=== PATIENT | female | born 1960 | race Caucasian/White ===

== ENCOUNTER 2019-11-13 09:48 | Inpatient (IN) | payer OTHER ==
[~2019-11-13] VITALS: Ht 167.6 cm; Wt 67.0 kg
[2019-11-13 10:25] LABS: BASO % 1 % (0-3); EOS % 1 % (0-3); HEMATOCRIT 42.8 % (36.0-47.0); LYMPH # 1.7 x10^3/uL (1.0-4.8); LYMPH % 28 % (24-48); MEAN CORPUSCULAR HEMOGLOBIN 29 pg (25-35); MEAN CORPUSCULAR HGB CONC 35 g/dL (31-37); MEAN CORPUSCULAR VOLUME 83 fL (79-100); MONO # 0.4 x10^3/uL (0.0-1.1); MONO % 6 % (0-9); NEUT # 4.1 x10^3/uL (1.8-7.7); NEUT % 65 % (31-73); PLATELET COUNT 247 x10^3/uL (140-400); RED BLOOD COUNT 5.14 x10^6/uL (3.50-5.40); RED CELL DISTRIBUTION WIDTH 15.9 % (11.5-14.5); WHITE BLOOD COUNT 6.3 x10^3/uL (4.0-11.0)
[2019-11-13 10:29] LABS: ANION GAP 21 (6-14); BLOOD UREA NITROGEN 20 mg/dL (7-20); BUN/CREATININE RATIO 29 (6-20); CALCIUM 8.3 mg/dL (8.5-10.1); CARBON DIOXIDE 14 mmol/L (21-32); CHLORIDE 94 mmol/L (98-107); CREATININE 0.7 mg/dL (0.6-1.0); GFR 85.9; GLUCOSE 477 mg/dL (70-99); POTASSIUM 3.7 mmol/L (3.5-5.1); SODIUM 129 mmol/L (136-145)
[2019-11-13 10:36] LABS: ALBUMIN 3.6 g/dL (3.4-5.0); ALK PHOS 99 U/L (46-116); TOTAL BILIRUBIN 1.1 mg/dL (0.2-1.0)
[2019-11-13 10:55] LABS: ALBUMIN/GLOBULIN RATIO 1.1 (1.0-1.7)
[2019-11-13 11:27] LABS: BILIRUBIN,URINE NEGATIVE (NEG); CLARITY,URINE CLEAR; COLOR,URINE YELLOW; NITRITE,URINE NEGATIVE (NEG); PROTEIN,URINE NEGATIVE (NEG-TRACE); UROBILINOGEN,URINE 0.2 mg/dL (0.2 mg/dL)
[2019-11-13 11:30] LABS: SQUAMOUS EPITHELIAL CELL,UR OCC /LPF
[2019-11-13] MEDS ORDERED: IOHEXOL 240 MG/ML 50ML VIAL. PO ONE (11:30)
[2019-11-13] MEDS ORDERED: CONTRAST GIVEN. MC PRN (11:30)
[2019-11-13] MEDS ORDERED: IOHEXOL 300 MG/ML 100ML VIAL. IV ONE (11:30)
[2019-11-13 11:31] LABS: BACTERIA,URINE 0 /HPF (0-FEW); RBC,URINE OCC /HPF (0-2); WBC,URINE 0 /HPF (0-4)
[2019-11-13 11:33] LABS: LIPASE 14591 U/L (73-393)
[2019-11-13] MEDS ORDERED: IV NORMAL SALINE 1000ML BAG 1,000 ML IV ONE (12:15)
[2019-11-13] MEDS ORDERED: MORPHINE SULFATE 10 MG/ML VIAL. IV ONE ×2 (12:30→13:45)
--- NOTE | 2019-11-13 12:50 | RAD ---
Examination: CT ABD PELV W/ORAL IV CONTRAST History: Mid abdominal pain Comparison/Correlation: 01/08/2009 CT abdomen and pelvis without contrast Findings: Axial images of the abdomen and pelvis were obtained following IV and oral contrast. Sagittal and coronal reformatted images were provided. Mild bibasilar costophrenic sulcus atelectasis is present. Bilateral carotid cholecystectomy noted. Liver and spleen are unremarkable. At the inferior tip of the right hepatic lobe, there is a very small to characterize low-attenuation lesion which is present on axial image 49. This may represent a cyst or other benign process. Stranding about the pancreas with surrounding edema is noted. Edema extends along the left lateral conal fascia. Low-attenuation involving the distal duodenum on axial image 49 is present measuring 0.6 cm diameter. Within the right proximal jejunum on coronal image 23, there is a linear fat attenuation structure measuring 2.1 cm x 0.4 cm. These have the appearance of benign lipomas. There is no bowel obstruction. No extraluminal gas. Moderate quantity of stool in the colon is present. Appendix is normal. No inflammatory change about the cecum. Urinary bladder is unremarkable. Lower lumbar spine facet joint degenerative remodeling is present. Transitional L5 vertebra is present. Hysterectomy noted. Impression: Findings of acute pancreatitis. No loculated collections. No biliary dilatation. 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 PQRS Compliance Statement: One or more of the following individualized dose reduction techniques were utilized for this examination: 1. Automated exposure control 2. Adjustment of the mA and/or kV according to patient size 3. Use of iterative reconstruction technique Electronically signed by: Mauro Barfield MD (11/13/2019 12:47 PM) [id number]
--- NOTE | 2019-11-13 13:37 | PDOC1 ---
History and Physical Date of Admission Date of Admission DATE: 11/13/19 TIME: 13:30 Identification/Chief Complaint Chief Complaint Nausea, vomiting, abdominal pain Source Source: Patient History of Present Illness History of Present Illness Ms Fernandez is a 59yo F [employer] w/ PMHx celiac disease, adult onset stills disease, Anemia, Asthma, CHERIE on CPAP, GERD who presents with severe upper abdominal pain, nausea, vomiting, fatigue. 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 She only had oatmeal for breakfast. She has never had anything similar to this in the past. She generally feels unwell. She is not had any fever, diarrhea, chest pain, shortness of breath, dysuria, hematuria, blood in her stools. She denies alcohol abuse. Pain does not move anywhere. Nothing seems to make it better or worse. She has not tried anything at home. He does not drink alcohol, and is status post cholecystect amena. No calcium disorders. She takes 20mg methotrexate weekly on Fridays and is on 3 mg of chronic prednisone for her stills disease. She was diagnosed with celiac disease June 2019 and has just recently started on a gluten-free diet. No recent sick contacts that she can recall. Labs significant for lipase 73413, glucose 477, NA 129, bilirubin 1.1, Calcium 8.3, K 3.7, WBC 6.3, Hb 15, Platelets 247 CT abdomen pelvis shows surgically absent gallbladder and surgically absent uterus and describes duodenal and jejunal intraluminal lipomas. Findings of acute pancreatitis. No loculated collections. No biliary dilatation. Admitted for further treatment. Past Medical History Pulmonary: Asthma, Other (CHERIE on CPAP) GI: GERD, Other (Celiac disease) Heme/Onc: Anemia NOS Rheumatologic: Other (Stills disease) Dermatology: No pertinent hx Past Surgical History Past Surgical History: Cholecystectomy, Hysterectomy, Other (Bilateral bunionectomy, right shoulder arthroscopy) Family History Family History: Diabetes Social History Smoke: Quit ALCOHOL: none Drugs: None Current Medications Current Medications Current Medications Iohexol (Omnipaque 300 Mg/ml) 75 ml 1X ONCE IV Last administered on 11/13/19at 11:30; Start 11/13/19 at 11:30; Stop 11/13/19 at 11:31; Status DC Iohexol (Omnipaque 240 Mg/ml) 50 ml 1X ONCE PO Last administered on 11/13/19at 11:30; Start 11/13/19 at 11:30; Stop 11/13/19 at 11:31; Status DC Info (CONTRAST GIVEN -- Rx MONITORING) 1 each PRN DAILY PRN MC SEE COMMENTS; Start 11/13/19 at 11:30; Stop 11/15/19 at 11:29 Sodium Chloride 1,000 ml @ 0 mls/hr 1X ONCE IV Last administered on 11/13/19at 12:27; Start 11/13/19 at 12:15; Stop 11/13/19 at 12:16; Status DC Morphine Sulfate (Morphine Sulfate) 5 mg 1X ONCE IV Last administered on 11/13/19at 12:45; Start 11/13/19 at 12:30; Stop 11/13/19 at 12:33; Status DC Allergies Allergies: Coded Allergies: coconut (Verified Allergy, Intermediate, HIVES, 11/13/19) ROS General: YES: Fatigue, Malaise; No: Chills, Night Sweats, Appetite, Other PSYCHOLOGICAL ROS: No: Anxiety, Behavioral Disorder, Concentration difficultie, Decreased libido, Depression, Disorientation, Hallucinations, Hostility, Irritablity, Memory difficulties, Mood Swings, Obsessive thoughts, Physical abuse, Sexual abuse, Sleep disturbances, Suicidal ideation, Other Eyes: No Blurry vision, No Decreased vision, No Double vision, No Dry eyes, No Excessive tearing, No Eye Pain, No Itchy Eyes, No Loss of vision, No Photophobia, No Scotomata, No Uses contacts, No Uses glasses, No Other HEENT: No: Heacaches, Visual Changes, Hearing change, Nasal congestion, Nasal discharge, Oral lesions, Sinus pain, Sore Throat, Epistaxis, Sneezing, Snoring, Tinnitus, Vertigo, Vocal changes, Other ALLERGY AND IMMUNOLOGY: No: Hives, Insect Bite Sensitivity, Itchy/Watery Eyes, Nasal Congestion, Post Nasal Drip, Seasonal Allergies, Other Hematological and Lymphatic: No: Bleeding Problems, Blood Clots, Blood Transfusions, Brusing, Night Sweats, Pallor, Swollen Lymph Nodes, Other ENDOCRINE: No: Breast Changes, Galactorrhea, Hair Pattern Changes, Hot Flashes, Malaise/lethargy, Mood Swings, Palpitations, Polydipsia/polyuria, Skin Changes, Temperature Intolerance, Unexpected Weight Changes, Other Breast: No New/Changing Breast Lumps, No Nipple changes, No Nipple discharge, No Other Respiratory: No: Cough, Hemoptysis, Orthopnea, Pleuritic Pain, Shortness of breath, SOB with excertion, Sputum Changes, Stridor, Tachypnea, Wheezing, Other Cardiovascular: No Chest Pain, No Palpitations, No Orthopnea, No Paroxysmal Noc. Dyspnea, No Edema, No Lt Headedness, No Other Gastrointestinal: Yes Nausea, Yes Vomiting, Yes Abdominal Pain; No Diarrhea, No Constipation, No Melena, No Hematochezia, No Other Genitourinary: No Dysuria, No Frequency, No Incontinence, No Hematuria, No Retention, No Discharge, No Urgency, No Pain, No Flank Pain, No Other, No , No , No , No , No , No , No Musculoskeletal: No Gait Disturbance, No Joint Pain, No Joint Stiffness, No Joint Swelling, No Muscle Pain, No Muscular Weakness, No Pain In:, No Swelling In:, No Other Neurological: No Behavorial Changes, No Bowel/Bladder ControlChng, No Confusion, No Dizziness, No Gait Disturbance, No Headaches, No Impaired Coord/balance, No Memory Loss, No Numbness/Tingling, No Seizures, No Speech Problems, No Tremors, No Visual Changes, No Weakness, No Other Skin: No Dry Skin, No Eczema, No Hair Changes, No Lumps, No Mole Changes, No Mottling, No Nail Changes, No Pruritus, No Rash, No Skin Lesion Changes, No Other, No Acne Physical Exam General: Alert, Oriented X3, Cooperative, moderate distress HEENT: Atraumatic, PERRLA, EOMI, Mucous membr. moist/pink Lungs: Clear to auscultation, Normal air movement Heart: S1S2, RRR, no thrills, no rubs, no gallops, no murmurs Abdomen: Normal bowel sounds, Soft, No hepatosplenomegaly, No masses, Other (Diffuse tenderness) Rectal Exam: not examined Extremities: No clubbing, No cyanosis, No edema, Normal pulses, No tenderness/swelling Skin: No rashes, No breakdown, No significant lesion Neuro: Normal gait, Normal speech, Strength at 5/5 X4 ext, Normal tone, Sens ation intact, Cranial nerves 3-12 NL, Reflexes 2+ Psych/Mental Status: Mental status NL, Mood NL Vitals Vitals Vital Signs Date Time Temp Pulse Resp B/P (MAP) Pulse Ox O2 Delivery O2 Flow Rate FiO2 11/13/19 12:45 19 94 Room Air 11/13/19 11:52 78 138/79 (98) 11/13/19 09:48 97.4 97.4 Labs Labs Laboratory Tests Test 11/13/19 10:00 11/13/19 11:17 White Blood Count 6.3 x10^3/uL (4.0-11.0) Red Blood Count 5.14 x10^6/uL (3.50-5.40) Hemoglobin 15.0 g/dL (12.0-15.5) Hematocrit 42.8 % (36.0-47.0) Mean Corpuscular Volume 83 fL (79-100) Mean Corpuscular Hemoglobin 29 pg (25-35) Mean Corpuscular Hemoglobin Concent 35 g/dL (31-37) Red Cell Distribution Width 15.9 % (11.5-14.5) Platelet Count 247 x10^3/uL (140-400) Neutrophils (%) (Auto) 65 % (31-73) Lymphocytes (%) (Auto) 28 % (24-48) Monocytes (%) (Auto) 6 % (0-9) Eosinophils (%) (Auto) 1 % (0-3) Basophils (%) (Auto) 1 % (0-3) Neutrophils # (Auto) 4.1 x10^3/uL (1.8-7.7) Lymphocytes # (Auto) 1.7 x10^3/uL (1.0-4.8) Monocytes # (Auto) 0.4 x10^3/uL (0.0-1.1) Eosinophils # (Auto) 0.0 x10^3/uL (0.0-0.7) Basophils # (Auto) 0.0 x10^3/uL (0.0-0.2) Sodium Level 129 mmol/L (136-145) Potassium Level 3.7 mmol/L (3.5-5.1) Chloride Level 94 mmol/L (98-107) Carbon Dioxide Level 14 mmol/L (21-32) Anion Gap 21 (6-14) Blood Urea Nitrogen 20 mg/dL (7-20) Creatinine 0.7 mg/dL (0.6-1.0) Estimated GFR (Cockcroft-Gault) 85.9 BUN/Creatinine Ratio 29 (6-20) Glucose Level 477 mg/dL (70-99) Calcium Level 8.3 mg/dL (8.5-10.1) Total Bilirubin 1.1 mg/dL (0.2-1.0) Aspartate Amino Transf (AST/SGOT) U/L (15-37) Alanine Aminotransferase (ALT/SGPT) U/L (14-59) Alkaline Phosphatase 99 U/L (46-116) Total Protein 7.0 g/dL (6.4-8.2) Albumin 3.6 g/dL (3.4-5.0) Albumin/Globulin Ratio 1.1 (1.0-1.7) Lipase 50700 U/L (73-393) Urine Collection Type Unknown Urine Color Yellow Urine Clarity Clear Urine pH 6.0 (<5.0-8.0) Urine Specific Ripton >=1.030 (1.000-1.030) Urine Protein Negative mg/dL (NEG-TRACE) Urine Glucose (UA) >=1000 mg/dL (NEG) Urine Ketones (Stick) 40 mg/dL (NEG) Urine Blood Negative (NEG) Urine Nitrite Negative (NEG) Urine Bilirubin Negative (NEG) Urine Urobilinogen Dipstick 0.2 mg/dL (0.2 mg/dL) Urine Leukocyte Esterase Negative (NEG) Urine RBC Occ /HPF (0-2) Urine WBC 0 /HPF (0-4) Urine Squamous Epithelial Cells Occ /LPF Urine Bacteria 0 /HPF (0-FEW) Laboratory Tests Test 11/13/19 10:00 11/13/19 11:17 White Blood Count 6.3 x10^3/uL (4.0-11.0) Red Blood Count 5.14 x10^6/uL (3.50-5.40) Hemoglobin 15.0 g/dL (12.0-15.5) Hematocrit 42.8 % (36.0-47.0) Mean Corpuscular Volume 83 fL (79-100) Mean Corpuscular Hemoglobin 29 pg (25-35) Mean Corpuscular Hemoglobin Concent 35 g/dL (31-37) Red Cell Distribution Width 15.9 % (11.5-14.5) Platelet Count 247 x10^3/uL (140-400) Neutrophils (%) (Auto) 65 % (31-73) Lymphocytes (%) (Auto) 28 % (24-48) Monocytes (%) (Auto) 6 % (0-9) Eosinophils (%) (Auto) 1 % (0-3) Basophils (%) (Auto) 1 % (0-3) Neutrophils # (Auto) 4.1 x10^3/uL (1.8-7.7) Lymphocytes # (Auto) 1.7 x10^3/uL (1.0-4.8) Monocytes # (Auto) 0.4 x10^3/uL (0.0-1.1) Eosinophils # (Auto) 0.0 x10^3/uL (0.0-0.7) Basophils # (Auto) 0.0 x10^3/uL (0.0-0.2) Sodium Level 129 mmol/L (136-145) Potassium Level 3.7 mmol/L (3.5-5.1) Chloride Level 94 mmol/L (98-107) Carbon Dioxide Level 14 mmol/L (21-32) Anion Gap 21 (6-14) Blood Urea Nitrogen 20 mg/dL (7-20) Creatinine 0.7 mg/dL (0.6-1.0) Estimated GFR (Cockcroft-Gault) 85.9 BUN/Creatinine Ratio 29 (6-20) Glucose Level 477 mg/dL (70-99) Calcium Level 8.3 mg/dL (8.5-10.1) Total Bilirubin 1.1 mg/dL (0.2-1.0) Aspartate Amino Transf (AST/SGOT) U/L (15-37) Alanine Aminotransferase (ALT/SGPT) U/L (14-59) Alkaline Phosphatase 99 U/L (46-116) Total Protein 7.0 g/dL (6.4-8.2) Albumin 3.6 g/dL (3.4-5.0) Albumin/Globulin Ratio 1.1 (1.0-1.7) Lipase 08488 U/L (73-393) Urine Collection Type Unknown Urine Color Yellow Urine Clarity Clear Urine pH 6.0 (<5.0-8.0) Urine Specific Ripton >=1.030 (1.000-1.030) Urine Protein Negative mg/dL (NEG-TRACE) Urine Glucose (UA) >=1000 mg/dL (NEG) Urine Ketones (Stick) 40 mg/dL (NEG) Urine Blood Negative (NEG) Urine Nitrite Negative (NEG) Urine Bilirubin Negative (NEG) Urine Urobilinogen Dipstick 0.2 mg/dL (0.2 mg/dL) Urine Leukocyte Esterase Negative (NEG) Urine RBC Occ /HPF (0-2) Urine WBC 0 /HPF (0-4) Urine Squamous Epithelial Cells Occ /LPF Urine Bacteria 0 /HPF (0-FEW) Images Images CT abdomen - Mild bibasilar costophrenic sulcus atelectasis is present. Bilateral carotid cholecystectomy noted. Liver and spleen are unremarkable. At the inferior tip of the right hepatic lobe, there is a very small to characterize low-attenuation lesion which is present on axial image 49. This may represent a cyst or other benign process. Stranding about the pancreas with surrounding edema is noted. Edema extends along the left lateral conal fascia. Low-attenuation involving the distal duodenum on axial image 49 is present measuring 0.6 cm diameter. Within the right proximal jejunum on coronal image 23, there is a linear fat attenuation structure measuring 2.1 cm x 0.4 cm. These have the appearance of benign lipomas. There is no bowel obstruction. No extraluminal gas. Moderate quantity of stool in the colon is present. Appendix is normal. No inflammatory change about the cecum. Urinary bladder is unremarkable. Lower lumbar spine facet joint degenerative remodeling is present. Transitional L5 vertebra is present. Hysterectomy noted. Impression: Findings of acute pancreatitis. No loculated collections. No biliary dilatation. 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 VTE Prophylaxis Ordered VTE Prophylaxis Devices: No VTE Pharmacological Prophylaxi: Yes Assessment/Plan Assessment/Plan A/P: Acute pancreatitis - with N/V, abdominal pain and elevated lipase, CT confirmed. Will keep NPO, pain control. IV fluids. Consult GI. Hold methotrexate. 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 Anemia - likely related to chronic disease. Asthma - prn nebs CHERIE on CPAP - can bring her home CPAP vs O2 nocturnal GERD - PPI IV FEN - NPO PPX - lovenox FULL CODE Dispo - inpatient for above GERMÁN BEGUM MD November 13, 2019 13:37
[2019-11-13 14:16] VITALS: BP 126/78
[2019-11-13] MEDS ORDERED: METH2.5T PO (14:27)
[2019-11-13] MEDS ORDERED: FERR325T14 PO (14:27)
[2019-11-13] MEDS ORDERED: PANT40TA77 PO (14:27)
[2019-11-13] MEDS ORDERED: CETI10CA PO (14:27)
[2019-11-13] MEDS ORDERED: FOLI0.8C PO (14:27)
--- NOTE | 2019-11-13 14:41 | PHYS DOC ---
Past Medical History Past Medical History: Anemia, Asthma, GERD, Other Additional Past Medical Histor: CELIAC,ADULT ONSET STILL'S DISEASE Past Surgical History: Cholecystectomy, Hysterectomy, Other Additional Past Surgical Histo: R SHOULDER,BILAT BUNIONECTOMY Smoking Status: Former Smoker Alcohol Use: None General Adult EDM: Chief Complaint: ABDOMINAL PAIN HPI: HPI: Patient is a 59 year old female who presents with severe upper abdominal pain, nausea, vomiting, fatigue. She states this started suddenly this morning while she was working from home on [employer]. She has never had anything similar to this in the past. She generally feels unwell. She is not had any fever, diarrhea, chest pain, shortness of breath, dysuria, hematuria, blood in her stools. She denies alcohol abuse. Pain does not move anywhere. Nothing seems to make it better or worse. She has not tried anything at home. Review of Systems: Review of Systems: General: Denies fever, chills, sweats, fatigue Eyes: Denies drainage, blurred vision HENT: Denies rhinorrhea, sore throat Respiratory: Denies cough, shortness of breath, wheezing Cardiac: Denies edema, palpitations, chest pain GI: Reports abdominal pain, N/V MSK: Denies back pain, neck pain Skin: Denies rash, jaundice Neuro: Denies headache, dizziness Psychiatric: Denies SI/HI Heart Score: Risk Factors: Risk Factors: DM, Current or recent (<one month) smoker, HTN, HLP, family history of CAD, obesity. Risk Scores: Score 0 - 3: 2.5% MACE over next 6 weeks - Discharge Home Score 4 - 6: 20.3% MACE over next 6 weeks - Admit for Clinical Observation Score 7 - 10: 72.7% MACE over next 6 weeks - Early Invasive Strategies Current Medications: Current Medications Medications (Trade) Dose Ordered Sig/Devin Start Time Stop Time Status Last Admin Dose Admin Info (CONTRAST GIVEN -- Rx MONITORING) 1 each PRN DAILY PRN 11/13/19 11:30 11/15/19 11:29 Iohexol (Omnipaque 240 Mg/ml) 50 ml 1X ONCE 11/13/19 11:30 11/13/19 11:31 DC 11/13/19 11:30 50 ML Iohexol (Omnipaque 300 Mg/ml) 75 ml 1X ONCE 11/13/19 11:30 11/13/19 11:31 DC 11/13/19 11:30 75 ML Morphine Sulfate (Morphine Sulfate) 5 mg 1X ONCE 11/13/19 12:30 11/13/19 12:33 DC 11/13/19 12:45 5 MG Sodium Chloride 1,000 ml @ 0 mls/hr 1X ONCE 11/13/19 12:15 11/13/19 12:16 DC 11/13/19 12:27 1,000 MLS/HR Allergies: Allergies: Allergies Coded Allergies Type Severity Reaction Last Updated Verified coconut Allergy Intermediate HIVES 11/13/19 Yes Physical Exam: PE: Constitutional: Well developed, well nourished, Cooperative, NAD, ill appearing HEENT: Normocephalic, atraumatic, oropharynx dry, EOMI, PERRL, no drainage from eyes, normal conjunctiva Neck: Supple, normal range of motion, no stridor Cardiovascular: Tachycardic, 2+ radial pulses bilaterally, no edema Respiratory: CTA bilaterally, no respiratory distress, no wheezing/crackles Abdomen: Soft, epigastric and periumbilical tenderness, nondistended, no masses Skin: Warm, dry, intact Extremities: No obvious deformities Neurologic: Alert and Oriented x3, motor and sensory function grossly normal, no focal deficits Psychologic: Normal affect, normal judgment, normal mood. No SI/HI Current Patient Data: Labs: Laboratory Tests Test 11/13/19 10:00 11/13/19 11:17 White Blood Count 6.3 x10^3/uL (4.0-11.0) Red Blood Count 5.14 x10^6/uL (3.50-5.40) Hemoglobin 15.0 g/dL (12.0-15.5) Hematocrit 42.8 % (36.0-47.0) Mean Corpuscular Volume 83 fL (79-100) Mean Corpuscular Hemoglobin 29 pg (25-35) Mean Corpuscular Hemoglobin Concent 35 g/dL (31-37) Red Cell Distribution Width 15.9 % (11.5-14.5) H Platelet Count 247 x10^3/uL (140-400) Neutrophils (%) (Auto) 65 % (31-73) Lymphocytes (%) (Auto) 28 % (24-48) Monocytes (%) (Auto) 6 % (0-9) Eosinophils (%) (Auto) 1 % (0-3) Basophils (%) (Auto) 1 % (0-3) Neutrophils # (Auto) 4.1 x10^3/uL (1.8-7.7) Lymphocytes # (Auto) 1.7 x10^3/uL (1.0-4.8) Monocytes # (Auto) 0.4 x10^3/uL (0.0-1.1) Eosinophils # (Auto) 0.0 x10^3/uL (0.0-0.7) Basophils # (Auto) 0.0 x10^3/uL (0.0-0.2) Sodium Level 129 mmol/L (136-145) L Potassium Level 3.7 mmol/L (3.5-5.1) Chloride Level 94 mmol/L (98-107) L Carbon Dioxide Level 14 mmol/L (21-32) L Anion Gap 21 (6-14) H Blood Urea Nitrogen 20 mg/dL (7-20) Creatinine 0.7 mg/dL (0.6-1.0) Estimated GFR (Cockcroft-Gault) 85.9 BUN/Creatinine Ratio 29 (6-20) H Glucose Level 477 mg/dL (70-99) H Calcium Level 8.3 mg/dL (8.5-10.1) L Total Bilirubin 1.1 mg/dL (0.2-1.0) H Aspartate Amino Transferase (AST) U/L (15-37) Alanine Aminotransferase (ALT) U/L (14-59) Alkaline Phosphatase 99 U/L (46-116) Total Protein 7.0 g/dL (6.4-8.2) Albumin 3.6 g/dL (3.4-5.0) Albumin/Globulin Ratio 1.1 (1.0-1.7) Lipase 55722 U/L (73-393) H Urine Collection Type Unknown Urine Color Yellow Urine Clarity Clear Urine pH 6.0 (<5.0-8.0) Urine Specific Premier >=1.030 (1.000-1.030) Urine Protein Negative mg/dL (NEG-TRACE) Urine Glucose (UA) >=1000 mg/dL (NEG) Urine Ketones (Stick) 40 mg/dL (NEG) Urine Blood Negative (NEG) Urine Nitrite Negative (NEG) Urine Bilirubin Negative (NEG) Urine Urobilinogen Dipstick 0.2 mg/dL (0.2 mg/dL) Urine Leukocyte Esterase Negative (NEG) Urine RBC Occ /HPF (0-2) Urine WBC 0 /HPF (0-4) Urine Squamous Epithelial Cells Occ /LPF Urine Bacteria 0 /HPF (0-FEW) Laboratory Tests 11/13/19 10:00 Laboratory Tests 11/13/19 10:00 Vital Signs: Vital Signs Date Time Temp Pulse Resp B/P (MAP) Pulse Ox O2 Delivery O2 Flow Rate FiO2 11/13/19 14:16 97.9 92 20 126/78 (94) 95 Room Air 97.9 EKG: EKG: [] Radiology/Procedures: Radiology/Procedures: [] Course & Med Decision Making: Course & Med Decision Making Pertinent Labs and Imaging studies reviewed. (See chart for details) Patient is a 59-year-old female presents to the emergency room complaining of severe abdominal pain, nausea, vomiting. Patient has significant tenderness. She is ill-appearing on exam. Vitals are otherwise stable. Abdominal labs including CBC, LFTs, BMP, lipase, UA were ordered. CT abdomen pelvis was also ordered due to significant tenderness and patient's age. Labs are suggestive of pancreatitis. Patient does have some electrolyte abnormalities and will be given fluids and pain medicine down here in the emergency room. I have discussed the results with her and have recommended admission. Patient is in agreement with plan. She will be admitted for further care. Dragon Disclaimer: Dragon Disclaimer: This electronic medical record was generated, in whole or in part, using a voice recognition dictation system. Departure Departure Impression: Primary Impression: Pancreatitis, acute Additional Impressions: Dehydration Hyperglycemia Disposition: ADMITTED INPATIENT Condition: STABLE Referrals: SIMEON MOORE MD (PCP) RENITA CALI MD November 13, 2019 14:40
[2019-11-13] MEDS ORDERED: ACETAMINOPHEN 650 MG SUPP.RECT. PR PRN (14:45)
[2019-11-13] MEDS ORDERED: DEXTROSE 50% 25 GM / 50ML DISP.SYRIN. IV PRN (14:45)
[2019-11-13] MEDS ORDERED: ALBUTEROL SULFATE 2.5 MG/3 ML NEBU. NEB PRN (15:15)
[2019-11-13] MEDS ORDERED: SODIUM CHLORIDE 0.65% NASAL SPRAY 45ML BOTTLE. NS PRN (15:15)
[2019-11-13] MEDS: methylPREDNISolone SOD SUCC PF 40 MG/ML VIAL. IV SCH (15:49)
[2019-11-13] MEDS: IV NORMAL SALINE 1000ML BAG 1,000 ML IV SCH (15:49)
[2019-11-13] MEDS: ENOXAPARIN 40 MG/0.4 ML SYRINGE. SQ SCH (15:50)
[2019-11-13 15:51] LABS: CHOLESTEROL 418 mg/dL (0-200)
[2019-11-13] MEDS: MORPHINE SULFATE 4 MG/ML VIAL. IV PRN ×3 (15:56→23:10)
[2019-11-13 16:30] LABS: TRIGLYCERIDES 3252 mg/dL (0-150); VLDLC 650 mg/dL (0-40)
[2019-11-13] MEDS: INSULIN LISPRO 300 UNITS/3 ML VIAL. SQ SCH ×2 (16:52→20:00)
[2019-11-13] MEDS: INSULIN REGULAR VIAL 100 UNIT in IV NORMAL SALINE 100ML 100 ML IV PRN (18:13)
[2019-11-13 19:31] VITALS: BP 117/64
[2019-11-13 22:40] VITALS: BP 111/56
[2019-11-14] VITALS (7 sets, daily range): BP systolic 106–135; BP diastolic 58–77
[2019-11-14] MEDS: IV NORMAL SALINE 1000ML BAG 1,000 ML IV SCH ×2 (02:02→12:17)
[2019-11-14] MEDS: MORPHINE SULFATE 4 MG/ML VIAL. IV PRN ×3 (02:10→09:09)
[2019-11-14] MEDS: INSULIN REGULAR VIAL 100 UNIT in IV NORMAL SALINE 100ML 100 ML IV PRN (02:12)
[2019-11-14] MEDS: INSULIN LISPRO 300 UNITS/3 ML VIAL. SQ SCH ×6 (03:30→20:28)
[2019-11-14 04:10] LABS: BASO % 1 % (0-3); EOS % 0 % (0-3); HEMATOCRIT 40.4 % (36.0-47.0); HEMOGLOBIN 13.8 g/dL (12.0-15.5); LYMPH # 0.8 x10^3/uL (1.0-4.8); LYMPH % 17 % (24-48); MEAN CORPUSCULAR HEMOGLOBIN 28 pg (25-35); MEAN CORPUSCULAR HGB CONC 34 g/dL (31-37); MEAN CORPUSCULAR VOLUME 83 fL (79-100); MONO # 0.7 x10^3/uL (0.0-1.1); MONO % 16 % (0-9); NEUT # 2.9 x10^3/uL (1.8-7.7); NEUT % 66 % (31-73); PLATELET COUNT 217 x10^3/uL (140-400); RED BLOOD COUNT 4.87 x10^6/uL (3.50-5.40); RED CELL DISTRIBUTION WIDTH 16.2 % (11.5-14.5); WHITE BLOOD COUNT 4.5 x10^3/uL (4.0-11.0)
[2019-11-14 04:52] LABS: ALBUMIN 2.9 g/dL (3.4-5.0); ALBUMIN/GLOBULIN RATIO 0.8 (1.0-1.7); CALCIUM 7.8 mg/dL (8.5-10.1); CREATININE 0.8 mg/dL (0.6-1.0); GFR 73.7; POTASSIUM 4.2 mmol/L (3.5-5.1); TOTAL BILIRUBIN 0.8 mg/dL (0.2-1.0); TOTAL PROTEIN 6.4 g/dL (6.4-8.2)
[2019-11-14 07:14] LABS: HEMOGLOBIN A1C 13.6 % (4.8-5.6)
[2019-11-14] MEDS: methylPREDNISolone SOD SUCC PF 40 MG/ML VIAL. IV SCH (09:10)
--- NOTE | 2019-11-14 09:39 | PDOC2 ---
CONSULT Date of Consult Date of Consult DATE: 11/14/19 TIME: 09:38 Reason for Consult Reason for Consult: Acute pancreatitis s/p rosalina Past Medical History Pulmonary: Asthma, Other (CHERIE on CPAP) GI: GERD, Other (Celiac disease) Heme/Onc: Anemia NOS Rheumatologic: Other (Stills disease) Dermatology: No pertinent hx Past Surgical History Past Surgical History: Cholecystectomy, Hysterectomy, Other (Bilateral bunionectomy, right shoulder arthroscopy) Family History Family History: Diabetes Social History Quit ALCOHOL: none Drugs: None Current Problem List Problem List Problems Medical Problems: (1) Dehydration Status: Acute (2) Hyperglycemia Status: Acute (3) Pancreatitis, acute Status: Acute Current Medications Current Medications Current Medications Iohexol (Omnipaque 300 Mg/ml) 75 ml 1X ONCE IV Last administered on 11/13/19at 11:30; Start 11/13/19 at 11:30; Stop 11/13/19 at 11:31; Status DC Iohexol (Omnipaque 240 Mg/ml) 50 ml 1X ONCE PO Last administered on 11/13/19at 11:30; Start 11/13/19 at 11:30; Stop 11/13/19 at 11:31; Status DC Info (CONTRAST GIVEN -- Rx MONITORING) 1 each PRN DAILY PRN MC SEE COMMENTS; Start 11/13/19 at 11:30; Stop 11/15/19 at 11:29 Sodium Chloride 1,000 ml @ 0 mls/hr 1X ONCE IV Last administered on 11/13/19at 12:27; Start 11/13/19 at 12:15; Stop 11/13/19 at 12:16; Status DC Morphine Sulfate (Morphine Sulfate) 5 mg 1X ONCE IV Last administered on 11/13/19at 12:45; Start 11/13/19 at 12:30; Stop 11/13/19 at 12:33; Status DC Morphine Sulfate (Morphine Sulfate) 5 mg 1X ONCE IV ; Start 11/13/19 at 13:45; Stop 11/13/19 at 13:46; Status DC Morphine Sulfate (Morphine Sulfate) 4 mg PRN Q2HR PRN IV MODERATE TO SEVERE PAIN Last administered on 11/14/19at 09:09; Start 11/13/19 at 14:45 Sodium Chloride 1,000 ml @ 100 mls/hr Q10H IV Last administered on 11/14/19at 02:02; Start 11/13/19 at 14:44 Ondansetron HCl (Zofran) 4 mg PRN Q4HRS PRN IV NAUSEA/VOMITING; Start 11/13/19 at 14:45 Acetaminophen (Tylenol Supp) 650 mg PRN Q4HRS PRN CO TEMP OVER 100.4F OR MILD PAIN; Start 11/13/19 at 14:45 Enoxaparin Sodium (Lovenox 40mg Syringe) 40 mg Q24H SQ Last administered on 11/13/19at 15:50; Start 11/13/19 at 15:00 Insulin Human Lispro (HumaLOG) 0-9 UNITS Q4HRS SQ Last administered on 11/14/19at 09:16; Start 11/13/19 at 16:00 Dextrose (Dextrose 50%-Water Syringe) 12.5 gm PRN Q15MIN PRN IV SEE COMMENTS; Start 11/13/19 at 14:45 Albuterol Sulfate (Ventolin Neb Soln) 3 mg PRN QID PRN NEB SHORTNESS OF BREATH; Start 11/13/19 at 15:15 Sodium Chloride (Saline Mist Nasal) 1 mago PRN Q1HR PRN NS NASAL CONGESTION; Start 11/13/19 at 15:15 Methylprednisolone Sodium Succinate (SOLU-Medrol 40MG VIAL) 40 mg DAILY IV Last administered on 11/14/19at 09:10; Start 11/13/19 at 15:15 Insulin Human Regular 100 unit/ Sodium Chloride 101 ml @ 0 mls/hr CONT PRN IV SEE I/O RECORD Last administered on 11/14/19at 02:12; Start 11/13/19 at 18:00 Active Scripts Active Reported Zyrtec (Cetirizine Hcl) 10 Mg Capsule 10 Mg PO DAILY Methotrexate (Methotrexate Sodium) 2.5 Mg Tablet 8 Tab PO WEEKLY Protonix (Pantoprazole Sodium) 40 Mg Tablet.dr 40 Mg PO DAILYAC Folic Acid 0.8 Mg Capsule 1 Cap PO DAILY 30 Days Ferrous Sulfate 325 Mg Tablet 1 Tab PO DAILY Allergies Allergies: Coded Allergies: coconut (Verified Allergy, Intermediate, HIVES, 11/13/19) Vitals VITALS Vital Signs Date Time Temp Pulse Resp B/P (MAP) Pulse Ox O2 Delivery O2 Flow Rate FiO2 11/14/19 09:09 Room Air 5/27/20 06:32 98.4 98 20 115/58 (77) 99 98.4 Labs Labs Laboratory Tests Test 11/13/19 10:00 11/13/19 11:17 11/13/19 16:28 11/13/19 18:04 White Blood Count 6.3 x10^3/uL (4.0-11.0) Red Blood Count 5.14 x10^6/uL (3.50-5.40) Hemoglobin 15.0 g/dL (12.0-15.5) Hematocrit 42.8 % (36.0-47.0) Mean Corpuscular Volume 83 fL (79-100) Mean Corpuscular Hemoglobin 29 pg (25-35) Mean Corpuscular Hemoglobin Concent 35 g/dL (31-37) Red Cell Distribution Width 15.9 % (11.5-14.5) Platelet Count 247 x10^3/uL (140-400) Neutrophils (%) (Auto) 65 % (31-73) Lymphocytes (%) (Auto) 28 % (24-48) Monocytes (%) (Auto) 6 % (0-9) Eosinophils (%) (Auto) 1 % (0-3) Basophils (%) (Auto) 1 % (0-3) Neutrophils # (Auto) 4.1 x10^3/uL (1.8-7.7) Lymphocytes # (Auto) 1.7 x10^3/uL (1.0-4.8) Monocytes # (Auto) 0.4 x10^3/uL (0.0-1.1) Eosinophils # (Auto) 0.0 x10^3/uL (0.0-0.7) Basophils # (Auto) 0.0 x10^3/uL (0.0-0.2) Sodium Level 129 mmol/L (136-145) Potassium Level 3.7 mmol/L (3.5-5.1) Chloride Level 94 mmol/L (98-107) Carbon Dioxide Level 14 mmol/L (21-32) Anion Gap 21 (6-14) Blood Urea Nitrogen 20 mg/dL (7-20) Creatinine 0.7 mg/dL (0.6-1.0) Estimated GFR (Cockcroft-Gault) 85.9 BUN/Creatinine Ratio 29 (6-20) Glucose Level 477 mg/dL (70-99) Hemoglobin A1c 13.6 % (4.8-5.6) Calcium Level 8.3 mg/dL (8.5-10.1) Total Bilirubin 1.1 mg/dL (0.2-1.0) Aspartate Amino Transf (AST/SGOT) U/L (15-37) Alanine Aminotransferase (ALT/SGPT) U/L (14-59) Alkaline Phosphatase 99 U/L (46-116) Total Protein 7.0 g/dL (6.4-8.2) Albumin 3.6 g/dL (3.4-5.0) Albumin/Globulin Ratio 1.1 (1.0-1.7) Triglycerides Level 3252 mg/dL (0-150) Cholesterol Level 418 mg/dL (0-200) LDL Cholesterol, Calculated mg/dL (0-100) VLDL Cholesterol, Calculated 650 mg/dL (0-40) Non-HDL Cholesterol Calculated mg/dL (0-129) HDL Cholesterol mg/dL (40-60) Cholesterol/HDL Ratio Lipase 21412 U/L (73-393) Thyroid Stimulating Hormone (TSH) 1.635 uIU/mL (0.358-3.74) Urine Collection Type Unknown Urine Color Yellow Urine Clarity Clear Urine pH 6.0 (<5.0-8.0) Urine Specific [place] >=1.030 (1.000-1.030) Urine Protein Negative mg/dL (NEG-TRACE) Urine Glucose (UA) >=1000 mg/dL (NEG) Urine Ketones (Stick) 40 mg/dL (NEG) Urine Blood Negative (NEG) Urine Nitrite Negative (NEG) Urine Bilirubin Negative (NEG) Urine Urobilinogen Dipstick 0.2 mg/dL (0.2 mg/dL) Urine Leukocyte Esterase Negative (NEG) Urine RBC Occ /HPF (0-2) Urine WBC 0 /HPF (0-4) Urine Squamous Epithelial Cells Occ /LPF Urine Bacteria 0 /HPF (0-FEW) Glucose (Fingerstick) 391 mg/dL (70-99) 339 mg/dL (70-99) Test 11/13/19 19:04 11/13/19 20:03 11/13/19 21:06 11/13/19 22:00 Glucose (Fingerstick) 338 mg/dL (70-99) 315 mg/dL (70-99) 278 mg/dL (70-99) 229 mg/dL (70-99) Test 11/13/19 23:00 11/14/19 00:00 11/14/19 00:50 11/14/19 02:03 Glucose (Fingerstick) 190 mg/dL (70-99) 182 mg/dL (70-99) 174 mg/dL (70-99) 142 mg/dL (70-99) Test 11/14/19 03:05 11/14/19 04:00 11/14/19 06:52 Glucose (Fingerstick) 137 mg/dL (70-99) 273 mg/dL (70-99) White Blood Count 4.5 x10^3/uL (4.0-11.0) Red Blood Count 4.87 x10^6/uL (3.50-5.40) Hemoglobin 13.8 g/dL (12.0-15.5) Hematocrit 40.4 % (36.0-47.0) Mean Corpuscular Volume 83 fL (79-100) Mean Corpuscular Hemoglobin 28 pg (25-35) Mean Corpuscular Hemoglobin Concent 34 g/dL (31-37) Red Cell Distribution Width 16.2 % (11.5-14.5) Platelet Count 217 x10^3/uL (140-400) Neutrophils (%) (Auto) 66 % (31-73) Lymphocytes (%) (Auto) 17 % (24-48) Monocytes (%) (Auto) 16 % (0-9) Eosinophils (%) (Auto) 0 % (0-3) Basophils (%) (Auto) 1 % (0-3) Neutrophils # (Auto) 2.9 x10^3/uL (1.8-7.7) Lymphocytes # (Auto) 0.8 x10^3/uL (1.0-4.8) Monocytes # (Auto) 0.7 x10^3/uL (0.0-1.1) Eosinophils # (Auto) 0.0 x10^3/uL (0.0-0.7) Basophils # (Auto) 0.0 x10^3/uL (0.0-0.2) Sodium Level 139 mmol/L (136-145) Potassium Level 4.2 mmol/L (3.5-5.1) Chloride Level 106 mmol/L (98-107) Carbon Dioxide Level 25 mmol/L (21-32) Anion Gap 8 (6-14) Blood Urea Nitrogen 16 mg/dL (7-20) Creatinine 0.8 mg/dL (0.6-1.0) Estimated GFR (Cockcroft-Gault) 73.7 BUN/Creatinine Ratio 20 (6-20) Glucose Level 215 mg/dL (70-99) Calcium Level 7.8 mg/dL (8.5-10.1) Total Bilirubin 0.8 mg/dL (0.2-1.0) Aspartate Amino Transf (AST/SGOT) 22 U/L (15-37) Alanine Aminotransferase (ALT/SGPT) 30 U/L (14-59) Alkaline Phosphatase 78 U/L (46-116) Total Protein 6.4 g/dL (6.4-8.2) Albumin 2.9 g/dL (3.4-5.0) Albumin/Globulin Ratio 0.8 (1.0-1.7) Lipase 2384 U/L (73-393) Laboratory Tests Test 11/13/19 10:00 11/13/19 11:17 11/13/19 16:28 11/13/19 18:04 White Blood Count 6.3 x10^3/uL (4.0-11.0) Red Blood Count 5.14 x10^6/uL (3.50-5.40) Hemoglobin 15.0 g/dL (12.0-15.5) Hematocrit 42.8 % (36.0-47.0) Mean Corpuscular Volume 83 fL (79-100) Mean Corpuscular Hemoglobin 29 pg (25-35) Mean Corpuscular Hemoglobin Concent 35 g/dL (31-37) Red Cell Distribution Width 15.9 % (11.5-14.5) Platelet Count 247 x10^3/uL (140-400) Neutrophils (%) (Auto) 65 % (31-73) Lymphocytes (%) (Auto) 28 % (24-48) Monocytes (%) (Auto) 6 % (0-9) Eosinophils (%) (Auto) 1 % (0-3) Basophils (%) (Auto) 1 % (0-3) Neutrophils # (Auto) 4.1 x10^3/uL (1.8-7.7) Lymphocytes # (Auto) 1.7 x10^3/uL (1.0-4.8) Monocytes # (Auto) 0.4 x10^3/uL (0.0-1.1) Eosinophils # (Auto) 0.0 x10^3/uL (0.0-0.7) Basophils # (Auto) 0.0 x10^3/uL (0.0-0.2) Sodium Level 129 mmol/L (136-145) Potassium Level 3.7 mmol/L (3.5-5.1) Chloride Level 94 mmol/L (98-107) Carbon Dioxide Level 14 mmol/L (21-32) Anion Gap 21 (6-14) Blood Urea Nitrogen 20 mg/dL (7-20) Creatinine 0.7 mg/dL (0.6-1.0) Estimated GFR (Cockcroft-Gault) 85.9 BUN/Creatinine Ratio 29 (6-20) Glucose Level 477 mg/dL (70-99) Hemoglobin A1c 13.6 % (4.8-5.6) Calcium Level 8.3 mg/dL (8.5-10.1) Total Bilirubin 1.1 mg/dL (0.2-1.0) Aspartate Amino Transf (AST/SGOT) U/L (15-37) Alanine Aminotransferase (ALT/SGPT) U/L (14-59) Alkaline Phosphatase 99 U/L (46-116) Total Protein 7.0 g/dL (6.4-8.2) Albumin 3.6 g/dL (3.4-5.0) Albumin/Globulin Ratio 1.1 (1.0-1.7) Triglycerides Level 3252 mg/dL (0-150) Cholesterol Level 418 mg/dL (0-200) LDL Cholesterol, Calculated mg/dL (0-100) VLDL Cholesterol, Calculated 650 mg/dL (0-40) Non-HDL Cholesterol Calculated mg/dL (0-129) HDL Cholesterol mg/dL (40-60) Cholesterol/HDL Ratio Lipase 35494 U/L (73-393) Thyroid Stimulating Hormone (TSH) 1.635 uIU/mL (0.358-3.74) Urine Collection Type Unknown Urine Color Yellow Urine Clarity Clear Urine pH 6.0 (<5.0-8.0) Urine Specific [place] >=1.030 (1.000-1.030) Urine Protein Negative mg/dL (NEG-TRACE) Urine Glucose (UA) >=1000 mg/dL (NEG) Urine Ketones (Stick) 40 mg/dL (NEG) Urine Blood Negative (NEG) Urine Nitrite Negative (NEG) Urine Bilirubin Negative (NEG) Urine Urobilinogen Dipstick 0.2 mg/dL (0.2 mg/dL) Urine Leukocyte Esterase Negative (NEG) Urine RBC Occ /HPF (0-2) Urine WBC 0 /HPF (0-4) Urine Squamous Epithelial Cells Occ /LPF Urine Bacteria 0 /HPF (0-FEW) Glucose (Fingerstick) 391 mg/dL (70-99) 339 mg/dL (70-99) Test 11/13/19 19:04 11/13/19 20:03 11/13/19 21:06 11/13/19 22:00 Glucose (Fingerstick) 338 mg/dL (70-99) 315 mg/dL (70-99) 278 mg/dL (70-99) 229 mg/dL (70-99) Test 11/13/19 23:00 11/14/19 00:00 11/14/19 00:50 11/14/19 02:03 Glucose (Fingerstick) 190 mg/dL (70-99) 182 mg/dL (70-99) 174 mg/dL (70-99) 142 mg/dL (70-99) Test 11/14/19 03:05 11/14/19 04:00 11/14/19 06:52 Glucose (Fingerstick) 137 mg/dL (70-99) 273 mg/dL (70-99) White Blood Count 4.5 x10^3/uL (4.0-11.0) Red Blood Count 4.87 x10^6/uL (3.50-5.40) Hemoglobin 13.8 g/dL (12.0-15.5) Hematocrit 40.4 % (36.0-47.0) Mean Corpuscular Volume 83 fL (79-100) Mean Corpuscular Hemoglobin 28 pg (25-35) Mean Corpuscular Hemoglobin Concent 34 g/dL (31-37) Red Cell Distribution Width 16.2 % (11.5-14.5) Platelet Count 217 x10^3/uL (140-400) Neutrophils (%) (Auto) 66 % (31-73) Lymphocytes (%) (Auto) 17 % (24-48) Monocytes (%) (Auto) 16 % (0-9) Eosinophils (%) (Auto) 0 % (0-3) Basophils (%) (Auto) 1 % (0-3) Neutrophils # (Auto) 2.9 x10^3/uL (1.8-7.7) Lymphocytes # (Auto) 0.8 x10^3/uL (1.0-4.8) Monocytes # (Auto) 0.7 x10^3/uL (0.0-1.1) Eosinophils # (Auto) 0.0 x10^3/uL (0.0-0.7) Basophils # (Auto) 0.0 x10^3/uL (0.0-0.2) Sodium Level 139 mmol/L (136-145) Potassium Level 4.2 mmol/L (3.5-5.1) Chloride Level 106 mmol/L (98-107) Carbon Dioxide Level 25 mmol/L (21-32) Anion Gap 8 (6-14) Blood Urea Nitrogen 16 mg/dL (7-20) Creatinine 0.8 mg/dL (0.6-1.0) Estimated GFR (Cockcroft-Gault) 73.7 BUN/Creatinine Ratio 20 (6-20) Glucose Level 215 mg/dL (70-99) Calcium Level 7.8 mg/dL (8.5-10.1) Total Bilirubin 0.8 mg/dL (0.2-1.0) Aspartate Amino Transf (AST/SGOT) 22 U/L (15-37) Alanine Aminotransferase (ALT/SGPT) 30 U/L (14-59) Alkaline Phosphatase 78 U/L (46-116) Total Protein 6.4 g/dL (6.4-8.2) Albumin 2.9 g/dL (3.4-5.0) Albumin/Globulin Ratio 0.8 (1.0-1.7) Lipase 2384 U/L (73-393) Assessment/Plan Assessment/Plan Acute pancreatitis- autoimmune and/or hyperlipdiemia lead differential. Malignancy possible as well. Await Igg markers, fasting lipid paenl and Ca 19-9 level. Medical therapy in interim Full note dictated NICKY WHEAT MD November 14, 2019 09:39
--- NOTE | 2019-11-14 10:09 | CONS ---
DATE OF CONSULTATION: 11/14/2019 GASTROENTEROLOGY CONSULTATION REASON FOR CONSULTATION: Acute pancreatitis. HISTORY OF PRESENT ILLNESS: This is a 59-year-old female with past medical history significant for celiac disease, Still disease, asthma, reflux, is admitted with acute pancreatitis: She is a nondrinker, status post cholecystectomy with normal labs, but does have hyperglycemia. She denies any history of alcohol use. Denies a family history of pancreatitis. Weight and appetite otherwise have been stable. She is without additional complaints. PAST MEDICAL HISTORY: Asthma, GERD, celiac disease, anemia, and Still disease. PAST SURGICAL HISTORY: Status post cholecystectomy, hysterectomy, and right shoulder arthroscopy. FAMILY HISTORY: Significant for diabetes. SOCIAL HISTORY: She is an ex-smoker, nondrinker. CURRENT MEDICATIONS: Include prednisone, methotrexate for her Still disease. ALLERGIES: None. REVIEW OF SYSTEMS: Per records. PHYSICAL EXAMINATION: GENERAL: Reveals a well-nourished, well-developed female who is in no acute distress. VITAL SIGNS: Temperature 98.4, pulse 98, respiratory rate 20, blood pressure is 115/58. LUNGS: Clear. CARDIOVASCULAR: Reveals an S1, S2 without S3, S4 or appreciable murmur. ABDOMEN: Soft abdomen, normal bowel sounds, with epigastric tenderness to deep palpation without appreciable hepatosplenomegaly. EXTREMITIES: Reveal no cyanosis, clubbing or edema. LABORATORY STUDIES: Sodium 139, potassium 4.2, chloride 106, BUN is 16, creatinine 0.8, glucose 215, calcium is 7.8, and total bilirubin 0.8. AST of 22, ALT of 30, alkaline phosphatase 78, total protein 6.4, albumin 2.9, lipase this morning 2384. Fasting lipid panel is pending as well as an IgG4 level. IMPRESSION AND PLAN: Acute pancreatitis, status post cholecystectomy, autoimmune disease, and hypertriglyceridemia lead the differential. Recommend medical therapy, fluids, analgesics, antiemetics, pending additional studies. I would like to thank Dr. Ward for allowing us to consult and participate in the patient's care. NICKY WHEAT MD DR: ANNA/anali JOB#: [id number] / [id number]
[2019-11-14] MEDS: fentaNYL PF VIAL 100 MCG/2 ML VIAL IVP PRN ×5 (12:17→23:14)
--- NOTE | 2019-11-14 12:40 | PDOC ---
[employer] PROGRESS NOTE Chief Complaint Chief Complaint Acute pancreatiti Duodenal and jejunal intraluminal lipomas Hyponatremia Hyperglycemia Celiac disease Adult onset stills disease Anemi Asthma CHERIE on CPAP GERD History of Present Illness History of Present Illness 11/14/2019 Patient seen and examined Discussed with RN Chart reviewed Vitals/I&O Vitals/I&O: Vital Signs Date Time Temp Pulse Resp B/P (MAP) Pulse Ox O2 Delivery O2 Flow Rate FiO2 11/14/19 12:17 Room Air 11/14/19 11:24 98.0 96 16 116/66 (83) 91 98.0 I & O 11/13/19 11/13/19 11/14/19 15:00 23:00 07:00 Intake Total 1000 ml 50 ml 1000 ml Balance 1000 ml 50 ml 1000 ml Physical Exam General: Alert, Oriented X3, Cooperative, moderate distress Abdomen: Normal bowel sounds, Soft, No hepatosplenomegaly, No masses, Other (Diffuse tenderness) Extremities: No clubbing, No cyanosis, No edema, Normal pulses, No tenderness/swelling Skin: No rashes, No breakdown, No significant lesion Labs Labs: Laboratory Tests Test 11/13/19 16:28 11/13/19 18:04 11/13/19 19:04 11/13/19 20:03 Glucose (Fingerstick) 391 mg/dL (70-99) 339 mg/dL (70-99) 338 mg/dL (70-99) 315 mg/dL (70-99) Test 11/13/19 21:06 11/13/19 22:00 11/13/19 23:00 11/14/19 00:00 Glucose (Fingerstick) 278 mg/dL (70-99) 229 mg/dL (70-99) 190 mg/dL (70-99) 182 mg/dL (70-99) Test 11/14/19 00:50 11/14/19 02:03 11/14/19 03:05 11/14/19 04:00 Glucose (Fingerstick) 174 mg/dL (70-99) 142 mg/dL (70-99) 137 mg/dL (70-99) White Blood Count 4.5 x10^3/uL (4.0-11.0) Red Blood Count 4.87 x10^6/uL (3.50-5.40) Hemoglobin 13.8 g/dL (12.0-15.5) Hematocrit 40.4 % (36.0-47.0) Mean Corpuscular Volume 83 fL (79-100) Mean Corpuscular Hemoglobin 28 pg (25-35) Mean Corpuscular Hemoglobin Concent 34 g/dL (31-37) Red Cell Distribution Width 16.2 % (11.5-14.5) Platelet Count 217 x10^3/uL (140-400) Neutrophils (%) (Auto) 66 % (31-73) Lymphocytes (%) (Auto) 17 % (24-48) Monocytes (%) (Auto) 16 % (0-9) Eosinophils (%) (Auto) 0 % (0-3) Basophils (%) (Auto) 1 % (0-3) Neutrophils # (Auto) 2.9 x10^3/uL (1.8-7.7) Lymphocytes # (Auto) 0.8 x10^3/uL (1.0-4.8) Monocytes # (Auto) 0.7 x10^3/uL (0.0-1.1) Eosinophils # (Auto) 0.0 x10^3/uL (0.0-0.7) Basophils # (Auto) 0.0 x10^3/uL (0.0-0.2) Sodium Level 139 mmol/L (136-145) Potassium Level 4.2 mmol/L (3.5-5.1) Chloride Level 106 mmol/L (98-107) Carbon Dioxide Level 25 mmol/L (21-32) Anion Gap 8 (6-14) Blood Urea Nitrogen 16 mg/dL (7-20) Creatinine 0.8 mg/dL (0.6-1.0) Estimated GFR (Cockcroft-Gault) 73.7 BUN/Creatinine Ratio 20 (6-20) Glucose Level 215 mg/dL (70-99) Calcium Level 7.8 mg/dL (8.5-10.1) Total Bilirubin 0.8 mg/dL (0.2-1.0) Aspartate Amino Transf (AST/SGOT) 22 U/L (15-37) Alanine Aminotransferase (ALT/SGPT) 30 U/L (14-59) Alkaline Phosphatase 78 U/L (46-116) Total Protein 6.4 g/dL (6.4-8.2) Albumin 2.9 g/dL (3.4-5.0) Albumin/Globulin Ratio 0.8 (1.0-1.7) Lipase 2384 U/L (73-393) Test 11/14/19 06:52 11/14/19 11:12 Glucose (Fingerstick) 273 mg/dL (70-99) 257 mg/dL (70-99) Assessment and Plan Assessmemt and Plan Problems Medical Problems: (1) Dehydration Status: Acute (2) Hyperglycemia Status: Acute (3) Pancreatitis, acute Status: Acute Acute pancreatitis - with N/V, abdominal pain and elevated lipase, CT confirmed. Will keep NPO, pain control. IV fluids. Consult GI. Hold methotrexate. 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 Anemia - likely related to chronic disease. Asthma - prn nebs CHERIE on CPAP - can bring her home CPAP vs O2 nocturnal GERD - PPI IV Comment Review of Relevant I have reviewed the following items diann (where applicable) has been applied. Medications: Current Medications Medications (Trade) Dose Ordered Sig/Devin Route PRN Reason Start Time Stop Time Status Last Admin Dose Admin Morphine Sulfate (Morphine Sulfate) 4 mg PRN Q2HR PRN IV MODERATE TO SEVERE PAIN 11/13/19 14:45 11/14/19 09:09 Sodium Chloride 1,000 ml @ 100 mls/hr Q10H IV 11/13/19 14:44 11/14/19 12:17 Enoxaparin Sodium (Lovenox 40mg Syringe) 40 mg Q24H SQ 11/13/19 15:00 11/13/19 15:50 Insulin Human Lispro (HumaLOG) 0-9 UNITS Q4HRS SQ 11/13/19 16:00 11/14/19 12:21 Methylprednisolone Sodium Succinate (SOLU-Medrol 40MG VIAL) 40 mg DAILY IV 11/13/19 15:15 11/14/19 09:10 Insulin Human Regular 100 unit/ Sodium Chloride 101 ml @ 0 mls/hr CONT PRN IV SEE I/O RECORD 11/13/19 18:00 11/14/19 02:12 Fentanyl Citrate (Fentanyl 2ml Vial) 50 mcg PRN Q2HR PRN IVP PAIN 11/14/19 11:45 11/14/19 12:17 ROSANGELA ERICKSON III DO November 14, 2019 12:40
--- NOTE | 2019-11-14 14:59 | NUR ---
SS following for discharge planning. SS reviewed pt chart and discussed with pt RN. Pt is from home with spouse and is currently on room air. SS will continue to follow for discharge planning.
[2019-11-14] MEDS: ENOXAPARIN 40 MG/0.4 ML SYRINGE. SQ SCH (17:11)
[2019-11-15] MEDS: fentaNYL PF VIAL 100 MCG/2 ML VIAL IVP PRN ×5 (02:41→19:56)
[2019-11-15 02:53] VITALS: BP 128/65
[2019-11-15] MEDS: INSULIN LISPRO 300 UNITS/3 ML VIAL. SQ SCH ×6 (04:09→20:00)
[2019-11-15 05:41] LABS: BASO % 0 % (0-3); EOS % 2 % (0-3); HEMATOCRIT 38.1 % (36.0-47.0); HEMOGLOBIN 12.6 g/dL (12.0-15.5); LYMPH % 53 % (24-48); MEAN CORPUSCULAR HEMOGLOBIN 28 pg (25-35); MEAN CORPUSCULAR HGB CONC 33 g/dL (31-37); MEAN CORPUSCULAR VOLUME 85 fL (79-100); MONO # 0.5 x10^3/uL (0.0-1.1); MONO % 26 % (0-9); NEUT # 0.4 x10^3/uL (1.8-7.7); NEUT % 19 % (31-73); PLATELET COUNT 178 x10^3/uL (140-400); RED BLOOD COUNT 4.49 x10^6/uL (3.50-5.40); RED CELL DISTRIBUTION WIDTH 16.7 % (11.5-14.5)
[2019-11-15 06:01] LABS: WHITE BLOOD COUNT 1.8 x10^3/uL (4.0-11.0)
[2019-11-15 06:05] LABS: ALBUMIN 2.8 g/dL (3.4-5.0); ALBUMIN/GLOBULIN RATIO 0.9 (1.0-1.7); CALCIUM 8.1 mg/dL (8.5-10.1); CREATININE 0.5 mg/dL (0.6-1.0); GFR 126.7; POTASSIUM 3.9 mmol/L (3.5-5.1); TOTAL BILIRUBIN 1.1 mg/dL (0.2-1.0); TOTAL PROTEIN 5.8 g/dL (6.4-8.2)
[2019-11-15] MEDS: IV NORMAL SALINE 1000ML BAG 1,000 ML IV SCH ×3 (06:44→19:44)
[2019-11-15 07:00] VITALS: BP 132/57
[2019-11-15 07:06] LABS: % BANDS 7 % (0-9); % EOS 1 % (0-5); % LYMPHS 54 % (24-48); % MONOS 13 % (0-10); % SEGS 25 % (35-66)
[2019-11-15 07:08] LABS: PLT ESTIMATE ADEQUATE (ADEQUATE)
[2019-11-15] MEDS: methylPREDNISolone SOD SUCC PF 40 MG/ML VIAL. IV SCH (08:21)
--- NOTE | 2019-11-15 08:24 | PDOC ---
PROGRESS NOTES Chief Complaint Chief Complaint Acute pancreatiti Duodenal and jejunal intraluminal lipomas Hyponatremia Hyperglycemia Celiac disease Adult onset stills disease Anemi Asthma CHERIE on CPAP GERD Leukopenia History of Present Illness History of Present Illness Ms Fernandez is a 59yo F [employer] w/ PMHx celiac disease, adult onset stills disease, Anemia, Asthma, CHERIE on CPAP, GERD who presents with severe upper abdominal pain, nausea, vomiting, fatigue. 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 She only had oatmeal for breakfast. She has never had anything similar to this in the past. She generally feels unwell. She is not had any fever, diarrhea, chest pain, shortness of breath, dysuria, hematuria, blood in her stools. She denies alcohol abuse. Pain does not move anywhere. Nothing seems to make it better or worse. She has not tried anything at home. He does not drink alcohol, and is status post cholecystectomy. No calcium disorders. She takes 20mg methotrexate weekly on Fridays and is on 3 mg of chronic prednisone for her stills disease. She was diagnosed with celiac disease June 2019 and has just recently started on a gluten-free diet. No recent sick contacts that she can recall. Labs significant for lipase 78975, glucose 477, NA 129, bilirubin 1.1, Calcium 8.3, K 3.7, WBC 6.3, Hb 15, Platelets 247 CT abdomen pelvis shows surgically absent gallbladder and surgically absent uterus and describes duodenal and jejunal intraluminal lipomas. Findings of acute pancreatitis. No loculated collections. No biliary dilatation. Admitted for further treatment. 11/13: Lipase down. A1c 13.6, Triglycerides 3252. Started on insulin gtt. Abdominal pain and glucose improved. Having ice chips per GI. Afebrile. No CP or SOB. Vitals Vitals Vital Signs Date Time Temp Pulse Resp B/P (MAP) Pulse Ox O2 Delivery O2 Flow Rate FiO2 11/15/19 07:02 20 Room Air 11/15/19 03:11 2.0 11/15/19 02:53 98.6 95 128/65 (86) 92 98.6 Physical Exam General: Alert, Oriented X3, Cooperative, moderate distress Abdomen: Normal bowel sounds, Soft, No hepatosplenomegaly, No masses, Other (Diffuse tenderness) Extremities: No clubbing, No cyanosis, No edema, Normal pulses, No tenderness/s welling Skin: No rashes, No breakdown, No significant lesion Labs LABS Laboratory Tests Test 11/14/19 11:12 11/14/19 15:45 11/14/19 20:06 11/14/19 23:54 Glucose (Fingerstick) 257 mg/dL (70-99) 243 mg/dL (70-99) 256 mg/dL (70-99) 193 mg/dL (70-99) Test 11/15/19 03:52 11/15/19 04:55 11/15/19 07:43 Glucose (Fingerstick) 216 mg/dL (70-99) 176 mg/dL (70-99) White Blood Count 1.8 x10^3/uL (4.0-11.0) Red Blood Count 4.49 x10^6/uL (3.50-5.40) Hemoglobin 12.6 g/dL (12.0-15.5) Hematocrit 38.1 % (36.0-47.0) Mean Corpuscular Volume 85 fL (79-100) Mean Corpuscular Hemoglobin 28 pg (25-35) Mean Corpuscular Hemoglobin Concent 33 g/dL (31-37) Red Cell Distribution Width 16.7 % (11.5-14.5) Platelet Count 178 x10^3/uL (140-400) Neutrophils (%) (Auto) 19 % (31-73) Lymphocytes (%) (Auto) 53 % (24-48) Monocytes (%) (Auto) 26 % (0-9) Eosinophils (%) (Auto) 2 % (0-3) Basophils (%) (Auto) 0 % (0-3) Neutrophils # (Auto) 0.4 x10^3/uL (1.8-7.7) Lymphocytes # (Auto) 1.0 x10^3/uL (1.0-4.8) Monocytes # (Auto) 0.5 x10^3/uL (0.0-1.1) Eosinophils # (Auto) 0.0 x10^3/uL (0.0-0.7) Basophils # (Auto) 0.0 x10^3/uL (0.0-0.2) Segmented Neutrophils % 25 % (35-66) Band Neutrophils % 7 % (0-9) Lymphocytes % 54 % (24-48) Monocytes % 13 % (0-10) Eosinophils % 1 % (0-5) Platelet Estimate Adequate (ADEQUATE) Sodium Level 146 mmol/L (136-145) Potassium Level 3.9 mmol/L (3.5-5.1) Chloride Level 110 mmol/L (98-107) Carbon Dioxide Level 24 mmol/L (21-32) Anion Gap 12 (6-14) Blood Urea Nitrogen 18 mg/dL (7-20) Creatinine 0.5 mg/dL (0.6-1.0) Estimated GFR (Cockcroft-Gault) 126.7 BUN/Creatinine Ratio 36 (6-20) Glucose Level 218 mg/dL (70-99) Calcium Level 8.1 mg/dL (8.5-10.1) Total Bilirubin 1.1 mg/dL (0.2-1.0) Aspartate Amino Transf (AST/SGOT) 19 U/L (15-37) Alanine Aminotransferase (ALT/SGPT) 27 U/L (14-59) Alkaline Phosphatase 70 U/L (46-116) Total Protein 5.8 g/dL (6.4-8.2) Albumin 2.8 g/dL (3.4-5.0) Albumin/Globulin Ratio 0.9 (1.0-1.7) Amylase Level 96 U/L (25-115) Lipase 1035 U/L (73-393) Assessment and Plan Assessmemt and Plan Problems Medical Problems: (1) Dehydration Status: Acute (2) Hyperglycemia Status: Acute (3) Pancreatitis, acute Status: Acute Comment Review of Relevant I have reviewed the following items diann (where applicable) has been applied. Labs Laboratory Tests Test 11/13/19 10:00 11/13/19 11:17 11/13/19 16:28 11/13/19 18:04 White Blood Count 6.3 x10^3/uL (4.0-11.0) Red Blood Count 5.14 x10^6/uL (3.50-5.40) Hemoglobin 15.0 g/dL (12.0-15.5) Hematocrit 42.8 % (36.0-47.0) Mean Corpuscular Volume 83 fL (79-100) Mean Corpuscular Hemoglobin 29 pg (25-35) Mean Corpuscular Hemoglobin Concent 35 g/dL (31-37) Red Cell Distribution Width 15.9 % (11.5-14.5) Platelet Count 247 x10^3/uL (140-400) Neutrophils (%) (Auto) 65 % (31-73) Lymphocytes (%) (Auto) 28 % (24-48) Monocytes (%) (Auto) 6 % (0-9) Eosinophils (%) (Auto) 1 % (0-3) Basophils (%) (Auto) 1 % (0-3) Neutrophils # (Auto) 4.1 x10^3/uL (1.8-7.7) Lymphocytes # (Auto) 1.7 x10^3/uL (1.0-4.8) Monocytes # (Auto) 0.4 x10^3/uL (0.0-1.1) Eosinophils # (Auto) 0.0 x10^3/uL (0.0-0.7) Basophils # (Auto) 0.0 x10^3/uL (0.0-0.2) Sodium Level 129 mmol/L (136-145) Potassium Level 3.7 mmol/L (3.5-5.1) Chloride Level 94 mmol/L (98-107) Carbon Dioxide Level 14 mmol/L (21-32) Anion Gap 21 (6-14) Blood Urea Nitrogen 20 mg/dL (7-20) Creatinine 0.7 mg/dL (0.6-1.0) Estimated GFR (Cockcroft-Gault) 85.9 BUN/Creatinine Ratio 29 (6-20) Glucose Level 477 mg/dL (70-99) Hemoglobin A1c 13.6 % (4.8-5.6) Calcium Level 8.3 mg/dL (8.5-10.1) Total Bilirubin 1.1 mg/dL (0.2-1.0) Aspartate Amino Transf (AST/SGOT) U/L (15-37) Alanine Aminotransferase (ALT/SGPT) U/L (14-59) Alkaline Phosphatase 99 U/L (46-116) Total Protein 7.0 g/dL (6.4-8.2) Albumin 3.6 g/dL (3.4-5.0) Albumin/Globulin Ratio 1.1 (1.0-1.7) Triglycerides Level 3252 mg/dL (0-150) Cholesterol Level 418 mg/dL (0-200) LDL Cholesterol, Calculated mg/dL (0-100) VLDL Cholesterol, Calculated 650 mg/dL (0-40) Non-HDL Cholesterol Calculated mg/dL (0-129) HDL Cholesterol mg/dL (40-60) Cholesterol/HDL Ratio Lipase 57647 U/L (73-393) Thyroid Stimulating Hormone (TSH) 1.635 uIU/mL (0.358-3.74) Urine Collection Type Unknown Urine Color Yellow Urine Clarity Clear Urine pH 6.0 (<5.0-8.0) Urine Specific [place] >=1.030 (1.000-1.030) Urine Protein Negative mg/dL (NEG-TRACE) Urine Glucose (UA) >=1000 mg/dL (NEG) Urine Ketones (Stick) 40 mg/dL (NEG) Urine Blood Negative (NEG) Urine Nitrite Negative (NEG) Urine Bilirubin Negative (NEG) Urine Urobilinogen Dipstick 0.2 mg/dL (0.2 mg/dL) Urine Leukocyte Esterase Negative (NEG) Urine RBC Occ /HPF (0-2) Urine WBC 0 /HPF (0-4) Urine Squamous Epithelial Cells Occ /LPF Urine Bacteria 0 /HPF (0-FEW) Glucose (Fingerstick) 391 mg/dL (70-99) 339 mg/dL (70-99) Test 11/13/19 19:04 11/13/19 20:03 11/13/19 21:06 11/13/19 22:00 Glucose (Fingerstick) 338 mg/dL (70-99) 315 mg/dL (70-99) 278 mg/dL (70-99) 229 mg/dL (70-99) Test 11/13/19 23:00 11/14/19 00:00 11/14/19 00:50 11/14/19 02:03 Glucose (Fingerstick) 190 mg/dL (70-99) 182 mg/dL (70-99) 174 mg/dL (70-99) 142 mg/dL (70-99) Test 11/14/19 03:05 11/14/19 04:00 11/14/19 06:52 11/14/19 11:12 Glucose (Fingerstick) 137 mg/dL (70-99) 273 mg/dL (70-99) 257 mg/dL (70-99) White Blood Count 4.5 x10^3/uL (4.0-11.0) Red Blood Count 4.87 x10^6/uL (3.50-5.40) Hemoglobin 13.8 g/dL (12.0-15.5) Hematocrit 40.4 % (36.0-47.0) Mean Corpuscular Volume 83 fL (79-100) Mean Corpuscular Hemoglobin 28 pg (25-35) Mean Corpuscular Hemoglobin Concent 34 g/dL (31-37) Red Cell Distribution Width 16.2 % (11.5-14.5) Platelet Count 217 x10^3/uL (140-400) Neutrophils (%) (Auto) 66 % (31-73) Lymphocytes (%) (Auto) 17 % (24-48) Monocytes (%) (Auto) 16 % (0-9) Eosinophils (%) (Auto) 0 % (0-3) Basophils (%) (Auto) 1 % (0-3) Neutrophils # (Auto) 2.9 x10^3/uL (1.8-7.7) Lymphocytes # (Auto) 0.8 x10^3/uL (1.0-4.8) Monocytes # (Auto) 0.7 x10^3/uL (0.0-1.1) Eosinophils # (Auto) 0.0 x10^3/uL (0.0-0.7) Basophils # (Auto) 0.0 x10^3/uL (0.0-0.2) Sodium Level 139 mmol/L (136-145) Potassium Level 4.2 mmol/L (3.5-5.1) Chloride Level 106 mmol/L (98-107) Carbon Dioxide Level 25 mmol/L (21-32) Anion Gap 8 (6-14) Blood Urea Nitrogen 16 mg/dL (7-20) Creatinine 0.8 mg/dL (0.6-1.0) Estimated GFR (Cockcroft-Gault) 73.7 BUN/Creatinine Ratio 20 (6-20) Glucose Level 215 mg/dL (70-99) Calcium Level 7.8 mg/dL (8.5-10.1) Total Bilirubin 0.8 mg/dL (0.2-1.0) Aspartate Amino Transf (AST/SGOT) 22 U/L (15-37) Alanine Aminotransferase (ALT/SGPT) 30 U/L (14-59) Alkaline Phosphatase 78 U/L (46-116) Total Protein 6.4 g/dL (6.4-8.2) Albumin 2.9 g/dL (3.4-5.0) Albumin/Globulin Ratio 0.8 (1.0-1.7) Lipase 2384 U/L (73-393) Test 11/14/19 15:45 11/14/19 20:06 11/14/19 23:54 11/15/19 03:52 Glucose (Fingerstick) 243 mg/dL (70-99) 256 mg/dL (70-99) 193 mg/dL (70-99) 216 mg/dL (70-99) Test 11/15/19 04:55 11/15/19 07:43 White Blood Count 1.8 x10^3/uL (4.0-11.0) Red Blood Count 4.49 x10^6/uL (3.50-5.40) Hemoglobin 12.6 g/dL (12.0-15.5) Hematocrit 38.1 % (36.0-47.0) Mean Corpuscular Volume 85 fL (79-100) Mean Corpuscular Hemoglobin 28 pg (25-35) Mean Corpuscular Hemoglobin Concent 33 g/dL (31-37) Red Cell Distribution Width 16.7 % (11.5-14.5) Platelet Count 178 x10^3/uL (140-400) Neutrophils (%) (Auto) 19 % (31-73) Lymphocytes (%) (Auto) 53 % (24-48) Monocytes (%) (Auto) 26 % (0-9) Eosinophils (%) (Auto) 2 % (0-3) Basophils (%) (Auto) 0 % (0-3) Neutrophils # (Auto) 0.4 x10^3/uL (1.8-7.7) Lymphocytes # (Auto) 1.0 x10^3/uL (1.0-4.8) Monocytes # (Auto) 0.5 x10^3/uL (0.0-1.1) Eosinophils # (Auto) 0.0 x10^3/uL (0.0-0.7) Basophils # (Auto) 0.0 x10^3/uL (0.0-0.2) Segmented Neutrophils % 25 % (35-66) Band Neutrophils % 7 % (0-9) Lymphocytes % 54 % (24-48) Monocytes % 13 % (0-10) Eosinophils % 1 % (0-5) Platelet Estimate Adequate (ADEQUATE) Sodium Level 146 mmol/L (136-145) Potassium Level 3.9 mmol/L (3.5-5.1) Chloride Level 110 mmol/L (98-107) Carbon Dioxide Level 24 mmol/L (21-32) Anion Gap 12 (6-14) Blood Urea Nitrogen 18 mg/dL (7-20) Creatinine 0.5 mg/dL (0.6-1.0) Estimated GFR (Cockcroft-Gault) 126.7 BUN/Creatinine Ratio 36 (6-20) Glucose Level 218 mg/dL (70-99) Calcium Level 8.1 mg/dL (8.5-10.1) Total Bilirubin 1.1 mg/dL (0.2-1.0) Aspartate Amino Transf (AST/SGOT) 19 U/L (15-37) Alanine Aminotransferase (ALT/SGPT) 27 U/L (14-59) Alkaline Phosphatase 70 U/L (46-116) Total Protein 5.8 g/dL (6.4-8.2) Albumin 2.8 g/dL (3.4-5.0) Albumin/Globulin Ratio 0.9 (1.0-1.7) Amylase Level 96 U/L (25-115) Lipase 1035 U/L (73-393) Glucose (Fingerstick) 176 mg/dL (70-99) Laboratory Tests Test 11/14/19 11:12 11/14/19 15:45 11/14/19 20:06 11/14/19 23:54 Glucose (Fingerstick) 257 mg/dL (70-99) 243 mg/dL (70-99) 256 mg/dL (70-99) 193 mg/dL (70-99) Test 11/15/19 03:52 11/15/19 04:55 11/15/19 07:43 Glucose (Fingerstick) 216 mg/dL (70-99) 176 mg/dL (70-99) White Blood Count 1.8 x10^3/uL (4.0-11.0) Red Blood Count 4.49 x10^6/uL (3.50-5.40) Hemoglobin 12.6 g/dL (12.0-15.5) Hematocrit 38.1 % (36.0-47.0) Mean Corpuscular Volume 85 fL (79-100) Mean Corpuscular Hemoglobin 28 pg (25-35) Mean Corpuscular Hemoglobin Concent 33 g/dL (31-37) Red Cell Distribution Width 16.7 % (11.5-14.5) Platelet Count 178 x10^3/uL (140-400) Neutrophils (%) (Auto) 19 % (31-73) Lymphocytes (%) (Auto) 53 % (24-48) Monocytes (%) (Auto) 26 % (0-9) Eosinophils (%) (Auto) 2 % (0-3) Basophils (%) (Auto) 0 % (0-3) Neutrophils # (Auto) 0.4 x10^3/uL (1.8-7.7) Lymphocytes # (Auto) 1.0 x10^3/uL (1.0-4.8) Monocytes # (Auto) 0.5 x10^3/uL (0.0-1.1) Eosinophils # (Auto) 0.0 x10^3/uL (0.0-0.7) Basophils # (Auto) 0.0 x10^3/uL (0.0-0.2) Segmented Neutrophils % 25 % (35-66) Band Neutrophils % 7 % (0-9) Lymphocytes % 54 % (24-48) Monocytes % 13 % (0-10) Eosinophils % 1 % (0-5) Platelet Estimate Adequate (ADEQUATE) Sodium Level 146 mmol/L (136-145) Potassium Level 3.9 mmol/L (3.5-5.1) Chloride Level 110 mmol/L (98-107) Carbon Dioxide Level 24 mmol/L (21-32) Anion Gap 12 (6-14) Blood Urea Nitrogen 18 mg/dL (7-20) Creatinine 0.5 mg/dL (0.6-1.0) Estimated GFR (Cockcroft-Gault) 126.7 BUN/Creatinine Ratio 36 (6-20) Glucose Level 218 mg/dL (70-99) Calcium Level 8.1 mg/dL (8.5-10.1) Total Bilirubin 1.1 mg/dL (0.2-1.0) Aspartate Amino Transf (AST/SGOT) 19 U/L (15-37) Alanine Aminotransferase (ALT/SGPT) 27 U/L (14-59) Alkaline Phosphatase 70 U/L (46-116) Total Protein 5.8 g/dL (6.4-8.2) Albumin 2.8 g/dL (3.4-5.0) Albumin/Globulin Ratio 0.9 (1.0-1.7) Amylase Level 96 U/L (25-115) Lipase 1035 U/L (73-393) Medications Current Medications Iohexol (Omnipaque 300 Mg/ml) 75 ml 1X ONCE IV Last administered on 11/13/19at 11:30; Start 11/13/19 at 11:30; Stop 11/13/19 at 11:31; Status DC Iohexol (Omnipaque 240 Mg/ml) 50 ml 1X ONCE PO Last administered on 11/13/19at 11:30; Start 11/13/19 at 11:30; Stop 11/13/19 at 11:31; Status DC Info (CONTRAST GIVEN -- Rx MONITORING) 1 each PRN DAILY PRN MC SEE COMMENTS; Start 11/13/19 at 11:30; Stop 11/15/19 at 11:29 Sodium Chloride 1,000 ml @ 0 mls/hr 1X ONCE IV Last administered on 11/13/19at 12:27; Start 11/13/19 at 12:15; Stop 11/13/19 at 12:16; Status DC Morphine Sulfate (Morphine Sulfate) 5 mg 1X ONCE IV Last administered on 11/13/19at 12:45; Start 11/13/19 at 12:30; Stop 11/13/19 at 12:33; Status DC Morphine Sulfate (Morphine Sulfate) 5 mg 1X ONCE IV ; Start 11/13/19 at 13:45; Stop 11/13/19 at 13:46; Status DC Morphine Sulfate (Morphine Sulfate) 4 mg PRN Q2HR PRN IV MODERATE TO SEVERE PAIN Last administered on 11/14/19at 09:09; Start 11/13/19 at 14:45 Sodium Chloride 1,000 ml @ 100 mls/hr Q10H IV Last administered on 11/14/19at 12:17; Start 11/13/19 at 14:44 Ondansetron HCl (Zofran) 4 mg PRN Q4HRS PRN IV NAUSEA/VOMITING; Start 11/13/19 at 14:45 Acetaminophen (Tylenol Supp) 650 mg PRN Q4HRS PRN MA TEMP OVER 100.4F OR MILD PAIN; Start 11/13/19 at 14:45 Enoxaparin Sodium (Lovenox 40mg Syringe) 40 mg Q24H SQ Last administered on 11/14/19at 17:11; Start 11/13/19 at 15:00 Insulin Human Lispro (HumaLOG) 0-9 UNITS Q4HRS SQ Last administered on 11/15/19at 04:09; Start 11/13/19 at 16:00 Dextrose (Dextrose 50%-Water Syringe) 12.5 gm PRN Q15MIN PRN IV SEE COMMENTS; Start 11/13/19 at 14:45 Albuterol Sulfate (Ventolin Neb Soln) 3 mg PRN QID PRN NEB SHORTNESS OF BREATH; Start 11/13/19 at 15:15 Sodium Chloride (Saline Mist Nasal) 1 mago PRN Q1HR PRN NS NASAL CONGESTION; Start 11/13/19 at 15:15 Methylprednisolone Sodium Succinate (SOLU-Medrol 40MG VIAL) 40 mg DAILY IV Last administered on 11/14/19at 09:10; Start 11/13/19 at 15:15 Insulin Human Regular 100 unit/ Sodium Chloride 101 ml @ 0 mls/hr CONT PRN IV SEE I/O RECORD Last administered on 11/14/19at 02:12; Start 11/13/19 at 18:00 Fentanyl Citrate (Fentanyl 2ml Vial) 50 mcg PRN Q2HR PRN IVP PAIN Last administered on 11/15/19at 06:32; Start 11/14/19 at 11:45 Active Scripts Active Reported Zyrtec (Cetirizine Hcl) 10 Mg Capsule 10 Mg PO DAILY Methotrexate (Methotrexate Sodium) 2.5 Mg Tablet 8 Tab PO WEEKLY Protonix (Pantoprazole Sodium) 40 Mg Tablet.dr 40 Mg PO DAILYAC Folic Acid 0.8 Mg Capsule 1 Cap PO DAILY 30 Days Ferrous Sulfate 325 Mg Tablet 1 Tab PO DAILY Vitals/I & O Vital Sign - Last 24 Hours 11/14/19 11/14/19 11/14/19 11/14/19 09:09 09:39 11:24 12:17 Temp 98.0 98.0 Pulse 96 Resp 16 B/P (MAP) 116/66 (83) Pulse Ox 91 O2 Delivery Room Air Room Air Room Air Room Air 11/14/19 11/14/19 11/14/19 11/14/19 12:47 14:29 14:50 14:59 Temp 98.3 98.3 Pulse 97 Resp 18 B/P (MAP) 135/72 (93) Pulse Ox 95 92 94 O2 Delivery Nasal Cannula Nasal Cannula Nasal Cannula Nasal Cannula O2 Flow Rate 2.0 2.0 2.0 2.0 11/14/19 11/14/19 11/14/19 11/14/19 18:12 18:53 19:44 20:00 Temp 98.3 98.3 98.3 98.3 Pulse 94 85 Resp 16 18 B/P (MAP) 130/77 (94) 124/74 (91) Pulse Ox 94 96 O2 Delivery Room Air Nasal Cannula Nasal Cannula Nasal Cannula O2 Flow Rate 2.0 2.0 2.0 11/14/19 11/14/19 11/14/19 11/14/19 20:22 20:52 22:41 23:14 Temp 98.2 98.2 Pulse 96 Resp 20 20 18 20 B/P (MAP) 131/72 (91) Pulse Ox 95 95 O2 Delivery Room Air Room Air Nasal Cannula Nasal Cannula O2 Flow Rate 2.0 2.0 11/14/19 11/15/19 11/15/19 11/15/19 23:44 02:41 02:53 03:11 Temp 98.6 98.6 Pulse 95 Resp 20 20 18 20 B/P (MAP) 128/65 (86) Pulse Ox 92 O2 Delivery Nasal Cannula Nasal Cannula Nasal Cannula Nasal Cannula O2 Flow Rate 2.0 2.0 2.0 2.0 11/15/19 11/15/19 06:32 07:02 Resp 20 20 O2 Delivery Room Air Room Air Intake and Output 11/14/19 11/14/19 11/15/19 15:00 23:00 07:00 Intake Total 0 ml 2400 ml Balance 0 ml 2400 ml GERMÁN BEGUM MD November 15, 2019 08:24
--- NOTE | 2019-11-15 10:06 | PDOC ---
Subjective: Subjective: Abdomen still sore - pain meds help. Not hungry. Objective: Vital Signs: Vital Signs Date Time Temp Pulse Resp B/P (MAP) Pulse Ox O2 Delivery O2 Flow Rate FiO2 11/15/19 09:38 Room Air 11/15/19 07:02 20 11/15/19 07:00 97.7 95 132/57 (82) 100 97.7 11/15/19 03:11 2.0 Labs: Laboratory Tests Test 11/14/19 11:12 11/14/19 15:45 11/14/19 20:06 11/14/19 23:54 Glucose (Fingerstick) 257 mg/dL (70-99) 243 mg/dL (70-99) 256 mg/dL (70-99) 193 mg/dL (70-99) Test 11/15/19 03:52 11/15/19 07:43 Glucose (Fingerstick) 216 mg/dL (70-99) 176 mg/dL (70-99) Imaging: CT A/P Mild bibasilar costophrenic sulcus atelectasis is present. Bilateral carotid cholecystectomy noted. Liver and spleen are unremarkable. At the inferior tip of the right hepatic lobe, there is a very small to characterize low-attenuation lesion which is present on axial image 49. This may represent a cyst or other benign process. Stranding about the pancreas with surrounding edema is noted. Edema extends along the left lateral conal fascia.Low-attenuation involving the distal duodenum on axial image 49 is present measuring 0.6 cm diameter. Within the right proximal jejunum on coronal image 23, there is a linear fat attenuation structure measuring 2.1 cm x 0.4 cm. These have the appearance of benign lipomas. There is no bowel obstruction. No extraluminal gas. Moderate quantity of stool in the colon is present. Appendix is normal. No inflammatory change about the cecum. Urinary bladder is unremarkable. Lower lumbar spine facet joint degenerative remodeling is present. Transitional L5 vertebra is present.Hysterectomy noted. Impression: Findings of acute pancreatitis. No loculated collections. No biliary dilatation. 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 Reviewed H&P and will review lipoma findings on CT w/ Dr. Hsieh. Hemodynamically unstable?: No Is patient in severe pain?: No Is NPO status required?: Yes SHIRAZ CABRAL November 15, 2019 10:06
[2019-11-15 11:00] VITALS: BP 135/60
[2019-11-15 15:00] VITALS: BP 131/75
[2019-11-15] MEDS: ENOXAPARIN 40 MG/0.4 ML SYRINGE. SQ SCH (15:27)
--- NOTE | 2019-11-15 16:09 | NUR ---
SS following up with discharge planning. SS reviewed pt chart and discussed with pt RN. Pt is currently on room air. Pt will discharge to home when ready. SS will continue to follow for discharge planning.
[2019-11-15] MEDS: MORPHINE SULFATE 4 MG/ML VIAL. IV PRN (16:18)
[2019-11-15 19:40] VITALS: BP 115/62
[2019-11-15] MEDS: FAMOTIDINE 20 MG/2 ML VIAL IVP SCH (19:45)
[2019-11-15 23:00] VITALS: BP 120/60
[2019-11-16] MEDS: fentaNYL PF VIAL 100 MCG/2 ML VIAL IVP PRN ×10 (00:45→23:56)
[2019-11-16 03:47] VITALS: BP 131/81
[2019-11-16] MEDS: INSULIN LISPRO 300 UNITS/3 ML VIAL. SQ SCH ×6 (04:00→20:00)
[2019-11-16 04:28] LABS: BASO % 0 % (0-3); EOS % 1 % (0-3); HEMATOCRIT 35.5 % (36.0-47.0); HEMOGLOBIN 11.8 g/dL (12.0-15.5); LYMPH % 55 % (24-48); MEAN CORPUSCULAR HEMOGLOBIN 28 pg (25-35); MEAN CORPUSCULAR HGB CONC 33 g/dL (31-37); MEAN CORPUSCULAR VOLUME 85 fL (79-100); MONO # 0.5 x10^3/uL (0.0-1.1); MONO % 28 % (0-9); NEUT # 0.3 x10^3/uL (1.8-7.7); NEUT % 16 % (31-73); PLATELET COUNT 171 x10^3/uL (140-400); RED BLOOD COUNT 4.19 x10^6/uL (3.50-5.40); RED CELL DISTRIBUTION WIDTH 16.6 % (11.5-14.5)
[2019-11-16 04:46] LABS: WHITE BLOOD COUNT 1.8 x10^3/uL (4.0-11.0)
[2019-11-16 06:08] LABS: ALBUMIN 2.4 g/dL (3.4-5.0); ALBUMIN/GLOBULIN RATIO 0.7 (1.0-1.7); CALCIUM 8.4 mg/dL (8.5-10.1); CREATININE 0.6 mg/dL (0.6-1.0); GFR 102.7; POTASSIUM 3.5 mmol/L (3.5-5.1); TOTAL PROTEIN 5.9 g/dL (6.4-8.2)
[2019-11-16 06:11] LABS: IGG1 353 mg/dL (248-810); IGG2 290 mg/dL (130-555); IGG3 90 mg/dL (15-102); IGG4 71 mg/dL (2-96); TOTAL IGG 850 mg/dL (586-1602)
[2019-11-16 07:00] VITALS: BP 137/77
--- NOTE | 2019-11-16 08:55 | PDOC ---
PROGRESS NOTES Chief Complaint Chief Complaint Acute pancreatitis - likely 2/2 hyper-triglyceridemia. 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 I discussed with [facility] rheumatology concern that MTX could play a role as well. Hold dosing for leukopenia Duodenal and jejunal intraluminal lipomas Hypertriglyceridemia - will need outpatient Endocrinology referral for cholesterol metabolism treatment, I have suggested prescription 2g TID fish oil (Vascepa or Lovaza) in the meantime once pancreatitis resolves Hyponatremia DM2 with Hyperglycemia - A1c 13.6. Should continue on insulin therapy until A1c < 8, then consider PO options. Would probably have to avoid GLP1 therapy given her pancreatitis. Would defer to an storekeeper helper for this. Celiac disease Adult onset stills disease Anemia Asthma CHERIE on CPAP GERD Leukopenia -likely related to chronic immunosuppression will hold MTX therapy for now and change to a prednisone taper on discharge. History of Present Illness History of Present Illness Ms Fernandez is a 59yo F [employer] w/ PMHx celiac disease, adult onset stills disease, Anemia, Asthma, CHERIE on CPAP, GERD who presents with severe upper abdominal pain, nausea, vomiting, fatigue. 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 She only had oatmeal for breakfast. She has never had anything similar to this in the past. She generally feels unwell. She is not had any fever, diarrhea, chest pain, shortness of breath, dysuria, hematuria, blood in her stools. She denies alcohol abuse. Pain does not move anywhere. Nothing seems to make it better or worse. She has not tried anything at home. He does not drink alcohol, and is status post cholecystectomy. No calcium disorders. She takes 20mg methotrexate weekly on Fridays and is on 3 mg of chronic prednisone for her stills disease. She was diagnosed with celiac disease June 2019 and has just recently started on a gluten-free diet. No recent sick contacts that she can recall. Labs significant for lipase 30485, glucose 477, NA 129, bilirubin 1.1, Calcium 8.3, K 3.7, WBC 6.3, Hb 15, Platelets 247 CT abdomen pelvis shows surgically absent gallbladder and surgically absent uterus and describes duodenal and jejunal intraluminal lipomas. Findings of acute pancreatitis. No loculated collections. No biliary dilatation. Admitted for further treatment. 5/27: Lipase down. A1c 13.6, Triglycerides 3252. Started on insulin gtt. 11/14: Abdominal pain and glucose improved. Having ice chips per GI. Afebrile. No CP or SOB. D/w [facility] rheumatology, to hold MTX therapy on 11/15 given her leukopenia and pancreatitis. Overnight afebrile. Labs improved. Still with left-sided abdominal pain. WBC 1.8. She notes she had not previously had a formal diagnosis of diabetes. No CP or S OB Vitals Vitals Vital Signs Date Time Temp Pulse Resp B/P (MAP) Pulse Ox O2 Delivery O2 Flow Rate FiO2 11/16/19 07:00 98.0 88 18 137/77 (97) 100 Room Air 98.0 11/16/19 06:45 2.0 Physical Exam General: Alert, Oriented X3, Cooperative, moderate distress Abdomen: Normal bowel sounds, Soft, No hepatosplenomegaly, No masses, Other (Diffuse tenderness) Extremities: No clubbing, No cyanosis, No edema, Normal pulses, No tenderness/swelling Skin: No rashes, No breakdown, No significant lesion Labs LABS Laboratory Tests Test 11/15/19 11:59 11/15/19 16:53 11/15/19 21:35 11/16/19 00:48 Glucose (Fingerstick) 217 mg/dL (70-99) 207 mg/dL (70-99) 209 mg/dL (70-99) 169 mg/dL (70-99) Test 11/16/19 03:30 11/16/19 03:45 11/16/19 04:46 11/16/19 08:02 Sodium Level 141 mmol/L (136-145) Potassium Level 3.5 mmol/L (3.5-5.1) Chloride Level 107 mmol/L (98-107) Carbon Dioxide Level 22 mmol/L (21-32) Anion Gap 12 (6-14) Blood Urea Nitrogen 14 mg/dL (7-20) Creatinine 0.6 mg/dL (0.6-1.0) Estimated GFR (Cockcroft-Gault) 102.7 BUN/Creatinine Ratio 23 (6-20) Glucose Level 192 mg/dL (70-99) Calcium Level 8.4 mg/dL (8.5-10.1) Total Bilirubin 1.0 mg/dL (0.2-1.0) Aspartate Amino Transf (AST/SGOT) 15 U/L (15-37) Alanine Aminotransferase (ALT/SGPT) 18 U/L (14-59) Alkaline Phosphatase 64 U/L (46-116) Total Protein 5.9 g/dL (6.4-8.2) Albumin 2.4 g/dL (3.4-5.0) Albumin/Globulin Ratio 0.7 (1.0-1.7) Lipase 521 U/L (73-393) White Blood Count 1.8 x10^3/uL (4.0-11.0) Red Blood Count 4.19 x10^6/uL (3.50-5.40) Hemoglobin 11.8 g/dL (12.0-15.5) Hematocrit 35.5 % (36.0-47.0) Mean Corpuscular Volume 85 fL (79-100) Mean Corpuscular Hemoglobin 28 pg (25-35) Mean Corpuscular Hemoglobin Concent 33 g/dL (31-37) Red Cell Distribution Width 16.6 % (11.5-14.5) Platelet Count 171 x10^3/uL (140-400) Neutrophils (%) (Auto) 16 % (31-73) Lymphocytes (%) (Auto) 55 % (24-48) Monocytes (%) (Auto) 28 % (0-9) Eosinophils (%) (Auto) 1 % (0-3) Basophils (%) (Auto) 0 % (0-3) Neutrophils # (Auto) 0.3 x10^3/uL (1.8-7.7) Lymphocytes # (Auto) 1.0 x10^3/uL (1.0-4.8) Monocytes # (Auto) 0.5 x10^3/uL (0.0-1.1) Eosinophils # (Auto) 0.0 x10^3/uL (0.0-0.7) Basophils # (Auto) 0.0 x10^3/uL (0.0-0.2) Glucose (Fingerstick) 163 mg/dL (70-99) 163 mg/dL (70-99) Assessment and Plan Assessmemt and Plan Problems Medical Problems: (1) Dehydration Status: Acute (2) Hyperglycemia Status: Acute (3) Pancreatitis, acute Status: Acute Comment Review of Relevant I have reviewed the following items diann (where applicable) has been applied. Labs Laboratory Tests Test 11/14/19 10:00 11/14/19 11:12 11/14/19 15:45 11/14/19 20:06 Immunoglobulin G Total 850 mg/dL (586-1602) Immunoglobulin G1 353 mg/dL (248-810) Immunoglobulin G2 290 mg/dL (130-555) Immunoglobulin G3 90 mg/dL (15-102) Immunoglobulin G4 71 mg/dL (2-96) Glucose (Fingerstick) 257 mg/dL (70-99) 243 mg/dL (70-99) 256 mg/dL (70-99) Test 11/14/19 23:54 11/15/19 03:52 11/15/19 04:55 11/15/19 07:43 Glucose (Fingerstick) 193 mg/dL (70-99) 216 mg/dL (70-99) 176 mg/dL (70-99) White Blood Count 1.8 x10^3/uL (4.0-11.0) Red Blood Count 4.49 x10^6/uL (3.50-5.40) Hemoglobin 12.6 g/dL (12.0-15.5) Hematocrit 38.1 % (36.0-47.0) Mean Corpuscular Volume 85 fL (79-100) Mean Corpuscular Hemoglobin 28 pg (25-35) Mean Corpuscular Hemoglobin Concent 33 g/dL (31-37) Red Cell Distribution Width 16.7 % (11.5-14.5) Platelet Count 178 x10^3/uL (140-400) Neutrophils (%) (Auto) 19 % (31-73) Lymphocytes (%) (Auto) 53 % (24-48) Monocytes (%) (Auto) 26 % (0-9) Eosinophils (%) (Auto) 2 % (0-3) Basophils (%) (Auto) 0 % (0-3) Neutrophils # (Auto) 0.4 x10^3/uL (1.8-7.7) Lymphocytes # (Auto) 1.0 x10^3/uL (1.0-4.8) Monocytes # (Auto) 0.5 x10^3/uL (0.0-1.1) Eosinophils # (Auto) 0.0 x10^3/uL (0.0-0.7) Basophils # (Auto) 0.0 x10^3/uL (0.0-0.2) Segmented Neutrophils % 25 % (35-66) Band Neutrophils % 7 % (0-9) Lymphocytes % 54 % (24-48) Monocytes % 13 % (0-10) Eosinophils % 1 % (0-5) Platelet Estimate Adequate (ADEQUATE) Sodium Level 146 mmol/L (136-145) Potassium Level 3.9 mmol/L (3.5-5.1) Chloride Level 110 mmol/L (98-107) Carbon Dioxide Level 24 mmol/L (21-32) Anion Gap 12 (6-14) Blood Urea Nitrogen 18 mg/dL (7-20) Creatinine 0.5 mg/dL (0.6-1.0) Estimated GFR (Cockcroft-Gault) 126.7 BUN/Creatinine Ratio 36 (6-20) Glucose Level 218 mg/dL (70-99) Calcium Level 8.1 mg/dL (8.5-10.1) Total Bilirubin 1.1 mg/dL (0.2-1.0) Aspartate Amino Transf (AST/SGOT) 19 U/L (15-37) Alanine Aminotransferase (ALT/SGPT) 27 U/L (14-59) Alkaline Phosphatase 70 U/L (46-116) Total Protein 5.8 g/dL (6.4-8.2) Albumin 2.8 g/dL (3.4-5.0) Albumin/Globulin Ratio 0.9 (1.0-1.7) Amylase Level 96 U/L (25-115) Lipase 1035 U/L (73-393) Test 11/15/19 11:59 11/15/19 16:53 11/15/19 21:35 11/16/19 00:48 Glucose (Fingerstick) 217 mg/dL (70-99) 207 mg/dL (70-99) 209 mg/dL (70-99) 169 mg/dL (70-99) Test 11/16/19 03:30 11/16/19 03:45 11/16/19 04:46 11/16/19 08:02 Sodium Level 141 mmol/L (136-145) Potassium Level 3.5 mmol/L (3.5-5.1) Chloride Level 107 mmol/L (98-107) Carbon Dioxide Level 22 mmol/L (21-32) Anion Gap 12 (6-14) Blood Urea Nitrogen 14 mg/dL (7-20) Creatinine 0.6 mg/dL (0.6-1.0) Estimated GFR (Cockcroft-Gault) 102.7 BUN/Creatinine Ratio 23 (6-20) Glucose Level 192 mg/dL (70-99) Calcium Level 8.4 mg/dL (8.5-10.1) Total Bilirubin 1.0 mg/dL (0.2-1.0) Aspartate Amino Transf (AST/SGOT) 15 U/L (15-37) Alanine Aminotransferase (ALT/SGPT) 18 U/L (14-59) Alkaline Phosphatase 64 U/L (46-116) Total Protein 5.9 g/dL (6.4-8.2) Albumin 2.4 g/dL (3.4-5.0) Albumin/Globulin Ratio 0.7 (1.0-1.7) Lipase 521 U/L (73-393) White Blood Count 1.8 x10^3/uL (4.0-11.0) Red Blood Count 4.19 x10^6/uL (3.50-5.40) Hemoglobin 11.8 g/dL (12.0-15.5) Hematocrit 35.5 % (36.0-47.0) Mean Corpuscular Volume 85 fL (79-100) Mean Corpuscular Hemoglobin 28 pg (25-35) Mean Corpuscular Hemoglobin Concent 33 g/dL (31-37) Red Cell Distribution Width 16.6 % (11.5-14.5) Platelet Count 171 x10^3/uL (140-400) Neutrophils (%) (Auto) 16 % (31-73) Lymphocytes (%) (Auto) 55 % (24-48) Monocytes (%) (Auto) 28 % (0-9) Eosinophils (%) (Auto) 1 % (0-3) Basophils (%) (Auto) 0 % (0-3) Neutrophils # (Auto) 0.3 x10^3/uL (1.8-7.7) Lymphocytes # (Auto) 1.0 x10^3/uL (1.0-4.8) Monocytes # (Auto) 0.5 x10^3/uL (0.0-1.1) Eosinophils # (Auto) 0.0 x10^3/uL (0.0-0.7) Basophils # (Auto) 0.0 x10^3/uL (0.0-0.2) Glucose (Fingerstick) 163 mg/dL (70-99) 163 mg/dL (70-99) Laboratory Tests Test 11/15/19 11:59 11/15/19 16:53 11/15/19 21:35 11/16/19 00:48 Glucose (Fingerstick) 217 mg/dL (70-99) 207 mg/dL (70-99) 209 mg/dL (70-99) 169 mg/dL (70-99) Test 11/16/19 03:30 11/16/19 03:45 11/16/19 04:46 11/16/19 08:02 Sodium Level 141 mmol/L (136-145) Potassium Level 3.5 mmol/L (3.5-5.1) Chloride Level 107 mmol/L (98-107) Carbon Dioxide Level 22 mmol/L (21-32) Anion Gap 12 (6-14) Blood Urea Nitrogen 14 mg/dL (7-20) Creatinine 0.6 mg/dL (0.6-1.0) Estimated GFR (Cockcroft-Gault) 102.7 BUN/Creatinine Ratio 23 (6-20) Glucose Level 192 mg/dL (70-99) Calcium Level 8.4 mg/dL (8.5-10.1) Total Bilirubin 1.0 mg/dL (0.2-1.0) Aspartate Amino Transf (AST/SGOT) 15 U/L (15-37) Alanine Aminotransferase (ALT/SGPT) 18 U/L (14-59) Alkaline Phosphatase 64 U/L (46-116) Total Protein 5.9 g/dL (6.4-8.2) Albumin 2.4 g/dL (3.4-5.0) Albumin/Globulin Ratio 0.7 (1.0-1.7) Lipase 521 U/L (73-393) White Blood Count 1.8 x10^3/uL (4.0-11.0) Red Blood Count 4.19 x10^6/uL (3.50-5.40) Hemoglobin 11.8 g/dL (12.0-15.5) Hematocrit 35.5 % (36.0-47.0) Mean Corpuscular Volume 85 fL (79-100) Mean Corpuscular Hemoglobin 28 pg (25-35) Mean Corpuscular Hemoglobin Concent 33 g/dL (31-37) Red Cell Distribution Width 16.6 % (11.5-14.5) Platelet Count 171 x10^3/uL (140-400) Neutrophils (%) (Auto) 16 % (31-73) Lymphocytes (%) (Auto) 55 % (24-48) Monocytes (%) (Auto) 28 % (0-9) Eosinophils (%) (Auto) 1 % (0-3) Basophils (%) (Auto) 0 % (0-3) Neutrophils # (Auto) 0.3 x10^3/uL (1.8-7.7) Lymphocytes # (Auto) 1.0 x10^3/uL (1.0-4.8) Monocytes # (Auto) 0.5 x10^3/uL (0.0-1.1) Eosinophils # (Auto) 0.0 x10^3/uL (0.0-0.7) Basophils # (Auto) 0.0 x10^3/uL (0.0-0.2) Glucose (Fingerstick) 163 mg/dL (70-99) 163 mg/dL (70-99) Medications Current Medications Iohexol (Omnipaque 300 Mg/ml) 75 ml 1X ONCE IV Last administered on 11/13/19at 11:30; Start 11/13/19 at 11:30; Stop 11/13/19 at 11:31; Status DC Iohexol (Omnipaque 240 Mg/ml) 50 ml 1X ONCE PO Last administered on 11/13/19at 11:30; Start 11/13/19 at 11:30; Stop 11/13/19 at 11:31; Status DC Info (CONTRAST GIVEN -- Rx MONITORING) 1 each PRN DAILY PRN MC SEE COMMENTS; Start 11/13/19 at 11:30; Stop 11/15/19 at 11:29; Status DC Sodium Chloride 1,000 ml @ 0 mls/hr 1X ONCE IV Last administered on 11/13/19at 12:27; Start 11/13/19 at 12:15; Stop 11/13/19 at 12:16; Status DC Morphine Sulfate (Morphine Sulfate) 5 mg 1X ONCE IV Last administered on 11/13/19at 12:45; Start 11/13/19 at 12:30; Stop 11/13/19 at 12:33; Status DC Morphine Sulfate (Morphine Sulfate) 5 mg 1X ONCE IV ; Start 11/13/19 at 13:45; Stop 11/13/19 at 13:46; Status DC Morphine Sulfate (Morphine Sulfate) 4 mg PRN Q2HR PRN IV MODERATE TO SEVERE PAIN Last administered on 11/15/19at 16:18; Start 11/13/19 at 14:45 Sodium Chloride 1,000 ml @ 100 mls/hr Q10H IV Last administered on 11/15/19at 19:44; Start 11/13/19 at 14:44 Ondansetron HCl (Zofran) 4 mg PRN Q4HRS PRN IV NAUSEA/VOMITING; Start 11/13/19 at 14:45 Acetaminophen (Tylenol Supp) 650 mg PRN Q4HRS PRN WA TEMP OVER 100.4F OR MILD PAIN; Start 11/13/19 at 14:45 Enoxaparin Sodium (Lovenox 40mg Syringe) 40 mg Q24H SQ Last administered on 11/15/19at 15:27; Start 11/13/19 at 15:00 Insulin Human Lispro (HumaLOG) 0-9 UNITS Q4HRS SQ Last administered on 11/15/19at 17:00; Start 11/13/19 at 16:00 Dextrose (Dextrose 50%-Water Syringe) 12.5 gm PRN Q15MIN PRN IV SEE COMMENTS; Start 11/13/19 at 14:45 Albuterol Sulfate (Ventolin Neb Soln) 3 mg PRN QID PRN NEB SHORTNESS OF BREATH; Start 11/13/19 at 15:15 Sodium Chloride (Saline Mist Nasal) 1 mago PRN Q1HR PRN NS NASAL CONGESTION; Start 11/13/19 at 15:15 Methylprednisolone Sodium Succinate (SOLU-Medrol 40MG VIAL) 40 mg DAILY IV Last administered on 11/15/19at 08:21; Start 11/13/19 at 15:15; Stop 11/15/19 at 13:44; Status DC Insulin Human Regular 100 unit/ Sodium Chloride 101 ml @ 0 mls/hr CONT PRN IV SEE I/O RECORD Last administered on 11/14/19at 02:12; Start 11/13/19 at 18:00 Fentanyl Citrate (Fentanyl 2ml Vial) 50 mcg PRN Q2HR PRN IVP PAIN Last administered on 11/16/19at 06:15; Start 11/14/19 at 11:45 Famotidine (Pepcid Vial) 20 mg QHS IVP Last administered on 11/15/19at 19:45; Start 11/15/19 at 21:00 Prednisone (Prednisone) 3 mg DAILY PO ; Start 11/16/19 at 09:00 Active Scripts Active Reported Zyrtec (Cetirizine Hcl) 10 Mg Capsule 10 Mg PO DAILY Methotrexate (Methotrexate Sodium) 2.5 Mg Tablet 8 Tab PO WEEKLY Protonix (Pantoprazole Sodium) 40 Mg Tablet.dr 40 Mg PO DAILYAC Folic Acid 0.8 Mg Capsule 1 Cap PO DAILY 30 Days Ferrous Sulfate 325 Mg Tablet 1 Tab PO DAILY Vitals/I & O Vital Sign - Last 24 Hours 11/15/19 11/15/19 11/15/19 11/15/19 09:38 11:00 15:00 17:02 Temp 98.0 97.6 98.0 97.6 Pulse 96 97 Resp 18 20 B/P (MAP) 135/60 (85) 131/75 (93) Pulse Ox 100 93 O2 Delivery Room Air Room Air Room Air Room Air 11/15/19 11/15/19 11/15/19 11/15/19 19:40 19:56 20:00 20:26 Temp 98.8 98.8 Pulse 95 Resp 18 20 20 B/P (MAP) 115/62 (79) Pulse Ox 92 93 94 O2 Delivery Room Air Nasal Cannula Nasal Cannula Nasal Cannula O2 Flow Rate 2.0 2.0 2.0 11/15/19 11/16/19 11/16/19 11/16/19 23:00 00:45 03:47 04:41 Temp 98.7 98.6 98.7 98.6 Pulse 95 65 Resp 18 20 18 B/P (MAP) 120/60 (80) 131/81 (98) Pulse Ox 93 93 94 94 O2 Delivery Nasal Cannula Nasal Cannula Nasal Cannula Nasal Cannula O2 Flow Rate 2.0 2.0 2.0 2.0 11/16/19 11/16/19 11/16/19 06:15 06:45 07:00 Temp 98.0 98.0 Pulse 88 Resp 20 18 18 B/P (MAP) 137/77 (97) Pulse Ox 94 94 100 O2 Delivery Nasal Cannula Nasal Cannula Room Air O2 Flow Rate 2.0 2.0 Intake and Output 11/15/19 11/15/19 11/16/19 15:00 23:00 07:00 Intake Total 240 ml 200 ml Balance 240 ml 200 ml Hemodynamically unstable?: No Is patient in severe pain?: No Is NPO status required?: Yes GERMÁN BEGUM MD November 16, 2019 08:55
--- NOTE | 2019-11-16 09:45 | PDOC ---
Subjective: Subjective: Still sore - epigastric/LUQ pain after ice chips. Objective: Objective: D/w nurse - requests pain meds 'round the clock. Vital Signs: Vital Signs Date Time Temp Pulse Resp B/P (MAP) Pulse Ox O2 Delivery O2 Flow Rate FiO2 11/16/19 09:20 Nasal Cannula 2.0 11/16/19 07:00 98.0 88 18 137/77 (97) 100 98.0 Labs: Laboratory Tests Test 11/15/19 11:59 11/15/19 16:53 11/15/19 21:35 11/16/19 00:48 Glucose (Fingerstick) 217 mg/dL (70-99) 207 mg/dL (70-99) 209 mg/dL (70-99) 169 mg/dL (70-99) Test 11/16/19 04:46 11/16/19 08:02 Glucose (Fingerstick) 163 mg/dL (70-99) 163 mg/dL (70-99) PE: GEN: NAD - does not appear uncomfortable LUNGS: CTAB anteriorly HEART: RRR ABD: NABS, S/ND, epigastric/LUQ discomfort NEURO/PSYCH: A & O 3 A/P: Pancreatitis, hypertriglyceridemia - IgG4 WNL, s/p cholecystectomy, no alcohol history Still's disease - on prednisone, methotrexate held Leukopenia, DM, h/o celiac -- We talked about continuing NPO w/ ongoing abd pain - she says she might like to try some warm broth later, so will cautiously try clear liquids - d/w nurse. Hemodynamically unstable?: No Is patient in severe pain?: No Is NPO status required?: No SHIRAZ CABRAL November 16, 2019 09:45
[2019-11-16 11:00] VITALS: BP 130/60
--- NOTE | 2019-11-16 12:10 | NUR ---
SS following up with discharge planning. SS reviewed pt chart and discussed with pt RN. Per RN, pt is working to advance diet. Pt will discharge to home when ready. SS will continue to follow for discharge planning.
[2019-11-16] MEDS: predniSONE 1 MG TABLET PO SCH (12:14)
[2019-11-16] MEDS: ENOXAPARIN 40 MG/0.4 ML SYRINGE. SQ SCH (14:57)
[2019-11-16] MEDS: IV NORMAL SALINE 1000ML BAG 1,000 ML IV SCH (14:58)
[2019-11-16 15:00] VITALS: BP 140/72
[2019-11-16 19:35] VITALS: BP 140/67
[2019-11-16] MEDS: FAMOTIDINE 20 MG/2 ML VIAL IVP SCH (22:00)
[2019-11-16 23:36] VITALS: BP 135/67
[2019-11-17] MEDS: fentaNYL PF VIAL 100 MCG/2 ML VIAL IVP PRN ×3 (02:32→09:00)
[2019-11-17 03:48] VITALS: BP 125/68
[2019-11-17] MEDS: INSULIN LISPRO 300 UNITS/3 ML VIAL. SQ SCH ×7 (04:00→21:00)
--- NOTE | 2019-11-17 07:42 | PDOC ---
PROGRESS NOTES Chief Complaint Chief Complaint Acute pancreatitis - likely 2/2 hyper-triglyceridemia. 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 I discussed with [facility]ology concern that MTX could play a role as well. Hold dosing for leukopenia Duodenal and jejunal intraluminal lipomas Hypertriglyceridemia - will need outpatient Endocrinology referral for cholesterol metabolism treatment, I have suggested prescription 2g TID fish oil (Vascepa or Lovaza) in the meantime once pancreatitis resolves Hyponatremia DM2 with Hyperglycemia - A1c 13.6. Should continue on insulin therapy until A1c < 8, then consider PO options. Would probably have to avoid GLP1 therapy given her pancreatitis. Would defer to an table runner for this. Celiac disease Adult onset stills disease Anemia Asthma CHERIE on CPAP GERD Leukopenia -likely related to chronic immunosuppression will hold MTX therapy for now and change to a prednisone taper on discharge. FEN - Clear liquid diet PPX - lovenox FULL CODE DIspo - inpatient for pancreatitis recovery History of Present Illness History of Present Illness Ms Fernandez is a 59yo F [employer] w/ PMHx celiac disease, adult onset stills disease, Anemia, Asthma, CHERIE on CPAP, GERD who presents with severe upper abdominal pain, nausea, vomiting, fatigue. 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 She only had oatmeal for breakfast. She has never had anything similar to this in the past. She generally feels unwell. She is not had any fever, diarrhea, chest pain, shortness of breath, dysuria, hematuria, blood in her stools. She denies alcohol abuse. Pain does not move anywhere. Nothing seems to make it better or worse. She has not tried anything at home. He does not drink alcohol, and is status post cholecystectomy. No calcium disorders. She takes 20mg methotrexate weekly on Fridays and is on 3 mg of chronic prednisone for her stills disease. She was diagnosed with celiac disease June 2019 and has just recently started on a gluten-free diet. No recent sick contacts that she can recall. Labs significant for lipase 93921, glucose 477, NA 129, bilirubin 1.1, Calcium 8.3, K 3.7, WBC 6.3, Hb 15, Platelets 247 CT abdomen pelvis shows surgically absent gallbladder and surgically absent uterus and describes duodenal and jejunal intraluminal lipomas. Findings of acute pancreatitis. No loculated collections. No biliary dilatation. Admitted for further treatment. 11/13: Lipase down. A1c 13.6, Triglycerides 3252. Started on insulin gtt. 11/14: Abdominal pain and glucose improved. Having ice chips per GI. Afebrile. No CP or SOB. D/w [facility] rheumatology, to hold MTX therapy on 11/15 given her leukopenia and pancreatitis. 11/15: Overnight afebrile. Labs improved. Still with left-sided abdominal pain. WBC 1.8. She notes she had not previously had a formal diagnosis of diabetes. No CP or SOB Afebrile overnight. Still with abdominal pain, no CP or SOB Vitals Vitals Vital Signs Date Time Temp Pulse Resp B/P (MAP) Pulse Ox O2 Delivery O2 Flow Rate FiO2 11/17/19 06:11 20 Room Air 11/17/19 03:48 97.6 109 125/68 (87) 93 97.6 11/16/19 17:08 2.0 Physical Exam General: Alert, Oriented X3, Cooperative, moderate distress Abdomen: Normal bowel sounds, Soft, No hepatosplenomegaly, No masses, Other (Diffuse tenderness) Extremities: No clubbing, No cyanosis, No edema, Normal pulses, No tenderness/swelling Skin: No rashes, No breakdown, No significant lesion Labs LABS Laboratory Tests Test 11/16/19 08:02 11/16/19 11:35 11/16/19 16:58 11/16/19 21:11 Glucose (Fingerstick) 163 mg/dL (70-99) 172 mg/dL (70-99) 198 mg/dL (70-99) 146 mg/dL (70-99) Test 11/17/19 07:26 Glucose (Fingerstick) 144 mg/dL (70-99) Assessment and Plan Assessmemt and Plan Problems Medical Problems: (1) Dehydration Status: Acute (2) Hyperglycemia Status: Acute (3) Pancreatitis, acute Status: Acute Comment Review of Relevant I have reviewed the following items diann (where applicable) has been applied. Labs Laboratory Tests Test 11/15/19 07:43 11/15/19 11:59 11/15/19 16:53 11/15/19 21:35 Glucose (Fingerstick) 176 mg/dL (70-99) 217 mg/dL (70-99) 207 mg/dL (70-99) 209 mg/dL (70-99) Test 11/16/19 00:48 11/16/19 03:30 11/16/19 03:45 11/16/19 04:46 Glucose (Fingerstick) 169 mg/dL (70-99) 163 mg/dL (70-99) Sodium Level 141 mmol/L (136-145) Potassium Level 3.5 mmol/L (3.5-5.1) Chloride Level 107 mmol/L (98-107) Carbon Dioxide Level 22 mmol/L (21-32) Anion Gap 12 (6-14) Blood Urea Nitrogen 14 mg/dL (7-20) Creatinine 0.6 mg/dL (0.6-1.0) Estimated GFR (Cockcroft-Gault) 102.7 BUN/Creatinine Ratio 23 (6-20) Glucose Level 192 mg/dL (70-99) Calcium Level 8.4 mg/dL (8.5-10.1) Total Bilirubin 1.0 mg/dL (0.2-1.0) Aspartate Amino Transf (AST/SGOT) 15 U/L (15-37) Alanine Aminotransferase (ALT/SGPT) 18 U/L (14-59) Alkaline Phosphatase 64 U/L (46-116) Total Protein 5.9 g/dL (6.4-8.2) Albumin 2.4 g/dL (3.4-5.0) Albumin/Globulin Ratio 0.7 (1.0-1.7) Lipase 521 U/L (73-393) White Blood Count 1.8 x10^3/uL (4.0-11.0) Red Blood Count 4.19 x10^6/uL (3.50-5.40) Hemoglobin 11.8 g/dL (12.0-15.5) Hematocrit 35.5 % (36.0-47.0) Mean Corpuscular Volume 85 fL (79-100) Mean Corpuscular Hemoglobin 28 pg (25-35) Mean Corpuscular Hemoglobin Concent 33 g/dL (31-37) Red Cell Distribution Width 16.6 % (11.5-14.5) Platelet Count 171 x10^3/uL (140-400) Neutrophils (%) (Auto) 16 % (31-73) Lymphocytes (%) (Auto) 55 % (24-48) Monocytes (%) (Auto) 28 % (0-9) Eosinophils (%) (Auto) 1 % (0-3) Basophils (%) (Auto) 0 % (0-3) Neutrophils # (Auto) 0.3 x10^3/uL (1.8-7.7) Lymphocytes # (Auto) 1.0 x10^3/uL (1.0-4.8) Monocytes # (Auto) 0.5 x10^3/uL (0.0-1.1) Eosinophils # (Auto) 0.0 x10^3/uL (0.0-0.7) Basophils # (Auto) 0.0 x10^3/uL (0.0-0.2) Test 11/16/19 08:02 11/16/19 11:35 11/16/19 16:58 11/16/19 21:11 Glucose (Fingerstick) 163 mg/dL (70-99) 172 mg/dL (70-99) 198 mg/dL (70-99) 146 mg/dL (70-99) Test 11/17/19 07:26 Glucose (Fingerstick) 144 mg/dL (70-99) Laboratory Tests Test 11/16/19 08:02 11/16/19 11:35 11/16/19 16:58 11/16/19 21:11 Glucose (Fingerstick) 163 mg/dL (70-99) 172 mg/dL (70-99) 198 mg/dL (70-99) 146 mg/dL (70-99) Test 11/17/19 07:26 Glucose (Fingerstick) 144 mg/dL (70-99) Medications Current Medications Iohexol (Omnipaque 300 Mg/ml) 75 ml 1X ONCE IV Last administered on 11/13/19at 11:30; Start 11/13/19 at 11:30; Stop 11/13/19 at 11:31; Status DC Iohexol (Omnipaque 240 Mg/ml) 50 ml 1X ONCE PO Last administered on 11/13/19at 11:30; Start 11/13/19 at 11:30; Stop 11/13/19 at 11:31; Status DC Info (CONTRAST GIVEN -- Rx MONITORING) 1 each PRN DAILY PRN MC SEE COMMENTS; Start 11/13/19 at 11:30; Stop 11/15/19 at 11:29; Status DC Sodium Chloride 1,000 ml @ 0 mls/hr 1X ONCE IV Last administered on 11/13/19at 12:27; Start 11/13/19 at 12:15; Stop 11/13/19 at 12:16; Status DC Morphine Sulfate (Morphine Sulfate) 5 mg 1X ONCE IV Last administered on 11/13/19at 12:45; Start 11/13/19 at 12:30; Stop 11/13/19 at 12:33; Status DC Morphine Sulfate (Morphine Sulfate) 5 mg 1X ONCE IV ; Start 11/13/19 at 13:45; Stop 11/13/19 at 13:46; Status DC Morphine Sulfate (Morphine Sulfate) 4 mg PRN Q2HR PRN IV MODERATE TO SEVERE PAIN Last administered on 11/15/19at 16:18; Start 11/13/19 at 14:45 Sodium Chloride 1,000 ml @ 100 mls/hr Q10H IV Last administered on 11/17/19at 00:00; Start 11/13/19 at 14:44 Ondansetron HCl (Zofran) 4 mg PRN Q4HRS PRN IV NAUSEA/VOMITING; Start 11/13/19 at 14:45 Acetaminophen (Tylenol Supp) 650 mg PRN Q4HRS PRN GA TEMP OVER 100.4F OR MILD PAIN; Start 11/13/19 at 14:45 Enoxaparin Sodium (Lovenox 40mg Syringe) 40 mg Q24H SQ Last administered on 11/16/19at 14:57; Start 11/13/19 at 15:00 Insulin Human Lispro (HumaLOG) 0-9 UNITS Q4HRS SQ Last administered on 11/16/19at 17:13; Start 11/13/19 at 16:00 Dextrose (Dextrose 50%-Water Syringe) 12.5 gm PRN Q15MIN PRN IV SEE COMMENTS; Start 11/13/19 at 14:45 Albuterol Sulfate (Ventolin Neb Soln) 3 mg PRN QID PRN NEB SHORTNESS OF BREATH; Start 11/13/19 at 15:15 Sodium Chloride (Saline Mist Nasal) 1 mago PRN Q1HR PRN NS NASAL CONGESTION; Start 11/13/19 at 15:15 Methylprednisolone Sodium Succinate (SOLU-Medrol 40MG VIAL) 40 mg DAILY IV Last administered on 11/15/19at 08:21; Start 11/13/19 at 15:15; Stop 11/15/19 at 13:44; Status DC Insulin Human Regular 100 unit/ Sodium Chloride 101 ml @ 0 mls/hr CONT PRN IV SEE I/O RECORD Last administered on 11/14/19at 02:12; Start 11/13/19 at 18:00 Fentanyl Citrate (Fentanyl 2ml Vial) 50 mcg PRN Q2HR PRN IVP PAIN Last administered on 11/17/19at 06:11; Start 11/14/19 at 11:45 Famotidine (Pepcid Vial) 20 mg QHS IVP Last administered on 11/16/19at 22:00; Start 11/15/19 at 21:00 Prednisone (Prednisone) 3 mg DAILY PO Last administered on 11/16/19at 12:14; Start 11/16/19 at 09:00 Active Scripts Active Reported Zyrtec (Cetirizine Hcl) 10 Mg Capsule 10 Mg PO DAILY Methotrexate (Methotrexate Sodium) 2.5 Mg Tablet 8 Tab PO WEEKLY Protonix (Pantoprazole Sodium) 40 Mg Tablet.dr 40 Mg PO DAILYAC Folic Acid 0.8 Mg Capsule 1 Cap PO DAILY 30 Days Ferrous Sulfate 325 Mg Tablet 1 Tab PO DAILY Vitals/I & O Vital Sign - Last 24 Hours 11/16/19 11/16/19 11/16/19 11/16/19 09:20 09:50 11:00 12:13 Temp 98.0 98.0 Pulse 90 Resp 20 B/P (MAP) 130/60 (83) Pulse Ox 96 O2 Delivery Nasal Cannula Room Air Room Air Room Air O2 Flow Rate 2.0 11/16/19 11/16/19 11/16/19 11/16/19 12:45 14:29 15:00 15:00 Temp 98.3 98.3 Pulse 90 Resp 18 B/P (MAP) 140/72 (94) Pulse Ox 96 100 O2 Delivery Room Air Nasal Cannula Room Air Room Air O2 Flow Rate 2.0 11/16/19 11/16/19 11/16/19 11/16/19 17:08 17:45 19:35 19:42 Temp 99.7 99.7 Pulse 109 Resp 18 20 B/P (MAP) 140/67 (91) Pulse Ox 92 O2 Delivery Nasal Cannula Room Air Room Air Room Air O2 Flow Rate 2.0 11/16/19 11/16/19 11/16/19 11/16/19 19:51 20:12 22:00 22:30 Resp 20 O2 Delivery Room Air Room Air Nasal Cannula Nasal Cannula 11/16/19 11/16/19 11/17/19 11/17/19 23:36 23:56 00:26 02:32 Temp 98.7 98.7 Pulse 110 Resp 20 20 B/P (MAP) 135/67 (89) Pulse Ox 93 O2 Delivery Room Air Room Air Nasal Cannula Nasal Cannula 11/17/19 11/17/19 11/17/19 03:02 03:48 06:11 Temp 97.6 97.6 Pulse 109 Resp B/P (MAP) 125/68 (87) Pulse Ox 93 O2 Delivery Room Air Room Air Intake and Output 11/16/19 11/16/19 11/17/19 15:00 23:00 07:00 Intake Total 180 ml 1420 ml Balance 180 ml 1420 ml Hemodynamically unstable?: No Is patient in severe pain?: No Is NPO status required?: No GERMÁN BEGUM MD November 17, 2019 07:42
[2019-11-17 07:55] VITALS: BP 135/65
[2019-11-17] MEDS: predniSONE 1 MG TABLET PO SCH (09:00)
[2019-11-17] MEDS: IV NORMAL SALINE 1000ML BAG 1,000 ML IV SCH ×3 (09:01→21:03)
[2019-11-17 09:42] LABS: CALCIUM 8.2 mg/dL (8.5-10.1); CREATININE 0.5 mg/dL (0.6-1.0); GFR 126.7
[2019-11-17 09:45] LABS: POTASSIUM 2.6 mmol/L (3.5-5.1)
[2019-11-17 10:02] LABS: BASO % 1 % (0-3); EOS # 0.1 x10^3/uL (0.0-0.7); EOS % 4 % (0-3); HEMOGLOBIN 11.9 g/dL (12.0-15.5); LYMPH # 0.9 x10^3/uL (1.0-4.8); LYMPH % 42 % (24-48); MEAN CORPUSCULAR HEMOGLOBIN 28 pg (25-35); MEAN CORPUSCULAR HGB CONC 33 g/dL (31-37); MEAN CORPUSCULAR VOLUME 84 fL (79-100); MONO # 0.8 x10^3/uL (0.0-1.1); MONO % 37 % (0-9); NEUT # 0.3 x10^3/uL (1.8-7.7); NEUT % 16 % (31-73); PLATELET COUNT 193 x10^3/uL (140-400); RED BLOOD COUNT 4.27 x10^6/uL (3.50-5.40)
[2019-11-17] MEDS ORDERED: POTASSIUM CHLORIDE 20 MEQ TABLET.ER. PO ONE (10:15)
[2019-11-17] MEDS ORDERED: oxyCODONE IR 5 MG TABLET PO PRN (10:15)
[2019-11-17] MEDS ORDERED: MAGNESIUM SULFATE 4GM 100 ML IV ONE (11:00)
[2019-11-17] MEDS: POTASSIUM CHLORIDE 10MEQ 100 ML IV SCH ×4 (11:01→15:22)
[2019-11-17 11:45] VITALS: BP 132/63
[2019-11-17] MEDS ORDERED: MAGNESIUM HYDROXIDE 2,400 MG/30 ML ORAL.SUSP. PO PRN (15:30)
[2019-11-17 15:38] VITALS: BP 115/56
[2019-11-17] MEDS: PSYLLIUM HUSK (SUGAR FREE) 1 PKT PACKET PO SCH (15:49)
[2019-11-17] MEDS: POLYETHYLENE GLYCOL 3350 17 GM PACKET. PO SCH (15:49)
[2019-11-17] MEDS: oxyCODONE IR 5 MG TABLET PO PRN ×2 (15:49→22:42)
[2019-11-17] MEDS: ENOXAPARIN 40 MG/0.4 ML SYRINGE. SQ SCH (15:49)
[2019-11-17 19:00] VITALS: BP 122/64
[2019-11-17] MEDS: FAMOTIDINE 20 MG/2 ML VIAL IVP SCH (21:03)
[2019-11-17] MEDS: traMADol 50 MG TABLET PO PRN (21:12)
[2019-11-17 23:00] VITALS: BP 135/74
[2019-11-18 03:00] VITALS: BP 112/59
[2019-11-18] MEDS: oxyCODONE IR 5 MG TABLET PO PRN ×5 (04:35→22:14)
[2019-11-18 07:00] VITALS: BP 124/68
--- NOTE | 2019-11-18 07:59 | PDOC ---
PROGRESS NOTES Chief Complaint Chief Complaint Acute pancreatitis - likely 2/2 hyper-triglyceridemia. 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 I discussed with [facility] rheumatology concern that MTX could play a role as well. Hold dosing for leukopenia Duodenal and jejunal intraluminal lipomas Hypertriglyceridemia - will need outpatient Endocrinology referral for cholesterol metabolism treatment, I have suggested prescription 2g TID fish oil (Vascepa or Lovaza) in the meantime once pancreatitis resolves Hyponatremia DM2 with Hyperglycemia - A1c 13.6. Should continue on insulin therapy until A1c < 8, then consider PO options. Would probably have to avoid GLP1 therapy given her pancreatitis. Would defer to an human resources department supervisor for this. Celiac disease Adult onset stills disease Anemia Asthma CHERIE on CPAP GERD Leukopenia -likely related to chronic immunosuppression will hold MTX therapy for now and change to a prednisone taper on discharge. FEN - Clear liquid diet PPX - lovenox FULL CODE DIspo - inpatient for pancreatitis recovery History of Present Illness History of Present Illness Ms Fernandez is a 59yo F [employer] w/ PMHx celiac disease, adult onset stills disease, Anemia, Asthma, CHERIE on CPAP, GERD who presents with severe upper abdominal pain, nausea, vomiting, fatigue. 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 She only had oatmeal for breakfast. She has never had anything similar to this in the past. She generally feels unwell. She is not had any fever, diarrhea, chest pain, shortness of breath, dysuria, hematuria, blood in her stools. She denies alcohol abuse. Pain does not move anywhere. Nothing seems to make it better or worse. She has not tried anything at home. He does not drink alcohol, and is status post cholecystectomy. No calcium disorders. She takes 20mg methotrexate weekly on Fridays and is on 3 mg of chronic prednisone for her stills disease. She was diagnosed with celiac disease June 2019 and has just recently started on a gluten-free diet. No recent sick contacts that she can recall. Labs significant for lipase 95580, glucose 477, NA 129, bilirubin 1.1, Calcium 8.3, K 3.7, WBC 6.3, Hb 15, Platelets 247 CT abdomen pelvis shows surgically absent gallbladder and surgically absent uterus and describes duodenal and jejunal intraluminal lipomas. Findings of acute pancreatitis. No loculated collections. No biliary dilatation. Admitted for further treatment. 11/13: Lipase down. A1c 13.6, Triglycerides 3252. Started on insulin gtt. 11/14: Abdominal pain and glucose improved. Having ice chips per GI. Afebrile. No CP or SOB. D/w [facility] rheumatology, to hold MTX therapy on 11/15 given her leukopenia and pancreatitis. 11/15: Overnight afebrile. Labs improved. Still with left-sided abdominal pain. WBC 1.8. She notes she had not previously had a formal diagnosis of diabetes. No CP or SOB 11/16: Pain improved, advancing diet per GI lipase 328. WBC 2, K2.6, MG 1.4 Afebrile overnight. Still with abdominal pain, no CP or SOB Vitals Vitals Vital Signs Date Time Temp Pulse Resp B/P (MAP) Pulse Ox O2 Delivery O2 Flow Rate FiO2 11/18/19 07:18 Room Air 11/18/19 05:35 2.0 11/18/19 03:00 99.3 96 18 112/59 (76) 96 99.3 Physical Exam General: Alert, Oriented X3, Cooperative, moderate distress Abdomen: Normal bowel sounds, Soft, No hepatosplenomegaly, No masses, Other (Diffuse tenderness) Extremities: No clubbing, No cyanosis, No edema, Normal pulses, No tenderness/swelling Skin: No rashes, No breakdown, No significant lesion Labs LABS Laboratory Tests Test 11/17/19 09:15 11/17/19 12:05 11/17/19 16:48 11/17/19 20:03 White Blood Count 2.0 x10^3/uL (4.0-11.0) Red Blood Count 4.27 x10^6/uL (3.50-5.40) Hemoglobin 11.9 g/dL (12.0-15.5) Hematocrit 36.0 % (36.0-47.0) Mean Corpuscular Volume 84 fL (79-100) Mean Corpuscular Hemoglobin 28 pg (25-35) Mean Corpuscular Hemoglobin Concent 33 g/dL (31-37) Red Cell Distribution Width 16.0 % (11.5-14.5) Platelet Count 193 x10^3/uL (140-400) Neutrophils (%) (Auto) 16 % (31-73) Lymphocytes (%) (Auto) 42 % (24-48) Monocytes (%) (Auto) 37 % (0-9) Eosinophils (%) (Auto) 4 % (0-3) Basophils (%) (Auto) 1 % (0-3) Neutrophils # (Auto) 0.3 x10^3/uL (1.8-7.7) Lymphocytes # (Auto) 0.9 x10^3/uL (1.0-4.8) Monocytes # (Auto) 0.8 x10^3/uL (0.0-1.1) Eosinophils # (Auto) 0.1 x10^3/uL (0.0-0.7) Basophils # (Auto) 0.0 x10^3/uL (0.0-0.2) Sodium Level 136 mmol/L (136-145) Potassium Level 2.6 mmol/L (3.5-5.1) Chloride Level 100 mmol/L (98-107) Carbon Dioxide Level 23 mmol/L (21-32) Anion Gap 13 (6-14) Blood Urea Nitrogen 6 mg/dL (7-20) Creatinine 0.5 mg/dL (0.6-1.0) Estimated GFR (Cockcroft-Gault) 126.7 Glucose Level 171 mg/dL (70-99) Calcium Level 8.2 mg/dL (8.5-10.1) Magnesium Level 1.4 mg/dL (1.8-2.4) Lipase 328 U/L (73-393) Glucose (Fingerstick) 173 mg/dL (70-99) 156 mg/dL (70-99) 162 mg/dL (70-99) Test 11/18/19 07:54 Glucose (Fingerstick) 154 mg/dL (70-99) Assessment and Plan Assessmemt and Plan Problems Medical Problems: (1) Dehydration Status: Acute (2) Hyperglycemia Status: Acute (3) Pancreatitis, acute Status: Acute Comment Review of Relevant I have reviewed the following items diann (where applicable) has been applied. Labs Laboratory Tests Test 11/16/19 08:02 11/16/19 11:35 11/16/19 16:58 11/16/19 21:11 Glucose (Fingerstick) 163 mg/dL (70-99) 172 mg/dL (70-99) 198 mg/dL (70-99) 146 mg/dL (70-99) Test 11/17/19 07:26 11/17/19 09:15 11/17/19 12:05 11/17/19 16:48 Glucose (Fingerstick) 144 mg/dL (70-99) 173 mg/dL (70-99) 156 mg/dL (70-99) White Blood Count 2.0 x10^3/uL (4.0-11.0) Red Blood Count 4.27 x10^6/uL (3.50-5.40) Hemoglobin 11.9 g/dL (12.0-15.5) Hematocrit 36.0 % (36.0-47.0) Mean Corpuscular Volume 84 fL (79-100) Mean Corpuscular Hemoglobin 28 pg (25-35) Mean Corpuscular Hemoglobin Concent 33 g/dL (31-37) Red Cell Distribution Width 16.0 % (11.5-14.5) Platelet Count 193 x10^3/uL (140-400) Neutrophils (%) (Auto) 16 % (31-73) Lymphocytes (%) (Auto) 42 % (24-48) Monocytes (%) (Auto) 37 % (0-9) Eosinophils (%) (Auto) 4 % (0-3) Basophils (%) (Auto) 1 % (0-3) Neutrophils # (Auto) 0.3 x10^3/uL (1.8-7.7) Lymphocytes # (Auto) 0.9 x10^3/uL (1.0-4.8) Monocytes # (Auto) 0.8 x10^3/uL (0.0-1.1) Eosinophils # (Auto) 0.1 x10^3/uL (0.0-0.7) Basophils # (Auto) 0.0 x10^3/uL (0.0-0.2) Sodium Level 136 mmol/L (136-145) Potassium Level 2.6 mmol/L (3.5-5.1) Chloride Level 100 mmol/L (98-107) Carbon Dioxide Level 23 mmol/L (21-32) Anion Gap 13 (6-14) Blood Urea Nitrogen 6 mg/dL (7-20) Creatinine 0.5 mg/dL (0.6-1.0) Estimated GFR (Cockcroft-Gault) 126.7 Glucose Level 171 mg/dL (70-99) Calcium Level 8.2 mg/dL (8.5-10.1) Magnesium Level 1.4 mg/dL (1.8-2.4) Lipase 328 U/L (73-393) Test 11/17/19 20:03 11/18/19 07:54 Glucose (Fingerstick) 162 mg/dL (70-99) 154 mg/dL (70-99) Laboratory Tests Test 11/17/19 09:15 11/17/19 12:05 11/17/19 16:48 11/17/19 20:03 White Blood Count 2.0 x10^3/uL (4.0-11.0) Red Blood Count 4.27 x10^6/uL (3.50-5.40) Hemoglobin 11.9 g/dL (12.0-15.5) Hematocrit 36.0 % (36.0-47.0) Mean Corpuscular Volume 84 fL (79-100) Mean Corpuscular Hemoglobin 28 pg (25-35) Mean Corpuscular Hemoglobin Concent 33 g/dL (31-37) Red Cell Distribution Width 16.0 % (11.5-14.5) Platelet Count 193 x10^3/uL (140-400) Neutrophils (%) (Auto) 16 % (31-73) Lymphocytes (%) (Auto) 42 % (24-48) Monocytes (%) (Auto) 37 % (0-9) Eosinophils (%) (Auto) 4 % (0-3) Basophils (%) (Auto) 1 % (0-3) Neutrophils # (Auto) 0.3 x10^3/uL (1.8-7.7) Lymphocytes # (Auto) 0.9 x10^3/uL (1.0-4.8) Monocytes # (Auto) 0.8 x10^3/uL (0.0-1.1) Eosinophils # (Auto) 0.1 x10^3/uL (0.0-0.7) Basophils # (Auto) 0.0 x10^3/uL (0.0-0.2) Sodium Level 136 mmol/L (136-145) Potassium Level 2.6 mmol/L (3.5-5.1) Chloride Level 100 mmol/L (98-107) Carbon Dioxide Level 23 mmol/L (21-32) Anion Gap 13 (6-14) Blood Urea Nitrogen 6 mg/dL (7-20) Creatinine 0.5 mg/dL (0.6-1.0) Estimated GFR (Cockcroft-Gault) 126.7 Glucose Level 171 mg/dL (70-99) Calcium Level 8.2 mg/dL (8.5-10.1) Magnesium Level 1.4 mg/dL (1.8-2.4) Lipase 328 U/L (73-393) Glucose (Fingerstick) 173 mg/dL (70-99) 156 mg/dL (70-99) 162 mg/dL (70-99) Test 11/18/19 07:54 Glucose (Fingerstick) 154 mg/dL (70-99) Medications Current Medications Iohexol (Omnipaque 300 Mg/ml) 75 ml 1X ONCE IV Last administered on 11/13/19at 11:30; Start 11/13/19 at 11:30; Stop 11/13/19 at 11:31; Status DC Iohexol (Omnipaque 240 Mg/ml) 50 ml 1X ONCE PO Last administered on 11/13/19at 11:30; Start 11/13/19 at 11:30; Stop 11/13/19 at 11:31; Status DC Info (CONTRAST GIVEN -- Rx MONITORING) 1 each PRN DAILY PRN MC SEE COMMENTS; Start 11/13/19 at 11:30; Stop 11/15/19 at 11:29; Status DC Sodium Chloride 1,000 ml @ 0 mls/hr 1X ONCE IV Last administered on 11/13/19at 12:27; Start 11/13/19 at 12:15; Stop 11/13/19 at 12:16; Status DC Morphine Sulfate (Morphine Sulfate) 5 mg 1X ONCE IV Last administered on 11/13/19at 12:45; Start 11/13/19 at 12:30; Stop 11/13/19 at 12:33; Status DC Morphine Sulfate (Morphine Sulfate) 5 mg 1X ONCE IV ; Start 11/13/19 at 13:45; Stop 11/13/19 at 13:46; Status DC Morphine Sulfate (Morphine Sulfate) 4 mg PRN Q2HR PRN IV MODERATE TO SEVERE PAIN Last administered on 11/15/19at 16:18; Start 11/13/19 at 14:45 Sodium Chloride 1,000 ml @ 100 mls/hr Q10H IV Last administered on 11/17/19at 21:03; Start 11/13/19 at 14:44 Ondansetron HCl (Zofran) 4 mg PRN Q4HRS PRN IV NAUSEA/VOMITING; Start 11/13/19 at 14:45 Acetaminophen (Tylenol Supp) 650 mg PRN Q4HRS PRN [place] TEMP OVER 100.4F OR MILD PAIN; Start 11/13/19 at 14:45 Enoxaparin Sodium (Lovenox 40mg Syringe) 40 mg Q24H SQ Last administered on 11/17/19at 15:49; Start 11/13/19 at 15:00 Insulin Human Lispro (HumaLOG) 0-9 UNITS Q4HRS SQ Last administered on 11/17/19at 18:15; Start 11/13/19 at 16:00; Stop 11/17/19 at 19:32; Status DC Dextrose (Dextrose 50%-Water Syringe) 12.5 gm PRN Q15MIN PRN IV SEE COMMENTS; Start 11/13/19 at 14:45 Albuterol Sulfate (Ventolin Neb Soln) 3 mg PRN QID PRN NEB SHORTNESS OF BREATH; Start 11/13/19 at 15:15 Sodium Chloride (Saline Mist Nasal) 1 mago PRN Q1HR PRN NS NASAL CONGESTION; Start 11/13/19 at 15:15 Methylprednisolone Sodium Succinate (SOLU-Medrol 40MG VIAL) 40 mg DAILY IV Last administered on 11/15/19at 08:21; Start 11/13/19 at 15:15; Stop 11/15/19 at 13:44; Status DC Insulin Human Regular 100 unit/ Sodium Chloride 101 ml @ 0 mls/hr CONT PRN IV SEE I/O RECORD Last administered on 11/14/19at 02:12; Start 11/13/19 at 18:00 Fentanyl Citrate (Fentanyl 2ml Vial) 50 mcg PRN Q2HR PRN IVP MOD TO SEVERE PAIN, 2ND CHOICE Last administered on 11/17/19at 09:00; Start 11/14/19 at 11:45 Famotidine (Pepcid Vial) 20 mg QHS IVP Last administered on 11/17/19 21:03; Start 11/15/19 at 21:00 Prednisone (Prednisone) 3 mg DAILY PO Last administered on 11/17/19 09:00; Start 11/16/19 at 09:00 Potassium Chloride/Water 100 ml @ 100 mls/hr Q1H IV Last administered on 11/17/19 15:22; Start 11/17/19 at 11:00; Stop 11/17/19 at 14:59; Status DC Potassium Chloride (Klor-Con) 40 meq 1X ONCE PO Last administered on 11/17/19 11:01; Start 11/17/19 at 10:15; Stop 11/17/19 at 10:22; Status DC Tramadol HCl (Ultram) 50 mg PRN Q6HRS PRN PO MODERATE PAIN 4-6 Last administered on 11/17/19at 21:12; Start 11/17/19 at 10:15 Oxycodone HCl (Roxicodone) 5 mg PRN Q6HRS PRN PO SEVERE PAIN 7-10 Last administered on 11/17/19at 11:08; Start 11/17/19 at 10:15; Stop 11/17/19 at 15:30; Status DC Magnesium Sulfate 100 ml @ 25 mls/hr 1X ONCE IV Last administered on 11/17/19 11:06; Start 11/17/19 at 11:00; Stop 11/17/19 at 14:59; Status DC Magnesium Hydroxide (Milk Of Magnesia) 2,400 mg PRN DAILY PRN PO CONSTIPATION 2ND CHOICE; Start 11/17/19 at 15:30 Psyllium Hydrophilic Mucilloid (Metamucil Fiber Packet) 1 pkt DAILY PO Last adm inistered on 11/17/19 15:49; Start 11/17/19 at 15:30 Polyethylene Glycol (miraLAX PACKET) 17 gm DAILY PO Last administered on 11/17/19 15:49; Start 11/17/19 at 15:30 Oxycodone HCl (Roxicodone) 5 mg PRN Q4HRS PRN PO SEVERE PAIN 7-10 Last administered on 11/18/19at 04:35; Start 11/17/19 at 15:30 Insulin Human Lispro (HumaLOG) 0-9 UNITS TIDWMEALHC SQ ; Start 11/17/19 at 19:30 Active Scripts Active Reported Zyrtec (Cetirizine Hcl) 10 Mg Capsule 10 Mg PO DAILY Methotrexate (Methotrexate Sodium) 2.5 Mg Tablet 8 Tab PO WEEKLY Protonix (Pantoprazole Sodium) 40 Mg Tablet.dr 40 Mg PO DAILYAC Folic Acid 0.8 Mg Capsule 1 Cap PO DAILY 30 Days Ferrous Sulfate 325 Mg Tablet 1 Tab PO DAILY Vitals/I & O Vital Sign - Last 24 Hours 11/17/19 11/17/19 11/17/19 11/17/19 08:02 09:00 09:30 11:08 O2 Delivery Room Air Room Air Room Air Room Air 11/17/19 11/17/19 11/17/19 11/17/19 11:45 12:10 15:38 15:49 Temp 98.3 98.5 98.3 98.5 Pulse 101 95 Resp 18 18 B/P (MAP) 132/63 (86) 115/56 (75) Pulse Ox 96 96 O2 Delivery Room Air Room Air Room Air Room Air 11/17/19 11/17/19 11/17/19 11/17/19 18:15 19:00 19:50 21:12 Temp 98.9 98.9 Pulse 99 Resp 18 B/P (MAP) 122/64 (83) Pulse Ox 94 O2 Delivery Room Air Room Air Nasal Cannula Nasal Cannula O2 Flow Rate 2.0 2.0 11/17/19 11/17/19 11/17/19 11/17/19 22:38 22:42 23:00 23:42 Temp 99.5 99.5 Pulse 107 Resp 18 B/P (MAP) 135/74 (94) Pulse Ox 95 O2 Delivery Nasal Cannula Nasal Cannula Room Air Nasal Cannula O2 Flow Rate 2.0 2.0 2.0 11/18/19 11/18/19 11/18/19 11/18/19 03:00 04:35 05:35 07:18 Temp 99.3 99.3 Pulse 96 Resp 18 B/P (MAP) 112/59 (76) Pulse Ox 96 O2 Delivery Room Air Nasal Cannula Nasal Cannula Room Air O2 Flow Rate 2.0 2.0 Intake and Output 11/17/19 11/17/19 11/18/19 15:00 23:00 07:00 Intake Total 450 ml 400 ml 200 ml Balance 450 ml 400 ml 200 ml Hemodynamically unstable?: No Is patient in severe pain?: No Is NPO status required?: No GERMÁN BEGUM MD November 18, 2019 07:59
[2019-11-18] MEDS: INSULIN LISPRO 300 UNITS/3 ML VIAL. SQ SCH ×4 (08:00→21:00)
[2019-11-18 08:33] LABS: BASO % 0 % (0-3); EOS # 0.1 x10^3/uL (0.0-0.7); EOS % 4 % (0-3); HEMATOCRIT 34.5 % (36.0-47.0); HEMOGLOBIN 11.3 g/dL (12.0-15.5); LYMPH # 0.7 x10^3/uL (1.0-4.8); LYMPH % 37 % (24-48); MEAN CORPUSCULAR HEMOGLOBIN 28 pg (25-35); MEAN CORPUSCULAR HGB CONC 33 g/dL (31-37); MEAN CORPUSCULAR VOLUME 85 fL (79-100); MONO # 0.8 x10^3/uL (0.0-1.1); MONO % 44 % (0-9); NEUT # 0.3 x10^3/uL (1.8-7.7); NEUT % 14 % (31-73); PLATELET COUNT 201 x10^3/uL (140-400); RED BLOOD COUNT 4.05 x10^6/uL (3.50-5.40); RED CELL DISTRIBUTION WIDTH 16.3 % (11.5-14.5)
[2019-11-18 08:55] LABS: CALCIUM 8.2 mg/dL (8.5-10.1); CREATININE 0.5 mg/dL (0.6-1.0); GFR 126.7; MAGNESIUM 1.8 mg/dL (1.8-2.4); POTASSIUM 3.1 mmol/L (3.5-5.1)
[2019-11-18 09:09] LABS: WHITE BLOOD COUNT 1.9 x10^3/uL (4.0-11.0)
[2019-11-18] MEDS: predniSONE 1 MG TABLET PO SCH (09:17)
[2019-11-18] MEDS: POLYETHYLENE GLYCOL 3350 17 GM PACKET. PO SCH (09:17)
[2019-11-18] MEDS: PSYLLIUM HUSK (SUGAR FREE) 1 PKT PACKET PO SCH (09:17)
[2019-11-18] MEDS: IV NORMAL SALINE 1000ML BAG 1,000 ML IV SCH ×3 (09:18→22:16)
[2019-11-18 11:00] VITALS: BP 122/62
[2019-11-18] MEDS: ONDANSETRON PF 4 MG/2 ML VIAL. IV PRN (12:03)
[2019-11-18 15:00] VITALS: BP 124/64
[2019-11-18] MEDS: ENOXAPARIN 40 MG/0.4 ML SYRINGE. SQ SCH (18:13)
[2019-11-18 19:00] VITALS: BP 116/65
[2019-11-18] MEDS: FAMOTIDINE 20 MG/2 ML VIAL IVP SCH (22:14)
[2019-11-18 23:00] VITALS: BP 133/69
[2019-11-19] MEDS: oxyCODONE IR 5 MG TABLET PO PRN ×4 (02:22→20:57)
[2019-11-19 03:00] VITALS: BP 107/55
[2019-11-19 07:00] VITALS: BP 117/60
[2019-11-19] MEDS: traMADol 50 MG TABLET PO PRN ×2 (07:17→19:12)
[2019-11-19] MEDS: predniSONE 1 MG TABLET PO SCH (08:27)
[2019-11-19] MEDS: IV NORMAL SALINE 1000ML BAG 1,000 ML IV SCH (08:27)
[2019-11-19] MEDS: POLYETHYLENE GLYCOL 3350 17 GM PACKET. PO SCH (08:28)
[2019-11-19] MEDS: PSYLLIUM HUSK (SUGAR FREE) 1 PKT PACKET PO SCH (08:28)
[2019-11-19] MEDS: INSULIN LISPRO 300 UNITS/3 ML VIAL. SQ SCH ×4 (08:34→21:00)
--- NOTE | 2019-11-19 10:20 | PDOC ---
Subjective: Subjective: Still has a lot of pain - epigastric/LUQ. Eating makes it worse. Passing gas. Objective: Vital Signs: Vital Signs Date Time Temp Pulse Resp B/P (MAP) Pulse Ox O2 Delivery O2 Flow Rate FiO2 11/19/19 08:20 Room Air 11/19/19 07:00 98.0 91 17 117/60 (79) 94 98.0 11/19/19 03:22 2.0 Labs: Laboratory Tests Test 11/18/19 11:51 11/18/19 17:00 11/18/19 20:48 11/19/19 07:27 Glucose (Fingerstick) 231 mg/dL 138 mg/dL 185 mg/dL 160 mg/dL PE: GEN: NAD LUNGS: CTAB HEART: RRR ABD: quiet BS, soft, epigastric/LUQ tenderness NEURO/PSYCH: A & O 3 A/P: Pancreatitis, hypertriglyceridemia Still's disease - on prednisone, methotrexate held Leukopenia, hypokalemia, new DM, h/o celiac -- Ongoing pain complaints - recheck CT. Hemodynamically unstable?: No Is patient in severe pain?: No Is NPO status required?: No SHIRAZ CABRAL Nov 19, 2019 10:20
[2019-11-19 10:46] VITALS: BP 132/71
--- NOTE | 2019-11-19 11:16 | NUR ---
SW following. Discussed with RN, pt from home, has gone back to [facility] for CT of abdomen. Pt gets up ad [facility]. RN advised no SW needs at this time. SW will continue to follow.
[2019-11-19] MEDS ORDERED: IOHEXOL 300 MG/ML 100ML VIAL. IV ONE (11:45)
[2019-11-19] MEDS ORDERED: CONTRAST GIVEN. MC PRN (11:45)
[2019-11-19 15:00] VITALS: BP 128/69
--- NOTE | 2019-11-19 15:11 | PDOC ---
PROGRESS NOTES Chief Complaint Chief Complaint Acute pancreatitis - likely 2/2 hyper-triglyceridemia. 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 I discussed with [facility] rheumatology concern that MTX could play a role as well. Hold dosing for leukopenia Duodenal and jejunal intraluminal lipomas Hypertriglyceridemia - will need outpatient Endocrinology referral for cholesterol metabolism treatment, I have suggested prescription 2g TID fish oil (Vascepa or Lovaza) in the meantime once pancreatitis resolves Hyponatremia DM2 with Hyperglycemia - A1c 13.6. Should continue on insulin therapy until A1c < 8, then consider PO options. Would probably have to avoid GLP1 therapy given her pancreatitis. Would defer to an sql ssis developer for this. Celiac disease Adult onset stills disease Anemia Asthma CHERIE on CPAP GERD Leukopenia -likely related to chronic immunosuppression will hold MTX therapy for now and change to a prednisone taper on discharge. FEN - Clear liquid diet PPX - lovenox FULL CODE DIspo - inpatient for pancreatitis recovery History of Present Illness History of Present Illness Ms Fernandez is a 59yo F [employer] w/ PMHx celiac disease, adult onset stills disease, Anemia, Asthma, CHERIE on CPAP, GERD who presents with severe upper abdominal pain, nausea, vomiting, fatigue. 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 She only had oatmeal for breakfast. She has never had anything similar to this in the past. She generally feels unwell. She is not had any fever, diarrhea, chest pain, shortness of breath, dysuria, hematuria, blood in her stools. She denies alcohol abuse. Pain does not move anywhere. Nothing seems to make it better or worse. She has not tried anything at home. He does not drink alcohol, and is status post cholecystectomy. No calcium disorders. She takes 20mg methotrexate weekly on Fridays and is on 3 mg of chronic prednisone for her stills disease. She was diagnosed with celiac disease June 2019 and has just recently started on a gluten-free diet. No recent sick contacts that she can recall. Labs significant for lipase 81757, glucose 477, NA 129, bilirubin 1.1, Calcium 8.3, K 3.7, WBC 6.3, Hb 15, Platelets 247 CT abdomen pelvis shows surgically absent gallbladder and surgically absent uterus and describes duodenal and jejunal intraluminal lipomas. Findings of acute pancreatitis. No loculated collections. No biliary dilatation. Admitted for further treatment. 11/13: Lipase down. A1c 13.6, Triglycerides 3252. Started on insulin gtt. 11/14: Abdominal pain and glucose improved. Having ice chips per GI. Afebrile. No CP or SOB. D/w [facility] rheumatology, to hold MTX therapy on 11/15 given her leukopenia and pancreatitis. 11/15: Overnight afebrile. Labs improved. Still with left-sided abdominal pain. WBC 1.8. She notes she had not previously had a formal diagnosis of diabetes. No CP or SOB 11/16: Pain improved, advancing diet per GI lipase 328. WBC 2, K2.6, MG 1.4 11/17: Afebrile overnight. Still with abdominal pain, no CP or SOB 11/18: Patient continues to have discomfort especially when she has a diet no fever or chills were reported nevertheless she says that she woke up drenched in sweat in the middle of night, no other complaints were reported overnight, plan of care discussed in detail Vitals Vitals Vital Signs Date Time Temp Pulse Resp B/P (MAP) Pulse Ox O2 Delivery O2 Flow Rate FiO2 11/19/19 12:09 Room Air 11/19/19 10:46 98.2 100 17 132/71 (91) 95 98.2 11/19/19 03:22 2.0 Physical Exam General: Alert, Oriented X3, Cooperative, moderate distress Abdomen: Normal bowel sounds, Soft, No hepatosplenomegaly, No masses, Other (Diffuse tenderness) Extremities: No clubbing, No cyanosis, No edema, Normal pulses, No tenderness/swelling Skin: No rashes, No breakdown, No significant lesion Labs LABS Laboratory Tests Test 11/18/19 17:00 11/18/19 20:48 11/19/19 07:27 11/19/19 11:11 Glucose (Fingerstick) 138 mg/dL (70-99) 185 mg/dL (70-99) 160 mg/dL (70-99) 204 mg/dL (70-99) Review of Systems Review of Systems Pertinent as per HPI otherwise 14 point review of system is negative Assessment and Plan Assessmemt and Plan Problems Medical Problems: (1) Dehydration Status: Acute (2) Hyperglycemia Status: Acute (3) Pancreatitis, acute Status: Acute Comment Review of Relevant I have reviewed the following items diann (where applicable) has been applied. Labs Laboratory Tests Test 11/17/19 16:48 11/17/19 20:03 11/18/19 07:54 11/18/19 08:05 Glucose (Fingerstick) 156 mg/dL (70-99) 162 mg/dL (70-99) 154 mg/dL (70-99) White Blood Count 1.9 x10^3/uL (4.0-11.0) Red Blood Count 4.05 x10^6/uL (3.50-5.40) Hemoglobin 11.3 g/dL (12.0-15.5) Hematocrit 34.5 % (36.0-47.0) Mean Corpuscular Volume 85 fL (79-100) Mean Corpuscular Hemoglobin 28 pg (25-35) Mean Corpuscular Hemoglobin Concent 33 g/dL (31-37) Red Cell Distribution Width 16.3 % (11.5-14.5) Platelet Count 201 x10^3/uL (140-400) Neutrophils (%) (Auto) 14 % (31-73) Lymphocytes (%) (Auto) 37 % (24-48) Monocytes (%) (Auto) 44 % (0-9) Eosinophils (%) (Auto) 4 % (0-3) Basophils (%) (Auto) 0 % (0-3) Neutrophils # (Auto) 0.3 x10^3/uL (1.8-7.7) Lymphocytes # (Auto) 0.7 x10^3/uL (1.0-4.8) Monocytes # (Auto) 0.8 x10^3/uL (0.0-1.1) Eosinophils # (Auto) 0.1 x10^3/uL (0.0-0.7) Basophils # (Auto) 0.0 x10^3/uL (0.0-0.2) Sodium Level 136 mmol/L (136-145) Potassium Level 3.1 mmol/L (3.5-5.1) Chloride Level 102 mmol/L (98-107) Carbon Dioxide Level 22 mmol/L (21-32) Anion Gap 12 (6-14) Blood Urea Nitrogen 5 mg/dL (7-20) Creatinine 0.5 mg/dL (0.6-1.0) Estimated GFR (Cockcroft-Gault) 126.7 Glucose Level 172 mg/dL (70-99) Calcium Level 8.2 mg/dL (8.5-10.1) Magnesium Level 1.8 mg/dL (1.8-2.4) Test 11/18/19 11:51 11/18/19 17:00 11/18/19 20:48 11/19/19 07:27 Glucose (Fingerstick) 231 mg/dL (70-99) 138 mg/dL (70-99) 185 mg/dL (70-99) 160 mg/dL (70-99) Test 11/19/19 11:11 Glucose (Fingerstick) 204 mg/dL (70-99) Laboratory Tests Test 11/18/19 17:00 11/18/19 20:48 11/19/19 07:27 11/19/19 11:11 Glucose (Fingerstick) 138 mg/dL (70-99) 185 mg/dL (70-99) 160 mg/dL (70-99) 204 mg/dL (70-99) Medications Current Medications Iohexol (Omnipaque 300 Mg/ml) 75 ml 1X ONCE IV Last administered on 11/13/19at 11:30; Start 11/13/19 at 11:30; Stop 11/13/19 at 11:31; Status DC Iohexol (Omnipaque 240 Mg/ml) 50 ml 1X ONCE PO Last administered on 11/13/19at 11:30; Start 11/13/19 at 11:30; Stop 11/13/19 at 11:31; Status DC Info (CONTRAST GIVEN -- Rx MONITORING) 1 each PRN DAILY PRN MC SEE COMMENTS; Start 11/13/19 at 11:30; Stop 11/15/19 at 11:29; Status DC Sodium Chloride 1,000 ml @ 0 mls/hr 1X ONCE IV Last administered on 11/13/19at 12:27; Start 11/13/19 at 12:15; Stop 11/13/19 at 12:16; Status DC Morphine Sulfate (Morphine Sulfate) 5 mg 1X ONCE IV Last administered on 11/13/19at 12:45; Start 11/13/19 at 12:30; Stop 11/13/19 at 12:33; Status DC Morphine Sulfate (Morphine Sulfate) 5 mg 1X ONCE IV ; Start 11/13/19 at 13:45; Stop 11/13/19 at 13:46; Status DC Morphine Sulfate (Morphine Sulfate) 4 mg PRN Q2HR PRN IV MODERATE TO SEVERE PAIN Last administered on 11/15/19at 16:18; Start 11/13/19 at 14:45; Stop 11/19/19 at 10:23; Status DC Sodium Chloride 1,000 ml @ 100 mls/hr Q10H IV Last administered on 11/19/19at 08:27; Start 11/13/19 at 14:44; Stop 11/19/19 at 10:23; Status DC Ondansetron HCl (Zofran) 4 mg PRN Q4HRS PRN IV NAUSEA/VOMITING Last administered on 11/18/19at 12:03; Start 11/13/19 at 14:45 Acetaminophen (Tylenol Supp) 650 mg PRN Q4HRS PRN PA TEMP OVER 100.4F OR MILD PAIN; Start 11/13/19 at 14:45 Enoxaparin Sodium (Lovenox 40mg Syringe) 40 mg Q24H SQ Last administered on 11/18/19at 18:13; Start 11/13/19 at 15:00 Insulin Human Lispro (HumaLOG) 0-9 UNITS Q4HRS SQ Last administered on 11/17/19at 18:15; Start 11/13/19 at 16:00; Stop 11/17/19 at 19:32; Status DC Dextrose (Dextrose 50%-Water Syringe) 12.5 gm PRN Q15MIN PRN IV SEE COMMENTS; Start 11/13/19 at 14:45 Albuterol Sulfate (Ventolin Neb Soln) 3 mg PRN QID PRN NEB SHORTNESS OF BREATH; Start 11/13/19 at 15:15 Sodium Chloride (Saline Mist Nasal) 1 mago PRN Q1HR PRN NS NASAL CONGESTION; Start 11/13/19 at 15:15 Methylprednisolone Sodium Succinate (SOLU-Medrol 40MG VIAL) 40 mg DAILY IV Last administered on 11/15/19at 08:21; Start 11/13/19 at 15:15; Stop 11/15/19 at 13:44; Status DC Insulin Human Regular 100 unit/ Sodium Chloride 101 ml @ 0 mls/hr CONT PRN IV S EE I/O RECORD Last administered on 11/14/19at 02:12; Start 11/13/19 at 18:00 Fentanyl Citrate (Fentanyl 2ml Vial) 50 mcg PRN Q2HR PRN IVP MOD TO SEVERE PAIN, 2ND CHOICE Last administered on 11/17/19at 09:00; Start 11/14/19 at 11:45 Famotidine (Pepcid Vial) 20 mg QHS IVP Last administered on 11/18/19at 22:14; Start 11/15/19 at 21:00; Stop 11/19/19 at 10:21; Status DC Prednisone (Prednisone) 3 mg DAILY PO Last administered on 11/19/19at 08:27; Start 11/16/19 at 09:00 Potassium Chloride/Water 100 ml @ 100 mls/hr Q1H IV Last administered on 11/17/19at 15:22; Start 11/17/19 at 11:00; Stop 11/17/19 at 14:59; Status DC Potassium Chloride (Klor-Con) 40 meq 1X ONCE PO Last administered on 11/17/19at 11:01; Start 11/17/19 at 10:15; Stop 11/17/19 at 10:22; Status DC Tramadol HCl (Ultram) 50 mg PRN Q6HRS PRN PO MODERATE PAIN 4-6 Last administered on 11/19/19at 07:17; Start 11/17/19 at 10:15 Oxycodone HCl (Roxicodone) 5 mg PRN Q6HRS PRN PO SEVERE PAIN 7-10 Last administered on 11/17/19at 11:08; Start 11/17/19 at 10:15; Stop 11/17/19 at 15:30; Status DC Magnesium Sulfate 100 ml @ 25 mls/hr 1X ONCE IV Last administered on 11/17/19at 11:06; Start 11/17/19 at 11:00; Stop 11/17/19 at 14:59; Status DC Magnesium Hydroxide (Milk Of Magnesia) 2,400 mg PRN DAILY PRN PO CONSTIPATION 2ND CHOICE; Start 11/17/19 at 15:30 Psyllium Hydrophilic Mucilloid (Metamucil Fiber Packet) 1 pkt DAILY PO Last administered on 11/19/19at 08:28; Start 11/17/19 at 15:30 Polyethylene Glycol (miraLAX PACKET) 17 gm DAILY PO Last administered on 11/19/19at 08:28; Start 11/17/19 at 15:30 Oxycodone HCl (Roxicodone) 5 mg PRN Q4HRS PRN PO SEVERE PAIN 7-10 Last administered on 11/19/19at 10:56; Start 11/17/19 at 15:30 Insulin Human Lispro (HumaLOG) 0-9 UNITS TIDWMEALHC SQ Last administered on 11/19/19at 08:34; Start 11/17/19 at 19:30 Famotidine (Pepcid) 20 mg QHS PO ; Start 11/19/19 at 21:00 Iohexol (Omnipaque 300 Mg/ml) 75 ml 1X ONCE IV Last administered on 11/19/19at 11:45; Start 11/19/19 at 11:45; Stop 11/19/19 at 11:46; Status DC Info (CONTRAST GIVEN -- Rx MONITORING) 1 each PRN DAILY PRN MC SEE COMMENTS; Start 11/19/19 at 11:45; Stop 11/21/19 at 11:44 Active Scripts Active Reported Zyrtec (Cetirizine Hcl) 10 Mg Capsule 10 Mg PO DAILY Methotrexate (Methotrexate Sodium) 2.5 Mg Tablet 8 Tab PO WEEKLY Protonix (Pantoprazole Sodium) 40 Mg Tablet.dr 40 Mg PO DAILYAC Folic Acid 0.8 Mg Capsule 1 Cap PO DAILY 30 Days Ferrous Sulfate 325 Mg Tablet 1 Tab PO DAILY Vitals/I & O Vital Sign - Last 24 Hours 11/18/19 11/18/19 11/18/19 11/18/19 18:13 19:00 19:13 20:10 Temp 98.7 98.7 Pulse 96 Resp 18 20 B/P (MAP) 116/65 (82) Pulse Ox 94 O2 Delivery Room Air Room Air Room Air Room Air 11/18/19 11/18/19 11/18/19 11/19/19 22:14 23:00 23:14 02:22 Temp 98.3 98.3 Pulse 99 Resp 20 18 20 20 B/P (MAP) 133/69 (90) Pulse Ox 95 O2 Delivery Room Air Room Air Nasal Cannula Room Air O2 Flow Rate 2.0 11/19/19 11/19/19 11/19/19 11/19/19 03:00 03:22 07:00 07:15 Temp 98.4 98.0 98.4 98.0 Pulse 95 91 Resp 18 20 17 B/P (MAP) 107/55 (72) 117/60 (79) Pulse Ox 91 94 O2 Delivery Room Air Nasal Cannula Room Air Room Air O2 Flow Rate 2.0 11/19/19 11/19/19 11/19/19 11/19/19 07:17 08:20 10:46 10:56 Temp 98.2 98.2 Pulse 100 Resp 17 B/P (MAP) 132/71 (91) Pulse Ox 95 O2 Delivery Room Air Room Air Room Air Room Air 11/19/19 12:09 O2 Delivery Room Air Intake and Output 11/18/19 11/18/19 11/19/19 15:00 23:00 07:00 Intake Total 240 ml 2400 ml Balance 240 ml 2400 ml Hemodynamically unstable?: No Is patient in severe pain?: No Is NPO status required?: No VIVIAN BEACH MD Nov 19, 2019 15:11
[2019-11-19] MEDS: ENOXAPARIN 40 MG/0.4 ML SYRINGE. SQ SCH (15:50)
--- NOTE | 2019-11-19 16:11 | RAD ---
CT ABD PELV W/ IV CONTRST ONLY Indication: Reason: pancreatitis, ongoing upper abd pain / Spl. Instructions: IV OMNI 300 75 MLS / History: Exposure: One or more of the following individualized dose reduction techniques were utilized for this examination: 1. Automated exposure control 2. Adjustment of the mA and/or kV according to patient size 3. Use of iterative reconstruction technique. Technique: Intravenous contrast was given. No oral contrast per request. Comparison: 11/13/2019 FINDINGS: Small pleural effusions are noted in the lung bases. Atelectasis/infiltrate in both lung bases. Tiny hypodense lesion at the inferior right lobe of the liver, stable since prior study but too small to characterize, may just represent a small cyst, about 5 mm diameter. Spleen is nonenlarged. Pancreatic swelling with ill-defined margins is again seen, slightly greater than on the prior study. Pancreatic body measures about 3.5 cm with today, compared with 2.7 cm on prior exam. Slight heterogeneity of pancreatic enhancement pattern, particularly in the region of the pancreatic body. There is also increase in stranding of the peripancreatic fat and of disorganized peripancreatic fluid. There has been substantial increase in fluid in the left paracolic gutter and lateral to the left pararenal fascia. This measures 15 Hounsfield units compatible with simple nature. This extends distally into the upper left pelvis, lateral to the left psoas muscle and posterior to the descending colon. There is also increase in fatty stranding in this area since the prior exam. There is been an increase in swelling and fatty stranding within the subcutaneous tissues of the left flank. No evidence of adrenal mass. Kidneys demonstrate symmetric enhancement without dominant mass or hydronephrosis. Mild stranding in the perinephric fat bilaterally, slightly greater than on the prior exam. Tiny nonobstructive calculus in the lower pole the left kidney is again seen. Gallbladder is surgically absent. Small hiatal hernia. Wall thickening of the gastric antrum through proximal duodenum, may just be reactive and due to nondistention. No significant small bowel distention. Mild wall thickening of the posterior wall of the descending colon, where it is in contact with the fluid and edema in the region of the lateral conal fascia, probably reactive in nature. The appendix appears within normal limits. Tiny fatty density within the distal duodenum is again seen, likely a lipoma. Small fatty lesion within the proximal jejunum is also again identified, also likely a lipoma. These were seen previously. Mild free pelvic fluid. No evidence of pneumoperitoneum. Urinary bladder appears unremarkable. Vertebral body height and alignment are intact. No evidence of aggressive bone destruction. The aorta is nonaneurysmal. Renal arteries, superior mesenteric artery and celiac axis appear patent. Note there is narrowing at the origin of the celiac axis but distal flow is identified. Portal vein and splenic vein appear grossly patent. IMPRESSION: 1. Progression of findings of acute pancreatitis. Pancreatic enhancement pattern is slightly heterogeneous but no definable nonenhancing component to suggest liquefactive necrosis at this time. In addition, there is been substantial increase in left lateral peripancreatic fluid which extends laterally to the left in the region of the lateral conal and renal fascia, and dissects distally into the left pelvis. This could be infected fluid, but does not appear to be an encapsulated collection. 2. Small pleural effusions at both lung bases with bibasilar atelectasis and/or infiltrate. 3. Mild wall thickening of the posterior descending colon, most likely secondary or reactive given its proximity to the fluid/edema 4. Mild wall thickening of the distal stomach and duodenum, also likely reactive and due to nondistention. 5. Narrowing or stenosis at the origin of the celiac axis, but note there is evidence of distal enhancement. Electronically signed by: Frank Pineda MD (11/19/2019 4:08 PM) [id number]
[2019-11-19 19:00] VITALS: BP 140/70
[2019-11-19] MEDS: ONDANSETRON PF 4 MG/2 ML VIAL. IV PRN (20:53)
[2019-11-19] MEDS ORDERED: FAMOTIDINE 20 MG TABLET. PO SCH (21:00)
[2019-11-19 23:00] VITALS: BP 113/74
[2019-11-20 03:00] VITALS: BP 110/60
[2019-11-20] MEDS: oxyCODONE IR 5 MG TABLET PO PRN (03:41)
[2019-11-20] MEDS: traMADol 50 MG TABLET PO PRN (06:08)
[2019-11-20 07:00] VITALS: BP 140/72
[2019-11-20] MEDS: INSULIN LISPRO 300 UNITS/3 ML VIAL. SQ SCH ×4 (08:00→21:00)
[2019-11-20] MEDS: PSYLLIUM HUSK (SUGAR FREE) 1 PKT PACKET PO SCH (08:40)
[2019-11-20] MEDS: POLYETHYLENE GLYCOL 3350 17 GM PACKET. PO SCH (08:40)
[2019-11-20] MEDS: predniSONE 1 MG TABLET PO SCH (08:40)
[2019-11-20 09:03] LABS: BASO % 0 % (0-3); EOS # 0.1 x10^3/uL (0.0-0.7); EOS % 4 % (0-3); HEMATOCRIT 33.2 % (36.0-47.0); HEMOGLOBIN 11.1 g/dL (12.0-15.5); LYMPH # 0.4 x10^3/uL (1.0-4.8); LYMPH % 25 % (24-48); MEAN CORPUSCULAR HEMOGLOBIN 28 pg (25-35); MEAN CORPUSCULAR HGB CONC 33 g/dL (31-37); MEAN CORPUSCULAR VOLUME 84 fL (79-100); MONO # 0.5 x10^3/uL (0.0-1.1); MONO % 33 % (0-9); NEUT # 0.6 x10^3/uL (1.8-7.7); NEUT % 38 % (31-73); PLATELET COUNT 208 x10^3/uL (140-400); RED BLOOD COUNT 3.96 x10^6/uL (3.50-5.40); RED CELL DISTRIBUTION WIDTH 15.7 % (11.5-14.5)
[2019-11-20 09:09] LABS: WHITE BLOOD COUNT 1.6 x10^3/uL (4.0-11.0)
[2019-11-20 09:18] LABS: ALBUMIN 2.2 g/dL (3.4-5.0); ALBUMIN/GLOBULIN RATIO 0.6 (1.0-1.7); CALCIUM 8.5 mg/dL (8.5-10.1); CREATININE 0.6 mg/dL (0.6-1.0); GFR 102.7; TOTAL BILIRUBIN 0.6 mg/dL (0.2-1.0); TOTAL PROTEIN 6.2 g/dL (6.4-8.2)
[2019-11-20 09:22] LABS: POTASSIUM 2.5 mmol/L (3.5-5.1)
[2019-11-20] MEDS: IV RINGERS,LACTATED 1000ML 1,000 ML IV SCH (09:42)
[2019-11-20] MEDS: POTASSIUM CHLORIDE 10MEQ 100 ML IV SCH ×12 (09:55→21:27)
--- NOTE | 2019-11-20 10:40 | NUR ---
SW following. Discussed with RN, pt has critical labs today. Has downgraded diet to NPO. CT scan yesterday was worse than before. SW will continue to follow.
[2019-11-20 10:52] VITALS: BP 142/73
--- NOTE | 2019-11-20 10:54 | PDOC ---
Subjective: Subjective: I saw her earlier this morning - had some clear liquids for breakfast, still has abd pain. Discussed interval CT results w/ recommendation to hold off on diet for now - she is agreeable. Objective: Vital Signs: Vital Signs Date Time Temp Pulse Resp B/P (MAP) Pulse Ox O2 Delivery O2 Flow Rate FiO2 11/20/19 07:33 Room Air 11/20/19 07:00 98.3 88 17 140/72 (94) 92 98.3 11/20/19 06:08 2.0 Labs: Laboratory Tests Test 11/19/19 11:11 11/19/19 16:17 11/19/19 21:11 11/20/19 06:55 Glucose (Fingerstick) 204 mg/dL 183 mg/dL 126 mg/dL 152 mg/dL Test 11/20/19 08:50 White Blood Count 1.6 x10^3/uL Red Blood Count 3.96 x10^6/uL Hemoglobin 11.1 g/dL Hematocrit 33.2 % Mean Corpuscular Volume 84 fL Mean Corpuscular Hemoglobin 28 pg Mean Corpuscular Hemoglobin Concent 33 g/dL Red Cell Distribution Width 15.7 % Platelet Count 208 x10^3/uL Neutrophils (%) (Auto) 38 % Lymphocytes (%) (Auto) 25 % Monocytes (%) (Auto) 33 % Eosinophils (%) (Auto) 4 % Basophils (%) (Auto) 0 % Neutrophils # (Auto) 0.6 x10^3/uL Lymphocytes # (Auto) 0.4 x10^3/uL Monocytes # (Auto) 0.5 x10^3/uL Eosinophils # (Auto) 0.1 x10^3/uL Basophils # (Auto) 0.0 x10^3/uL Sodium Level 140 mmol/L Potassium Level 2.5 mmol/L Chloride Level 99 mmol/L Carbon Dioxide Level 31 mmol/L Anion Gap 10 Blood Urea Nitrogen 2 mg/dL Creatinine 0.6 mg/dL Estimated GFR (Cockcroft-Gault) 102.7 BUN/Creatinine Ratio 3 Glucose Level 223 mg/dL Calcium Level 8.5 mg/dL Total Bilirubin 0.6 mg/dL Aspartate Amino Transf (AST/SGOT) 14 U/L Alanine Aminotransferase (ALT/SGPT) 20 U/L Alkaline Phosphatase 84 U/L Total Protein 6.2 g/dL Albumin 2.2 g/dL Albumin/Globulin Ratio 0.6 Lipase 133 U/L C Imaging: CT A/P 11/19/19 IMPRESSION: 1. Progression of findings of acute pancreatitis. Pancreatic enhancement pattern is slightly heterogeneous but no definable nonenhancing component to suggest liquefactive necrosis at this time. In addition, there is been substantial increase in left lateral peripancreatic fluid which extends laterally to the left in the region of the lateral conal and renal fascia,and dissects distally into the left pelvis. This could be infected fluid, but does not appear to be an encapsulated collection. 2. Small pleural effusions at both lung bases with bibasilar atelectasis and/or infiltrate. 3. Mild wall thickening of the posterior descending colon, most likely secondary or reactive given its proximity to the fluid/edema 4. Mild wall thickening of the distal stomach and duodenum, also likely reactive and due to nondistention. 5. Narrowing or stenosis at the origin of the celiac axis, but note there is e vidence of distal enhancement. PE: GEN: NAD LUNGS: CTAB HEART: RRR ABD: some distention, quiet, epigastric to LUQ/left mid abd discomfort NEURO/PSYCH: A & O 3 A/P: Pancreatitis, hypertriglyceridemia - interval CT as above Still's disease - on prednisone, methotrexate held Leukopenia, hypokalemia - per primary -- Reviewed CT w/ Dr. Hsieh - consider TPN - d/w Dr. Watson - NPO/observe for now. Justicifation of Admission Dx: Justifications for Admission: Justification of Admission Dx: Yes SHIRAZ CABRAL Nov 20, 2019 10:54
[2019-11-20] MEDS ORDERED: BISACODYL 10 MG SUPP.RECT. PR PRN (11:00)
[2019-11-20] MEDS: fentaNYL PF VIAL 100 MCG/2 ML VIAL IVP PRN ×4 (11:59→21:28)
--- NOTE | 2019-11-20 13:41 | PDOC ---
PROGRESS NOTES Chief Complaint Chief Complaint Acute pancreatitis - likely 2/2 hyper-triglyceridemia. 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 I discussed with [facility] rheumatology concern that MTX could play a role as well. Hold dosing for leukopenia Duodenal and jejunal intraluminal lipomas Hypertriglyceridemia - will need outpatient Endocrinology referral for cholesterol metabolism treatment, I have suggested prescription 2g TID fish oil (Vascepa or Lovaza) in the meantime once pancreatitis resolves Hyponatremia DM2 with Hyperglycemia - A1c 13.6. Should continue on insulin therapy until A1c < 8, then consider PO options. Would probably have to avoid GLP1 therapy given her pancreatitis. Would defer to an assistant tennis coach for this. Celiac disease Adult onset stills disease Anemia Asthma CHERIE on CPAP GERD Leukopenia -likely related to chronic immunosuppression will hold MTX therapy for now and change to a prednisone taper on discharge. FEN - LR for maintenance, NPO PPX - lovenox FULL CODE DIspo - inpatient for pancreatitis recovery History of Present Illness History of Present Illness Ms Fernandez is a 59yo F [employer] w/ PMHx celiac disease, adult onset stills disease, Anemia, Asthma, CHERIE on CPAP, GERD who presents with severe upper abdominal pain, nausea, vomiting, fatigue. 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 She only had oatmeal for breakfast. She has never had anything similar to this in the past. She generally feels unwell. She is not had any fever, diarrhea, chest pain, shortness of breath, dysuria, hematuria, blood in her stools. She denies alcohol abuse. Pain does not move anywhere. Nothing seems to make it better or worse. She has not tried anything at home. He does not drink alcohol, and is status post cholecystectomy. No calcium disorders. She takes 20mg methotrexate weekly on Fridays and is on 3 mg of chronic prednisone for her stills disease. She was diagnosed with celiac disease June 2019 and has just recently started on a gluten-free diet. No recent sick contacts that she can recall. Labs significant for lipase 19227, glucose 477, NA 129, bilirubin 1.1, Calcium 8.3, K 3.7, WBC 6.3, Hb 15, Platelets 247 CT abdomen pelvis shows surgically absent gallbladder and surgically absent uterus and describes duodenal and jejunal intraluminal lipomas. Findings of acute pancreatitis. No loculated collections. No biliary dilatation. Admitted for further treatment. 11/13: Lipase down. A1c 13.6, Triglycerides 3252. Started on insulin gtt. 11/14: Abdominal pain and glucose improved. Having ice chips per GI. Afebrile. No CP or SOB. D/w [facility] rheumatology, to hold MTX therapy on 11/15 given her leukopenia and pancreatitis. 11/15: Overnight afebrile. Labs improved. Still with left-sided abdominal pain. WBC 1.8. She notes she had not previously had a formal diagnosis of diabetes. No CP or SOB 11/16: Pain improved, advancing diet per GI lipase 328. WBC 2, K2.6, MG 1.4 11/17: Afebrile overnight. Still with abdominal pain, no CP or SOB 11/18: Patient continues to have discomfort especially when she has a diet no fever or chills were reported nevertheless she says that she woke up drenched in sweat in the middle of night, no other complaints were reported overnight, plan of care discussed in detail 11/19: Patient will continue to have bowel rest in light of her CT from yesterday. No new complaints. Vitals Vitals Vital Signs Date Time Temp Pulse Resp B/P (MAP) Pulse Ox O2 Delivery O2 Flow Rate FiO2 11/20/19 12:57 Room Air 11/20/19 10:52 98.0 94 17 142/73 (96) 92 98.0 11/20/19 06:08 2.0 Physical Exam General: Alert, Oriented X3, Cooperative, moderate distress Abdomen: Normal bowel sounds, Soft, No hepatosplenomegaly, No masses, Other (Diffuse tenderness) Extremities: No clubbing, No cyanosis, No edema, Normal pulses, No tende rness/swelling Skin: No rashes, No breakdown, No significant lesion Labs LABS Laboratory Tests Test 11/19/19 16:17 11/19/19 21:11 11/20/19 06:55 11/20/19 08:50 Glucose (Fingerstick) 183 mg/dL (70-99) 126 mg/dL (70-99) 152 mg/dL (70-99) White Blood Count 1.6 x10^3/uL (4.0-11.0) Red Blood Count 3.96 x10^6/uL (3.50-5.40) Hemoglobin 11.1 g/dL (12.0-15.5) Hematocrit 33.2 % (36.0-47.0) Mean Corpuscular Volume 84 fL (79-100) Mean Corpuscular Hemoglobin 28 pg (25-35) Mean Corpuscular Hemoglobin Concent 33 g/dL (31-37) Red Cell Distribution Width 15.7 % (11.5-14.5) Platelet Count 208 x10^3/uL (140-400) Neutrophils (%) (Auto) 38 % (31-73) Lymphocytes (%) (Auto) 25 % (24-48) Monocytes (%) (Auto) 33 % (0-9) Eosinophils (%) (Auto) 4 % (0-3) Basophils (%) (Auto) 0 % (0-3) Neutrophils # (Auto) 0.6 x10^3/uL (1.8-7.7) Lymphocytes # (Auto) 0.4 x10^3/uL (1.0-4.8) Monocytes # (Auto) 0.5 x10^3/uL (0.0-1.1) Eosinophils # (Auto) 0.1 x10^3/uL (0.0-0.7) Basophils # (Auto) 0.0 x10^3/uL (0.0-0.2) Sodium Level 140 mmol/L (136-145) Potassium Level 2.5 mmol/L (3.5-5.1) Chloride Level 99 mmol/L (98-107) Carbon Dioxide Level 31 mmol/L (21-32) Anion Gap 10 (6-14) Blood Urea Nitrogen 2 mg/dL (7-20) Creatinine 0.6 mg/dL (0.6-1.0) Estimated GFR (Cockcroft-Gault) 102.7 BUN/Creatinine Ratio 3 (6-20) Glucose Level 223 mg/dL (70-99) Calcium Level 8.5 mg/dL (8.5-10.1) Total Bilirubin 0.6 mg/dL (0.2-1.0) Aspartate Amino Transf (AST/SGOT) 14 U/L (15-37) Alanine Aminotransferase (ALT/SGPT) 20 U/L (14-59) Alkaline Phosphatase 84 U/L (46-116) Total Protein 6.2 g/dL (6.4-8.2) Albumin 2.2 g/dL (3.4-5.0) Albumin/Globulin Ratio 0.6 (1.0-1.7) Lipase 133 U/L (73-393) Test 11/20/19 11:15 Glucose (Fingerstick) 192 mg/dL (70-99) Assessment and Plan Assessmemt and Plan Problems Medical Problems: (1) Dehydration Status: Acute (2) Hyperglycemia Status: Acute (3) Pancreatitis, acute Status: Acute Comment Review of Relevant I have reviewed the following items diann (where applicable) has been applied. Labs Laboratory Tests Test 11/18/19 17:00 11/18/19 20:48 11/19/19 07:27 11/19/19 11:11 Glucose (Fingerstick) 138 mg/dL (70-99) 185 mg/dL (70-99) 160 mg/dL (70-99) 204 mg/dL (70-99) Test 11/19/19 16:17 11/19/19 21:11 11/20/19 06:55 11/20/19 08:50 Glucose (Fingerstick) 183 mg/dL (70-99) 126 mg/dL (70-99) 152 mg/dL (70-99) White Blood Count 1.6 x10^3/uL (4.0-11.0) Red Blood Count 3.96 x10^6/uL (3.50-5.40) Hemoglobin 11.1 g/dL (12.0-15.5) Hematocrit 33.2 % (36.0-47.0) Mean Corpuscular Volume 84 fL (79-100) Mean Corpuscular Hemoglobin 28 pg (25-35) Mean Corpuscular Hemoglobin Concent 33 g/dL (31-37) Red Cell Distribution Width 15.7 % (11.5-14.5) Platelet Count 208 x10^3/uL (140-400) Neutrophils (%) (Auto) 38 % (31-73) Lymphocytes (%) (Auto) 25 % (24-48) Monocytes (%) (Auto) 33 % (0-9) Eosinophils (%) (Auto) 4 % (0-3) Basophils (%) (Auto) 0 % (0-3) Neutrophils # (Auto) 0.6 x10^3/uL (1.8-7.7) Lymphocytes # (Auto) 0.4 x10^3/uL (1.0-4.8) Monocytes # (Auto) 0.5 x10^3/uL (0.0-1.1) Eosinophils # (Auto) 0.1 x10^3/uL (0.0-0.7) Basophils # (Auto) 0.0 x10^3/uL (0.0-0.2) Sodium Level 140 mmol/L (136-145) Potassium Level 2.5 mmol/L (3.5-5.1) Chloride Level 99 mmol/L (98-107) Carbon Dioxide Level 31 mmol/L (21-32) Anion Gap 10 (6-14) Blood Urea Nitrogen 2 mg/dL (7-20) Creatinine 0.6 mg/dL (0.6-1.0) Estimated GFR (Cockcroft-Gault) 102.7 BUN/Creatinine Ratio 3 (-20) Glucose Level 223 mg/dL (70-99) Calcium Level 8.5 mg/dL (8.5-10.1) Total Bilirubin 0.6 mg/dL (0.2-1.0) Aspartate Amino Transf (AST/SGOT) 14 U/L (15-37) Alanine Aminotransferase (ALT/SGPT) 20 U/L (14-59) Alkaline Phosphatase 84 U/L (46-116) Total Protein 6.2 g/dL (6.4-8.2) Albumin 2.2 g/dL (3.4-5.0) Albumin/Globulin Ratio 0.6 (1.0-1.7) Lipase 133 U/L (73-393) Test 11/20/19 11:15 Glucose (Fingerstick) 192 mg/dL (70-99) Laboratory Tests Test 11/19/19 16:17 11/19/19 21:11 11/20/19 06:55 11/20/19 08:50 Glucose (Fingerstick) 183 mg/dL (70-99) 126 mg/dL (70-99) 152 mg/dL (70-99) White Blood Count 1.6 x10^3/uL (4.0-11.0) Red Blood Count 3.96 x10^6/uL (3.50-5.40) Hemoglobin 11.1 g/dL (12.0-15.5) Hematocrit 33.2 % (36.0-47.0) Mean Corpuscular Volume 84 fL (79-100) Mean Corpuscular Hemoglobin 28 pg (25-35) Mean Corpuscular Hemoglobin Concent 33 g/dL (31-37) Red Cell Distribution Width 15.7 % (11.5-14.5) Platelet Count 208 x10^3/uL (140-400) Neutrophils (%) (Auto) 38 % (31-73) Lymphocytes (%) (Auto) 25 % (24-48) Monocytes (%) (Auto) 33 % (0-9) Eosinophils (%) (Auto) 4 % (0-3) Basophils (%) (Auto) 0 % (0-3) Neutrophils # (Auto) 0.6 x10^3/uL (1.8-7.7) Lymphocytes # (Auto) 0.4 x10^3/uL (1.0-4.8) Monocytes # (Auto) 0.5 x10^3/uL (0.0-1.1) Eosinophils # (Auto) 0.1 x10^3/uL (0.0-0.7) Basophils # (Auto) 0.0 x10^3/uL (0.0-0.2) Sodium Level 140 mmol/L (136-145) Potassium Level 2.5 mmol/L (3.5-5.1) Chloride Level 99 mmol/L (98-107) Carbon Dioxide Level 31 mmol/L (21-32) Anion Gap 10 (6-14) Blood Urea Nitrogen 2 mg/dL (7-20) Creatinine 0.6 mg/dL (0.6-1.0) Estimated GFR (Cockcroft-Gault) 102.7 BUN/Creatinine Ratio 3 (6-20) Glucose Level 223 mg/dL (70-99) Calcium Level 8.5 mg/dL (8.5-10.1) Total Bilirubin 0.6 mg/dL (0.2-1.0) Aspartate Amino Transf (AST/SGOT) 14 U/L (15-37) Alanine Aminotransferase (ALT/SGPT) 20 U/L (14-59) Alkaline Phosphatase 84 U/L (46-116) Total Protein 6.2 g/dL (6.4-8.2) Albumin 2.2 g/dL (3.4-5.0) Albumin/Globulin Ratio 0.6 (1.0-1.7) Lipase 133 U/L (73-393) Test 11/20/19 11:15 Glucose (Fingerstick) 192 mg/dL (70-99) Medications Current Medications Iohexol (Omnipaque 300 Mg/ml) 75 ml 1X ONCE IV Last administered on 11/13/19at 11:30; Start 11/13/19 at 11:30; Stop 11/13/19 at 11:31; Status DC Iohexol (Omnipaque 240 Mg/ml) 50 ml 1X ONCE PO Last administered on 11/13/19at 11:30; Start 11/13/19 at 11:30; Stop 11/13/19 at 11:31; Status DC Info (CONTRAST GIVEN -- Rx MONITORING) 1 each PRN DAILY PRN MC SEE COMMENTS; Start 11/13/19 at 11:30; Stop 11/15/19 at 11:29; Status DC Sodium Chloride 1,000 ml @ 0 mls/hr 1X ONCE IV Last administered on 11/13/19at 12:27; Start 11/13/19 at 12:15; Stop 11/13/19 at 12:16; Status DC Morphine Sulfate (Morphine Sulfate) 5 mg 1X ONCE IV Last administered on 11/13/19at 12:45; Start 11/13/19 at 12:30; Stop 11/13/19 at 12:33; Status DC Morphine Sulfate (Morphine Sulfate) 5 mg 1X ONCE IV ; Start 11/13/19 at 13:45; Stop 11/13/19 at 13:46; Status DC Morphine Sulfate (Morphine Sulfate) 4 mg PRN Q2HR PRN IV MODERATE TO SEVERE PAIN Last administered on 11/15/19at 16:18; Start 11/13/19 at 14:45; Stop 11/19/19 at 10:23; Status DC Sodium Chloride 1,000 ml @ 100 mls/hr Q10H IV Last administered on 11/19/19at 08:27; Start 11/13/19 at 14:44; Stop 11/19/19 at 10:23; Status DC Ondansetron HCl (Zofran) 4 mg PRN Q4HRS PRN IV NAUSEA/VOMITING Last administered on 11/19/19at 20:53; Start 11/13/19 at 14:45 Acetaminophen (Tylenol Supp) 650 mg PRN Q4HRS PRN OR TEMP OVER 100.4F OR MILD PAIN; Start 11/13/19 at 14:45 Enoxaparin Sodium (Lovenox 40mg Syringe) 40 mg Q24H SQ Last administered on 11/19/19at 15:50; Start 11/13/19 at 15:00 Insulin Human Lispro (HumaLOG) 0-9 UNITS Q4HRS SQ Last administered on 11/17/19at 18:15; Start 11/13/19 at 16:00; Stop 11/17/19 at 19:32; Status DC Dextrose (Dextrose 50%-Water Syringe) 12.5 gm PRN Q15MIN PRN IV SEE COMMENTS; Start 11/13/19 at 14:45 Albuterol Sulfate (Ventolin Neb Soln) 3 mg PRN QID PRN NEB SHORTNESS OF BREATH; Start 11/13/19 at 15:15 Sodium Chloride (Saline Mist Nasal) 1 mago PRN Q1HR PRN NS NASAL CONGESTION; Start 11/13/19 at 15:15 Methylprednisolone Sodium Succinate (SOLU-Medrol 40MG VIAL) 40 mg DAILY IV Last administered on 11/15/19at 08:21; Start 11/13/19 at 15:15; Stop 11/15/19 at 13:44; Status DC Insulin Human Regular 100 unit/ Sodium Chloride 101 ml @ 0 mls/hr CONT PRN IV SEE I/O RECORD Last administered on 11/14/19at 02:12; Start 11/13/19 at 18:00 Fentanyl Citrate (Fentanyl 2ml Vial) 50 mcg PRN Q2HR PRN IVP MOD TO SEVERE PAIN, 2ND CHOICE Last administered on 11/20/19at 11:59; Start 11/14/19 at 11:45 Famotidine (Pepcid Vial) 20 mg QHS IVP Last administered on 11/18/19at 22:14; Start 11/15/19 at 21:00; Stop 11/19/19 at 10:21; Status DC Prednisone (Prednisone) 3 mg DAILY PO Last administered on 11/19/19at 08:27; Start 5/29/20 at 09:00 Potassium Chloride/Water 100 ml @ 100 mls/hr Q1H IV Last administered on 11/17/19at 15:22; Start 11/17/19 at 11:00; Stop 11/17/19 at 14:59; Status DC Potassium Chloride (Klor-Con) 40 meq 1X ONCE PO Last administered on 11/17/19at 11:01; Start 11/17/19 at 10:15; Stop 11/17/19 at 10:22; Status DC Tramadol HCl (Ultram) 50 mg PRN Q6HRS PRN PO MODERATE PAIN 4-6 Last administered on 11/20/19 06:08; Start 11/17/19 at 10:15 Oxycodone HCl (Roxicodone) 5 mg PRN Q6HRS PRN PO SEVERE PAIN 7-10 Last administered on 11/17/19at 11:08; Start 11/17/19 at 10:15; Stop 11/17/19 at 15:30; Status DC Magnesium Sulfate 100 ml @ 25 mls/hr 1X ONCE IV Last administered on 11/17/19at 11:06; Start 11/17/19 at 11:00; Stop 11/17/19 at 14:59; Status DC Magnesium Hydroxide (Milk Of Magnesia) 2,400 mg PRN DAILY PRN PO CONSTIPATION 2ND CHOICE; Start 11/17/19 at 15:30 Psyllium Hydrophilic Mucilloid (Metamucil Fiber Packet) 1 pkt DAILY PO Last administered on 11/19/19at 08:28; Start 11/17/19 at 15:30 Polyethylene Glycol (miraLAX PACKET) 17 gm DAILY PO Last administered on 11/19/19at 08:28; Start 11/17/19 at 15:30 Oxycodone HCl (Roxicodone) 5 mg PRN Q4HRS PRN PO SEVERE PAIN 7-10 Last administered on 11/20/19 03:41; Start 11/17/19 at 15:30 Insulin Human Lispro (HumaLOG) 0-9 UNITS [id number] SQ Last administered on 11/19/19at 17:14; Start 11/17/19 at 19:30 Famotidine (Pepcid) 20 mg QHS PO Last administered on 11/19/19at 20:57; Start 11/19/19 at 21:00; Stop 11/20/19 at 10:56; Status DC Iohexol (Omnipaque 300 Mg/ml) 75 ml 1X ONCE IV Last administered on 11/19/19at 11:45; Start 11/19/19 at 11:45; Stop 11/19/19 at 11:46; Status DC Info (CONTRAST GIVEN -- Rx MONITORING) 1 each PRN DAILY PRN MC SEE COMMENTS; Start 11/19/19 at 11:45; Stop 11/21/19 at 11:44 Ringer's Solution 1,000 ml @ 75 mls/hr [id number] IV Last administered on 11/20/19at 09:42; Start 11/20/19 at 09:30 Potassium Chloride/Water 100 ml @ 100 mls/hr Q1H IV Last administered on 0at 12:57; Start 11/20/19 at 10:00; Stop 11/20/19 at 21:59 Famotidine (Pepcid Vial) 20 mg QHS IVP ; Start 11/20/19 at 21:00 Bisacodyl (Dulcolax Supp) 10 mg PRN DAILY PRN OR CONSTIPATION; Start 11/20/19 at 11:00 Active Scripts Active Reported Zyrtec (Cetirizine Hcl) 10 Mg Capsule 10 Mg PO DAILY Methotrexate (Methotrexate Sodium) 2.5 Mg Tablet 8 Tab PO WEEKLY Protonix (Pantoprazole Sodium) 40 Mg Tablet.dr 40 Mg PO DAILYAC Folic Acid 0.8 Mg Capsule 1 Cap PO DAILY 30 Days Ferrous Sulfate 325 Mg Tablet 1 Tab PO DAILY Vitals/I & O Vital Sign - Last 24 Hours 11/19/19 11/19/19 11/19/19 11/19/19 15:00 15:49 17:14 19:00 Temp 98.0 99.0 98.0 99.0 Pulse 90 93 Resp 17 18 B/P (MAP) 128/69 (88) 140/70 (93) Pulse Ox 95 92 O2 Delivery Room Air Room Air Room Air 11/19/19 11/19/19 11/19/19 11/19/19 19:12 20:00 20:12 20:57 O2 Delivery Room Air Room Air Room Air Room Air 11/19/19 11/19/19 11/20/19 11/20/19 21:57 23:00 03:00 03:41 Temp 98.5 98.3 98.5 98.3 Pulse 90 86 Resp 18 16 B/P (MAP) 113/74 (87) 110/60 (77) Pulse Ox 97 96 O2 Delivery Room Air Nasal Cannula 11/20/19 11/20/19 11/20/19 11/20/19 04:41 06:08 07:00 07:00 Temp 98.3 98.3 Pulse 88 Resp 17 B/P (MAP) 140/72 (94) Pulse Ox 92 O2 Delivery Nasal Cannula Nasal Cannula Room Air Room Air O2 Flow Rate 2.0 11/20/19 11/20/19 11/20/19 11/20/19 07:33 10:52 11:59 12:57 Temp 98.0 98.0 Pulse 94 Resp 17 B/P (MAP) 142/73 (96) Pulse Ox 92 O2 Delivery Room Air Room Air Room Air Intake and Output 11/19/19 11/19/19 11/20/19 15:00 23:00 07:00 Intake Total 750 ml 300 ml Balance 750 ml 300 ml Hemodynamically unstable?: No Is patient in severe pain?: No Is NPO status required?: No VIVIAN BEACH MD Nov 20, 2019 13:41
[2019-11-20] MEDS: ONDANSETRON PF 4 MG/2 ML VIAL. IV PRN (14:06)
[2019-11-20 15:00] VITALS: BP 148/72
[2019-11-20] MEDS: ENOXAPARIN 40 MG/0.4 ML SYRINGE. SQ SCH (15:02)
--- NOTE | 2019-11-20 16:40 | PDOC2 ---
CONSULT Date of Consult Date of Consult DATE: 11/20/19 TIME: 16:36 Reason for Consult Reason for Consult: pancreatitis Referring Physician Referring Physician: Dr. Hsieh Identification/Chief Complaint Chief Complaint abd pain Source Source: Chart review History of Present Illness Reason for Visit: 59 yo F with c/o abd pain. She has previously had cholecystectomy in the . Pt does report feeling somewhat better. No current N/V. Past Medical History Pulmonary: Asthma, Other (CHERIE on CPAP) GI: GERD, Other (Celiac disease) Heme/Onc: Anemia NOS Rheumatologic: Other (Stills disease) Dermatology: No pertinent hx Past Surgical History Past Surgical History: Cholecystectomy, Hysterectomy, Other (Bilateral bunionectomy, right shoulder arthroscopy) Family History Family History: Diabetes Social History Quit ALCOHOL: none Drugs: None Current Problem List Problem List Problems Medical Problems: (1) Dehydration Status: Acute (2) Hyperglycemia Status: Acute (3) Pancreatitis, acute Status: Acute Current Medications Current Medications Current Medications Iohexol (Omnipaque 300 Mg/ml) 75 ml 1X ONCE IV Last administered on 11/13/19at 11:30; Start 11/13/19 at 11:30; Stop 11/13/19 at 11:31; Status DC Iohexol (Omnipaque 240 Mg/ml) 50 ml 1X ONCE PO Last administered on 11/13/19at 11:30; Start 11/13/19 at 11:30; Stop 11/13/19 at 11:31; Status DC Info (CONTRAST GIVEN -- Rx MONITORING) 1 each PRN DAILY PRN MC SEE COMMENTS; Start 11/13/19 at 11:30; Stop 11/15/19 at 11:29; Status DC Sodium Chloride 1,000 ml @ 0 mls/hr 1X ONCE IV Last administered on 11/13/19at 12:27; Start 11/13/19 at 12:15; Stop 11/13/19 at 12:16; Status DC Morphine Sulfate (Morphine Sulfate) 5 mg 1X ONCE IV Last administered on 11/13/19at 12:45; Start 11/13/19 at 12:30; Stop 11/13/19 at 12:33; Status DC Morphine Sulfate (Morphine Sulfate) 5 mg 1X ONCE IV ; Start 11/13/19 at 13:45; Stop 11/13/19 at 13:46; Status DC Morphine Sulfate (Morphine Sulfate) 4 mg PRN Q2HR PRN IV MODERATE TO SEVERE PAIN Last administered on 11/15/19at 16:18; Start 11/13/19 at 14:45; Stop 11/19/19 at 10:23; Status DC Sodium Chloride 1,000 ml @ 100 mls/hr Q10H IV Last administered on 11/19/19at 08:27; Start 11/13/19 at 14:44; Stop 11/19/19 at 10:23; Status DC Ondansetron HCl (Zofran) 4 mg PRN Q4HRS PRN IV NAUSEA/VOMITING Last administered on 11/20/19at 14:06; Start 11/13/19 at 14:45 Acetaminophen (Tylenol Supp) 650 mg PRN Q4HRS PRN [place] TEMP OVER 100.4F OR MILD PAIN; Start 11/13/19 at 14:45 Enoxaparin Sodium (Lovenox 40mg Syringe) 40 mg Q24H SQ Last administered on 11/20/19at 15:02; Start 11/13/19 at 15:00 Insulin Human Lispro (HumaLOG) 0-9 UNITS Q4HRS SQ Last administered on 11/17/19at 18:15; Start 11/13/19 at 16:00; Stop 11/17/19 at 19:32; Status DC Dextrose (Dextrose 50%-Water Syringe) 12.5 gm PRN Q15MIN PRN IV SEE COMMENTS; Start 11/13/19 at 14:45 Albuterol Sulfate (Ventolin Neb Soln) 3 mg PRN QID PRN NEB SHORTNESS OF BREATH; Start 11/13/19 at 15:15 Sodium Chloride (Saline Mist Nasal) 1 mago PRN Q1HR PRN NS NASAL CONGESTION; Start 11/13/19 at 15:15 Methylprednisolone Sodium Succinate (SOLU-Medrol 40MG VIAL) 40 mg DAILY IV Last administered on 11/15/19at 08:21; Start 11/13/19 at 15:15; Stop 11/15/19 at 13:44; Status DC Insulin Human Regular 100 unit/ Sodium Chloride 101 ml @ 0 mls/hr CONT PRN IV SEE I/O RECORD Last administered on 11/14/19at 02:12; Start 11/13/19 at 18:00 Fentanyl Citrate (Fentanyl 2ml Vial) 50 mcg PRN Q2HR PRN IVP MOD TO SEVERE PAIN, 2ND CHOICE Last administered on 11/20/19 16:08; Start 11/14/19 at 11:45 Famotidine (Pepcid Vial) 20 mg QHS IVP Last administered on 11/18/19at 22:14; Start 11/15/19 at 21:00; Stop 11/19/19 at 10:21; Status DC Prednisone (Prednisone) 3 mg DAILY PO Last administered on 11/19/19 08:27; Start 11/16/19 at 09:00 Potassium Chloride/Water 100 ml @ 100 mls/hr Q1H IV Last administered on 11/17/19at 15:22; Start 11/17/19 at 11:00; Stop 11/17/19 at 14:59; Status DC Potassium Chloride (Klor-Con) 40 meq 1X ONCE PO Last administered on 11/17/19at 11:01; Start 11/17/19 at 10:15; Stop 11/17/19 at 10:22; Status DC Tramadol HCl (Ultram) 50 mg PRN Q6HRS PRN PO MODERATE PAIN 4-6 Last adminis tered on 11/20/19at 06:08; Start 11/17/19 at 10:15 Oxycodone HCl (Roxicodone) 5 mg PRN Q6HRS PRN PO SEVERE PAIN 7-10 Last adminis tered on 11/17/19at 11:08; Start 11/17/19 at 10:15; Stop 11/17/19 at 15:30; Status DC Magnesium Sulfate 100 ml @ 25 mls/hr 1X ONCE IV Last administered on 11/17/19at 11:06; Start 11/17/19 at 11:00; Stop 11/17/19 at 14:59; Status DC Magnesium Hydroxide (Milk Of Magnesia) 2,400 mg PRN DAILY PRN PO CONSTIPATION 2ND CHOICE; Start 11/17/19 at 15:30 Psyllium Hydrophilic Mucilloid (Metamucil Fiber Packet) 1 pkt DAILY PO Last administered on 11/19/19at 08:28; Start 11/17/19 at 15:30 Polyethylene Glycol (miraLAX PACKET) 17 gm DAILY PO Last administered on 11/19/19 08:28; Start 11/17/19 at 15:30 Oxycodone HCl (Roxicodone) 5 mg PRN Q4HRS PRN PO SEVERE PAIN 7-10 Last administered on 11/20/19at 03:41; Start 11/17/19 at 15:30 Insulin Human Lispro (HumaLOG) 0-9 UNITS TIDWMEALHC SQ Last administered on 11/19/19at 17:14; Start 11/17/19 at 19:30 Famotidine (Pepcid) 20 mg QHS PO Last administered on 11/19/19at 20:57; Start 11/19/19 at 21:00; Stop 11/20/19 at 10:56; Status DC Iohexol (Omnipaque 300 Mg/ml) 75 ml 1X ONCE IV Last administered on 11/19/19at 11:45; Start 11/19/19 at 11:45; Stop 11/19/19 at 11:46; Status DC Info (CONTRAST GIVEN -- Rx MONITORING) 1 each PRN DAILY PRN MC SEE COMMENTS; Start 11/19/19 at 11:45; Stop 11/21/19 at 11:44 Ringer's Solution 1,000 ml @ 75 mls/hr [id number] IV Last administered on 11/20/19at 09:42; Start 11/20/19 at 09:30 Potassium Chloride/Water 100 ml @ 100 mls/hr Q1H IV Last administered on 11/20/19at 16:01; Start 11/20/19 at 10:00; Stop 11/20/19 at 21:59 Famotidine (Pepcid Vial) 20 mg QHS IVP ; Start 11/20/19 at 21:00 Bisacodyl (Dulcolax Supp) 10 mg PRN DAILY PRN [place] CONSTIPATION; Start 11/20/19 at 11:00 Active Scripts Active Reported Zyrtec (Cetirizine Hcl) 10 Mg Capsule 10 Mg PO DAILY Methotrexate (Methotrexate Sodium) 2.5 Mg Tablet 8 Tab PO WEEKLY Protonix (Pantoprazole Sodium) 40 Mg Tablet.dr 40 Mg PO DAILYAC Folic Acid 0.8 Mg Capsule 1 Cap PO DAILY 30 Days Ferrous Sulfate 325 Mg Tablet 1 Tab PO DAILY Allergies Allergies: Coded Allergies: coconut (Verified Allergy, Intermediate, HIVES, 11/13/19) ROS Gastrointestinal: Yes Abdominal Pain Physical Exam General: Alert, Oriented X3, Cooperative, mild distress HEENT: Atraumatic Lungs: Normal air movement Abdomen: Soft, Other (mild TTP) Extremities: No clubbing, No cyanosis Skin: No rashes, No breakdown Neuro: Normal speech, Sensation intact Psych/Mental Status: Mental status NL, Mood NL Vitals VITALS Vital Signs Date Time Temp Pulse Resp B/P (MAP) Pulse Ox O2 Delivery O2 Flow Rate FiO2 11/20/19 16:08 Room Air 11/20/19 15:00 98.0 90 17 148/72 (97) 93 98.0 11/20/19 06:08 2.0 Labs Labs Laboratory Tests Test 11/18/19 17:00 11/18/19 20:48 11/19/19 07:27 11/19/19 11:11 Glucose (Fingerstick) 138 mg/dL (70-99) 185 mg/dL (70-99) 160 mg/dL (70-99) 204 mg/dL (70-99) Test 11/19/19 16:17 11/19/19 21:11 11/20/19 06:55 11/20/19 08:50 Glucose (Fingerstick) 183 mg/dL (70-99) 126 mg/dL (70-99) 152 mg/dL (70-99) White Blood Count 1.6 x10^3/uL (4.0-11.0) Red Blood Count 3.96 x10^6/uL (3.50-5.40) Hemoglobin 11.1 g/dL (12.0-15.5) Hematocrit 33.2 % (36.0-47.0) Mean Corpuscular Volume 84 fL (79-100) Mean Corpuscular Hemoglobin 28 pg (25-35) Mean Corpuscular Hemoglobin Concent 33 g/dL (31-37) Red Cell Distribution Width 15.7 % (11.5-14.5) Platelet Count 208 x10^3/uL (140-400) Neutrophils (%) (Auto) 38 % (31-73) Lymphocytes (%) (Auto) 25 % (24-48) Monocytes (%) (Auto) 33 % (0-9) Eosinophils (%) (Auto) 4 % (0-3) Basophils (%) (Auto) 0 % (0-3) Neutrophils # (Auto) 0.6 x10^3/uL (1.8-7.7) Lymphocytes # (Auto) 0.4 x10^3/uL (1.0-4.8) Monocytes # (Auto) 0.5 x10^3/uL (0.0-1.1) Eosinophils # (Auto) 0.1 x10^3/uL (0.0-0.7) Basophils # (Auto) 0.0 x10^3/uL (0.0-0.2) Sodium Level 140 mmol/L (136-145) Potassium Level 2.5 mmol/L (3.5-5.1) Chloride Level 99 mmol/L (98-107) Carbon Dioxide Level 31 mmol/L (21-32) Anion Gap 10 (6-14) Blood Urea Nitrogen 2 mg/dL (7-20) Creatinine 0.6 mg/dL (0.6-1.0) Estimated GFR (Cockcroft-Gault) 102.7 BUN/Creatinine Ratio 3 (6-20) Glucose Level 223 mg/dL (70-99) Calcium Level 8.5 mg/dL (8.5-10.1) Total Bilirubin 0.6 mg/dL (0.2-1.0) Aspartate Amino Transf (AST/SGOT) 14 U/L (15-37) Alanine Aminotransferase (ALT/SGPT) 20 U/L (14-59) Alkaline Phosphatase 84 U/L (46-116) Total Protein 6.2 g/dL (6.4-8.2) Albumin 2.2 g/dL (3.4-5.0) Albumin/Globulin Ratio 0.6 (1.0-1.7) Lipase 133 U/L (73-393) Test 11/20/19 11:15 11/20/19 16:28 Glucose (Fingerstick) 192 mg/dL (70-99) 145 mg/dL (70-99) Laboratory Tests Test 11/19/19 21:11 11/20/19 06:55 11/20/19 08:50 11/20/19 11:15 Glucose (Fingerstick) 126 mg/dL (70-99) 152 mg/dL (70-99) 192 mg/dL (70-99) White Blood Count 1.6 x10^3/uL (4.0-11.0) Red Blood Count 3.96 x10^6/uL (3.50-5.40) Hemoglobin 11.1 g/dL (12.0-15.5) Hematocrit 33.2 % (36.0-47.0) Mean Corpuscular Volume 84 fL (79-100) Mean Corpuscular Hemoglobin 28 pg (25-35) Mean Corpuscular Hemoglobin Concent 33 g/dL (31-37) Red Cell Distribution Width 15.7 % (11.5-14.5) Platelet Count 208 x10^3/uL (140-400) Neutrophils (%) (Auto) 38 % (31-73) Lymphocytes (%) (Auto) 25 % (24-48) Monocytes (%) (Auto) 33 % (0-9) Eosinophils (%) (Auto) 4 % (0-3) Basophils (%) (Auto) 0 % (0-3) Neutrophils # (Auto) 0.6 x10^3/uL (1.8-7.7) Lymphocytes # (Auto) 0.4 x10^3/uL (1.0-4.8) Monocytes # (Auto) 0.5 x10^3/uL (0.0-1.1) Eosinophils # (Auto) 0.1 x10^3/uL (0.0-0.7) Basophils # (Auto) 0.0 x10^3/uL (0.0-0.2) Sodium Level 140 mmol/L (136-145) Potassium Level 2.5 mmol/L (3.5-5.1) Chloride Level 99 mmol/L (98-107) Carbon Dioxide Level 31 mmol/L (21-32) Anion Gap 10 (6-14) Blood Urea Nitrogen 2 mg/dL (7-20) Creatinine 0.6 mg/dL (0.6-1.0) Estimated GFR (Cockcroft-Gault) 102.7 BUN/Creatinine Ratio 3 (6-20) Glucose Level 223 mg/dL (70-99) Calcium Level 8.5 mg/dL (8.5-10.1) Total Bilirubin 0.6 mg/dL (0.2-1.0) Aspartate Amino Transf (AST/SGOT) 14 U/L (15-37) Alanine Aminotransferase (ALT/SGPT) 20 U/L (14-59) Alkaline Phosphatase 84 U/L (46-116) Total Protein 6.2 g/dL (6.4-8.2) Albumin 2.2 g/dL (3.4-5.0) Albumin/Globulin Ratio 0.6 (1.0-1.7) Lipase 133 U/L (73-393) Test 11/20/19 16:28 Glucose (Fingerstick) 145 mg/dL (70-99) Images Images CT with changes of pancreatitis, no obvious necrosis Assessment/Plan Assessment/Plan Severe pancreatitis agree with supportive care no current surgical plans Thanks for consult! BARBARA DODGE MD Nov 20, 2019 16:40
[2019-11-20 19:11] VITALS: BP 133/71
[2019-11-20] MEDS: FAMOTIDINE 20 MG/2 ML VIAL IVP SCH (21:28)
[2019-11-20 23:20] VITALS: BP 128/82
[2019-11-21] MEDS: IV RINGERS,LACTATED 1000ML 1,000 ML IV SCH ×2 (02:22→14:20)
[2019-11-21] MEDS: fentaNYL PF VIAL 100 MCG/2 ML VIAL IVP PRN ×6 (02:22→21:00)
[2019-11-21 03:49] VITALS: BP 128/76
[2019-11-21 05:25] LABS: CALCIUM 8.9 mg/dL (8.5-10.1); CREATININE 0.6 mg/dL (0.6-1.0); GFR 102.7; POTASSIUM 3.3 mmol/L (3.5-5.1)
[2019-11-21 07:00] VITALS: BP 134/67
[2019-11-21] MEDS: INSULIN LISPRO 300 UNITS/3 ML VIAL. SQ SCH ×4 (08:00→21:00)
[2019-11-21] MEDS: PSYLLIUM HUSK (SUGAR FREE) 1 PKT PACKET PO SCH (08:39)
[2019-11-21] MEDS: POLYETHYLENE GLYCOL 3350 17 GM PACKET. PO SCH (08:39)
[2019-11-21] MEDS: predniSONE 1 MG TABLET PO SCH (08:39)
--- NOTE | 2019-11-21 09:07 | PDOC ---
PROGRESS NOTES Chief Complaint Chief Complaint Acute pancreatitis - likely 2/2 hyper-triglyceridemia. 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 I discussed with [facility] rheumatology concern that MTX could play a role as well. Hold dosing for leukopenia Duodenal and jejunal intraluminal lipomas Hypertriglyceridemia - will need outpatient Endocrinology referral for cholesterol metabolism treatment, I have suggested prescription 2g TID fish oil (Vascepa or Lovaza) in the meantime once pancreatitis resolves Hyponatremia DM2 with Hyperglycemia - A1c 13.6. Should continue on insulin therapy until A1c < 8, then consider PO options. Would probably have to avoid GLP1 therapy given her pancreatitis. Would defer to an residential roofer helper for this. Celiac disease Adult onset stills disease Anemia Asthma CHERIE on CPAP GERD Leukopenia -likely related to chronic immunosuppression will hold MTX therapy for now and change to a prednisone taper on discharge. FEN - LR for maintenance, NPO, will wait for recommendations from our financial management consultant regarding diet PPX - lovenox FULL CODE DIspo - inpatient for pancreatitis recovery History of Present Illness History of Present Illness Ms Fernandez is a 59yo F [employer] w/ PMHx celiac disease, adult onset stills disease, Anemia, Asthma, CHERIE on CPAP, GERD who presents with severe upper abdominal pain, nausea, vomiting, fatigue. 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 She only had oatmeal for breakfast. She has never had anything similar to this in the past. She generally feels unwell. She is not had any fever, diarrhea, chest pain, shortness of breath, dysuria, hematuria, blood in her stools. She denies alcohol abuse. Pain does not move anywhere. Nothing seems to make it better or worse. She has not tried anything at home. He does not drink alcohol, and is status post cholecystectomy. No calcium disorders. She takes 20mg methotrexate weekly on Fridays and is on 3 mg of chronic prednisone for her stills disease. She was diagnosed with celiac disease June 2019 and has just recently started on a gluten-free diet. No recent sick contacts that she can recall. Labs significant for lipase 81126, glucose 477, NA 129, bilirubin 1.1, Calcium 8.3, K 3.7, WBC 6.3, Hb 15, Platelets 247 CT abdomen pelvis shows surgically absent gallbladder and surgically absent uterus and describes duodenal and jejunal intraluminal lipomas. Findings of acute pancreatitis. No loculated collections. No biliary dilatation. Admitted for further treatment. 11/13: Lipase down. A1c 13.6, Triglycerides 3252. Started on insulin gtt. 11/14: Abdominal pain and glucose improved. Having ice chips per GI. Afebrile. No CP or SOB. D/w [facility] rheumatology, to hold MTX therapy on 11/15 given her leukopenia and pancreatitis. 11/15: Overnight afebrile. Labs improved. Still with left-sided abdominal pain. WBC 1.8. She notes she had not previously had a formal diagnosis of diabetes. No CP or SOB 11/16: Pain improved, advancing diet per GI lipase 328. WBC 2, K2.6, MG 1.4 11/17: Afebrile overnight. Still with abdominal pain, no CP or SOB 11/18: Patient continues to have discomfort especially when she has a diet no fever or chills were reported nevertheless she says that she woke up drenched in sweat in the middle of night, no other complaints were reported overnight, plan of care discussed in detail 11/19: Patient will continue to have bowel rest in light of her CT from yesterday. No new complaints. Vitals Vitals Vital Signs Date Time Temp Pulse Resp B/P (MAP) Pulse Ox O2 Delivery O2 Flow Rate FiO2 11/21/19 08:00 Room Air 11/21/19 07:00 97.8 78 18 134/67 (89) 92 97.8 11/21/19 03:49 2.0 Physical Exam General: Alert, Oriented X3, Cooperative, mild distress Abdomen: Soft, Other (mild TTP) Extremities: No clubbing, No cyanosis Skin: No rashes, No breakdown Labs LABS Laboratory Tests Test 11/20/19 11:15 11/20/19 16:28 11/20/19 20:38 11/21/19 04:10 Glucose (Fingerstick) 192 mg/dL (70-99) 145 mg/dL (70-99) 137 mg/dL (70-99) Sodium Level 141 mmol/L (136-145) Potassium Level 3.3 mmol/L (3.5-5.1) Chloride Level 100 mmol/L (98-107) Carbon Dioxide Level 28 mmol/L (21-32) Anion Gap 13 (6-14) Blood Urea Nitrogen 3 mg/dL (7-20) Creatinine 0.6 mg/dL (0.6-1.0) Estimated GFR (Cockcroft-Gault) 102.7 Glucose Level 171 mg/dL (70-99) Calcium Level 8.9 mg/dL (8.5-10.1) Test 11/21/19 06:57 Glucose (Fingerstick) 153 mg/dL (70-99) Assessment and Plan Assessmemt and Plan Problems Medical Problems: (1) Dehydration Status: Acute (2) Hyperglycemia Status: Acute (3) Pancreatitis, acute Status: Acute Comment Review of Relevant I have reviewed the following items diann (where applicable) has been applied. Labs Laboratory Tests Test 11/19/19 11:11 11/19/19 16:17 11/19/19 21:11 11/20/19 06:55 Glucose (Fingerstick) 204 mg/dL (70-99) 183 mg/dL (70-99) 126 mg/dL (70-99) 152 mg/dL (70-99) Test 11/20/19 08:50 11/20/19 11:15 11/20/19 16:28 11/20/19 20:38 White Blood Count 1.6 x10^3/uL (4.0-11.0) Red Blood Count 3.96 x10^6/uL (3.50-5.40) Hemoglobin 11.1 g/dL (12.0-15.5) Hematocrit 33.2 % (36.0-47.0) Mean Corpuscular Volume 84 fL (79-100) Mean Corpuscular Hemoglobin 28 pg (25-35) Mean Corpuscular Hemoglobin Concent 33 g/dL (31-37) Red Cell Distribution Width 15.7 % (11.5-14.5) Platelet Count 208 x10^3/uL (140-400) Neutrophils (%) (Auto) 38 % (31-73) Lymphocytes (%) (Auto) 25 % (24-48) Monocytes (%) (Auto) 33 % (0-9) Eosinophils (%) (Auto) 4 % (0-3) Basophils (%) (Auto) 0 % (0-3) Neutrophils # (Auto) 0.6 x10^3/uL (1.8-7.7) Lymphocytes # (Auto) 0.4 x10^3/uL (1.0-4.8) Monocytes # (Auto) 0.5 x10^3/uL (0.0-1.1) Eosinophils # (Auto) 0.1 x10^3/uL (0.0-0.7) Basophils # (Auto) 0.0 x10^3/uL (0.0-0.2) Sodium Level 140 mmol/L (136-145) Potassium Level 2.5 mmol/L (3.5-5.1) Chloride Level 99 mmol/L (98-107) Carbon Dioxide Level 31 mmol/L (21-32) Anion Gap 10 (6-14) Blood Urea Nitrogen 2 mg/dL (7-20) Creatinine 0.6 mg/dL (0.6-1.0) Estimated GFR (Cockcroft-Gault) 102.7 BUN/Creatinine Ratio 3 (6-20) Glucose Level 223 mg/dL (70-99) Calcium Level 8.5 mg/dL (8.5-10.1) Total Bilirubin 0.6 mg/dL (0.2-1.0) Aspartate Amino Transf (AST/SGOT) 14 U/L (15-37) Alanine Aminotransferase (ALT/SGPT) 20 U/L (14-59) Alkaline Phosphatase 84 U/L (46-116) Total Protein 6.2 g/dL (6.4-8.2) Albumin 2.2 g/dL (3.4-5.0) Albumin/Globulin Ratio 0.6 (1.0-1.7) Lipase 133 U/L (73-393) Glucose (Fingerstick) 192 mg/dL (70-99) 145 mg/dL (70-99) 137 mg/dL (70-99) Test 11/21/19 04:10 11/21/19 06:57 Sodium Level 141 mmol/L (136-145) Potassium Level 3.3 mmol/L (3.5-5.1) Chloride Level 100 mmol/L (98-107) Carbon Dioxide Level 28 mmol/L (21-32) Anion Gap 13 (6-14) Blood Urea Nitrogen 3 mg/dL (7-20) Creatinine 0.6 mg/dL (0.6-1.0) Estimated GFR (Cockcroft-Gault) 102.7 Glucose Level 171 mg/dL (70-99) Calcium Level 8.9 mg/dL (8.5-10.1) Glucose (Fingerstick) 153 mg/dL (70-99) Laboratory Tests Test 11/20/19 11:15 11/20/19 16:28 11/20/19 20:38 11/21/19 04:10 Glucose (Fingerstick) 192 mg/dL (70-99) 145 mg/dL (70-99) 137 mg/dL (70-99) Sodium Level 141 mmol/L (136-145) Potassium Level 3.3 mmol/L (3.5-5.1) Chloride Level 100 mmol/L (98-107) Carbon Dioxide Level 28 mmol/L (21-32) Anion Gap 13 (6-14) Blood Urea Nitrogen 3 mg/dL (7-20) Creatinine 0.6 mg/dL (0.6-1.0) Estimated GFR (Cockcroft-Gault) 102.7 Glucose Level 171 mg/dL (70-99) Calcium Level 8.9 mg/dL (8.5-10.1) Test 11/21/19 06:57 Glucose (Fingerstick) 153 mg/dL (70-99) Medications Current Medications Iohexol (Omnipaque 300 Mg/ml) 75 ml 1X ONCE IV Last administered on 11/13/19at 11:30; Start 11/13/19 at 11:30; Stop 11/13/19 at 11:31; Status DC Iohexol (Omnipaque 240 Mg/ml) 50 ml 1X ONCE PO Last administered on 11/13/19at 11:30; Start 11/13/19 at 11:30; Stop 11/13/19 at 11:31; Status DC Info (CONTRAST GIVEN -- Rx MONITORING) 1 each PRN DAILY PRN MC SEE COMMENTS; Start 11/13/19 at 11:30; Stop 11/15/19 at 11:29; Status DC Sodium Chloride 1,000 ml @ 0 mls/hr 1X ONCE IV Last administered on 11/13/19at 12:27; Start 11/13/19 at 12:15; Stop 11/13/19 at 12:16; Status DC Morphine Sulfate (Morphine Sulfate) 5 mg 1X ONCE IV Last administered on 11/13/19at 12:45; Start 11/13/19 at 12:30; Stop 11/13/19 at 12:33; Status DC Morphine Sulfate (Morphine Sulfate) 5 mg 1X ONCE IV ; Start 11/13/19 at 13:45; Stop 11/13/19 at 13:46; Status DC Morphine Sulfate (Morphine Sulfate) 4 mg PRN Q2HR PRN IV MODERATE TO SEVERE PAIN Last administered on 11/15/19at 16:18; Start 11/13/19 at 14:45; Stop 11/19/19 at 10:23; Status DC Sodium Chloride 1,000 ml @ 100 mls/hr Q10H IV Last administered on 11/19/19at 08:27; Start 11/13/19 at 14:44; Stop 11/19/19 at 10:23; Status DC Ondansetron HCl (Zofran) 4 mg PRN Q4HRS PRN IV NAUSEA/VOMITING Last admin istered on 11/20/19at 14:06; Start 11/13/19 at 14:45 Acetaminophen (Tylenol Supp) 650 mg PRN Q4HRS PRN KS TEMP OVER 100.4F OR MILD PAIN; Start 11/13/19 at 14:45 Enoxaparin Sodium (Lovenox 40mg Syringe) 40 mg Q24H SQ Last administered on 11/20/19at 15:02; Start 11/13/19 at 15:00 Insulin Human Lispro (HumaLOG) 0-9 UNITS Q4HRS SQ Last administered on 11/17/19at 18:15; Start 11/13/19 at 16:00; Stop 11/17/19 at 19:32; Status DC Dextrose (Dextrose 50%-Water Syringe) 12.5 gm PRN Q15MIN PRN IV SEE COMMENTS; Start 11/13/19 at 14:45 Albuterol Sulfate (Ventolin Neb Soln) 3 mg PRN QID PRN NEB SHORTNESS OF BREATH; Start 11/13/19 at 15:15 Sodium Chloride (Saline Mist Nasal) 1 mago PRN Q1HR PRN NS NASAL CONGESTION; Start 11/13/19 at 15:15 Methylprednisolone Sodium Succinate (SOLU-Medrol 40MG VIAL) 40 mg DAILY IV Last administered on 11/15/19at 08:21; Start 11/13/19 at 15:15; Stop 11/15/19 at 13:44 ; Status DC Insulin Human Regular 100 unit/ Sodium Chloride 101 ml @ 0 mls/hr CONT PRN IV SEE I/O RECORD Last administered on 11/14/19at 02:12; Start 11/13/19 at 18:00 Fentanyl Citrate (Fentanyl 2ml Vial) 50 mcg PRN Q2HR PRN IVP MOD TO SEVERE PAIN, 2ND CHOICE Last administered on 11/21/19at 06:26; Start 11/14/19 at 11:45 Famotidine (Pepcid Vial) 20 mg QHS IVP Last administered on 11/18/19at 22:14; Start 11/15/19 at 21:00; Stop 11/19/19 at 10:21; Status DC Prednisone (Prednisone) 3 mg DAILY PO Last administered on 11/19/19at 08:27; Start 11/16/19 at 09:00 Potassium Chloride/Water 100 ml @ 100 mls/hr Q1H IV Last administered on at 15:22; Start 11/17/19 at 11:00; Stop 11/17/19 at 14:59; Status DC Potassium Chloride (Klor-Con) 40 meq 1X ONCE PO Last administered on 11/17/19at 11:01; Start 11/17/19 at 10:15; Stop 11/17/19 at 10:22; Status DC Tramadol HCl (Ultram) 50 mg PRN Q6HRS PRN PO MODERATE PAIN 4-6 Last administered on 11/20/19at 06:08; Start 11/17/19 at 10:15 Oxycodone HCl (Roxicodone) 5 mg PRN Q6HRS PRN PO SEVERE PAIN 7-10 Last administered on 11/17/19at 11:08; Start 11/17/19 at 10:15; Stop 11/17/19 at 15:30; Status DC Magnesium Sulfate 100 ml @ 25 mls/hr 1X ONCE IV Last administered on 11/17/19at 11:06; Start 11/17/19 at 11:00; Stop 11/17/19 at 14:59; Status DC Magnesium Hydroxide (Milk Of Magnesia) 2,400 mg PRN DAILY PRN PO CONSTIPATION 2ND CHOICE; Start 11/17/19 at 15:30 Psyllium Hydrophilic Mucilloid (Metamucil Fiber Packet) 1 pkt DAILY PO Last administered on 11/19/19at 08:28; Start 11/17/19 at 15:30 Polyethylene Glycol (miraLAX PACKET) 17 gm DAILY PO Last administered on 11/19/19at 08:28; Start 11/17/19 at 15:30 Oxycodone HCl (Roxicodone) 5 mg PRN Q4HRS PRN PO SEVERE PAIN 7-10 Last administered on 11/20/19at 03:41; Start 11/17/19 at 15:30 Insulin Human Lispro (HumaLOG) 0-9 UNITS TIDWMEALHC SQ Last administered on 11/19/19at 17:14; Start 11/17/19 at 19:30 Famotidine (Pepcid) 20 mg QHS PO Last administered on 11/19/19at 20:57; Start 11/19/19 at 21:00; Stop 11/20/19 at 10:56; Status DC Iohexol (Omnipaque 300 Mg/ml) 75 ml 1X ONCE IV Last administered on 11/19/19at 11:45; Start 11/19/19 at 11:45; Stop 11/19/19 at 11:46; Status DC Info (CONTRAST GIVEN -- Rx MONITORING) 1 each PRN DAILY PRN MC SEE COMMENTS; Start 11/19/19 at 11:45; Stop 11/21/19 at 11:44 Ringer's Solution 1,000 ml @ 75 mls/hr [id number] IV Last administered on 11/21/19at 02:22; Start 11/20/19 at 09:30 Potassium Chloride/Water 100 ml @ 100 mls/hr Q1H IV Last administered on 11/20/19at 21:27; Start 11/20/19 at 10:00; Stop 11/20/19 at 21:59; Status DC Famotidine (Pepcid Vial) 20 mg QHS IVP Last administered on 11/20/19at 21:28; Start 11/20/19 at 21:00 Bisacodyl (Dulcolax Supp) 10 mg PRN DAILY PRN [place] CONSTIPATION; Start 11/20/19 at 11:00 Active Scripts Active Reported Zyrtec (Cetirizine Hcl) 10 Mg Capsule 10 Mg PO DAILY Methotrexate (Methotrexate Sodium) 2.5 Mg Tablet 8 Tab PO WEEKLY Protonix (Pantoprazole Sodium) 40 Mg Tablet.dr 40 Mg PO DAILYAC Folic Acid 0.8 Mg Capsule 1 Cap PO DAILY 30 Days Ferrous Sulfate 325 Mg Tablet 1 Tab PO DAILY Vitals/I & O Vital Sign - Last 24 Hours 11/20/19 11/20/19 11/20/19 11/20/19 10:52 11:59 12:57 15:00 Temp 98.0 98.0 98.0 98.0 Pulse 94 90 Resp 17 17 B/P (MAP) 142/73 (96) 148/72 (97) Pulse Ox 92 93 O2 Delivery Room Air Room Air Room Air 11/20/19 11/20/19 11/20/19 11/20/19 16:08 19:01 19:11 19:31 Temp 98.4 98.4 Pulse 98 Resp 16 B/P (MAP) 133/71 (91) Pulse Ox 96 O2 Delivery Room Air Room Air Nasal Cannula Room Air O2 Flow Rate 2.0 11/20/19 11/20/19 11/20/19 11/20/19 20:00 21:28 22:00 23:20 Temp 98.5 98.5 Pulse 90 Resp 16 B/P (MAP) 128/82 (97) Pulse Ox 94 O2 Delivery Room Air Room Air Nasal Cannula Nasal Cannula O2 Flow Rate 2.0 2.0 11/21/19 11/21/19 11/21/19 11/21/19 02:22 02:52 03:49 06:26 Temp 98.1 98.1 Pulse 80 Resp 18 B/P (MAP) 128/76 (93) Pulse Ox 96 O2 Delivery Room Air Room Air Nasal Cannula Room Air O2 Flow Rate 2.0 11/21/19 11/21/19 11/21/19 07:00 07:10 08:00 Temp 97.8 97.8 Pulse 78 Resp 18 B/P (MAP) 134/67 (89) Pulse Ox 92 O2 Delivery Room Air Room Air Room Air Hemodynamically unstable?: No Is patient in severe pain?: No Is NPO status required?: No VIVIAN BEACH MD Nov 21, 2019 09:07
--- NOTE | 2019-11-21 09:20 | PDOC ---
Infectious Disease Note Vital Sign Vital Signs Vital Signs Date Time Temp Pulse Resp B/P (MAP) Pulse Ox O2 Delivery O2 Flow Rate FiO2 11/21/19 08:00 Room Air 11/21/19 07:00 97.8 78 18 134/67 (89) 92 97.8 11/21/19 03:49 2.0 Labs Lab Laboratory Tests Test 11/20/19 11:15 11/20/19 16:28 11/20/19 20:38 11/21/19 04:10 Glucose (Fingerstick) 192 mg/dL (70-99) 145 mg/dL (70-99) 137 mg/dL (70-99) Sodium Level 141 mmol/L (136-145) Potassium Level 3.3 mmol/L (3.5-5.1) Chloride Level 100 mmol/L (98-107) Carbon Dioxide Level 28 mmol/L (21-32) Anion Gap 13 (6-14) Blood Urea Nitrogen 3 mg/dL (7-20) Creatinine 0.6 mg/dL (0.6-1.0) Estimated GFR (Cockcroft-Gault) 102.7 Glucose Level 171 mg/dL (70-99) Calcium Level 8.9 mg/dL (8.5-10.1) Test 11/21/19 06:57 Glucose (Fingerstick) 153 mg/dL (70-99) Objective Assessment pt seen, consult dictated Plan Plan of Care / JEAN PIERRE BLAIR MD Nov 21, 2019 09:20
[2019-11-21] MEDS ORDERED: LEUCOVORIN CALCIUM 5 MG TABLET PO SCH (10:00)
--- NOTE | 2019-11-21 10:37 | CONS ---
DATE OF CONSULTATION: 11/21/2019 REQUESTING PHYSICIAN: Dr. Watson. REASON FOR CONSULTATION: Pancreatitis and neutropenia. HISTORY OF PRESENT ILLNESS: This is a 59-year-old female with a history of adult onset Still's disease who is on methotrexate for at least 1 year. The patient came in with nausea, vomiting and abdominal pain. The patient was found to have acute pancreatitis. The patient has been getting conservative therapy for that. When she came in, her counts were normal. White count went down to now 1.6. Platelets are normal. The patient has no fever. The patient's abdominal pain has improved. Yesterday, she had nausea one time, but she has not had any nausea or vomiting. She has not been started on any diet yet. Methotrexate has been stopped. The patient is not receiving right now any folic acid or folinic acid. Last abdominal CT showed acute pancreatitis with no necrosis. There is increase in the fluid collection. Small pleural effusion. Currently, the patient is feeling much better. Denies any headache, visual symptoms, chest pain, shortness of breath, abdominal pain, urinary symptoms or bowel symptoms. PAST MEDICAL HISTORY: Positive for: 1. Adult onset Still's disease. 2. She also has been diagnosed having celiac disease. 3. Gastroesophageal reflux disease. 4. Asthma. 5. Anemia. PAST SURGICAL HISTORY: She has had: 1. Cholecystectomy. 2. Hysterectomy. 3. Shoulder arthroscopy. SOCIAL HISTORY: Negative for smoking, alcohol or illicit drug use. ALLERGIES: No known drug allergies. CURRENT MEDICATIONS: Reviewed. REVIEW OF SYSTEMS: As per HPI. All other systems reviewed and are negative. PHYSICAL EXAMINATION: GENERAL: Alert, oriented female, not in distress. VITAL SIGNS: Stable, afebrile. HEENT: NAD. NECK: Supple. No JVP. No lymphadenopathy. LUNGS: Clear. HEART: S1, S2 regular. ABDOMEN: Soft, nontender. No organomegaly. EXTREMITIES: No edema, cyanosis. SKIN: Unremarkable. NEUROLOGIC: The patient is alert, awake and appropriate. No focal neurologic deficit. LABORATORY DATA: White count is 1.6, hemoglobin 11.1, platelets are normal, 38% neutrophil count. BUN and creatinine are normal. Her last lipase yesterday was 133. Urinalysis is unremarkable. Abdominal CT reviewed. IMPRESSION: 1. Acute pancreatitis, possibly from methotrexate or very high triglycerides, Methotrexate has been stopped. Acute pancreatitis appears to be stabilizing. 2. Neutropenia secondary to methotrexate toxicity. Needs to replace the folinic acid. 4. Adult-onset Still's disease. RECOMMENDATIONS: Recommend continue supportive care. Diet as per the GI, folinic acid and hopefully we will resume some liquid diet. If she tolerates, she should be able to get out of here. Thank you very much, Dr. Watson, for giving me the opportunity to participate in this patient's care. JEAN PIERRE BLAIR MD DR: NEDA/anali JOB#: [id number] / [id number] CUBA
[2019-11-21 10:51] VITALS: BP 138/62
--- NOTE | 2019-11-21 11:08 | PDOC ---
Subjective: Subjective: Feels better w/ less abd pain, but then says she thinks it's time for pain meds. Objective: Objective: D/w Dr. Watson. Vital Signs: Vital Signs Date Time Temp Pulse Resp B/P (MAP) Pulse Ox O2 Delivery O2 Flow Rate FiO2 11/21/19 10:51 97.9 80 18 138/62 (87) 94 Room Air 97.9 11/21/19 09:56 2.0 Labs: Laboratory Tests Test 11/20/19 11:15 11/20/19 16:28 11/20/19 20:38 11/21/19 04:10 Glucose (Fingerstick) 192 mg/dL 145 mg/dL 137 mg/dL Sodium Level 141 mmol/L Potassium Level 3.3 mmol/L Chloride Level 100 mmol/L Carbon Dioxide Level 28 mmol/L Anion Gap 13 Blood Urea Nitrogen 3 mg/dL Creatinine 0.6 mg/dL Estimated GFR (Cockcroft-Gault) 102.7 Glucose Level 171 mg/dL Calcium Level 8.9 mg/dL Test 11/21/19 06:57 Glucose (Fingerstick) 153 mg/dL PE: GEN: NAD LUNGS: CTAB HEART: RRR ABD: soft to left, still a bit uncomfortable NEURO/PSYCH: A & O 3 A/P: Pancreatitis, hypertriglyceridemia - interval CT 11/18 worse, surgery and ID now following Still's disease w/ h/o methotrexate and prednisone use Leukopenia -- Continue NPO - ?PICC/TPN Justicifation of Admission Dx: Justifications for Admission: Justification of Admission Dx: Yes SHIRAZ CABRAL Nov 21, 2019 11:08
--- NOTE | 2019-11-21 14:00 | PDOC ---
SURGICAL PROGRESS NOTE Subjective Pt reports feeling better Vital Signs Vital Signs Date Time Temp Pulse Resp B/P (MAP) Pulse Ox O2 Delivery O2 Flow Rate FiO2 11/21/19 10:51 97.9 80 18 138/62 (87) 94 Room Air 97.9 11/21/19 09:56 2.0 General: Alert, Oriented X3, Cooperative, No acute distress Abdomen: Soft, Other (mild TTP) Labs Laboratory Tests Test 11/19/19 16:17 11/19/19 21:11 11/20/19 06:55 11/20/19 08:50 Glucose (Fingerstick) 183 mg/dL (70-99) 126 mg/dL (70-99) 152 mg/dL (70-99) White Blood Count 1.6 x10^3/uL (4.0-11.0) Red Blood Count 3.96 x10^6/uL (3.50-5.40) Hemoglobin 11.1 g/dL (12.0-15.5) Hematocrit 33.2 % (36.0-47.0) Mean Corpuscular Volume 84 fL (79-100) Mean Corpuscular Hemoglobin 28 pg (25-35) Mean Corpuscular Hemoglobin Concent 33 g/dL (31-37) Red Cell Distribution Width 15.7 % (11.5-14.5) Platelet Count 208 x10^3/uL (140-400) Neutrophils (%) (Auto) 38 % (31-73) Lymphocytes (%) (Auto) 25 % (24-48) Monocytes (%) (Auto) 33 % (0-9) Eosinophils (%) (Auto) 4 % (0-3) Basophils (%) (Auto) 0 % (0-3) Neutrophils # (Auto) 0.6 x10^3/uL (1.8-7.7) Lymphocytes # (Auto) 0.4 x10^3/uL (1.0-4.8) Monocytes # (Auto) 0.5 x10^3/uL (0.0-1.1) Eosinophils # (Auto) 0.1 x10^3/uL (0.0-0.7) Basophils # (Auto) 0.0 x10^3/uL (0.0-0.2) Sodium Level 140 mmol/L (136-145) Potassium Level 2.5 mmol/L (3.5-5.1) Chloride Level 99 mmol/L (98-107) Carbon Dioxide Level 31 mmol/L (21-32) Anion Gap 10 (6-14) Blood Urea Nitrogen 2 mg/dL (7-20) Creatinine 0.6 mg/dL (0.6-1.0) Estimated GFR (Cockcroft-Gault) 102.7 BUN/Creatinine Ratio 3 (6-20) Glucose Level 223 mg/dL (70-99) Calcium Level 8.5 mg/dL (8.5-10.1) Total Bilirubin 0.6 mg/dL (0.2-1.0) Aspartate Amino Transf (AST/SGOT) 14 U/L (15-37) Alanine Aminotransferase (ALT/SGPT) 20 U/L (14-59) Alkaline Phosphatase 84 U/L (46-116) Total Protein 6.2 g/dL (6.4-8.2) Albumin 2.2 g/dL (3.4-5.0) Albumin/Globulin Ratio 0.6 (1.0-1.7) Lipase 133 U/L (73-393) Test 11/20/19 11:15 11/20/19 16:28 11/20/19 20:38 11/21/19 04:10 Glucose (Fingerstick) 192 mg/dL (70-99) 145 mg/dL (70-99) 137 mg/dL (70-99) Sodium Level 141 mmol/L (136-145) Potassium Level 3.3 mmol/L (3.5-5.1) Chloride Level 100 mmol/L (98-107) Carbon Dioxide Level 28 mmol/L (21-32) Anion Gap 13 (6-14) Blood Urea Nitrogen 3 mg/dL (7-20) Creatinine 0.6 mg/dL (0.6-1.0) Estimated GFR (Cockcroft-Gault) 102.7 Glucose Level 171 mg/dL (70-99) Calcium Level 8.9 mg/dL (8.5-10.1) Test 11/21/19 06:57 11/21/19 11:25 Glucose (Fingerstick) 153 mg/dL (70-99) 145 mg/dL (70-99) Laboratory Tests Test 11/20/19 16:28 11/20/19 20:38 11/21/19 04:10 11/21/19 06:57 Glucose (Fingerstick) 145 mg/dL (70-99) 137 mg/dL (70-99) 153 mg/dL (70-99) Sodium Level 141 mmol/L (136-145) Potassium Level 3.3 mmol/L (3.5-5.1) Chloride Level 100 mmol/L (98-107) Carbon Dioxide Level 28 mmol/L (21-32) Anion Gap 13 (6-14) Blood Urea Nitrogen 3 mg/dL (7-20) Creatinine 0.6 mg/dL (0.6-1.0) Estimated GFR (Cockcroft-Gault) 102.7 Glucose Level 171 mg/dL (70-99) Calcium Level 8.9 mg/dL (8.5-10.1) Test 11/21/19 11:25 Glucose (Fingerstick) 145 mg/dL (70-99) Problem List Problems Medical Problems: (1) Dehydration Status: Acute (2) Hyperglycemia Status: Acute (3) Pancreatitis, acute Status: Acute Assessment/Plan pancreatitis cont supportive care no current surgical plans. Justicifation of Admission Dx: Justifications for Admission: Justification of Admission Dx: Yes BARBARA DODGE MD Nov 21, 2019 14:00
[2019-11-21 15:00] VITALS: BP 132/58
--- NOTE | 2019-11-21 15:00 | NUR ---
SW following. Discussed with RN, pt NPO and bowel rest. Possibility of starting TPN. Per chart, no surgical plans. SW will continue to follow.
[2019-11-21] MEDS: ENOXAPARIN 40 MG/0.4 ML SYRINGE. SQ SCH (17:07)
[2019-11-21 19:00] VITALS: BP 143/77
[2019-11-21] MEDS: POTASSIUM CHLORIDE 10MEQ 100 ML IV SCH ×3 (20:08→23:49)
[2019-11-21] MEDS: FAMOTIDINE 20 MG/2 ML VIAL IVP SCH (21:00)
[2019-11-21 23:00] VITALS: BP 154/73
[2019-11-22] MEDS: fentaNYL PF VIAL 100 MCG/2 ML VIAL IVP PRN ×5 (00:34→16:21)
[2019-11-22] MEDS: IV RINGERS,LACTATED 1000ML 1,000 ML IV SCH ×2 (01:53→14:50)
[2019-11-22] MEDS: POTASSIUM CHLORIDE 10MEQ 100 ML IV SCH (01:53)
[2019-11-22 03:00] VITALS: BP 147/94
[2019-11-22 04:47] LABS: CALCIUM 8.6 mg/dL (8.5-10.1); CREATININE 0.6 mg/dL (0.6-1.0); GFR 102.7; POTASSIUM 3.5 mmol/L (3.5-5.1)
[2019-11-22 07:00] VITALS: BP 129/76
[2019-11-22] MEDS: INSULIN LISPRO 300 UNITS/3 ML VIAL. SQ SCH ×4 (08:00→21:00)
[2019-11-22 08:05] LABS: PROTHROMBIN TIME PATIENT 13.6 SEC (11.7-14.0)
--- NOTE | 2019-11-22 08:09 | PDOC ---
SURGICAL PROGRESS NOTE Subjective Patient doing quite well this morning no complaints no nausea no pain Vital Signs Vital Signs Date Time Temp Pulse Resp B/P (MAP) Pulse Ox O2 Delivery O2 Flow Rate FiO2 11/22/19 07:00 98.7 80 18 129/76 (93) 95 Room Air 98.7 11/21/19 21:30 2.0 PATIENT HAS A CHAMBERLAIN: No General: Alert, Oriented X3, Cooperative, No acute distress Abdomen: Normal bowel sounds, Soft, No tenderness Labs Laboratory Tests Test 11/20/19 08:50 11/20/19 11:15 11/20/19 16:28 11/20/19 20:38 White Blood Count 1.6 x10^3/uL (4.0-11.0) Red Blood Count 3.96 x10^6/uL (3.50-5.40) Hemoglobin 11.1 g/dL (12.0-15.5) Hematocrit 33.2 % (36.0-47.0) Mean Corpuscular Volume 84 fL (79-100) Mean Corpuscular Hemoglobin 28 pg (25-35) Mean Corpuscular Hemoglobin Concent 33 g/dL (31-37) Red Cell Distribution Width 15.7 % (11.5-14.5) Platelet Count 208 x10^3/uL (140-400) Neutrophils (%) (Auto) 38 % (31-73) Lymphocytes (%) (Auto) 25 % (24-48) Monocytes (%) (Auto) 33 % (0-9) Eosinophils (%) (Auto) 4 % (0-3) Basophils (%) (Auto) 0 % (0-3) Neutrophils # (Auto) 0.6 x10^3/uL (1.8-7.7) Lymphocytes # (Auto) 0.4 x10^3/uL (1.0-4.8) Monocytes # (Auto) 0.5 x10^3/uL (0.0-1.1) Eosinophils # (Auto) 0.1 x10^3/uL (0.0-0.7) Basophils # (Auto) 0.0 x10^3/uL (0.0-0.2) Sodium Level 140 mmol/L (136-145) Potassium Level 2.5 mmol/L (3.5-5.1) Chloride Level 99 mmol/L (98-107) Carbon Dioxide Level 31 mmol/L (21-32) Anion Gap 10 (6-14) Blood Urea Nitrogen 2 mg/dL (7-20) Creatinine 0.6 mg/dL (0.6-1.0) Estimated GFR (Cockcroft-Gault) 102.7 BUN/Creatinine Ratio 3 (6-20) Glucose Level 223 mg/dL (70-99) Calcium Level 8.5 mg/dL (8.5-10.1) Total Bilirubin 0.6 mg/dL (0.2-1.0) Aspartate Amino Transf (AST/SGOT) 14 U/L (15-37) Alanine Aminotransferase (ALT/SGPT) 20 U/L (14-59) Alkaline Phosphatase 84 U/L (46-116) Total Protein 6.2 g/dL (6.4-8.2) Albumin 2.2 g/dL (3.4-5.0) Albumin/Globulin Ratio 0.6 (1.0-1.7) Lipase 133 U/L (73-393) Glucose (Fingerstick) 192 mg/dL (70-99) 145 mg/dL (70-99) 137 mg/dL (70-99) Test 11/21/19 04:10 11/21/19 06:57 11/21/19 11:25 11/21/19 16:43 Sodium Level 141 mmol/L (136-145) Potassium Level 3.3 mmol/L (3.5-5.1) Chloride Level 100 mmol/L (98-107) Carbon Dioxide Level 28 mmol/L (21-32) Anion Gap 13 (6-14) Blood Urea Nitrogen 3 mg/dL (7-20) Creatinine 0.6 mg/dL (0.6-1.0) Estimated GFR (Cockcroft-Gault) 102.7 Glucose Level 171 mg/dL (70-99) Calcium Level 8.9 mg/dL (8.5-10.1) Glucose (Fingerstick) 153 mg/dL (70-99) 145 mg/dL (70-99) 132 mg/dL (70-99) Test 11/21/19 20:21 11/22/19 04:05 11/22/19 07:31 Glucose (Fingerstick) 148 mg/dL (70-99) 146 mg/dL (70-99) Sodium Level 140 mmol/L (136-145) Potassium Level 3.5 mmol/L (3.5-5.1) Chloride Level 100 mmol/L (98-107) Carbon Dioxide Level 22 mmol/L (21-32) Anion Gap 18 (6-14) Blood Urea Nitrogen 4 mg/dL (7-20) Creatinine 0.6 mg/dL (0.6-1.0) Estimated GFR (Cockcroft-Gault) 102.7 Glucose Level 166 mg/dL (70-99) Calcium Level 8.6 mg/dL (8.5-10.1) Laboratory Tests Test 11/21/19 11:25 11/21/19 16:43 11/21/19 20:21 11/22/19 04:05 Glucose (Fingerstick) 145 mg/dL (70-99) 132 mg/dL (70-99) 148 mg/dL (70-99) Sodium Level 140 mmol/L (136-145) Potassium Level 3.5 mmol/L (3.5-5.1) Chloride Level 100 mmol/L (98-107) Carbon Dioxide Level 22 mmol/L (21-32) Anion Gap 18 (6-14) Blood Urea Nitrogen 4 mg/dL (7-20) Creatinine 0.6 mg/dL (0.6-1.0) Estimated GFR (Cockcroft-Gault) 102.7 Glucose Level 166 mg/dL (70-99) Calcium Level 8.6 mg/dL (8.5-10.1) Test 11/22/19 07:31 Glucose (Fingerstick) 146 mg/dL (70-99) Problem List Problems Medical Problems: (1) Dehydration Status: Acute (2) Hyperglycemia Status: Acute (3) Pancreatitis, acute Status: Acute Assessment/Plan Pancreatitis no surgical plans Continue medical therapy Justicifation of Admission Dx: Justifications for Admission: Justification of Admission Dx: Yes BUBBA MOON MD Nov 22, 2019 08:09
[2019-11-22] MEDS: predniSONE 1 MG TABLET PO SCH (08:56)
[2019-11-22] MEDS: POLYETHYLENE GLYCOL 3350 17 GM PACKET. PO SCH (08:56)
[2019-11-22] MEDS: PSYLLIUM HUSK (SUGAR FREE) 1 PKT PACKET PO SCH (08:56)
[2019-11-22 09:07] LABS: BASO % 1 % (0-3); EOS % 2 % (0-3); HEMATOCRIT 35.6 % (36.0-47.0); HEMOGLOBIN 11.7 g/dL (12.0-15.5); LYMPH # 0.6 x10^3/uL (1.0-4.8); LYMPH % 37 % (24-48); MEAN CORPUSCULAR HEMOGLOBIN 28 pg (25-35); MEAN CORPUSCULAR HGB CONC 33 g/dL (31-37); MEAN CORPUSCULAR VOLUME 85 fL (79-100); MONO # 0.4 x10^3/uL (0.0-1.1); MONO % 28 % (0-9); NEUT # 0.5 x10^3/uL (1.8-7.7); NEUT % 32 % (31-73); PLATELET COUNT 280 x10^3/uL (140-400); RED BLOOD COUNT 4.22 x10^6/uL (3.50-5.40); RED CELL DISTRIBUTION WIDTH 15.5 % (11.5-14.5)
[2019-11-22 09:15] LABS: WHITE BLOOD COUNT 1.6 x10^3/uL (4.0-11.0)
--- NOTE | 2019-11-22 09:24 | PDOC ---
Infectious Disease Note Subjective Subjective Patient is feeling better. Walking around. ROS ROS No nausea vomiting diarrhea chest pain shortness of breath Vital Sign Vital Signs Vital Signs Date Time Temp Pulse Resp B/P (MAP) Pulse Ox O2 Delivery O2 Flow Rate FiO2 11/22/19 08:55 Room Air 11/22/19 07:00 98.7 80 18 129/76 (93) 95 98.7 11/21/19 21:30 2.0 Physical Exam PHYSICAL EXAM GENERAL: Alert, oriented female, not in distress. VITAL SIGNS: Stable, afebrile. HEENT: NAD. NECK: Supple. No JVP. No lymphadenopathy. LUNGS: Clear. HEART: S1, S2 regular. ABDOMEN: Soft, nontender. No organomegaly. EXTREMITIES: No edema, cyanosis. SKIN: Unremarkable. NEUROLOGIC: The patient is alert, awake and appropriate. No focal neurologic deficit. Labs Lab Laboratory Tests Test 11/21/19 11:25 11/21/19 16:43 11/21/19 20:21 11/22/19 04:05 Glucose (Fingerstick) 145 mg/dL (70-99) 132 mg/dL (70-99) 148 mg/dL (70-99) White Blood Count 1.6 x10^3/uL (4.0-11.0) Red Blood Count 4.22 x10^6/uL (3.50-5.40) Hemoglobin 11.7 g/dL (12.0-15.5) Hematocrit 35.6 % (36.0-47.0) Mean Corpuscular Volume 85 fL (79-100) Mean Corpuscular Hemoglobin 28 pg (25-35) Mean Corpuscular Hemoglobin Concent 33 g/dL (31-37) Red Cell Distribution Width 15.5 % (11.5-14.5) Platelet Count 280 x10^3/uL (140-400) Neutrophils (%) (Auto) 32 % (31-73) Lymphocytes (%) (Auto) 37 % (24-48) Monocytes (%) (Auto) 28 % (0-9) Eosinophils (%) (Auto) 2 % (0-3) Basophils (%) (Auto) 1 % (0-3) Neutrophils # (Auto) 0.5 x10^3/uL (1.8-7.7) Lymphocytes # (Auto) 0.6 x10^3/uL (1.0-4.8) Monocytes # (Auto) 0.4 x10^3/uL (0.0-1.1) Eosinophils # (Auto) 0.0 x10^3/uL (0.0-0.7) Basophils # (Auto) 0.0 x10^3/uL (0.0-0.2) Prothrombin Time 13.6 SEC (11.7-14.0) Prothromb Time International Ratio 1.1 (0.8-1.1) Sodium Level 140 mmol/L (136-145) Potassium Level 3.5 mmol/L (3.5-5.1) Chloride Level 100 mmol/L (98-107) Carbon Dioxide Level 22 mmol/L (21-32) Anion Gap 18 (6-14) Blood Urea Nitrogen 4 mg/dL (7-20) Creatinine 0.6 mg/dL (0.6-1.0) Estimated GFR (Cockcroft-Gault) 102.7 Glucose Level 166 mg/dL (70-99) Calcium Level 8.6 mg/dL (8.5-10.1) Test 11/22/19 07:31 Glucose (Fingerstick) 146 mg/dL (70-99) Objective Assessment 1. Acute pancreatitis, possibly from methotrexate or very high triglycerides, Methotrexate has been stopped. Acute pancreatitis appears to be stabilizing. 2. Neutropenia secondary to methotrexate toxicity. Needs to replace the folinic acid. 4. Adult-onset Still's disease. Plan Plan of Care Continue folinic acid dose increase after discussing with pharmacy Continue supportive care N.p.o. We will monitor WBC JEAN PIERRE BLAIR MD Nov 22, 2019 09:24
--- NOTE | 2019-11-22 09:35 | NUR ---
SW following. Discussed with RN. Pt getting PICC line for anticipated TPN today. No surgical plans per chart. SW will continue to follow.
--- NOTE | 2019-11-22 10:09 | PDOC ---
Subjective: Subjective: Worsening pain in left abdomen today, also sees a lump there. Has been walking, pain meds help. Objective: Objective: D/w nurse - pt has questions about TPN, says no one talked w/ her - I explained rationale for TPN and discussed PICC procedure w/ her yesterday. D/w Dr. Alexis. Vital Signs: Vital Signs Date Time Temp Pulse Resp B/P (MAP) Pulse Ox O2 Delivery O2 Flow Rate FiO2 11/22/19 08:55 Room Air 11/22/19 07:00 98.7 80 18 129/76 (93) 95 98.7 11/21/19 21:30 2.0 Labs: Laboratory Tests Test 11/21/19 11:25 11/21/19 16:43 11/21/19 20:21 11/22/19 04:05 Glucose (Fingerstick) 145 mg/dL 132 mg/dL 148 mg/dL White Blood Count 1.6 x10^3/uL Red Blood Count 4.22 x10^6/uL Hemoglobin 11.7 g/dL Hematocrit 35.6 % Mean Corpuscular Volume 85 fL Mean Corpuscular Hemoglobin 28 pg Mean Corpuscular Hemoglobin Concent 33 g/dL Red Cell Distribution Width 15.5 % Platelet Count 280 x10^3/uL Neutrophils (%) (Auto) 32 % Lymphocytes (%) (Auto) 37 % Monocytes (%) (Auto) 28 % Eosinophils (%) (Auto) 2 % Basophils (%) (Auto) 1 % Neutrophils # (Auto) 0.5 x10^3/uL Lymphocytes # (Auto) 0.6 x10^3/uL Monocytes # (Auto) 0.4 x10^3/uL Eosinophils # (Auto) 0.0 x10^3/uL Basophils # (Auto) 0.0 x10^3/uL Prothrombin Time 13.6 SEC Prothromb Time International Ratio 1.1 Sodium Level 140 mmol/L Potassium Level 3.5 mmol/L Chloride Level 100 mmol/L Carbon Dioxide Level 22 mmol/L Anion Gap 18 Blood Urea Nitrogen 4 mg/dL Creatinine 0.6 mg/dL Estimated GFR (Cockcroft-Gault) 102.7 Glucose Level 166 mg/dL Calcium Level 8.6 mg/dL Test 11/22/19 07:31 Glucose (Fingerstick) 146 mg/dL PE: GEN: NAD - walking halls, then went back to room LUNGS: CTAB HEART: RRR ABD: soft - slight bulge on both side of abdomen - left might be more pronounced - soft, not particularly tender NEURO/PSYCH: A & O 3 A/P: Pancreatitis, hypertriglyceridemia - interval CT 11/18 worse Still's disease w/ h/o methotrexate and prednisone use, leukopenia -- Again explained PICC/TPN rationale and her questions were answered to her satisfaction. Ordered yesterday, hopefully will be placed/started today. Justicifation of Admission Dx: Justifications for Admission: Justification of Admission Dx: Yes SHIRAZ CABRAL Nov 22, 2019 10:09
--- NOTE | 2019-11-22 10:30 | PDOC ---
PROGRESS NOTES Chief Complaint Chief Complaint impression Acute pancreatitis - likely 2/2 hyper-triglyceridemia. 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 I discussed with [facility] rheumatology concern that MTX could play a role as well. Hold dosing for leukopenia 6/2 ct Progression of findings of acute pancreatitis. Pancreatic enhancement pattern is slightly heterogeneous but no definable nonenhancing component to suggest liquefactive necrosis at this time. In addition, there is been substantial increase in left lateral peripancreatic fluid which extends laterally to the left in the region of the lateral conal and renal fascia,and dissects distally into the left pelvis. This could be infected fluid, but does not appear to be an encapsulated collection. Duodenal and jejunal intraluminal lipomas Hypertriglyceridemia - will need outpatient Endocrinology referral for cholesterol metabolism treatment, I have suggested prescription 2g TID fish oil (Vascepa or Lovaza) in the meantime once pancreatitis resolves Hyponatremia DM2 with Hyperglycemia - A1c 13.6. Should continue on insulin therapy until A1c < 8, then consider PO options. Would probably have to avoid GLP1 therapy given her pancreatitis. Would defer to an editor publications for this. Celiac disease Adult onset stills disease Anemia Asthma CHERIE on CPAP GERD Leukopenia -likely related to chronic immunosuppression will hold MTX therapy for now and change to a prednisone taper on discharge. FEN - LR for maintenance, NPO, will wait for recommendations from our risk consultant regarding diet PPX - lovenox FULL CODE DIspo - inpatient for pancreatitis recovery TPN until pain/nausea resolve with worsening pancreatitis. 39 min pt exam, chart review, > 50% of time spent with exam, chart review, pt care coordination History of Present Illness History of Present Illness Ms Fernandez is a 59yo F [employer] w/ PMHx celiac disease, adult onset stills disease, Anemia, Asthma, CHERIE on CPAP, GERD who presents with severe upper abdominal pain, nausea, vomiting, fatigue. 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 She only had oatmeal for breakfast. She has never had anything similar to this in the past. She generally feels unwell. She is not had any fever, diarrhea, chest pain, shortness of breath, dysuria, hematuria, blood in her stools. She denies alcohol abuse. Pain does not move anywhere. Nothing seems to make it better or worse. She has not tried anything at home. He does not drink alcohol, and is status post cholecystectomy. No calcium disorders. She takes 20mg methotrexate weekly on Fridays and is on 3 mg of chronic prednisone for her stills disease. She was diagnosed with celiac disease June 2019 and has just recently started on a gluten-free diet. No recent sick contacts that she can recall. Labs significant for lipase 78479, glucose 477, NA 129, bilirubin 1.1, Calcium 8.3, K 3.7, WBC 6.3, Hb 15, Platelets 247 CT abdomen pelvis shows surgically absent gallbladder and surgically absent uterus and describes duodenal and jejunal intraluminal lipomas. Findings of acute pancreatitis. No loculated collections. No biliary dilatation. Admitted for further treatment. 11/13: Lipase down. A1c 13.6, Triglycerides 3252. Started on insulin gtt. 11/14: Abdominal pain and glucose improved. Having ice chips per GI. Afebrile. No CP or SOB. D/w [facility] rheumatology, to hold MTX therapy on 11/15 given her leukopenia and pancreatitis. 11/15: Overnight afebrile. Labs improved. Still with left-sided abdominal pain. WBC 1.8. She notes she had not previously had a formal diagnosis of diabetes. No CP or SOB 11/16: Pain improved, advancing diet per GI lipase 328. WBC 2, K2.6, MG 1.4 11/17: Afebrile overnight. Still with abdominal pain, no CP or SOB 11/18: Patient continues to have discomfort especially when she has a diet no fever or chills were reported nevertheless she says that she woke up drenched in sweat in the middle of night, no other complaints were reported overnight, plan of care discussed in detail 11/19: Patient will continue to have bowel rest in light of her CT from yesterday. No new complaints. Vitals Vitals Vital Signs Date Time Temp Pulse Resp B/P (MAP) Pulse Ox O2 Delivery O2 Flow Rate FiO2 11/22/19 08:55 Room Air 11/22/19 07:00 98.7 80 18 129/76 (93) 95 98.7 11/21/19 21:30 2.0 Physical Exam Physical Exam GENERAL: Alert, oriented female, not in distress. VITAL SIGNS: Stable, afebrile. HEENT: NAD. NECK: Supple. No JVP. No lymphadenopathy. LUNGS: Clear. HEART: S1, S2 regular. ABDOMEN: Soft, nontender. No organomegaly. EXTREMITIES: No edema, cyanosis. SKIN: Unremarkable. NEUROLOGIC: The patient is alert, awake and appropriate. No focal neurologic deficit. General: Alert, Oriented X3, Cooperative, No acute distress Lungs: Clear Abdomen: Normal bowel sounds, Soft, No tenderness Extremities: No clubbing, No cyanosis Skin: No rashes, No breakdown Labs LABS CT ABD PELV W/ IV CONTRST ONLY Indication: Reason: pancreatitis, ongoing upper abd pain / Spl. Instructions: IV OMNI 300 75 MLS / History: Exposure: One or more of the following individualized dose reduction techniques were utilized for this examination: 1. Automated exposure control 2. Adjustment of the mA and/or kV according to patient size 3. Use of iterative reconstruction technique. Technique: Intravenous contrast was given. No oral contrast per request. Comparison: 11/13/2019 FINDINGS: Small pleural effusions are noted in the lung bases. Atelectasis/infiltrate in both lung bases. Tiny hypodense lesion at the inferior right lobe of the liver, stable since prior study but too small to characterize, may just represent a small cyst, about 5 mm diameter. Spleen is nonenlarged. Pancreatic swelling with ill-defined margins is again seen, slightly greater than on the prior study. Pancreatic body measures about 3.5 cm with today, compared with 2.7 cm on prior exam. Slight heterogeneity of pancreatic enhancement pattern, particularly in the region of the pancreatic body. There is also increase in stranding of the peripancreatic fat and of disorganized peripancreatic fluid. There has been substantial increase in fluid in the left paracolic gutter and lateral to the left pararenal fascia. This measures 15 Hounsfield units compatible with simple nature. This extends distally into the upper left pelvis, lateral to the left psoas muscle and posterior to the descending colon. There is also increase in fatty stranding in this area since the prior exam. There is been an increase in swelling and fatty stranding within the subcutaneous tissues of the left flank. No evidence of adrenal mass. Kidneys demonstrate symmetric enhancement without dominant mass or hydronephrosis. Mild stranding in the perinephric fat bilaterally, slightly greater than on the prior exam. Tiny nonobstructive calculus in the lower pole the left kidney is again seen. Gallbladder is surgically absent. Small hiatal hernia. Wall thickening of the gastric antrum through proximal duodenum, may just be reactive and due to nondistention. No significant small bowel distention. Mild wall thickening of the posterior wall of the descending colon, where it is in contact with the fluid and edema in the region of the lateral conal fascia, probably reactive in nature. The appendix appears within normal limits. Tiny fatty density within the distal duodenum is again seen, likely a lipoma. Small fatty lesion within the proximal jejunum is also again identified, also likely a lipoma. These were seen previously. Mild free pelvic fluid. No evidence of pneumoperitoneum. Urinary bladder appears unremarkable. Vertebral body height and alignment are intact. No evidence of aggressive bone destruction. The aorta is nonaneurysmal. Renal arteries, superior mesenteric artery and celiac axis appear patent. Note there is narrowing at the origin of the celiac axis but distal flow is identified. Portal vein and splenic vein appear grossly patent. IMPRESSION: 1. Progression of findings of acute pancreatitis. Pancreatic enhancement pattern is slightly heterogeneous but no definable nonenhancing component to suggest liquefactive necrosis at this time. In addition, there is been substantial increase in left lateral peripancreatic fluid which extends laterally to the left in the region of the lateral conal and renal fascia, and dissects distally into the left pelvis. This could be infected fluid, but does not appear to be an encapsulated collection. 2. Small pleural effusions at both lung bases with bibasilar atelectasis and/or infiltrate. 3. Mild wall thickening of the posterior descending colon, most likely secondary or reactive given its proximity to the fluid/edema 4. Mild wall thickening of the distal stomach and duodenum, also likely reactive and due to nondistention. 5. Narrowing or stenosis at the origin of the celiac axis, but note there is evidence of distal enhancement. Electronically signed by: Frank Pineda MD (11/19/2019 4:08 PM) [id number] DICTATED and SIGNED BY: FRANK PINEDA MD DATE: 11/19/19 1608 Laboratory Tests Test 11/21/19 11:25 11/21/19 16:43 11/21/19 20:21 11/22/19 04:05 Glucose (Fingerstick) 145 mg/dL (70-99) 132 mg/dL (70-99) 148 mg/dL (70-99) White Blood Count 1.6 x10^3/uL (4.0-11.0) Red Blood Count 4.22 x10^6/uL (3.50-5.40) Hemoglobin 11.7 g/dL (12.0-15.5) Hematocrit 35.6 % (36.0-47.0) Mean Corpuscular Volume 85 fL (79-100) Mean Corpuscular Hemoglobin 28 pg (25-35) Mean Corpuscular Hemoglobin Concent 33 g/dL (31-37) Red Cell Distribution Width 15.5 % (11.5-14.5) Platelet Count 280 x10^3/uL (140-400) Neutrophils (%) (Auto) 32 % (31-73) Lymphocytes (%) (Auto) 37 % (24-48) Monocytes (%) (Auto) 28 % (0-9) Eosinophils (%) (Auto) 2 % (0-3) Basophils (%) (Auto) 1 % (0-3) Neutrophils # (Auto) 0.5 x10^3/uL (1.8-7.7) Lymphocytes # (Auto) 0.6 x10^3/uL (1.0-4.8) Monocytes # (Auto) 0.4 x10^3/uL (0.0-1.1) Eosinophils # (Auto) 0.0 x10^3/uL (0.0-0.7) Basophils # (Auto) 0.0 x10^3/uL (0.0-0.2) Prothrombin Time 13.6 SEC (11.7-14.0) Prothromb Time International Ratio 1.1 (0.8-1.1) Sodium Level 140 mmol/L (136-145) Potassium Level 3.5 mmol/L (3.5-5.1) Chloride Level 100 mmol/L (98-107) Carbon Dioxide Level 22 mmol/L (21-32) Anion Gap 18 (6-14) Blood Urea Nitrogen 4 mg/dL (7-20) Creatinine 0.6 mg/dL (0.6-1.0) Estimated GFR (Cockcroft-Gault) 102.7 Glucose Level 166 mg/dL (70-99) Calcium Level 8.6 mg/dL (8.5-10.1) Test 11/22/19 07:31 Glucose (Fingerstick) 146 mg/dL (70-99) Assessment and Plan Assessmemt and Plan Problems Medical Problems: (1) Dehydration Status: Acute (2) Hyperglycemia Status: Acute (3) Pancreatitis, acute Status: Acute Comment Review of Relevant I have reviewed the following items diann (where applicable) has been applied. Labs Laboratory Tests Test 11/20/19 11:15 11/20/19 16:28 11/20/19 20:38 11/21/19 04:10 Glucose (Fingerstick) 192 mg/dL (70-99) 145 mg/dL (70-99) 137 mg/dL (70-99) Sodium Level 141 mmol/L (136-145) Potassium Level 3.3 mmol/L (3.5-5.1) Chloride Level 100 mmol/L (98-107) Carbon Dioxide Level 28 mmol/L (21-32) Anion Gap 13 (6-14) Blood Urea Nitrogen 3 mg/dL (7-20) Creatinine 0.6 mg/dL (0.6-1.0) Estimated GFR (Cockcroft-Gault) 102.7 Glucose Level 171 mg/dL (70-99) Calcium Level 8.9 mg/dL (8.5-10.1) Test 11/21/19 06:57 11/21/19 11:25 11/21/19 16:43 11/21/19 20:21 Glucose (Fingerstick) 153 mg/dL (70-99) 145 mg/dL (70-99) 132 mg/dL (70-99) 148 mg/dL (70-99) Test 11/22/19 04:05 11/22/19 07:31 White Blood Count 1.6 x10^3/uL (4.0-11.0) Red Blood Count 4.22 x10^6/uL (3.50-5.40) Hemoglobin 11.7 g/dL (12.0-15.5) Hematocrit 35.6 % (36.0-47.0) Mean Corpuscular Volume 85 fL (79-100) Mean Corpuscular Hemoglobin 28 pg (25-35) Mean Corpuscular Hemoglobin Concent 33 g/dL (31-37) Red Cell Distribution Width 15.5 % (11.5-14.5) Platelet Count 280 x10^3/uL (140-400) Neutrophils (%) (Auto) 32 % (31-73) Lymphocytes (%) (Auto) 37 % (24-48) Monocytes (%) (Auto) 28 % (0-9) Eosinophils (%) (Auto) 2 % (0-3) Basophils (%) (Auto) 1 % (0-3) Neutrophils # (Auto) 0.5 x10^3/uL (1.8-7.7) Lymphocytes # (Auto) 0.6 x10^3/uL (1.0-4.8) Monocytes # (Auto) 0.4 x10^3/uL (0.0-1.1) Eosinophils # (Auto) 0.0 x10^3/uL (0.0-0.7) Basophils # (Auto) 0.0 x10^3/uL (0.0-0.2) Prothrombin Time 13.6 SEC (11.7-14.0) Prothromb Time International Ratio 1.1 (0.8-1.1) Sodium Level 140 mmol/L (136-145) Potassium Level 3.5 mmol/L (3.5-5.1) Chloride Level 100 mmol/L (98-107) Carbon Dioxide Level 22 mmol/L (21-32) Anion Gap 18 (6-14) Blood Urea Nitrogen 4 mg/dL (7-20) Creatinine 0.6 mg/dL (0.6-1.0) Estimated GFR (Cockcroft-Gault) 102.7 Glucose Level 166 mg/dL (70-99) Calcium Level 8.6 mg/dL (8.5-10.1) Glucose (Fingerstick) 146 mg/dL (70-99) Laboratory Tests Test 11/21/19 11:25 11/21/19 16:43 11/21/19 20:21 11/22/19 04:05 Glucose (Fingerstick) 145 mg/dL (70-99) 132 mg/dL (70-99) 148 mg/dL (70-99) White Blood Count 1.6 x10^3/uL (4.0-11.0) Red Blood Count 4.22 x10^6/uL (3.50-5.40) Hemoglobin 11.7 g/dL (12.0-15.5) Hematocrit 35.6 % (36.0-47.0) Mean Corpuscular Volume 85 fL (79-100) Mean Corpuscular Hemoglobin 28 pg (25-35) Mean Corpuscular Hemoglobin Concent 33 g/dL (31-37) Red Cell Distribution Width 15.5 % (11.5-14.5) Platelet Count 280 x10^3/uL (140-400) Neutrophils (%) (Auto) 32 % (31-73) Lymphocytes (%) (Auto) 37 % (24-48) Monocytes (%) (Auto) 28 % (0-9) Eosinophils (%) (Auto) 2 % (0-3) Basophils (%) (Auto) 1 % (0-3) Neutrophils # (Auto) 0.5 x10^3/uL (1.8-7.7) Lymphocytes # (Auto) 0.6 x10^3/uL (1.0-4.8) Monocytes # (Auto) 0.4 x10^3/uL (0.0-1.1) Eosinophils # (Auto) 0.0 x10^3/uL (0.0-0.7) Basophils # (Auto) 0.0 x10^3/uL (0.0-0.2) Prothrombin Time 13.6 SEC (11.7-14.0) Prothromb Time International Ratio 1.1 (0.8-1.1) Sodium Level 140 mmol/L (136-145) Potassium Level 3.5 mmol/L (3.5-5.1) Chloride Level 100 mmol/L (98-107) Carbon Dioxide Level 22 mmol/L (21-32) Anion Gap 18 (6-14) Blood Urea Nitrogen 4 mg/dL (7-20) Creatinine 0.6 mg/dL (0.6-1.0) Estimated GFR (Cockcroft-Gault) 102.7 Glucose Level 166 mg/dL (70-99) Calcium Level 8.6 mg/dL (8.5-10.1) Test 11/22/19 07:31 Glucose (Fingerstick) 146 mg/dL (70-99) Medications Current Medications Iohexol (Omnipaque 300 Mg/ml) 75 ml 1X ONCE IV Last administered on 11/13/19at 11:30; Start 11/13/19 at 11:30; Stop 11/13/19 at 11:31; Status DC Iohexol (Omnipaque 240 Mg/ml) 50 ml 1X ONCE PO Last administered on 11/13/19at 11:30; Start 11/13/19 at 11:30; Stop 11/13/19 at 11:31; Status DC Info (CONTRAST GIVEN -- Rx MONITORING) 1 each PRN DAILY PRN MC SEE COMMENTS; Start 11/13/19 at 11:30; Stop 11/15/19 at 11:29; Status DC Sodium Chloride 1,000 ml @ 0 mls/hr 1X ONCE IV Last administered on 11/13/19at 12:27; Start 11/13/19 at 12:15; Stop 11/13/19 at 12:16; Status DC Morphine Sulfate (Morphine Sulfate) 5 mg 1X ONCE IV Last administered on 11/13/19at 12:45; Start 11/13/19 at 12:30; Stop 11/13/19 at 12:33; Status DC Morphine Sulfate (Morphine Sulfate) 5 mg 1X ONCE IV ; Start 11/13/19 at 13:45; Stop 11/13/19 at 13:46; Status DC Morphine Sulfate (Morphine Sulfate) 4 mg PRN Q2HR PRN IV MODERATE TO SEVERE PAIN Last administered on 11/15/19at 16:18; Start 11/13/19 at 14:45; Stop 11/19/19 at 10:23; Status DC Sodium Chloride 1,000 ml @ 100 mls/hr Q10H IV Last administered on 11/19/19at 08:27; Start 11/13/19 at 14:44; Stop 11/19/19 at 10:23; Status DC Ondansetron HCl (Zofran) 4 mg PRN Q4HRS PRN IV NAUSEA/VOMITING Last administered on 11/20/19at 14:06; Start 11/13/19 at 14:45 Acetaminophen (Tylenol Supp) 650 mg PRN Q4HRS PRN AR TEMP OVER 100.4F OR MILD PAIN; Start 11/13/19 at 14:45 Enoxaparin Sodium (Lovenox 40mg Syringe) 40 mg Q24H SQ Last administered on 11/21/19at 17:07; Start 11/13/19 at 15:00 Insulin Human Lispro (HumaLOG) 0-9 UNITS Q4HRS SQ Last administered on 11/17/19at 18:15; Start 11/13/19 at 16:00; Stop 11/17/19 at 19:32; Status DC Dextrose (Dextrose 50%-Water Syringe) 12.5 gm PRN Q15MIN PRN IV SEE COMMENTS; Start 11/13/19 at 14:45 Albuterol Sulfate (Ventolin Neb Soln) 3 mg PRN QID PRN NEB SHORTNESS OF BREATH; Start 11/13/19 at 15:15 Sodium Chloride (Saline Mist Nasal) 1 mago PRN Q1HR PRN NS NASAL CONGESTION; Start 11/13/19 at 15:15 Methylprednisolone Sodium Succinate (SOLU-Medrol 40MG VIAL) 40 mg DAILY IV Last administered on 11/15/19at 08:21; Start 11/13/19 at 15:15; Stop 11/15/19 at 13:44; Status DC Insulin Human Regular 100 unit/ Sodium Chloride 101 ml @ 0 mls/hr CONT PRN IV SEE I/O RECORD Last administered on 11/14/19at 02:12; Start 11/13/19 at 18:00 Fentanyl Citrate (Fentanyl 2ml Vial) 50 mcg PRN Q2HR PRN IVP MOD TO SEVERE PAIN, 2ND CHOICE Last administered on 11/22/19at 08:21; Start 11/14/19 at 11:45 Famotidine (Pepcid Vial) 20 mg QHS IVP Last administered on 11/18/19at 22:14; Start 11/15/19 at 21:00; Stop 11/19/19 at 10:21; Status DC Prednisone (Prednisone) 3 mg DAILY PO Last administered on 11/19/19at 08:27; Start 11/16/19 at 09:00 Potassium Chloride/Water 100 ml @ 100 mls/hr Q1H IV Last administered on 11/17/19at 15:22; Start 11/17/19 at 11:00; Stop 11/17/19 at 14:59; Status DC Potassium Chloride (Klor-Con) 40 meq 1X ONCE PO Last administered on 11/17/19at 11:01; Start 11/17/19 at 10:15; Stop 11/17/19 at 10:22; Status DC Tramadol HCl (Ultram) 50 mg PRN Q6HRS PRN PO MODERATE PAIN 4-6 Last administered on 11/20/19at 06:08; Start 11/17/19 at 10:15 Oxycodone HCl (Roxicodone) 5 mg PRN Q6HRS PRN PO SEVERE PAIN 7-10 Last administered on 11/17/19at 11:08; Start 11/17/19 at 10:15; Stop 11/17/19 at 15:30; Status DC Magnesium Sulfate 100 ml @ 25 mls/hr 1X ONCE IV Last administered on 11/17/19at 11:06; Start 11/17/19 at 11:00; Stop 11/17/19 at 14:59; Status DC Magnesium Hydroxide (Milk Of Magnesia) 2,400 mg PRN DAILY PRN PO CONSTIPATION 2ND CHOICE; Start 11/17/19 at 15:30 Psyllium Hydrophilic Mucilloid (Metamucil Fiber Packet) 1 pkt DAILY PO Last administered on 11/19/19at 08:28; Start 11/17/19 at 15:30 Polyethylene Glycol (miraLAX PACKET) 17 gm DAILY PO Last administered on 11/19/19at 08:28; Start 11/17/19 at 15:30 Oxycodone HCl (Roxicodone) 5 mg PRN Q4HRS PRN PO SEVERE PAIN 7-10 Last administered on 11/20/19at 03:41; Start 11/17/19 at 15:30 Insulin Human Lispro (HumaLOG) 0-9 UNITS [id number] SQ Last administered on 11/19/19at 17:14; Start 11/17/19 at 19:30 Famotidine (Pepcid) 20 mg QHS PO Last administered on 11/19/19at 20:57; Start 11/19/19 at 21:00; Stop 11/20/19 at 10:56; Status DC Iohexol (Omnipaque 300 Mg/ml) 75 ml 1X ONCE IV Last administered on 11/19/19at 11:45; Start 11/19/19 at 11:45; Stop 11/19/19 at 11:46; Status DC Info (CONTRAST GIVEN -- Rx MONITORING) 1 each PRN DAILY PRN MC SEE COMMENTS; Start 11/19/19 at 11:45; Stop 11/21/19 at 11:44; Status DC Ringer's Solution 1,000 ml @ 75 mls/hr [id number] IV Last administered on 11/22/19at 01:53; Start 11/20/19 at 09:30 Potassium Chloride/Water 100 ml @ 100 mls/hr Q1H IV Last administered on 11/20/19at 21:27; Start 11/20/19 at 10:00; Stop 11/20/19 at 21:59; Status DC Famotidine (Pepcid Vial) 20 mg QHS IVP Last administered on 11/21/19at 21:00; Start 11/20/19 at 21:00 Bisacodyl (Dulcolax Supp) 10 mg PRN DAILY PRN AR CONSTIPATION; Start 11/20/19 at 11:00 Leucovorin Calcium (Wellcovorin) 5 mg DAILY PO Last administered on 11/21/19at 09:53; Start 11/21/19 at 10:00; Stop 11/22/19 at 09:24; Status DC Info (Tpn Per Pharmacy) 1 each PRN DAILY PRN MC SEE COMMENTS; Start 11/21/19 at 12:00 Potassium Chloride/Water 100 ml @ 100 mls/hr Q1H IV Last administered on 11/22/19at 01:53; Start 11/21/19 at 20:00; Stop 11/21/19 at 23:59; Status DC Leucovorin Calcium (Wellcovorin) 15 mg Q8HRS PO ; Start 11/22/19 at 10:00 Active Scripts Active Reported Zyrtec (Cetirizine Hcl) 10 Mg Capsule 10 Mg PO DAILY Methotrexate (Methotrexate Sodium) 2.5 Mg Tablet 8 Tab PO WEEKLY Protonix (Pantoprazole Sodium) 40 Mg Tablet.dr 40 Mg PO DAILYAC Folic Acid 0.8 Mg Capsule 1 Cap PO DAILY 30 Days Ferrous Sulfate 325 Mg Tablet 1 Tab PO DAILY Vitals/I & O Vital Sign - Last 24 Hours 11/21/19 11/21/19 11/21/19 11/21/19 10:30 10:51 14:18 14:48 Temp 97.9 97.9 Pulse 80 Resp 18 B/P (MAP) 138/62 (87) Pulse Ox 94 O2 Delivery Room Air Room Air Nasal Cannula Nasal Cannula O2 Flow Rate 2.0 11/21/19 11/21/19 11/21/19 11/21/19 15:00 17:09 17:39 19:00 Temp 97.9 98.1 97.9 98.1 Pulse 80 88 Resp 18 18 B/P (MAP) 132/58 (82) 143/77 (99) Pulse Ox 95 98 O2 Delivery Room Air Room Air Room Air Room Air 11/21/19 11/21/19 11/21/19 11/21/19 20:00 21:00 21:30 23:00 Temp 98.3 98.3 Pulse 83 Resp 18 B/P (MAP) 154/73 (100) Pulse Ox 96 O2 Delivery Room Air Room Air Nasal Cannula O2 Flow Rate 2.0 11/22/19 11/22/19 11/22/19 11/22/19 00:34 01:04 03:00 03:50 Temp 98.4 98.4 Pulse 84 Resp 18 B/P (MAP) 147/94 (111) Pulse Ox 92 O2 Delivery Room Air Room Air Room Air Room Air 11/22/19 11/22/19 11/22/19 11/22/19 04:20 07:00 08:00 08:21 Temp 98.7 98.7 Pulse 80 Resp 18 B/P (MAP) 129/76 (93) Pulse Ox 95 O2 Delivery Room Air Room Air Room Air Room Air 11/22/19 08:55 O2 Delivery Room Air Hemodynamically unstable?: No Is patient in severe pain?: No Is NPO status required?: No BUBBA WOOD MD Nov 22, 2019 10:30
[2019-11-22 11:00] VITALS: BP 132/78
[2019-11-22] MEDS: LEUCOVORIN CALCIUM 5 MG TABLET PO SCH ×3 (11:13→22:10)
[2019-11-22] MEDS ORDERED: LIDOCAINE WITH 8.4% SOD BICARB 3 ML DISP.SYRIN. ONE (11:58)
[2019-11-22] MEDS ORDERED: LIDOCAINE WITH 8.4% SOD BICARB 3 ML DISP.SYRIN. INJ ONE (12:00)
[2019-11-22] MEDS: TPN PER PHARMACY MC PRN ×2 (14:42→15:12)
--- NOTE | 2019-11-22 14:44 | NUR ---
Pharmacy TPN Dosing Note S: NATHAN SOTO is a 59 year old F Currently receiving Central Continuous TPN started 11/22/19 B:Pertinent PMH: Pancreatitis, NPO Height: 5 feet, 6 inches Weight: 67.0 kg Current diet: NPO LABS: Sodium: 140 Potassium: 3.5 Chloride: 100 Calcium: 8.6 Corrected Calcium: 10.04 Magnesium: 1.8 CO2: 22 SCr: 0.6 Glucose: 127 Albumin: 2.2 AST: 14 ALT: 20 TPN FORMULA: TPN TYPE: Central Continuous AMINO ACIDS: 60 gm DEXTROSE: 195 gm LIPIDS: 20 gm SODIUM CHLORIDE: 90 mEq POTASSIUM CHLORIDE: 50 mEq POTASSIUM PHOSPHATE: 13.6 mmol MAGNESIUM: 10 mEq CALCIUM: 10 mEq MULTIPLE VITAMIN: 10 ml TRACE ELEMENTS: 1 ml ml(s) TPN PLAN: Start standard TPN. R: Begin TPN Will monitor electrolytes, glucose, and tolerance to TPN. Luis Ambriz, [facility], 11/22/19 [id number]
[2019-11-22 14:53] LABS: MAGNESIUM 1.6 mg/dL (1.8-2.4); PHOSPHORUS 4.1 mg/dL (2.6-4.7)
[2019-11-22 15:00] VITALS: BP 160/78
[2019-11-22] MEDS ORDERED: MAGNESIUM SULFATE 1GM 100 ML IV ONE (16:00)
--- NOTE | 2019-11-22 16:01 | RAD ---
Exam: Fluoroscopic and ultrasound guided right percutaneous inserted central venous catheter placement 11/22/2019 1:58 PM .Indication: TPN Technique: Informed oral and written consent were obtained. The right upper extremity was prepped and draped using sterile barrier technique. All elements of maximal sterile barrier technique including the use of a cap, mask, sterile gown, sterile gloves, large sterile sheet, appropriate hand hygiene, and 2% chlorhexidine for cutaneous antisepsis (or acceptable alternative antiseptic per current guidelines) were followed for this procedure.. Real-time ultrasound demonstrated a patent right basilic vein which was prepped and draped in usual sterile fashion. 1% lidocaine used for local anesthesia. Using real-time ultrasound guidance the access needle percutaneously punctured the selected right basilic vein. Reference ultrasound images were saved to the medical record. A guidewire was advanced through the needle to the cavoatrial junction, and a peel-away sheath placed. The catheter was cut to length and inserted through the peel-away sheath such that its tip is at the cavoatrial junction. The wire and sheath were removed, and the catheter secured in place, and a sterile dressing was applied. Catheter was found to flush and aspirate normally. No immediate complications are identified. FLUORO TIME: 0.2 min DOSE AREA PRODUCT: 0.2 Gycm2 Impression: Ultrasound and fluoroscopically guided placement of a right upper extremity PICC line.
[2019-11-22] MEDS: ENOXAPARIN 40 MG/0.4 ML SYRINGE. SQ SCH (16:19)
[2019-11-22 19:00] VITALS: BP 158/82
[2019-11-22] MEDS: oxyCODONE IR 5 MG TABLET PO PRN (19:29)
[2019-11-22] MEDS ORDERED: TOTAL PARENTERAL NUTRITION 1,424.9614 ML, AMINO ACID 15% 60 GM, DEXTROSE 70 % IN WATER ... IV SCH ×10 (22:00)
[2019-11-22] MEDS: FAMOTIDINE 20 MG/2 ML VIAL IVP SCH (22:10)
[2019-11-22 23:00] VITALS: BP 139/70
[2019-11-23] MEDS: oxyCODONE IR 5 MG TABLET PO PRN ×4 (02:38→22:02)
[2019-11-23 03:00] VITALS: BP 131/79
--- NOTE | 2019-11-23 03:07 | NUR ---
Pt states that Roxicodone 5mg seems to be helping keeping pain down to level 3 on 0-10 pain scale. Pt on TPN will take Blood Sugar Q6.
[2019-11-23] MEDS: IV RINGERS,LACTATED 1000ML 1,000 ML IV SCH ×2 (04:10→17:30)
[2019-11-23] MEDS: LEUCOVORIN CALCIUM 5 MG TABLET PO SCH ×3 (05:55→22:35)
[2019-11-23 07:00] VITALS: BP 120/76
[2019-11-23 07:19] LABS: CALCIUM 8.1 mg/dL (8.5-10.1); CREATININE 0.6 mg/dL (0.6-1.0); GFR 102.7; MAGNESIUM 1.7 mg/dL (1.8-2.4); PHOSPHORUS 3.7 mg/dL (2.6-4.7); POTASSIUM 3.1 mmol/L (3.5-5.1)
[2019-11-23] MEDS ORDERED: DEXTROSE 50% 25 GM / 50ML DISP.SYRIN. IV PRN ×4 (07:45→13:30)
[2019-11-23] MEDS ORDERED: INSULIN LISPRO 300 UNITS/3 ML VIAL. SQ SCH ×2 (08:00)
[2019-11-23] MEDS: INSULIN LISPRO 300 UNITS/3 ML VIAL. SQ SCH ×3 (08:07→17:34)
--- NOTE | 2019-11-23 08:30 | PDOC ---
Infectious Disease Note Subjective Subjective Patient is feeling better. Walking around. ROS ROS Abdominal pain is better no nausea vomiting diarrhea Vital Sign Vital Signs Vital Signs Date Time Temp Pulse Resp B/P (MAP) Pulse Ox O2 Delivery O2 Flow Rate FiO2 11/23/19 07:00 98.2 96 18 120/76 (91) 96 Room Air 98.2 11/22/19 20:00 2.0 Physical Exam PHYSICAL EXAM GENERAL: Alert, oriented female, not in distress. VITAL SIGNS: Stable, afebrile. HEENT: NAD. NECK: Supple. No JVP. No lymphadenopathy. LUNGS: Clear. HEART: S1, S2 regular. ABDOMEN: Soft, nontender. No organomegaly. EXTREMITIES: No edema, cyanosis. SKIN: Unremarkable. NEUROLOGIC: The patient is alert, awake and appropriate. No focal neurologic deficit. Labs Lab Laboratory Tests Test 11/22/19 11:59 11/22/19 16:51 11/22/19 20:26 11/22/19 23:54 Glucose (Fingerstick) 127 mg/dL (70-99) 140 mg/dL (70-99) 131 mg/dL (70-99) 188 mg/dL (70-99) Test 11/23/19 05:59 11/23/19 06:45 Glucose (Fingerstick) 251 mg/dL (70-99) Sodium Level 135 mmol/L (136-145) Potassium Level 3.1 mmol/L (3.5-5.1) Chloride Level 101 mmol/L (98-107) Carbon Dioxide Level 27 mmol/L (21-32) Anion Gap 7 (6-14) Blood Urea Nitrogen 8 mg/dL (7-20) Creatinine 0.6 mg/dL (0.6-1.0) Estimated GFR (Cockcroft-Gault) 102.7 Glucose Level 268 mg/dL (70-99) Calcium Level 8.1 mg/dL (8.5-10.1) Phosphorus Level 3.7 mg/dL (2.6-4.7) Magnesium Level 1.7 mg/dL (1.8-2.4) Objective Assessment 1. Acute pancreatitis, possibly from methotrexate or very high triglycerides, Methotrexate has been stopped. Acute pancreatitis appears to be stabilizing. 2. Neutropenia secondary to methotrexate toxicity. Needs to replace the folinic acid. 4. Adult-onset Still's disease. Plan Plan of Care Continue folinic acid dose increase after discussing with pharmacy Continue supportive care N.p.o. We will monitor WBC,, 1.8 today JEAN PIERRE BLAIR MD Nov 23, 2019 08:30
--- NOTE | 2019-11-23 08:38 | PDOC ---
SURGICAL PROGRESS NOTE Subjective Pt feels better, no n/v, notes minimal pain, except with movement. Vital Signs Vital Signs Date Time Temp Pulse Resp B/P (MAP) Pulse Ox O2 Delivery O2 Flow Rate FiO2 11/23/19 07:00 98.2 96 18 120/76 (91) 96 Room Air 98.2 11/22/19 20:00 2.0 I&O Intake and Output 11/23/19 07:00 Intake Total 30 ml Output Total 475 ml Balance -445 ml Intake Oral 30 ml Output Urine Total 475 ml # Voids 4 General: Alert, Oriented X3, Cooperative, No acute distress Abdomen: Soft, No tenderness Labs Laboratory Tests Test 11/21/19 11:25 11/21/19 16:43 11/21/19 20:21 11/22/19 04:05 Glucose (Fingerstick) 145 mg/dL (70-99) 132 mg/dL (70-99) 148 mg/dL (70-99) White Blood Count 1.6 x10^3/uL (4.0-11.0) Red Blood Count 4.22 x10^6/uL (3.50-5.40) Hemoglobin 11.7 g/dL (12.0-15.5) Hematocrit 35.6 % (36.0-47.0) Mean Corpuscular Volume 85 fL (79-100) Mean Corpuscular Hemoglobin 28 pg (25-35) Mean Corpuscular Hemoglobin Concent 33 g/dL (31-37) Red Cell Distribution Width 15.5 % (11.5-14.5) Platelet Count 280 x10^3/uL (140-400) Neutrophils (%) (Auto) 32 % (31-73) Lymphocytes (%) (Auto) 37 % (24-48) Monocytes (%) (Auto) 28 % (0-9) Eosinophils (%) (Auto) 2 % (0-3) Basophils (%) (Auto) 1 % (0-3) Neutrophils # (Auto) 0.5 x10^3/uL (1.8-7.7) Lymphocytes # (Auto) 0.6 x10^3/uL (1.0-4.8) Monocytes # (Auto) 0.4 x10^3/uL (0.0-1.1) Eosinophils # (Auto) 0.0 x10^3/uL (0.0-0.7) Basophils # (Auto) 0.0 x10^3/uL (0.0-0.2) Prothrombin Time 13.6 SEC (11.7-14.0) Prothromb Time International Ratio 1.1 (0.8-1.1) Sodium Level 140 mmol/L (136-145) Potassium Level 3.5 mmol/L (3.5-5.1) Chloride Level 100 mmol/L (98-107) Carbon Dioxide Level 22 mmol/L (21-32) Anion Gap 18 (6-14) Blood Urea Nitrogen 4 mg/dL (7-20) Creatinine 0.6 mg/dL (0.6-1.0) Estimated GFR (Cockcroft-Gault) 102.7 Glucose Level 166 mg/dL (70-99) Calcium Level 8.6 mg/dL (8.5-10.1) Phosphorus Level 4.1 mg/dL (2.6-4.7) Magnesium Level 1.6 mg/dL (1.8-2.4) Triglycerides Level 262 mg/dL (0-150) Test 11/22/19 07:31 11/22/19 11:59 11/22/19 16:51 11/22/19 20:26 Glucose (Fingerstick) 146 mg/dL (70-99) 127 mg/dL (70-99) 140 mg/dL (70-99) 131 mg/dL (70-99) Test 11/22/19 23:54 11/23/19 05:59 11/23/19 06:45 Glucose (Fingerstick) 188 mg/dL (70-99) 251 mg/dL (70-99) Sodium Level 135 mmol/L (136-145) Potassium Level 3.1 mmol/L (3.5-5.1) Chloride Level 101 mmol/L (98-107) Carbon Dioxide Level 27 mmol/L (21-32) Anion Gap 7 (6-14) Blood Urea Nitrogen 8 mg/dL (7-20) Creatinine 0.6 mg/dL (0.6-1.0) Estimated GFR (Cockcroft-Gault) 102.7 Glucose Level 268 mg/dL (70-99) Calcium Level 8.1 mg/dL (8.5-10.1) Phosphorus Level 3.7 mg/dL (2.6-4.7) Magnesium Level 1.7 mg/dL (1.8-2.4) Laboratory Tests Test 11/22/19 11:59 11/22/19 16:51 11/22/19 20:26 11/22/19 23:54 Glucose (Fingerstick) 127 mg/dL (70-99) 140 mg/dL (70-99) 131 mg/dL (70-99) 188 mg/dL (70-99) Test 11/23/19 05:59 11/23/19 06:45 Glucose (Fingerstick) 251 mg/dL (70-99) Sodium Level 135 mmol/L (136-145) Potassium Level 3.1 mmol/L (3.5-5.1) Chloride Level 101 mmol/L (98-107) Carbon Dioxide Level 27 mmol/L (21-32) Anion Gap 7 (6-14) Blood Urea Nitrogen 8 mg/dL (7-20) Creatinine 0.6 mg/dL (0.6-1.0) Estimated GFR (Cockcroft-Gault) 102.7 Glucose Level 268 mg/dL (70-99) Calcium Level 8.1 mg/dL (8.5-10.1) Phosphorus Level 3.7 mg/dL (2.6-4.7) Magnesium Level 1.7 mg/dL (1.8-2.4) Problem List Problems Medical Problems: (1) Dehydration Status: Acute (2) Hyperglycemia Status: Acute (3) Pancreatitis, acute Status: Acute Assessment/Plan pancreatitis will ask hematology to comment on low WBC will ask GI if OK to start clears no surgical plans. Justicifation of Admission Dx: Justifications for Admission: Justification of Admission Dx: Yes BARBARA DODGE MD Nov 23, 2019 08:38
[2019-11-23] MEDS: predniSONE 1 MG TABLET PO SCH (08:55)
[2019-11-23] MEDS: PSYLLIUM HUSK (SUGAR FREE) 1 PKT PACKET PO SCH (08:56)
[2019-11-23] MEDS: POLYETHYLENE GLYCOL 3350 17 GM PACKET. PO SCH (08:57)
--- NOTE | 2019-11-23 09:00 | NUR ---
ELIZABETH Quintanilla notified of CLD per Dr. Young. She stated she would let me know if diet needed to be adjusted.
--- NOTE | 2019-11-23 09:09 | NUR ---
EVELYNE following. Discussed with RN, pt on TPN - diet advanced to clears. EVELYNE will continue to follow Addendum: 11/23/19 at [address] Alicia wanting transfer for Rheumatology consult. EVELYNE faxed clinicals and clouded images to (ph: [phone], fax: [phone]). Spoke Adan at , they have received referral and will contact Dr. Alicia to determine if pt is accepted. [facility] notified. Addendum: 11/23/19 at 1643 by ELIZABETH STUBBS Adan contacted EVELYNE to advise pt's insurance has only authorized for pt to be at [facility] and that [facility] needs to get a referral auth from [facility] for a transfer to . Mia at [facility] [phone], information given to Shalini RAPHAEL. EVELYNE will continue to follow.
[2019-11-23 09:14] LABS: HEMATOCRIT 33.9 % (36.0-47.0); HEMOGLOBIN 11.2 g/dL (12.0-15.5); RED BLOOD COUNT 4.06 x10^6/uL (3.50-5.40); RED CELL DISTRIBUTION WIDTH 15.4 % (11.5-14.5)
--- NOTE | 2019-11-23 09:16 | PDOC ---
PROGRESS NOTES Chief Complaint Chief Complaint impression Acute pancreatitis - likely 2/2 hyper-triglyceridemia. 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 I discussed with [facility] rheumatology concern that MTX could play a role as well. Hold dosing for leukopenia 6/2 ct Progression of findings of acute pancreatitis. Pancreatic enhancement pattern is slightly heterogeneous but no definable nonenhancing component to suggest liquefactive necrosis at this time. In addition, there is been substantial increase in left lateral peripancreatic fluid which extends laterally to the left in the region of the lateral conal and renal fascia,and dissects distally into the left pelvis. This could be infected fluid, but does not appear to be an encapsulated collection. Duodenal and jejunal intraluminal lipomas Hypertriglyceridemia - will need outpatient Endocrinology referral for cholesterol metabolism treatment, I have suggested prescription 2g TID fish oil (Vascepa or Lovaza) in the meantime once pancreatitis resolves Hyponatremia DM2 with Hyperglycemia - A1c 13.6. Should continue on insulin therapy until A1c < 8, then consider PO options. Would probably have to avoid GLP1 therapy given her pancreatitis. Would defer to an autos disassembler for this. 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 FEN - LR for maintenance, NPO, will wait for recommendations from our automotive service consultant regarding diet PPX - lovenox FULL CODE DIspo - inpatient for pancreatitis recovery TPN until pain/nausea resolve with worsening pancreatitis. heme consult D/W DR BUSTILLOS , planning iv solumedrol 1000 mg iv x daily x 2 days, will need transfer to [facility] FOR RHEUMATOLOGY CONSULT SOON WILL CALL TRANSFER TEAM 39 min pt exam, chart review, > 50% of time spent with exam, chart review, pt care coordination History of Present Illness History of Present Illness Ms Fernandez is a 59yo F [employer] w/ PMHx celiac disease, adult onset stills disease, Anemia, Asthma, CHERIE on CPAP, GERD who presents with severe upper abdominal pain, nausea, vomiting, fatigue. 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 She only had oatmeal for breakfast. She has never had anything similar to this in the past. She generally feels unwell. She is not had any fever, diarrhea, chest pain, shortness of breath, dysuria, hematuria, blood in her stools. She denies alcohol abuse. Pain does not move anywhere. Nothing seems to make it better or worse. She has not tried anything at home. He does not drink alcohol, and is status post cholecystectomy. No calcium disorders. She takes 20mg methotrexate weekly on Fridays and is on 3 mg of chronic prednisone for her stills disease. She was diagnosed with celiac disease June 2019 and has just recently started on a gluten-free diet. No recent sick contacts that she can recall. Labs significant for lipase 14555, glucose 477, NA 129, bilirubin 1.1, Calcium 8.3, K 3.7, WBC 6.3, Hb 15, Platelets 247 CT abdomen pelvis shows surgically absent gallbladder and surgically absent uterus and describes duodenal and jejunal intraluminal lipomas. Findings of acute pancreatitis. No loculated collections. No biliary dilatation. Admitted for further treatment. 11/13: Lipase down. A1c 13.6, Triglycerides 3252. Started on insulin gtt. 11/14: Abdominal pain and glucose improved. Having ice chips per GI. Afebrile. No CP or SOB. D/w [facility] rheumatology, to hold MTX therapy on 11/15 given her leukopenia and pancreatitis. 11/15: Overnight afebrile. Labs improved. Still with left-sided abdominal pain. WBC 1.8. She notes she had not previously had a formal diagnosis of diabetes. No CP or SOB 11/16: Pain improved, advancing diet per GI lipase 328. WBC 2, K2.6, MG 1.4 11/17: Afebrile overnight. Still with abdominal pain, no CP or SOB 11/18: Patient continues to have discomfort especially when she has a diet no fever or chills were reported nevertheless she says that she woke up drenched in sweat in the middle of night, no other complaints were reported overnight, plan of care discussed in detail 11/19: Patient will continue to have bowel rest in light of her CT from yesterday. No new complaints. Vitals Vitals Vital Signs Date Time Temp Pulse Resp B/P (MAP) Pulse Ox O2 Delivery O2 Flow Rate FiO2 11/23/19 09:05 Room Air 11/23/19 07:00 98.2 96 18 120/76 (91) 96 98.2 11/22/19 20:00 2.0 Physical Exam Physical Exam GENERAL: Alert, oriented female, not in distress. VITAL SIGNS: Stable, afebrile. HEENT: NAD. NECK: Supple. No JVP. No lymphadenopathy. LUNGS: Clear. HEART: S1, S2 regular. ABDOMEN: Soft, nontender. No organomegaly. EXTREMITIES: No edema, cyanosis. SKIN: Unremarkable. NEUROLOGIC: The patient is alert, awake and appropriate. No focal neurologic deficit. General: Alert, Oriented X3, Cooperative, No acute distress Lungs: Clear Abdomen: Soft, No tenderness Extremities: No clubbing, No cyanosis Skin: No rashes, No breakdown Labs LABS Laboratory Tests Test 11/22/19 11:59 11/22/19 16:51 11/22/19 20:26 11/22/19 23:54 Glucose (Fingerstick) 127 mg/dL (70-99) 140 mg/dL (70-99) 131 mg/dL (70-99) 188 mg/dL (70-99) Test 11/23/19 05:59 11/23/19 06:45 Glucose (Fingerstick) 251 mg/dL (70-99) Sodium Level 135 mmol/L (136-145) Potassium Level 3.1 mmol/L (3.5-5.1) Chloride Level 101 mmol/L (98-107) Carbon Dioxide Level 27 mmol/L (21-32) Anion Gap 7 (6-14) Blood Urea Nitrogen 8 mg/dL (7-20) Creatinine 0.6 mg/dL (0.6-1.0) Estimated GFR (Cockcroft-Gault) 102.7 Glucose Level 268 mg/dL (70-99) Calcium Level 8.1 mg/dL (8.5-10.1) Phosphorus Level 3.7 mg/dL (2.6-4.7) Magnesium Level 1.7 mg/dL (1.8-2.4) Assessment and Plan Assessmemt and Plan Problems Medical Problems: (1) Dehydration Status: Acute (2) Hyperglycemia Status: Acute (3) Pancreatitis, acute Status: Acute Comment Review of Relevant I have reviewed the following items diann (where applicable) has been applied. Labs Laboratory Tests Test 6/3/20 11:25 11/21/19 16:43 11/21/19 20:21 11/22/19 04:05 Glucose (Fingerstick) 145 mg/dL (70-99) 132 mg/dL (70-99) 148 mg/dL (70-99) White Blood Count 1.6 x10^3/uL (4.0-11.0) Red Blood Count 4.22 x10^6/uL (3.50-5.40) Hemoglobin 11.7 g/dL (12.0-15.5) Hematocrit 35.6 % (36.0-47.0) Mean Corpuscular Volume 85 fL (79-100) Mean Corpuscular Hemoglobin 28 pg (25-35) Mean Corpuscular Hemoglobin Concent 33 g/dL (31-37) Red Cell Distribution Width 15.5 % (11.5-14.5) Platelet Count 280 x10^3/uL (140-400) Neutrophils (%) (Auto) 32 % (31-73) Lymphocytes (%) (Auto) 37 % (24-48) Monocytes (%) (Auto) 28 % (0-9) Eosinophils (%) (Auto) 2 % (0-3) Basophils (%) (Auto) 1 % (0-3) Neutrophils # (Auto) 0.5 x10^3/uL (1.8-7.7) Lymphocytes # (Auto) 0.6 x10^3/uL (1.0-4.8) Monocytes # (Auto) 0.4 x10^3/uL (0.0-1.1) Eosinophils # (Auto) 0.0 x10^3/uL (0.0-0.7) Basophils # (Auto) 0.0 x10^3/uL (0.0-0.2) Prothrombin Time 13.6 SEC (11.7-14.0) Prothromb Time International Ratio 1.1 (0.8-1.1) Sodium Level 140 mmol/L (136-145) Potassium Level 3.5 mmol/L (3.5-5.1) Chloride Level 100 mmol/L (98-107) Carbon Dioxide Level 22 mmol/L (21-32) Anion Gap 18 (6-14) Blood Urea Nitrogen 4 mg/dL (7-20) Creatinine 0.6 mg/dL (0.6-1.0) Estimated GFR (Cockcroft-Gault) 102.7 Glucose Level 166 mg/dL (70-99) Calcium Level 8.6 mg/dL (8.5-10.1) Phosphorus Level 4.1 mg/dL (2.6-4.7) Magnesium Level 1.6 mg/dL (1.8-2.4) Triglycerides Level 262 mg/dL (0-150) Test 11/22/19 07:31 11/22/19 11:59 11/22/19 16:51 11/22/19 20:26 Glucose (Fingerstick) 146 mg/dL (70-99) 127 mg/dL (70-99) 140 mg/dL (70-99) 131 mg/dL (70-99) Test 11/22/19 23:54 11/23/19 05:59 11/23/19 06:45 Glucose (Fingerstick) 188 mg/dL (70-99) 251 mg/dL (70-99) Sodium Level 135 mmol/L (136-145) Potassium Level 3.1 mmol/L (3.5-5.1) Chloride Level 101 mmol/L (98-107) Carbon Dioxide Level 27 mmol/L (21-32) Anion Gap 7 (6-14) Blood Urea Nitrogen 8 mg/dL (7-20) Creatinine 0.6 mg/dL (0.6-1.0) Estimated GFR (Cockcroft-Gault) 102.7 Glucose Level 268 mg/dL (70-99) Calcium Level 8.1 mg/dL (8.5-10.1) Phosphorus Level 3.7 mg/dL (2.6-4.7) Magnesium Level 1.7 mg/dL (1.8-2.4) Laboratory Tests Test 11/22/19 11:59 11/22/19 16:51 11/22/19 20:26 11/22/19 23:54 Glucose (Fingerstick) 127 mg/dL (70-99) 140 mg/dL (70-99) 131 mg/dL (70-99) 188 mg/dL (70-99) Test 11/23/19 05:59 11/23/19 06:45 Glucose (Fingerstick) 251 mg/dL (70-99) Sodium Level 135 mmol/L (136-145) Potassium Level 3.1 mmol/L (3.5-5.1) Chloride Level 101 mmol/L (98-107) Carbon Dioxide Level 27 mmol/L (21-32) Anion Gap 7 (6-14) Blood Urea Nitrogen 8 mg/dL (7-20) Creatinine 0.6 mg/dL (0.6-1.0) Estimated GFR (Cockcroft-Gault) 102.7 Glucose Level 268 mg/dL (70-99) Calcium Level 8.1 mg/dL (8.5-10.1) Phosphorus Level 3.7 mg/dL (2.6-4.7) Magnesium Level 1.7 mg/dL (1.8-2.4) Medications Current Medications Iohexol (Omnipaque 300 Mg/ml) 75 ml 1X ONCE IV Last administered on 11/13/19at 11:30; Start 11/13/19 at 11:30; Stop 11/13/19 at 11:31; Status DC Iohexol (Omnipaque 240 Mg/ml) 50 ml 1X ONCE PO Last administered on 11/13/19at 11:30; Start 11/13/19 at 11:30; Stop 11/13/19 at 11:31; Status DC Info (CONTRAST GIVEN -- Rx MONITORING) 1 each PRN DAILY PRN MC SEE COMMENTS; Start 11/13/19 at 11:30; Stop 11/15/19 at 11:29; Status DC Sodium Chloride 1,000 ml @ 0 mls/hr 1X ONCE IV Last administered on 11/13/19at 12:27; Start 11/13/19 at 12:15; Stop 11/13/19 at 12:16; Status DC Morphine Sulfate (Morphine Sulfate) 5 mg 1X ONCE IV Last administered on 11/13/19at 12:45; Start 11/13/19 at 12:30; Stop 11/13/19 at 12:33; Status DC Morphine Sulfate (Morphine Sulfate) 5 mg 1X ONCE IV ; Start 11/13/19 at 13:45; Stop 11/13/19 at 13:46; Status DC Morphine Sulfate (Morphine Sulfate) 4 mg PRN Q2HR PRN IV MODERATE TO SEVERE PAIN Last administered on 11/15/19at 16:18; Start 11/13/19 at 14:45; Stop 11/19/19 at 10:23; Status DC Sodium Chloride 1,000 ml @ 100 mls/hr Q10H IV Last administered on 11/19/19at 08:27; Start 11/13/19 at 14:44; Stop 11/19/19 at 10:23; Status DC Ondansetron HCl (Zofran) 4 mg PRN Q4HRS PRN IV NAUSEA/VOMITING Last admi nistered on 11/20/19at 14:06; Start 11/13/19 at 14:45 Acetaminophen (Tylenol Supp) 650 mg PRN Q4HRS PRN FL TEMP OVER 100.4F OR MILD PAIN; Start 11/13/19 at 14:45 Enoxaparin Sodium (Lovenox 40mg Syringe) 40 mg Q24H SQ Last administered on 11/22/19at 16:19; Start 11/13/19 at 15:00 Insulin Human Lispro (HumaLOG) 0-9 UNITS Q4HRS SQ Last administered on 11/17/19at 18:15; Start 11/13/19 at 16:00; Stop 11/17/19 at 19:32; Status DC Dextrose (Dextrose 50%-Water Syringe) 12.5 gm PRN Q15MIN PRN IV SEE COMMENTS; Start 11/13/19 at 14:45 Albuterol Sulfate (Ventolin Neb Soln) 3 mg PRN QID PRN NEB SHORTNESS OF BREATH; Start 11/13/19 at 15:15 Sodium Chloride (Saline Mist Nasal) 1 mago PRN Q1HR PRN NS NASAL CONGESTION; Start 11/13/19 at 15:15 Methylprednisolone Sodium Succinate (SOLU-Medrol 40MG VIAL) 40 mg DAILY IV Last administered on 11/15/19at 08:21; Start 11/13/19 at 15:15; Stop 11/15/19 at 13:4 4; Status DC Insulin Human Regular 100 unit/ Sodium Chloride 101 ml @ 0 mls/hr CONT PRN IV SEE I/O RECORD Last administered on 11/14/19at 02:12; Start 11/13/19 at 18:00 Fentanyl Citrate (Fentanyl 2ml Vial) 50 mcg PRN Q2HR PRN IVP MOD TO SEVERE PAIN, 2ND CHOICE Last administered on 11/22/19at 16:21; Start 11/14/19 at 11:45 Famotidine (Pepcid Vial) 20 mg QHS IVP Last administered on 11/18/19at 22:14; Start 11/15/19 at 21:00; Stop 11/19/19 at 10:21; Status DC Prednisone (Prednisone) 3 mg DAILY PO Last administered on 11/23/19at 08:55; Start 11/16/19 at 09:00 Potassium Chloride/Water 100 ml @ 100 mls/hr Q1H IV Last administered on 11/16at 15:22; Start 11/17/19 at 11:00; Stop 11/17/19 at 14:59; Status DC Potassium Chloride (Klor-Con) 40 meq 1X ONCE PO Last administered on 11/17/19at 11:01; Start 11/17/19 at 10:15; Stop 11/17/19 at 10:22; Status DC Tramadol HCl (Ultram) 50 mg PRN Q6HRS PRN PO MODERATE PAIN 4-6 Last administered on 11/20/19at 06:08; Start 11/17/19 at 10:15 Oxycodone HCl (Roxicodone) 5 mg PRN Q6HRS PRN PO SEVERE PAIN 7-10 Last administered on 11/17/19at 11:08; Start 11/17/19 at 10:15; Stop 11/17/19 at 15:30; Status DC Magnesium Sulfate 100 ml @ 25 mls/hr 1X ONCE IV Last administered on 11/17/19at 11:06; Start 11/17/19 at 11:00; Stop 11/17/19 at 14:59; Status DC Magnesium Hydroxide (Milk Of Magnesia) 2,400 mg PRN DAILY PRN PO CONSTIPATION 2ND CHOICE; Start 11/17/19 at 15:30 Psyllium Hydrophilic Mucilloid (Metamucil Fiber Packet) 1 pkt DAILY PO Last administered on 11/19/19 08:28; Start 11/17/19 at 15:30 Polyethylene Glycol (miraLAX PACKET) 17 gm DAILY PO Last administered on 11/19/19 08:28; Start 11/17/19 at 15:30 Oxycodone HCl (Roxicodone) 5 mg PRN Q4HRS PRN PO SEVERE PAIN 7-10 Last administered on 11/23/19 09:05; Start 11/17/19 at 15:30 Insulin Human Lispro (HumaLOG) 0-9 UNITS TIDWMEALHC SQ Last administered on 11/19/19at 17:14; Start 11/17/19 at 19:30; Stop 11/23/19 at 06:31; Status DC Famotidine (Pepcid) 20 mg QHS PO Last administered on 11/19/19at 20:57; Start 11/19/19 at 21:00; Stop 11/20/19 at 10:56; Status DC Iohexol (Omnipaque 300 Mg/ml) 75 ml 1X ONCE IV Last administered on 11/19/19at 11:45; Start 11/19/19 at 11:45; Stop 11/19/19 at 11:46; Status DC Info (CONTRAST GIVEN -- Rx MONITORING) 1 each PRN DAILY PRN MC SEE COMMENTS; Start 11/19/19 at 11:45; Stop 11/21/19 at 11:44; Status DC Ringer's Solution 1,000 ml @ 75 mls/hr [id number] IV Last administered on 11/22/19at 01:53; Start 11/20/19 at 09:30 Potassium Chloride/Water 100 ml @ 100 mls/hr Q1H IV Last administered on 11/20/19at 21:27; Start 11/20/19 at 10:00; Stop 11/20/19 at 21:59; Status DC Famotidine (Pepcid Vial) 20 mg QHS IVP Last administered on 11/22/19at 22:10; Start 11/20/19 at 21:00 Bisacodyl (Dulcolax Supp) 10 mg PRN DAILY PRN [place] CONSTIPATION; Start 11/20/19 at 11:00 Leucovorin Calcium (Wellcovorin) 5 mg DAILY PO Last administered on 11/21/19at 09:53; Start 11/21/19 at 10:00; Stop 11/22/19 at 09:24; Status DC Info (Tpn Per Pharmacy) 1 each PRN DAILY PRN MC SEE COMMENTS Last administered on 11/22/19at 15:12; Start 11/21/19 at 12:00 Potassium Chloride/Water 100 ml @ 100 mls/hr Q1H IV Last administered on 11/22/19at 01:53; Start 11/21/19 at 20:00; Stop 11/21/19 at 23:59; Status DC Leucovorin Calcium (Wellcovorin) 15 mg Q8HRS PO Last administered on 11/23/19at 05:55; Start 11/22/19 at 10:00 Lidocaine HCl (Buffered Lidocaine 1%) 3 ml 1X ONCE INJ ; Start 11/22/19 at 12:00; Stop 11/22/19 at 12:01; Status DC Lidocaine HCl (Buffered Lidocaine 1%) 3 ml STK-MED ONCE .ROUTE ; Start 11/22/19 at 11:58; Stop 11/22/19 at 11:59; Status DC Sodium Chloride 90 meq/Potassium Chloride 50 meq/ Potassium Phosphate 13.6 mmol/Magnesium Sulfate 10 meq/ Calcium Gluconate 10 meq/ Multivitamins 10 ml /Chromium/ Copper/Manganese/ Seleni/Zn 1 ml/ Total Parenteral Nutrition/Amino Acids/Dextrose/ Fat Emulsion Intravenous 1,512 ml @ 63 mls/hr TPN CONT IV Last administered on 11/22/19at 22:12; Start 11/22/19 at 22:00; Stop 11/23/19 at 21:59 Magnesium Sulfate/ Dextrose 100 ml @ 100 mls/hr 1X ONCE IV Last administered on 11/22/19at 16:16; Start 11/22/19 at 16:00; Stop 11/22/19 at 16:59; Status DC Insulin Human Lispro (HumaLOG) 0-5 UNITS TIDWMEALS SQ ; Start 11/23/19 at 08:00; Status Cancel Dextrose (Dextrose 50%-Water Syringe) 12.5 gm PRN Q15MIN PRN IV SEE COMMENTS; Start 11/23/19 at 07:45; Status Cancel Insulin Human Lispro (HumaLOG) 0-7 UNITS TIDWMEALS SQ ; Start 11/23/19 at 08:00; Stop 11/23/19 at 08:00; Status DC Dextrose (Dextrose 50%-Water Syringe) 12.5 gm PRN Q15MIN PRN IV SEE COMMENTS; Start 11/23/19 at 08:00; Status Cancel Insulin Human Lispro (HumaLOG) 0-9 UNITS TIDWMEALS SQ Last administered on 11/23/19at 08:07; Start 11/23/19 at 08:00 Dextrose (Dextrose 50%-Water Syringe) 12.5 gm PRN Q15MIN PRN IV SEE COMMENTS; Start 11/23/19 at 08:00 Active Scripts Active Reported Zyrtec (Cetirizine Hcl) 10 Mg Capsule 10 Mg PO DAILY Methotrexate (Methotrexate Sodium) 2.5 Mg Tablet 8 Tab PO WEEKLY Protonix (Pantoprazole Sodium) 40 Mg Tablet.dr 40 Mg PO DAILYAC Folic Acid 0.8 Mg Capsule 1 Cap PO DAILY 30 Days Ferrous Sulfate 325 Mg Tablet 1 Tab PO DAILY Vitals/I & O Vital Sign - Last 24 Hours 11/22/19 11/22/19 11/22/19 11/22/19 11:00 11:42 12:12 15:00 Temp 98.6 98.3 98.6 98.3 Pulse 78 61 Resp 20 20 B/P (MAP) 132/78 (96) 160/78 (105) Pulse Ox 96 96 O2 Delivery Room Air Room Air Room Air Room Air 11/22/19 11/22/19 11/22/19 11/22/19 16:21 16:51 19:00 20:00 Temp 98.3 98.3 Pulse 79 Resp 18 B/P (MAP) 158/82 (107) Pulse Ox 96 O2 Delivery Room Air Room Air Room Air Room Air O2 Flow Rate 2.0 11/22/19 11/23/19 11/23/19 11/23/19 23:00 03:00 07:00 09:05 Temp 97.7 97.5 98.2 97.7 97.5 98.2 Pulse 76 77 96 Resp 18 18 18 B/P (MAP) 139/70 (93) 131/79 (96) 120/76 (91) Pulse Ox 94 94 96 O2 Delivery Room Air Room Air Room Air Room Air Intake and Output 11/22/19 11/22/19 11/23/19 15:00 23:00 07:00 Intake Total 30 ml Output Total 475 ml Balance -475 ml 30 ml Nutrition Consultation Dietary Evaluation: Recommendations by RD: Dietary education by RD, Increase Calorie Intake, PPN/TPN Comments: REC TPN per followin g dextrose, 65 g AA, 20 g lipids REC advance diet as tolerated, goal diet gluten free/ADA (A1c 13.6) w/protein supplements per pt choice Expected Outcomes/Goals: TPN to meet 65% - 7% % est needs while NPO diet advancement Malnutrition Findings: Food and Nutrition Intake (Mod: <75% est energy req 7days Weight Status: Appropriate Hemodynamically unstable?: No Is patient in severe pain?: No Is NPO status required?: No BUBBA WOOD MD Nov 23, 2019 09:16
[2019-11-23 09:46] LABS: WHITE BLOOD COUNT 1.8 x10^3/uL (4.0-11.0)
--- NOTE | 2019-11-23 09:46 | PDOC ---
Subjective: Subjective: "They said I could have liquids so I'm having chicken broth." Abd pain is better. Loose stool yesterday or the day before. Objective: Objective: Reviewed surgery note, note plans for hematology to see. Vital Signs: Vital Signs Date Time Temp Pulse Resp B/P (MAP) Pulse Ox O2 Delivery O2 Flow Rate FiO2 11/23/19 09:05 Room Air 11/23/19 07:00 98.2 96 18 120/76 (91) 96 98.2 11/22/19 20:00 2.0 Labs: Laboratory Tests Test 11/22/19 11:59 11/22/19 16:51 11/22/19 20:26 11/22/19 23:54 Glucose (Fingerstick) 127 mg/dL 140 mg/dL 131 mg/dL 188 mg/dL Test 11/23/19 05:59 11/23/19 06:45 Glucose (Fingerstick) 251 mg/dL Sodium Level 135 mmol/L Potassium Level 3.1 mmol/L Chloride Level 101 mmol/L Carbon Dioxide Level 27 mmol/L Anion Gap 7 Blood Urea Nitrogen 8 mg/dL Creatinine 0.6 mg/dL Estimated GFR (Cockcroft-Gault) 102.7 Glucose Level 268 mg/dL Calcium Level 8.1 mg/dL Phosphorus Level 3.7 mg/dL Magnesium Level 1.7 mg/dL PE: GEN: NAD - heating up chicken broth at microwave in the hallway NEURO/PSYCH: A & O 3 A/P: Pancreatitis, hypertriglyceridemia - interval CT 11/18 worse, s/p PICC placement and on TPN 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 Hsieh. Justicifation of Admission Dx: Justifications for Admission: Justification of Admission Dx: Yes SHIRAZ CABRAL Nov 23, 2019 09:46
[2019-11-23] MEDS ORDERED: MAGNESIUM SULFATE 2GM 50 ML IV ONE (10:45)
[2019-11-23] MEDS ORDERED: POTASSIUM CHLORIDE 20 MEQ TABLET.ER. PO ONE (10:45)
[2019-11-23 11:00] VITALS: BP 120/72
--- NOTE | 2019-11-23 13:29 | PDOC ---
Progress Note Current Problem List Problems: (1) Leukopenia due to antineoplastic chemotherapy Subjective Subjective Patient is feeling better. Walking around. ROS ROS No nausea No vomiting No pain No rash Vital Sign Vital Signs Vital Signs Date Time Temp Pulse Resp B/P (MAP) Pulse Ox O2 Delivery O2 Flow Rate FiO2 11/23/19 11:00 98.1 86 18 120/72 (88) 98 Room Air 98.1 11/22/19 20:00 2.0 Physical Exam PHYSICAL EXAM GENERAL: Alert, oriented female, not in distress. VITAL SIGNS: Stable, afebrile. HEENT: NAD. NECK: Supple. No JVP. No lymphadenopathy. LUNGS: Clear. HEART: S1, S2 regular. ABDOMEN: Soft, nontender. No organomegaly. EXTREMITIES: No edema, cyanosis. SKIN: Unremarkable. NEUROLOGIC: The patient is alert, awake and appropriate. No focal neurologic deficit. Labs Lab Laboratory Tests Test 11/22/19 16:51 11/22/19 20:26 11/22/19 23:54 11/23/19 05:59 Glucose (Fingerstick) 140 mg/dL (70-99) 131 mg/dL (70-99) 188 mg/dL (70-99) 251 mg/dL (70-99) Test 11/23/19 06:45 11/23/19 11:37 White Blood Count 1.8 x10^3/uL (4.0-11.0) Red Blood Count 4.06 x10^6/uL (3.50-5.40) Hemoglobin 11.2 g/dL (12.0-15.5) Hematocrit 33.9 % (36.0-47.0) Mean Corpuscular Volume 84 fL (79-100) Mean Corpuscular Hemoglobin 28 pg (25-35) Mean Corpuscular Hemoglobin Concent 33 g/dL (31-37) Red Cell Distribution Width 15.4 % (11.5-14.5) Platelet Count 287 x10^3/uL (140-400) Sodium Level 135 mmol/L (136-145) Potassium Level 3.1 mmol/L (3.5-5.1) Chloride Level 101 mmol/L (98-107) Carbon Dioxide Level 27 mmol/L (21-32) Anion Gap 7 (6-14) Blood Urea Nitrogen 8 mg/dL (7-20) Creatinine 0.6 mg/dL (0.6-1.0) Estimated GFR (Cockcroft-Gault) 102.7 Glucose Level 268 mg/dL (70-99) Calcium Level 8.1 mg/dL (8.5-10.1) Phosphorus Level 3.7 mg/dL (2.6-4.7) Magnesium Level 1.7 mg/dL (1.8-2.4) Glucose (Fingerstick) 113 mg/dL (70-99) Objective Assessment Hem/onc consult brief note. Reason for consultation: Leukopenia. Full note to follow. 59 year-old female admitted with acute pancreatitis in the setting of markedly elevated triglycerides (> 3,000) and adult onset Still's disease on Methotrexate. WBC 6.3 on 11/13/2019, 4.5 on 11/14/2019, 1.8 11/14-11/23/2019. ANC 0.3 on 11/15/2019, 0.5 on 11/22/2019. No significant cytopenias in other cell lines. Although neutropenia could be related to recent Methotrexate therapy, the patient has been on Methotrexate for approximately 1 year and came in with normal WBC. Appropriately, Methotrexate has been discontinued, the patient was started on Leucovorin rescue. Occasionally, severe pancreatitis could be associated with neutropenia, due to sequestration of neutrophils in and around pancreas.However, patient has stable vital signs, no significant third spacing, and no other indicators of extremely severe pancreatitis. Severe neutropenia could also be associated with Still's disease if it's assoc iated with macrophage activation syndrome (MAS). Of interest, markedly elevated triglycerides levels are frequently present if Still's disease is associated with MAS. Plan Plan of Care Suggest 1. Rheumatology consult. 2. High doses of steroids, such as solumedrol 1 gram IV x 2-3 days. 3. Check ferritin level today. 4. Other interventions will likely be needed depending on rheumatology input/ferritin levels. Justicifation of Admission Dx: Justifications for Admission: Justification of Admission Dx: Yes Nutrition Consultation Dietary Evaluation: Recommendations by RD: Dietary education by RD, Increase Calorie Intake, PPN/TPN Comments: REC TPN per followin g dextrose, 65 g AA, 20 g lipids REC advance diet as tolerated, goal diet gluten free/ADA (A1c 13.6) w/protein supplements per pt choice Expected Outcomes/Goals: TPN to meet 65% - 7% % est needs while NPO diet advancement Malnutrition Findings: Food and Nutrition Intake (Mod: <75% est energy req 7days Weight Status: Appropriate JORDIN LOUIE MD Nov 23, 2019 13:29
[2019-11-23] MEDS: TPN PER PHARMACY MC PRN (13:31)
[2019-11-23 14:12] LABS: C-REACTIVE PROTEIN 44.5 mg/L (0-3.3)
[2019-11-23] MEDS: ENOXAPARIN 40 MG/0.4 ML SYRINGE. SQ SCH (14:13)
[2019-11-23 14:59] LABS: BASO % 1 % (0-3); EOS % 1 % (0-3); HEMOGLOBIN 12.3 g/dL (12.0-15.5); LYMPH # 0.4 x10^3/uL (1.0-4.8); LYMPH % 29 % (24-48); MEAN CORPUSCULAR HEMOGLOBIN 29 pg (25-35); MEAN CORPUSCULAR HGB CONC 32 g/dL (31-37); MEAN CORPUSCULAR VOLUME 88 fL (79-100); MONO # 0.4 x10^3/uL (0.0-1.1); MONO % 24 % (0-9); NEUT # 0.7 x10^3/uL (1.8-7.7); NEUT % 45 % (31-73); PLATELET COUNT 265 x10^3/uL (140-400); RED BLOOD COUNT 4.31 x10^6/uL (3.50-5.40); RED CELL DISTRIBUTION WIDTH 16.3 % (11.5-14.5)
[2019-11-23 15:00] VITALS: BP 140/71
--- NOTE | 2019-11-23 15:00 | NUR ---
Spoke with IJEOMA Walker nursing traffic supervisor. Denise notified of poss transfer to [facility] and pt transfer to [facility]. She stated when [facility] responds pt will be transferred to tele if pt does not transfer to [facility] today.
[2019-11-23 15:02] LABS: WHITE BLOOD COUNT 1.5 x10^3/uL (4.0-11.0)
--- NOTE | 2019-11-23 16:14 | NUR ---
Contacted [facility] re: possible tx today for rheumatology consult. Stated it was still pending at this time. Debby,RN nursing tire room supervisor notified of pending status and new order to tx to [facility] if pt does not tx to [facility].
[2019-11-23 16:49] LABS: ALBUMIN/GLOBULIN RATIO 0.6 (1.0-1.7); CALCIUM 8.5 mg/dL (8.5-10.1); CREATININE 0.7 mg/dL (0.6-1.0); GFR 85.9; POTASSIUM 3.7 mmol/L (3.5-5.1); TOTAL BILIRUBIN 0.4 mg/dL (0.2-1.0); TOTAL PROTEIN 7.7 g/dL (6.4-8.2)
--- NOTE | 2019-11-23 16:50 | NUR ---
Attempt made to call Mia at [facility] to verify what needs to be done for transfer to . After approximately 10 minutes of continuous automated prompts and holds/transfers unable to locate Mia. IJEOMA Guardado nursing financial supervisor notified.
--- NOTE | 2019-11-23 17:24 | NUR ---
Dr. Alicia paged re: inability to contact insurance company to find information on what is needed for tx to [facility]. Debby,RN nursing instrument maintenance supervisor notified. Stated she would obtain a bed for pt on 6S.
--- NOTE | 2019-11-23 18:04 | NUR ---
Dr. draper notified of [facility] transfer pending insurance and inabliity to contact someone for more information. No new orders received.
--- NOTE | 2019-11-23 18:14 | NUR ---
Pt. to tx to [id number]. Attempt made to call report, Rn not available at this time.
[2019-11-23 19:00] VITALS: BP 120/68
--- NOTE | 2019-11-23 19:16 | PDOC2 ---
CONSULT Date of Consult Date of Consult DATE: 11/23/19 TIME: 14:30 Reason for Consult Reason for Consult: Neutropenia Referring Physician Referring Physician: Dr. Jose Alicia Source Source: Chart review, Patient History of Present Illness Reason for Visit: Mrs. Moon Fernandez is a 59 year-old female w/ PMHx celiac disease, adult onset Still's disease, anemia, asthma, CHERIE on CPAP, GERD who presented to [facility] on 11/13/2019 with severe upper abdominal pain, nausea, vomiting, fatigue. She was found to have acute pancreatitis. The patient has been getting conservative therapy for that. When she came in, her blood counts were normal. She denied fever. The patient's abdominal pain has improved. Methotrexate has been stopped. Last abdominal CT showed acute pancreatitis with no necrosis. There is increase in the fluid collection. Small pleural effusion. Moon is being seen in consultation at the request of Dr. Jose Alicia for evaluation of neutropenia. Today, Moon is seen via telecommunications platform. She reports at the time she was diagnosed with Still's disease, she had significant swelling "in all of her joints", a "light colored" rash, and fevers of 103 and 104. She reports "an ytime she gets under stress" she will develop a rash. She has been followed by Dr. Aguayo, rheumatology at . She had been taking Methotrexate 20 mg once weekly and Prednisone 3 mg daily. She reports she was diagnosed with celiac disease in ~ 08/2019 and has been modifying her diet to include all gluten-free foods. She has increased her intake of pasta with gluten free noodles,spaghetti sauce, and sausage. She denies any recent rashes or joint achiness. She reports she has been seen by Dr. Samantha Hale, Hematology/Oncology at [facility], more recently ~ 2-3 months ago. Past Medical History Pulmonary: Asthma, Other (CHERIE on CPAP) GI: GERD, Other (Celiac disease) Heme/Onc: Anemia NOS Rheumatologic: Other (Stills disease) Dermatology: No pertinent hx Past Surgical History Past Surgical History: Cholecystectomy, Hysterectomy, Other (Bilateral bunion ectomy, right shoulder arthroscopy) Family History Family History: Diabetes Social History Quit ALCOHOL: none Drugs: None Current Problem List Problem List Problems Medical Problems: (1) Dehydration Status: Acute (2) Hyperglycemia Status: Acute (3) Pancreatitis, acute Status: Acute Current Medications Current Medications Current Medications Iohexol (Omnipaque 300 Mg/ml) 75 ml 1X ONCE IV Last administered on 11/13/19at 11:30; Start 11/13/19 at 11:30; Stop 11/13/19 at 11:31; Status DC Iohexol (Omnipaque 240 Mg/ml) 50 ml 1X ONCE PO Last administered on 11/13/19at 11:30; Start 11/13/19 at 11:30; Stop 11/13/19 at 11:31; Status DC Info (CONTRAST GIVEN -- Rx MONITORING) 1 each PRN DAILY PRN MC SEE COMMENTS; Start 11/13/19 at 11:30; Stop 11/15/19 at 11:29; Status DC Sodium Chloride 1,000 ml @ 0 mls/hr 1X ONCE IV Last administered on 11/13/19at 12:27; Start 11/13/19 at 12:15; Stop 11/13/19 at 12:16; Status DC Morphine Sulfate (Morphine Sulfate) 5 mg 1X ONCE IV Last administered on 11/13/19at 12:45; Start 11/13/19 at 12:30; Stop 11/13/19 at 12:33; Status DC Morphine Sulfate (Morphine Sulfate) 5 mg 1X ONCE IV ; Start 11/13/19 at 13:45; Stop 11/13/19 at 13:46; Status DC Morphine Sulfate (Morphine Sulfate) 4 mg PRN Q2HR PRN IV MODERATE TO SEVERE PAIN Last administered on 11/15/19at 16:18; Start 11/13/19 at 14:45; Stop 11/19/19 at 10:23; Status DC Sodium Chloride 1,000 ml @ 100 mls/hr Q10H IV Last administered on 11/19/19at 08:27; Start 11/13/19 at 14:44; Stop 11/19/19 at 10:23; Status DC Ondansetron HCl (Zofran) 4 mg PRN Q4HRS PRN IV NAUSEA/VOMITING Last administered on 11/20/19at 14:06; Start 11/13/19 at 14:45 Acetaminophen (Tylenol Supp) 650 mg PRN Q4HRS PRN VT TEMP OVER 100.4F OR MILD PAIN; Start 5/26/20 at 14:45 Enoxaparin Sodium (Lovenox 40mg Syringe) 40 mg Q24H SQ Last administered on 11/23/19at 14:13; Start 11/13/19 at 15:00 Insulin Human Lispro (HumaLOG) 0-9 UNITS Q4HRS SQ Last administered on 11/17/19at 18:15; Start 11/13/19 at 16:00; Stop 11/17/19 at 19:32; Status DC Dextrose (Dextrose 50%-Water Syringe) 12.5 gm PRN Q15MIN PRN IV SEE COMMENTS; Start 11/13/19 at 14:45; Stop 11/23/19 at 13:20; Status DC Albuterol Sulfate (Ventolin Neb Soln) 3 mg PRN QID PRN NEB SHORTNESS OF BREATH; Start 11/13/19 at 15:15 Sodium Chloride (Saline Mist Nasal) 1 mago PRN Q1HR PRN NS NASAL CONGESTION; Start 11/13/19 at 15:15 Methylprednisolone Sodium Succinate (SOLU-Medrol 40MG VIAL) 40 mg DAILY IV Last administered on 11/15/19at 08:21; Start 11/13/19 at 15:15; Stop 11/15/19 at 13:44; Status DC Insulin Human Regular 100 unit/ Sodium Chloride 101 ml @ 0 mls/hr CONT PRN IV SEE I/O RECORD Last administered on 11/14/19at 02:12; Start 11/13/19 at 18:00 Fentanyl Citrate (Fentanyl 2ml Vial) 50 mcg PRN Q2HR PRN IVP MOD TO SEVERE PAIN, 2ND CHOICE Last administered on 11/22/19at 16:21; Start 11/14/19 at 11:45 Famotidine (Pepcid Vial) 20 mg QHS IVP Last administered on 11/18/19at 22:14; Start 11/15/19 at 21:00; Stop 11/19/19 at 10:21; Status DC Prednisone (Prednisone) 3 mg DAILY PO Last administered on 11/23/19at 08:55; Start 11/16/19 at 09:00 Potassium Chloride/Water 100 ml @ 100 mls/hr Q1H IV Last administered on 11/17/19at 15:22; Start 11/17/19 at 11:00; Stop 11/17/19 at 14:59; Status DC Potassium Chloride (Klor-Con) 40 meq 1X ONCE PO Last administered on 11/17/19 11:01; Start 11/17/19 at 10:15; Stop 11/17/19 at 10:22; Status DC Tramadol HCl (Ultram) 50 mg PRN Q6HRS PRN PO MODERATE PAIN 4-6 Last administered on 11/20/19 06:08; Start 11/17/19 at 10:15 Oxycodone HCl (Roxicodone) 5 mg PRN Q6HRS PRN PO SEVERE PAIN 7-10 Last administered on 11/17/19at 11:08; Start 11/17/19 at 10:15; Stop 11/17/19 at 15:30; Status DC Magnesium Sulfate 100 ml @ 25 mls/hr 1X ONCE IV Last administered on 11/17/19 11:06; Start 11/17/19 at 11:00; Stop 11/17/19 at 14:59; Status DC Magnesium Hydroxide (Milk Of Magnesia) 2,400 mg PRN DAILY PRN PO CONSTIPATION 2ND CHOICE; Start 11/17/19 at 15:30 Psyllium Hydrophilic Mucilloid (Metamucil Fiber Packet) 1 pkt DAILY PO Last administered on 11/19/19at 08:28; Start 11/17/19 at 15:30 Polyethylene Glycol (miraLAX PACKET) 17 gm DAILY PO Last administered on 11/19/19at 08:28; Start 11/17/19 at 15:30 Oxycodone HCl (Roxicodone) 5 mg PRN Q4HRS PRN PO SEVERE PAIN 7-10 Last administered on 11/23/19at 16:24; Start 11/17/19 at 15:30 Insulin Human Lispro (HumaLOG) 0-9 UNITS TIDWMEALHC SQ Last administered on 11/19/19at 17:14; Start 11/17/19 at 19:30; Stop 11/23/19 at 06:31; Status DC Famotidine (Pepcid) 20 mg QHS PO Last administered on 11/19/19at 20:57; Start 11/19/19 at 21:00; Stop 11/20/19 at 10:56; Status DC Iohexol (Omnipaque 300 Mg/ml) 75 ml 1X ONCE IV Last administered on 11/19/19at 11:45; Start 11/19/19 at 11:45; Stop 11/19/19 at 11:46; Status DC Info (CONTRAST GIVEN -- Rx MONITORING) 1 each PRN DAILY PRN MC SEE COMMENTS; Start 11/19/19 at 11:45; Stop 11/21/19 at 11:44; Status DC Ringer's Solution 1,000 ml @ 75 mls/hr [id number] IV Last administered on 11/22/19at 01:53; Start 11/20/19 at 09:30 Potassium Chloride/Water 100 ml @ 100 mls/hr Q1H IV Last administered on 11/20/19at 21:27; Start 11/20/19 at 10:00; Stop 11/20/19 at 21:59; Status DC Famotidine (Pepcid Vial) 20 mg QHS IVP Last administered on 11/22/19at 22:10; Start 11/20/19 at 21:00 Bisacodyl (Dulcolax Supp) 10 mg PRN DAILY PRN VT CONSTIPATION; Start 11/20/19 at 11:00 Leucovorin Calcium (Wellcovorin) 5 mg DAILY PO Last administered on 11/21/19at 09:53; Start 11/21/19 at 10:00; Stop 11/22/19 at 09:24; Status DC Info (Tpn Per Pharmacy) 1 each PRN DAILY PRN MC SEE COMMENTS Last administered on 11/23/19at 13:31; Start 11/21/19 at 12:00 Potassium Chloride/Water 100 ml @ 100 mls/hr Q1H IV Last administered on 11/22/19at 01:53; Start 11/21/19 at 20:00; Stop 11/21/19 at 23:59; Status DC Leucovorin Calcium (Wellcovorin) 15 mg Q8HRS PO Last administered on 11/23/19at 14:06; Start 11/22/19 at 10:00 Lidocaine HCl (Buffered Lidocaine 1%) 3 ml 1X ONCE INJ ; Start 11/22/19 at 12:00; Stop 11/22/19 at 12:01; Status DC Lidocaine HCl (Buffered Lidocaine 1%) 3 ml STK-MED ONCE .ROUTE ; Start 11/22/19 at 11:58; Stop 11/22/19 at 11:59; Status DC Sodium Chloride 90 meq/Potassium Chloride 50 meq/ Potassium Phosphate 13.6 mmol/Magnesium Sulfate 10 meq/ Calcium Gluconate 10 meq/ Multivitamins 10 ml/Chromium/ Copper/Manganese/ Seleni/Zn 1 ml/ Total Parenteral Nutrition/Amino Acids/Dextrose/ Fat Emulsion Intravenous 1,512 ml @ 63 mls/hr TPN CONT IV Last administered on 11/22/19at 22:12; Start 11/22/19 at 22:00; Stop 11/23/19 at 21:59 Magnesium Sulfate/ Dextrose 100 ml @ 100 mls/hr 1X ONCE IV Last administered on 11/22/19at 16:16; Start 11/22/19 at 16:00; Stop 11/22/19 at 16:59; Status DC Insulin Human Lispro (HumaLOG) 0-5 UNITS TIDWMEALS SQ ; Start 11/23/19 at 08:00; Status Cancel Dextrose (Dextrose 50%-Water Syringe) 12.5 gm PRN Q15MIN PRN IV SEE COMMENTS; Start 11/23/19 at 07:45; Status Cancel Insulin Human Lispro (HumaLOG) 0-7 UNITS TIDWMEALS SQ ; Start 11/23/19 at 08:00; Stop 11/23/19 at 08:00; Status DC Dextrose (Dextrose 50%-Water Syringe) 12.5 gm PRN Q15MIN PRN IV SEE COMMENTS; Start 11/23/19 at 08:00; Status Cancel Insulin Human Lispro (HumaLOG) 0-9 UNITS TIDWMEALS SQ Last administered on 11/23/19at 17:34; Start 11/23/19 at 08:00 Dextrose (Dextrose 50%-Water Syringe) 12.5 gm PRN Q15MIN PRN IV SEE COMMENTS; Start 11/23/19 at 08:00; Stop 11/23/19 at 13:17; Status DC Potassium Chloride (Klor-Con) 40 meq 1X ONCE PO Last administered on 11/23/19at 11:03; Start 11/23/19 at 10:45; Stop 11/23/19 at 10:46; Status DC Potassium Chloride (Klor-Con) 20 meq DAILYWBKFT PO ; Start 11/24/19 at 08:00 Magnesium Sulfate 50 ml @ 25 mls/hr 1X ONCE IV Last administered on 11/23/19at 11:04; Start 11/23/19 at 10:45; Stop 11/23/19 at 12:44; Status DC Dextrose (Dextrose 50%-Water Syringe) 12.5 gm PRN Q15MIN PRN IV SEE COMMENTS; Start 11/23/19 at 13:30 Sodium Chloride 90 meq/Potassium Chloride 70 meq/ Potassium Phosphate 13.6 mmol/Magnesium Sulfate 18 meq/ Calcium Gluconate 10 meq/ Multivitamins 10 ml/Chromium/ Copper/Manganese/ Seleni/Zn 1 ml/ Total Parenteral Nutrition/Amino Acids/Dextrose/ Fat Emulsion Intravenous 1,512 ml @ 63 mls/hr TPN CONT IV ; Start 11/23/19 at 22:00; Stop 11/24/19 at 21:59 Methylprednisolone Sodium Succinate (SOLU-Medrol 125MG VIAL) 1,000 mg DAILY08 IV ; Start 11/24/19 at 08:00; Stop 11/26/19 at 07:59; Status UNV Methylprednisolone Sodium Succinate 1000 mg/Sodium Chloride 100 ml @ 100 mls/hr Q24H IV ; Start 11/24/19 at 08:00; Stop 11/26/19 at 07:59 Active Scripts Active Reported Zyrtec (Cetirizine Hcl) 10 Mg Capsule 10 Mg PO DAILY Methotrexate (Methotrexate Sodium) 2.5 Mg Tablet 8 Tab PO WEEKLY Protonix (Pantoprazole Sodium) 40 Mg Tablet.dr 40 Mg PO DAILYAC Folic Acid 0.8 Mg Capsule 1 Cap PO DAILY 30 Days Ferrous Sulfate 325 Mg Tablet 1 Tab PO DAILY Allergies Allergies: Coded Allergies: coconut (Verified Allergy, Intermediate, HIVES, 11/13/19) Physical Exam General: Alert, Oriented X3, Cooperative, No acute distress HEENT: PERRLA Lungs: Other Heart: Regular rate Skin: No rashes Neuro: Normal gait Psych/Mental Status: Mental status NL MUSCULOSKELETAL: No joint tenderness Vitals VITALS Vital Signs Date Time Temp Pulse Resp B/P (MAP) Pulse Ox O2 Delivery O2 Flow Rate FiO2 11/23/19 17:29 Room Air 11/23/19 15:00 98.1 82 18 140/71 (94) 98 98.1 11/22/19 20:00 2.0 Labs Labs Laboratory Tests Test 11/21/19 20:21 11/22/19 04:05 11/22/19 07:31 11/22/19 11:59 Glucose (Fingerstick) 148 mg/dL (70-99) 146 mg/dL (70-99) 127 mg/dL (70-99) White Blood Count 1.6 x10^3/uL (4.0-11.0) Red Blood Count 4.22 x10^6/uL (3.50-5.40) Hemoglobin 11.7 g/dL (12.0-15.5) Hematocrit 35.6 % (36.0-47.0) Mean Corpuscular Volume 85 fL (79-100) Mean Corpuscular Hemoglobin 28 pg (25-35) Mean Corpuscular Hemoglobin Concent 33 g/dL (31-37) Red Cell Distribution Width 15.5 % (11.5-14.5) Platelet Count 280 x10^3/uL (140-400) Neutrophils (%) (Auto) 32 % (31-73) Lymphocytes (%) (Auto) 37 % (24-48) Monocytes (%) (Auto) 28 % (0-9) Eosinophils (%) (Auto) 2 % (0-3) Basophils (%) (Auto) 1 % (0-3) Neutrophils # (Auto) 0.5 x10^3/uL (1.8-7.7) Lymphocytes # (Auto) 0.6 x10^3/uL (1.0-4.8) Monocytes # (Auto) 0.4 x10^3/uL (0.0-1.1) Eosinophils # (Auto) 0.0 x10^3/uL (0.0-0.7) Basophils # (Auto) 0.0 x10^3/uL (0.0-0.2) Prothrombin Time 13.6 SEC (11.7-14.0) Prothromb Time International Ratio 1.1 (0.8-1.1) Sodium Level 140 mmol/L (136-145) Potassium Level 3.5 mmol/L (3.5-5.1) Chloride Level 100 mmol/L (98-107) Carbon Dioxide Level 22 mmol/L (21-32) Anion Gap 18 (6-14) Blood Urea Nitrogen 4 mg/dL (7-20) Creatinine 0.6 mg/dL (0.6-1.0) Estimated GFR (Cockcroft-Gault) 102.7 Glucose Level 166 mg/dL (70-99) Calcium Level 8.6 mg/dL (8.5-10.1) Phosphorus Level 4.1 mg/dL (2.6-4.7) Magnesium Level 1.6 mg/dL (1.8-2.4) Triglycerides Level 262 mg/dL (0-150) Test 11/22/19 16:51 11/22/19 20:26 11/22/19 23:54 11/23/19 05:59 Glucose (Fingerstick) 140 mg/dL (70-99) 131 mg/dL (70-99) 188 mg/dL (70-99) 251 mg/dL (70-99) Test 11/23/19 06:45 11/23/19 11:37 11/23/19 14:45 11/23/19 16:00 White Blood Count 1.8 x10^3/uL (4.0-11.0) 1.5 x10^3/uL (4.0-11.0) Red Blood Count 4.06 x10^6/uL (3.50-5.40) 4.31 x10^6/uL (3.50-5.40) Hemoglobin 11.2 g/dL (12.0-15.5) 12.3 g/dL (12.0-15.5) Hematocrit 33.9 % (36.0-47.0) 38.0 % (36.0-47.0) Mean Corpuscular Volume 84 fL (79-100) 88 fL (79-100) Mean Corpuscular Hemoglobin 28 pg (25-35) 29 pg (25-35) Mean Corpuscular Hemoglobin Concent 33 g/dL (31-37) 32 g/dL (31-37) Red Cell Distribution Width 15.4 % (11.5-14.5) 16.3 % (11.5-14.5) Platelet Count 287 x10^3/uL (140-400) 265 x10^3/uL (140-400) Sodium Level 135 mmol/L (136-145) 138 mmol/L (136-145) Potassium Level 3.1 mmol/L (3.5-5.1) 3.7 mmol/L (3.5-5.1) Chloride Level 101 mmol/L (98-107) 100 mmol/L (98-107) Carbon Dioxide Level 27 mmol/L (21-32) 27 mmol/L (21-32) Anion Gap 7 (6-14) 11 (6-14) Blood Urea Nitrogen 8 mg/dL (7-20) 7 mg/dL (7-20) Creatinine 0.6 mg/dL (0.6-1.0) 0.7 mg/dL (0.6-1.0) Estimated GFR (Cockcroft-Gault) 102.7 85.9 Glucose Level 268 mg/dL (70-99) 266 mg/dL (70-99) Calcium Level 8.1 mg/dL (8.5-10.1) 8.5 mg/dL (8.5-10.1) Phosphorus Level 3.7 mg/dL (2.6-4.7) Magnesium Level 1.7 mg/dL (1.8-2.4) Ferritin 972 ng/mL (8-252) C-Reactive Protein, Quantitative 44.5 mg/L (0-3.3) Glucose (Fingerstick) 113 mg/dL (70-99) Neutrophils (%) (Auto) 45 % (31-73) Lymphocytes (%) (Auto) 29 % (24-48) Monocytes (%) (Auto) 24 % (0-9) Eosinophils (%) (Auto) 1 % (0-3) Basophils (%) (Auto) 1 % (0-3) Neutrophils # (Auto) 0.7 x10^3/uL (1.8-7.7) Lymphocytes # (Auto) 0.4 x10^3/uL (1.0-4.8) Monocytes # (Auto) 0.4 x10^3/uL (0.0-1.1) Eosinophils # (Auto) 0.0 x10^3/uL (0.0-0.7) Basophils # (Auto) 0.0 x10^3/uL (0.0-0.2) BUN/Creatinine Ratio 10 (6-20) Total Bilirubin 0.4 mg/dL (0.2-1.0) Aspartate Amino Transf (AST/SGOT) 17 U/L (15-37) Alanine Aminotransferase (ALT/SGPT) 23 U/L (14-59) Alkaline Phosphatase 104 U/L (46-116) Total Protein 7.7 g/dL (6.4-8.2) Albumin 3.0 g/dL (3.4-5.0) Albumin/Globulin Ratio 0.6 (1.0-1.7) Test 11/23/19 17:09 Glucose (Fingerstick) 240 mg/dL (70-99) Laboratory Tests Test 11/22/19 20:26 11/22/19 23:54 11/23/19 05:59 11/23/19 06:45 Glucose (Fingerstick) 131 mg/dL (70-99) 188 mg/dL (70-99) 251 mg/dL (70-99) White Blood Count 1.8 x10^3/uL (4.0-11.0) Red Blood Count 4.06 x10^6/uL (3.50-5.40) Hemoglobin 11.2 g/dL (12.0-15.5) Hematocrit 33.9 % (36.0-47.0) Mean Corpuscular Volume 84 fL (79-100) Mean Corpuscular Hemoglobin 28 pg (25-35) Mean Corpuscular Hemoglobin Concent 33 g/dL (31-37) Red Cell Distribution Width 15.4 % (11.5-14.5) Platelet Count 287 x10^3/uL (140-400) Sodium Level 135 mmol/L (136-145) Potassium Level 3.1 mmol/L (3.5-5.1) Chloride Level 101 mmol/L (98-107) Carbon Dioxide Level 27 mmol/L (21-32) Anion Gap 7 (6-14) Blood Urea Nitrogen 8 mg/dL (7-20) Creatinine 0.6 mg/dL (0.6-1.0) Estimated GFR (Cockcroft-Gault) 102.7 Glucose Level 268 mg/dL (70-99) Calcium Level 8.1 mg/dL (8.5-10.1) Phosphorus Level 3.7 mg/dL (2.6-4.7) Magnesium Level 1.7 mg/dL (1.8-2.4) Ferritin 972 ng/mL (8-252) C-Reactive Protein, Quantitative 44.5 mg/L (0-3.3) Test 11/23/19 11:37 11/23/19 14:45 11/23/19 16:00 11/23/19 17:09 Glucose (Fingerstick) 113 mg/dL (70-99) 240 mg/dL (70-99) White Blood Count 1.5 x10^3/uL (4.0-11.0) Red Blood Count 4.31 x10^6/uL (3.50-5.40) Hemoglobin 12.3 g/dL (12.0-15.5) Hematocrit 38.0 % (36.0-47.0) Mean Corpuscular Volume 88 fL (79-100) Mean Corpuscular Hemoglobin 29 pg (25-35) Mean Corpuscular Hemoglobin Concent 32 g/dL (31-37) Red Cell Distribution Width 16.3 % (11.5-14.5) Platelet Count 265 x10^3/uL (140-400) Neutrophils (%) (Auto) 45 % (31-73) Lymphocytes (%) (Auto) 29 % (24-48) Monocytes (%) (Auto) 24 % (0-9) Eosinophils (%) (Auto) 1 % (0-3) Basophils (%) (Auto) 1 % (0-3) Neutrophils # (Auto) 0.7 x10^3/uL (1.8-7.7) Lymphocytes # (Auto) 0.4 x10^3/uL (1.0-4.8) Monocytes # (Auto) 0.4 x10^3/uL (0.0-1.1) Eosinophils # (Auto) 0.0 x10^3/uL (0.0-0.7) Basophils # (Auto) 0.0 x10^3/uL (0.0-0.2) Sodium Level 138 mmol/L (136-145) Potassium Level 3.7 mmol/L (3.5-5.1) Chloride Level 100 mmol/L (98-107) Carbon Dioxide Level 27 mmol/L (21-32) Anion Gap 11 (6-14) Blood Urea Nitrogen 7 mg/dL (7-20) Creatinine 0.7 mg/dL (0.6-1.0) Estimated GFR (Cockcroft-Gault) 85.9 BUN/Creatinine Ratio 10 (6-20) Glucose Level 266 mg/dL (70-99) Calcium Level 8.5 mg/dL (8.5-10.1) Total Bilirubin 0.4 mg/dL (0.2-1.0) Aspartate Amino Transf (AST/SGOT) 17 U/L (15-37) Alanine Aminotransferase (ALT/SGPT) 23 U/L (14-59) Alkaline Phosphatase 104 U/L (46-116) Total Protein 7.7 g/dL (6.4-8.2) Albumin 3.0 g/dL (3.4-5.0) Albumin/Globulin Ratio 0.6 (1.0-1.7) Images Images 11/19/2019 CT ABD PELV W/ IV CONTRST ONLY Indication: Reason: pancreatitis, ongoing upper abd pain / Spl. Instructions: IV OMNI 300 75 MLS / History: Exposure: One or more of the following individualized dose reduction techniques were utilized for this examination: 1. Automated exposure control 2. Adjustment of the mA and/or kV according to patient size 3. Use of iterative reconstruction technique. Comparison: 11/13/2019 Small pleural effusions are noted in the lung bases. Atelectasis/infiltrate in both lung bases. Tiny hypodense lesion at the inferior right lobe of the liver, stable since prior study but too small to characterize, may just represent a small cyst, about 5 mm diameter. Spleen is nonenlarged. Pancreatic swelling with ill-defined margins is again seen, slightly greater than on the prior study. Pancreatic body measures about 3.5 cm with today, compared with 2.7 cm on prior exam. Slight heterogeneity of pancreatic enhancement pattern, particularly in the region of the pancreatic body. There is also increase in stranding of the peripancreatic fat and of disorganized peripancreatic fluid. There has been substantial increase in fluid in the left paracolic gutter and lateral to the left pararenal fascia. This measures 15 Hounsfield units compatible with simple nature. This extends distally into the upper left pelvis, lateral to the left psoas muscle and posterior to the descending colon. There is also increase in fatty stranding in this area since the prior exam. There is been an increase in swelling and fatty stranding within the subcutaneous tissues of the left flank. No evidence of adrenal mass. Kidneys demonstrate symmetric enhancement without dominant mass or hydronephrosis. Mild stranding in the perinephric fat bilaterally, slightly greater than on the prior exam. Tiny nonobstructive calculus in the lower pole the left kidney is again seen. Gallbladder is surgically absent. Small hiatal hernia. Wall thickening of the gastric antrum through proximal duodenum, may just be reactive and due to nondistention. No significant small bowel distention. Mild wall thickening of the posterior wall of the descending colon, where it is in contact with the fluid and edema in the region of the lateral conal fascia, probably reactive in nature. The appendix appears within normal limits. Tiny fatty density within the distal duodenum is again seen, likely a lipoma. Small fatty lesion within the proximal jejunum is also again identified, also likely a lipoma. These were seen previously. Mild free pelvic fluid. No evidence of pneumoperitoneum. Urinary bladder appears unremarkable. Vertebral body height and alignment are intact. No evidence of aggressive bone destruction. The aorta is nonaneurysmal. Renal arteries, superior mesenteric artery and celiac axis appear patent. Note there is narrowing at the origin of the celiac axis but distal flow is identified. Portal vein and splenic vein appear grossly patent. IMPRESSION: 1. Progression of findings of acute pancreatitis. Pancreatic enhancement pattern is slightly heterogeneous but no definable nonenhancing component to suggest liquefactive necrosis at this time. In addition, there is been substantial increase in left lateral peripancreatic fluid which extends laterally to the left in the region of the lateral conal and renal fascia, and dissects distally into the left pelvis. This could be infected fluid, but does not appear to be an encapsulated collection. 2. Small pleural effusions at both lung bases with bibasilar atelectasis and/or infiltrate. 3. Mild wall thickening of the posterior descending colon, most likely secondary or reactive given its proximity to the fluid/edema 4. Mild wall thickening of the distal stomach and duodenum, also likely reactive and due to nondistention. 5. Narrowing or stenosis at the origin of the celiac axis, but note there is evidence of distal enhancement. 11/13/19 CT ABD PELV W/ORAL IV CONTRAST History: Mid abdominal pain Comparison/Correlation: 01/08/2009 CT abdomen and pelvis without contrast Axial images of the abdomen and pelvis were obtained following IV and oral contrast. Sagittal and coronal reformatted images were provided. Mild bibasilar costophrenic sulcus atelectasis is present. Bilateral carotid cholecystectomy noted. Liver and spleen are unremarkable. At the inferior tip of the right hepatic lobe, there is a very small to characterize low-attenuation lesion which is present on axial image 49. This may represent a cyst or other benign process. Stranding about the pancreas with surrounding edema is noted. Edema extends along the left lateral conal fascia. Low-attenuation involving the distal duodenum on axial image 49 is present measuring 0.6 cm diameter. Within the right proximal jejunum on coronal image 23, there is a linear fat attenuation structure measuring 2.1 cm x 0.4 cm. These have the appearance of benign lipomas. There is no bowel obstruction. No extraluminal gas. Moderate quantity of stool in the colon is present. Appendix is normal. No inflammatory change about the cecum. Urinary bladder is unremarkable. Lower lumbar spine facet joint degenerative remodeling is present. Transitional L5 vertebra is present. Hysterectomy noted. Impression: Findings of acute pancreatitis. No loculated collections. No biliary dilatation. 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 Assessment/Plan Assessment/Plan 59 year-old female admitted with acute pancreatitis in the setting of markedly elevated triglycerides (> 3,000) and adult onset Still's disease on Methotrexate. WBC 6.3 on 11/13/2019, 4.5 on 11/14/2019, 1.8 11/14-11/23/2019. ANC 0.3 on 11/15/2019, 0.5 on 11/22/2019. No significant cytopenias in other cell lines. Although neutropenia could be related to recent Methotrexate therapy, the patient has been on Methotrexate for approximately 1 year and came in with normal WBC. Appropriately, Methotrexate has been discontinued, the patient was started on Leucovorin rescue. Occasionally, severe pancreatitis could be associated with neutropenia, due to sequestration of neutrophils in and around pancreas.However, patient has stable vital signs, no significant third spacing, and no other indicators of extremely severe pancreatitis. Severe neutropenia could also be associated with Still's disease if it's associated with macrophage activation syndrome (MAS). Of interest, markedly elevated triglycerides levels are frequently present if Still's disease is associated with MAS. Plan Plan of Care Suggest 1. Rheumatology consult. 2. High doses of steroids, such as solumedrol 1 gram IV x 2-3 days. 3. Check ferritin level today. 4. Other interventions will likely be needed depending on rheumatology i nput/ferritin levels. 5. Will follow-up with patient at [facility] (appointment will be scheduled after review of all outside records/labs). Thank you for the opportunity to see your patient. Please call with any questions or concerns. Demetris Rodriguez MD [phone] JORDIN RODRIGUEZ MD Nov 23, 2019 19:16
[2019-11-23] MEDS ORDERED: TOTAL PARENTERAL NUTRITION IV SCH ×10 (22:00)
[2019-11-23] MEDS ORDERED: AMINO ACID IV SCH ×10 (22:00)
[2019-11-23] MEDS ORDERED: [UNRECOGNIZED DRUG - OTHER] IV SCH ×10 (22:00)
[2019-11-23] MEDS ORDERED: DEXTROSE 70% IV SCH ×10 (22:00)
[2019-11-23] MEDS: FAMOTIDINE 20 MG/2 ML VIAL IVP SCH (22:03)
[2019-11-23 23:05] VITALS: BP 146/80
[2019-11-24 03:07] VITALS: BP 126/78
[2019-11-24] MEDS: oxyCODONE IR 5 MG TABLET PO PRN ×2 (04:33→10:30)
[2019-11-24] MEDS: LEUCOVORIN CALCIUM 5 MG TABLET PO SCH ×3 (05:43→22:12)
[2019-11-24] MEDS: IV RINGERS,LACTATED 1000ML 1,000 ML IV SCH ×2 (06:50→20:10)
[2019-11-24 07:10] LABS: BASO % 1 % (0-3); EOS # 0.1 x10^3/uL (0.0-0.7); EOS % 3 % (0-3); HEMATOCRIT 31.8 % (36.0-47.0); HEMOGLOBIN 10.5 g/dL (12.0-15.5); LYMPH # 0.7 x10^3/uL (1.0-4.8); LYMPH % 37 % (24-48); MEAN CORPUSCULAR HEMOGLOBIN 28 pg (25-35); MEAN CORPUSCULAR HGB CONC 33 g/dL (31-37); MEAN CORPUSCULAR VOLUME 84 fL (79-100); MONO # 0.4 x10^3/uL (0.0-1.1); MONO % 22 % (0-9); NEUT # 0.7 x10^3/uL (1.8-7.7); NEUT % 37 % (31-73); PLATELET COUNT 273 x10^3/uL (140-400); RED CELL DISTRIBUTION WIDTH 15.4 % (11.5-14.5)
[2019-11-24 07:20] VITALS: BP 144/88
[2019-11-24 07:26] LABS: CALCIUM 8.2 mg/dL (8.5-10.1); CREATININE 0.6 mg/dL (0.6-1.0); GFR 102.7; PHOSPHORUS 3.6 mg/dL (2.6-4.7); POTASSIUM 3.5 mmol/L (3.5-5.1)
[2019-11-24] MEDS ORDERED: methylPREDNISolone SOD SUCC PF 125 MG/2 ML VIAL. IV SCH (08:00)
[2019-11-24] MEDS: POTASSIUM CHLORIDE 20 MEQ TABLET.ER. PO SCH (10:29)
[2019-11-24] MEDS: POLYETHYLENE GLYCOL 3350 17 GM PACKET. PO SCH (10:29)
[2019-11-24] MEDS: predniSONE 1 MG TABLET PO SCH (10:29)
[2019-11-24] MEDS: PSYLLIUM HUSK (SUGAR FREE) 1 PKT PACKET PO SCH (10:29)
[2019-11-24] MEDS: methylPREDNISolone SOD SUCC 1,000 MG in IV NORMAL SALINE 100ML 100 ML IV SCH (10:30)
[2019-11-24] MEDS: INSULIN LISPRO 300 UNITS/3 ML VIAL. SQ SCH ×3 (10:43→17:21)
[2019-11-24 11:26] VITALS: BP 145/75
--- NOTE | 2019-11-24 12:20 | PDOC ---
Infectious Disease Note Subjective Subjective Comfortable Ra pain/N/V/F/C/S TPN ROS ROS as mentioned above Vital Sign Vital Signs Vital Signs Date Time Temp Pulse Resp B/P (MAP) Pulse Ox O2 Delivery O2 Flow Rate FiO2 11/24/19 11:26 97.4 80 18 145/75 (98) 94 Room Air 97.4 Physical Exam PHYSICAL EXAM GENERAL: Propped up in bed, alert, relaxed HEENT: Oral cavity pink, no lesions seen NECK: Supple. LUNGS: Clear, nonlabored HEART: S1, S2 regular. ABDOMEN: Soft, nontender. EXTREMITIES: No edema, cyanosis. SKIN: warm to touch. No signs of rash NEUROLOGIC: Alert, awake and appropriate. No focal neurologic deficit. RUE-PICC (11/21) clean Labs Lab Laboratory Tests Test 11/23/19 14:45 11/23/19 15:10 11/23/19 16:00 11/23/19 17:09 White Blood Count 1.5 x10^3/uL (4.0-11.0) Red Blood Count 4.31 x10^6/uL (3.50-5.40) Hemoglobin 12.3 g/dL (12.0-15.5) Hematocrit 38.0 % (36.0-47.0) Mean Corpuscular Volume 88 fL (79-100) Mean Corpuscular Hemoglobin 29 pg (25-35) Mean Corpuscular Hemoglobin Concent 32 g/dL (31-37) Red Cell Distribution Width 16.3 % (11.5-14.5) Platelet Count 265 x10^3/uL (140-400) Neutrophils (%) (Auto) 45 % (31-73) Lymphocytes (%) (Auto) 29 % (24-48) Monocytes (%) (Auto) 24 % (0-9) Eosinophils (%) (Auto) 1 % (0-3) Basophils (%) (Auto) 1 % (0-3) Neutrophils # (Auto) 0.7 x10^3/uL (1.8-7.7) Lymphocytes # (Auto) 0.4 x10^3/uL (1.0-4.8) Monocytes # (Auto) 0.4 x10^3/uL (0.0-1.1) Eosinophils # (Auto) 0.0 x10^3/uL (0.0-0.7) Basophils # (Auto) 0.0 x10^3/uL (0.0-0.2) Coronavirus (COVID-19)(PCR) Not detected (NOT DETECT.) Sodium Level 138 mmol/L (136-145) Potassium Level 3.7 mmol/L (3.5-5.1) Chloride Level 100 mmol/L (98-107) Carbon Dioxide Level 27 mmol/L (21-32) Anion Gap 11 (6-14) Blood Urea Nitrogen 7 mg/dL (7-20) Creatinine 0.7 mg/dL (0.6-1.0) Estimated GFR (Cockcroft-Gault) 85.9 BUN/Creatinine Ratio 10 (6-20) Glucose Level 266 mg/dL (70-99) Calcium Level 8.5 mg/dL (8.5-10.1) Total Bilirubin 0.4 mg/dL (0.2-1.0) Aspartate Amino Transf (AST/SGOT) 17 U/L (15-37) Alanine Aminotransferase (ALT/SGPT) 23 U/L (14-59) Alkaline Phosphatase 104 U/L (46-116) Total Protein 7.7 g/dL (6.4-8.2) Albumin 3.0 g/dL (3.4-5.0) Albumin/Globulin Ratio 0.6 (1.0-1.7) Glucose (Fingerstick) 240 mg/dL (70-99) Test 11/24/19 06:40 11/24/19 07:29 11/24/19 11:05 White Blood Count 2.0 x10^3/uL (4.0-11.0) Red Blood Count 3.80 x10^6/uL (3.50-5.40) Hemoglobin 10.5 g/dL (12.0-15.5) Hematocrit 31.8 % (36.0-47.0) Mean Corpuscular Volume 84 fL (79-100) Mean Corpuscular Hemoglobin 28 pg (25-35) Mean Corpuscular Hemoglobin Concent 33 g/dL (31-37) Red Cell Distribution Width 15.4 % (11.5-14.5) Platelet Count 273 x10^3/uL (140-400) Neutrophils (%) (Auto) 37 % (31-73) Lymphocytes (%) (Auto) 37 % (24-48) Monocytes (%) (Auto) 22 % (0-9) Eosinophils (%) (Auto) 3 % (0-3) Basophils (%) (Auto) 1 % (0-3) Neutrophils # (Auto) 0.7 x10^3/uL (1.8-7.7) Lymphocytes # (Auto) 0.7 x10^3/uL (1.0-4.8) Monocytes # (Auto) 0.4 x10^3/uL (0.0-1.1) Eosinophils # (Auto) 0.1 x10^3/uL (0.0-0.7) Basophils # (Auto) 0.0 x10^3/uL (0.0-0.2) Sodium Level 137 mmol/L (136-145) Potassium Level 3.5 mmol/L (3.5-5.1) Chloride Level 102 mmol/L (98-107) Carbon Dioxide Level 28 mmol/L (21-32) Anion Gap 7 (6-14) Blood Urea Nitrogen 7 mg/dL (7-20) Creatinine 0.6 mg/dL (0.6-1.0) Estimated GFR (Cockcroft-Gault) 102.7 Glucose Level 259 mg/dL (70-99) Calcium Level 8.2 mg/dL (8.5-10.1) Phosphorus Level 3.6 mg/dL (2.6-4.7) Magnesium Level 2.0 mg/dL (1.8-2.4) Glucose (Fingerstick) 244 mg/dL (70-99) 256 mg/dL (70-99) Objective Assessment 1. Acute pancreatitis, possibly from methotrexate or very high triglycerides, Methotrexate has been stopped. 2. Neutropenia secondary to methotrexate toxicity. started on Leucovorin. 3. Adult-onset Still's disease. 4. Hypertriglyceridemia Plan Plan of Care Continue supportive care Heme/onc eval noted On high-dose steriods NPO Neutropenic precautions D/w nursing Patient seen. Chart reviewed in detail. Case discussed with [employer]TING [employer] FEEDER. I agree with above plan.cor-formulated with [employer] FEEDER JUNIOR MCKEON APRN Nov 24, 2019 12:20 BRUCE GOOD MD Nov 24, 2019 22:54
--- NOTE | 2019-11-24 12:32 | PDOC ---
PROGRESS NOTES Subjective Subjective some pain, but states it was better than earlier Objective Objective Vital Signs Date Time Temp Pulse Resp B/P (MAP) Pulse Ox O2 Delivery O2 Flow Rate FiO2 11/24/19 11:26 97.4 80 18 145/75 (98) 94 Room Air 97.4 11/22/19 20:00 2.0 Intake and Output 11/24/19 07:00 Intake Total 720 ml Output Total 900 ml Balance -180 ml Intake Oral 720 ml Output Urine Total 900 ml # Voids 5 Physical Exam Abdomen: Soft (minimally tender with palpation) Heart: Regular rate General: Alert, Oriented X3, Cooperative HEENT: Atraumatic Neuro: Normal speech Assessment Assessment Problems Medical Problems: (1) Dehydration Status: Acute (2) Hyperglycemia Status: Acute (3) Pancreatitis, acute Status: Acute Plan Plan of Care Supportive tx, no surgery recs Comment Review of Relevant I have reviewed the following items diann (where applicable) has been applied. Labs Laboratory Tests Test 11/22/19 16:51 11/22/19 20:26 11/22/19 23:54 11/23/19 05:59 Glucose (Fingerstick) 140 mg/dL (70-99) 131 mg/dL (70-99) 188 mg/dL (70-99) 251 mg/dL (70-99) Test 11/23/19 06:45 11/23/19 11:37 11/23/19 14:45 11/23/19 15:10 White Blood Count 1.8 x10^3/uL (4.0-11.0) 1.5 x10^3/uL (4.0-11.0) Red Blood Count 4.06 x10^6/uL (3.50-5.40) 4.31 x10^6/uL (3.50-5.40) Hemoglobin 11.2 g/dL (12.0-15.5) 12.3 g/dL (12.0-15.5) Hematocrit 33.9 % (36.0-47.0) 38.0 % (36.0-47.0) Mean Corpuscular Volume 84 fL (79-100) 88 fL (79-100) Mean Corpuscular Hemoglobin 28 pg (25-35) 29 pg (25-35) Mean Corpuscular Hemoglobin Concent 33 g/dL (31-37) 32 g/dL (31-37) Red Cell Distribution Width 15.4 % (11.5-14.5) 16.3 % (11.5-14.5) Platelet Count 287 x10^3/uL (140-400) 265 x10^3/uL (140-400) Sodium Level 135 mmol/L (136-145) Potassium Level 3.1 mmol/L (3.5-5.1) Chloride Level 101 mmol/L (98-107) Carbon Dioxide Level 27 mmol/L (21-32) Anion Gap 7 (6-14) Blood Urea Nitrogen 8 mg/dL (7-20) Creatinine 0.6 mg/dL (0.6-1.0) Estimated GFR (Cockcroft-Gault) 102.7 Glucose Level 268 mg/dL (70-99) Calcium Level 8.1 mg/dL (8.5-10.1) Phosphorus Level 3.7 mg/dL (2.6-4.7) Magnesium Level 1.7 mg/dL (1.8-2.4) Ferritin 972 ng/mL (8-252) C-Reactive Protein, Quantitative 44.5 mg/L (0-3.3) Glucose (Fingerstick) 113 mg/dL (70-99) Neutrophils (%) (Auto) 45 % (31-73) Lymphocytes (%) (Auto) 29 % (24-48) Monocytes (%) (Auto) 24 % (0-9) Eosinophils (%) (Auto) 1 % (0-3) Basophils (%) (Auto) 1 % (0-3) Neutrophils # (Auto) 0.7 x10^3/uL (1.8-7.7) Lymphocytes # (Auto) 0.4 x10^3/uL (1.0-4.8) Monocytes # (Auto) 0.4 x10^3/uL (0.0-1.1) Eosinophils # (Auto) 0.0 x10^3/uL (0.0-0.7) Basophils # (Auto) 0.0 x10^3/uL (0.0-0.2) Coronavirus (COVID-19)(PCR) Not detected (NOT DETECT.) Test 11/23/19 16:00 11/23/19 17:09 11/24/19 06:40 11/24/19 07:29 Sodium Level 138 mmol/L (136-145) 137 mmol/L (136-145) Potassium Level 3.7 mmol/L (3.5-5.1) 3.5 mmol/L (3.5-5.1) Chloride Level 100 mmol/L (98-107) 102 mmol/L (98-107) Carbon Dioxide Level 27 mmol/L (21-32) 28 mmol/L (21-32) Anion Gap 11 (6-14) 7 (6-14) Blood Urea Nitrogen 7 mg/dL (7-20) 7 mg/dL (7-20) Creatinine 0.7 mg/dL (0.6-1.0) 0.6 mg/dL (0.6-1.0) Estimated GFR (Cockcroft-Gault) 85.9 102.7 BUN/Creatinine Ratio 10 (6-20) Glucose Level 266 mg/dL (70-99) 259 mg/dL (70-99) Calcium Level 8.5 mg/dL (8.5-10.1) 8.2 mg/dL (8.5-10.1) Total Bilirubin 0.4 mg/dL (0.2-1.0) Aspartate Amino Transf (AST/SGOT) 17 U/L (15-37) Alanine Aminotransferase (ALT/SGPT) 23 U/L (14-59) Alkaline Phosphatase 104 U/L (46-116) Total Protein 7.7 g/dL (6.4-8.2) Albumin 3.0 g/dL (3.4-5.0) Albumin/Globulin Ratio 0.6 (1.0-1.7) Glucose (Fingerstick) 240 mg/dL (70-99) 244 mg/dL (70-99) White Blood Count 2.0 x10^3/uL (4.0-11.0) Red Blood Count 3.80 x10^6/uL (3.50-5.40) Hemoglobin 10.5 g/dL (12.0-15.5) Hematocrit 31.8 % (36.0-47.0) Mean Corpuscular Volume 84 fL (79-100) Mean Corpuscular Hemoglobin 28 pg (25-35) Mean Corpuscular Hemoglobin Concent 33 g/dL (31-37) Red Cell Distribution Width 15.4 % (11.5-14.5) Platelet Count 273 x10^3/uL (140-400) Neutrophils (%) (Auto) 37 % (31-73) Lymphocytes (%) (Auto) 37 % (24-48) Monocytes (%) (Auto) 22 % (0-9) Eosinophils (%) (Auto) 3 % (0-3) Basophils (%) (Auto) 1 % (0-3) Neutrophils # (Auto) 0.7 x10^3/uL (1.8-7.7) Lymphocytes # (Auto) 0.7 x10^3/uL (1.0-4.8) Monocytes # (Auto) 0.4 x10^3/uL (0.0-1.1) Eosinophils # (Auto) 0.1 x10^3/uL (0.0-0.7) Basophils # (Auto) 0.0 x10^3/uL (0.0-0.2) Phosphorus Level 3.6 mg/dL (2.6-4.7) Magnesium Level 2.0 mg/dL (1.8-2.4) Test 11/24/19 11:05 Glucose (Fingerstick) 256 mg/dL (70-99) Laboratory Tests Test 11/23/19 14:45 11/23/19 15:10 11/23/19 16:00 11/23/19 17:09 White Blood Count 1.5 x10^3/uL (4.0-11.0) Red Blood Count 4.31 x10^6/uL (3.50-5.40) Hemoglobin 12.3 g/dL (12.0-15.5) Hematocrit 38.0 % (36.0-47.0) Mean Corpuscular Volume 88 fL (79-100) Mean Corpuscular Hemoglobin 29 pg (25-35) Mean Corpuscular Hemoglobin Concent 32 g/dL (31-37) Red Cell Distribution Width 16.3 % (11.5-14.5) Platelet Count 265 x10^3/uL (140-400) Neutrophils (%) (Auto) 45 % (31-73) Lymphocytes (%) (Auto) 29 % (24-48) Monocytes (%) (Auto) 24 % (0-9) Eosinophils (%) (Auto) 1 % (0-3) Basophils (%) (Auto) 1 % (0-3) Neutrophils # (Auto) 0.7 x10^3/uL (1.8-7.7) Lymphocytes # (Auto) 0.4 x10^3/uL (1.0-4.8) Monocytes # (Auto) 0.4 x10^3/uL (0.0-1.1) Eosinophils # (Auto) 0.0 x10^3/uL (0.0-0.7) Basophils # (Auto) 0.0 x10^3/uL (0.0-0.2) Coronavirus (COVID-19)(PCR) Not detected (NOT DETECT.) Sodium Level 138 mmol/L (136-145) Potassium Level 3.7 mmol/L (3.5-5.1) Chloride Level 100 mmol/L (98-107) Carbon Dioxide Level 27 mmol/L (21-32) Anion Gap 11 (6-14) Blood Urea Nitrogen 7 mg/dL (7-20) Creatinine 0.7 mg/dL (0.6-1.0) Estimated GFR (Cockcroft-Gault) 85.9 BUN/Creatinine Ratio 10 (6-20) Glucose Level 266 mg/dL (70-99) Calcium Level 8.5 mg/dL (8.5-10.1) Total Bilirubin 0.4 mg/dL (0.2-1.0) Aspartate Amino Transf (AST/SGOT) 17 U/L (15-37) Alanine Aminotransferase (ALT/SGPT) 23 U/L (14-59) Alkaline Phosphatase 104 U/L (46-116) Total Protein 7.7 g/dL (6.4-8.2) Albumin 3.0 g/dL (3.4-5.0) Albumin/Globulin Ratio 0.6 (1.0-1.7) Glucose (Fingerstick) 240 mg/dL (70-99) Test 11/24/19 06:40 11/24/19 07:29 11/24/19 11:05 White Blood Count 2.0 x10^3/uL (4.0-11.0) Red Blood Count 3.80 x10^6/uL (3.50-5.40) Hemoglobin 10.5 g/dL (12.0-15.5) Hematocrit 31.8 % (36.0-47.0) Mean Corpuscular Volume 84 fL (79-100) Mean Corpuscular Hemoglobin 28 pg (25-35) Mean Corpuscular Hemoglobin Concent 33 g/dL (31-37) Red Cell Distribution Width 15.4 % (11.5-14.5) Platelet Count 273 x10^3/uL (140-400) Neutrophils (%) (Auto) 37 % (31-73) Lymphocytes (%) (Auto) 37 % (24-48) Monocytes (%) (Auto) 22 % (0-9) Eosinophils (%) (Auto) 3 % (0-3) Basophils (%) (Auto) 1 % (0-3) Neutrophils # (Auto) 0.7 x10^3/uL (1.8-7.7) Lymphocytes # (Auto) 0.7 x10^3/uL (1.0-4.8) Monocytes # (Auto) 0.4 x10^3/uL (0.0-1.1) Eosinophils # (Auto) 0.1 x10^3/uL (0.0-0.7) Basophils # (Auto) 0.0 x10^3/uL (0.0-0.2) Sodium Level 137 mmol/L (136-145) Potassium Level 3.5 mmol/L (3.5-5.1) Chloride Level 102 mmol/L (98-107) Carbon Dioxide Level 28 mmol/L (21-32) Anion Gap 7 (6-14) Blood Urea Nitrogen 7 mg/dL (7-20) Creatinine 0.6 mg/dL (0.6-1.0) Estimated GFR (Cockcroft-Gault) 102.7 Glucose Level 259 mg/dL (70-99) Calcium Level 8.2 mg/dL (8.5-10.1) Phosphorus Level 3.6 mg/dL (2.6-4.7) Magnesium Level 2.0 mg/dL (1.8-2.4) Glucose (Fingerstick) 244 mg/dL (70-99) 256 mg/dL (70-99) Medications Current Medications Iohexol (Omnipaque 300 Mg/ml) 75 ml 1X ONCE IV Last administered on 11/13/19at 11:30; Start 11/13/19 at 11:30; Stop 11/13/19 at 11:31; Status DC Iohexol (Omnipaque 240 Mg/ml) 50 ml 1X ONCE PO Last administered on 11/13/19at 11:30; Start 11/13/19 at 11:30; Stop 11/13/19 at 11:31; Status DC Info (CONTRAST GIVEN -- Rx MONITORING) 1 each PRN DAILY PRN MC SEE COMMENTS; Start 11/13/19 at 11:30; Stop 11/15/19 at 11:29; Status DC Sodium Chloride 1,000 ml @ 0 mls/hr 1X ONCE IV Last administered on 11/13/19at 12:27; Start 11/13/19 at 12:15; Stop 11/13/19 at 12:16; Status DC Morphine Sulfate (Morphine Sulfate) 5 mg 1X ONCE IV Last administered on 11/13/19at 12:45; Start 11/13/19 at 12:30; Stop 11/13/19 at 12:33; Status DC Morphine Sulfate (Morphine Sulfate) 5 mg 1X ONCE IV ; Start 11/13/19 at 13:45; Stop 11/13/19 at 13:46; Status DC Morphine Sulfate (Morphine Sulfate) 4 mg PRN Q2HR PRN IV MODERATE TO SEVERE PAIN Last administered on 11/15/19at 16:18; Start 11/13/19 at 14:45; Stop 11/19/19 at 10:23; Status DC Sodium Chloride 1,000 ml @ 100 mls/hr Q10H IV Last administered on 11/19/19at 08:27; Start 11/13/19 at 14:44; Stop 11/19/19 at 10:23; Status DC Ondansetron HCl (Zofran) 4 mg PRN Q4HRS PRN IV NAUSEA/VOMITING Last administered on 11/20/19at 14:06; Start 11/13/19 at 14:45 Acetaminophen (Tylenol Supp) 650 mg PRN Q4HRS PRN [place] TEMP OVER 100.4F OR MILD PAIN; Start 11/13/19 at 14:45 Enoxaparin Sodium (Lovenox 40mg Syringe) 40 mg Q24H SQ Last administered on 11/23/19at 14:13; Start 11/13/19 at 15:00 Insulin Human Lispro (HumaLOG) 0-9 UNITS Q4HRS SQ Last administered on 11/17/19at 18:15; Start 11/13/19 at 16:00; Stop 11/17/19 at 19:32; Status DC Dextrose (Dextrose 50%-Water Syringe) 12.5 gm PRN Q15MIN PRN IV SEE COMMENTS; Start 11/13/19 at 14:45; Stop 11/23/19 at 13:20; Status DC Albuterol Sulfate (Ventolin Neb Soln) 3 mg PRN QID PRN NEB SHORTNESS OF BREATH; Start 11/13/19 at 15:15 Sodium Chloride (Saline Mist Nasal) 1 mago PRN Q1HR PRN NS NASAL CONGESTION; Start 11/13/19 at 15:15 Methylprednisolone Sodium Succinate (SOLU-Medrol 40MG VIAL) 40 mg DAILY IV Last administered on 11/15/19at 08:21; Start 11/13/19 at 15:15; Stop 11/15/19 at 13:44; Status DC Insulin Human Regular 100 unit/ Sodium Chloride 101 ml @ 0 mls/hr CONT PRN IV SEE I/O RECORD Last administered on 11/14/19at 02:12; Start 11/13/19 at 18:00 Fentanyl Citrate (Fentanyl 2ml Vial) 50 mcg PRN Q2HR PRN IVP MOD TO SEVERE PAIN, 2ND CHOICE Last administered on 11/22/19at 16:21; Start 11/14/19 at 11:45 Famotidine (Pepcid Vial) 20 mg QHS IVP Last administered on 11/18/19at 22:14; Start 11/15/19 at 21:00; Stop 11/19/19 at 10:21; Status DC Prednisone (Prednisone) 3 mg DAILY PO Last administered on 11/24/19at 10:29; Start 11/16/19 at 09:00 Potassium Chloride/Water 100 ml @ 100 mls/hr Q1H IV Last administered on 11/17/19at 15:22; Start 11/17/19 at 11:00; Stop 11/17/19 at 14:59; Status DC Potassium Chloride (Klor-Con) 40 meq 1X ONCE PO Last administered on 11/17/19at 11:01; Start 11/17/19 at 10:15; Stop 11/17/19 at 10:22; Status DC Tramadol HCl (Ultram) 50 mg PRN Q6HRS PRN PO MODERATE PAIN 4-6 Last administered on 11/20/19at 06:08; Start 11/17/19 at 10:15 Oxycodone HCl (Roxicodone) 5 mg PRN Q6HRS PRN PO SEVERE PAIN 7-10 Last administered on 11/17/19at 11:08; Start 11/17/19 at 10:15; Stop 11/17/19 at 15:30; Status DC Magnesium Sulfate 100 ml @ 25 mls/hr 1X ONCE IV Last administered on 11/17/19at 11:06; Start 11/17/19 at 11:00; Stop 11/17/19 at 14:59; Status DC Magnesium Hydroxide (Milk Of Magnesia) 2,400 mg PRN DAILY PRN PO CONSTIPATION 2ND CHOICE; Start 11/17/19 at 15:30 Psyllium Hydrophilic Mucilloid (Metamucil Fiber Packet) 1 pkt DAILY PO Last administered on 11/24/19at 10:29; Start 11/17/19 at 15:30 Polyethylene Glycol (miraLAX PACKET) 17 gm DAILY PO Last administered on 11/24/19at 10:29; Start 11/17/19 at 15:30 Oxycodone HCl (Roxicodone) 5 mg PRN Q4HRS PRN PO SEVERE PAIN 7-10 Last administered on 11/24/19at 10:30; Start 11/17/19 at 15:30 Insulin Human Lispro (HumaLOG) 0-9 UNITS TIDWMEALHC SQ Last administered on 11/19/19at 17:14; Start 11/17/19 at 19:30; Stop 11/23/19 at 06:31; Status DC Famotidine (Pepcid) 20 mg QHS PO Last administered on 11/19/19at 20:57; Start 11/19/19 at 21:00; Stop 11/20/19 at 10:56; Status DC Iohexol (Omnipaque 300 Mg/ml) 75 ml 1X ONCE IV Last administered on 11/19/19at 11:45; Start 11/19/19 at 11:45; Stop 11/19/19 at 11:46; Status DC Info (CONTRAST GIVEN -- Rx MONITORING) 1 each PRN DAILY PRN MC SEE COMMENTS; Start 11/19/19 at 11:45; Stop 11/21/19 at 11:44; Status DC Ringer's Solution 1,000 ml @ 75 mls/hr [id number] IV Last administered on 11/22/19at 01:53; Start 11/20/19 at 09:30 Potassium Chloride/Water 100 ml @ 100 mls/hr Q1H IV Last administered on 11/20/19at 21:27; Start 11/20/19 at 10:00; Stop 11/20/19 at 21:59; Status DC Famotidine (Pepcid Vial) 20 mg QHS IVP Last administered on 11/23/19at 22:03; S tart 11/20/19 at 21:00 Bisacodyl (Dulcolax Supp) 10 mg PRN DAILY PRN [place] CONSTIPATION; Start 11/20/19 at 11:00 Leucovorin Calcium (Wellcovorin) 5 mg DAILY PO Last administered on 11/21/19at 09:53; Start 11/21/19 at 10:00; Stop 11/22/19 at 09:24; Status DC Info (Tpn Per Pharmacy) 1 each PRN DAILY PRN MC SEE COMMENTS Last administered on 11/23/19at 13:31; Start 11/21/19 at 12:00 Potassium Chloride/Water 100 ml @ 100 mls/hr Q1H IV Last administered on 11/22/19at 01:53; Start 11/21/19 at 20:00; Stop 11/21/19 at 23:59; Status DC Leucovorin Calcium (Wellcovorin) 15 mg Q8HRS PO Last administered on 11/24/19at 05:43; Start 11/22/19 at 10:00 Lidocaine HCl (Buffered Lidocaine 1%) 3 ml 1X ONCE INJ ; Start 11/22/19 at 12:00; Stop 11/22/19 at 12:01; Status DC Lidocaine HCl (Buffered Lidocaine 1%) 3 ml STK-MED ONCE .ROUTE ; Start 11/22/19 at 11:58; Stop 11/22/19 at 11:59; Status DC Sodium Chloride 90 meq/Potassium Chloride 50 meq/ Potassium Phosphate 13.6 mmol/Magnesium Sulfate 10 meq/ Calcium Gluconate 10 meq/ Multivitamins 10 ml/Ch romium/ Copper/Manganese/ Seleni/Zn 1 ml/ Total Parenteral Nutrition/Amino Acids/Dextrose/ Fat Emulsion Intravenous 1,512 ml @ 63 mls/hr TPN CONT IV Last administered on 11/22/19at 22:12; Start 11/22/19 at 22:00; Stop 11/23/19 at 21:59; Status DC Magnesium Sulfate/ Dextrose 100 ml @ 100 mls/hr 1X ONCE IV Last administered on 11/22/19at 16:16; Start 11/22/19 at 16:00; Stop 11/22/19 at 16:59; Status DC Insulin Human Lispro (HumaLOG) 0-5 UNITS TIDWMEALS SQ ; Start 11/23/19 at 08:00; Status Cancel Dextrose (Dextrose 50%-Water Syringe) 12.5 gm PRN Q15MIN PRN IV SEE COMMENTS; Start 11/23/19 at 07:45; Status Cancel Insulin Human Lispro (HumaLOG) 0-7 UNITS TIDWMEALS SQ ; Start 11/23/19 at 08:00; Stop 11/23/19 at 08:00; Status DC Dextrose (Dextrose 50%-Water Syringe) 12.5 gm PRN Q15MIN PRN IV SEE COMMENTS; Start 11/23/19 at 08:00; Status Cancel Insulin Human Lispro (HumaLOG) 0-9 UNITS TIDWMEALS SQ Last administered on 11/24/19at 10:43; Start 11/23/19 at 08:00 Dextrose (Dextrose 50%-Water Syringe) 12.5 gm PRN Q15MIN PRN IV SEE COMMENTS; Start 11/23/19 at 08:00; Stop 11/23/19 at 13:17; Status DC Potassium Chloride (Klor-Con) 40 meq 1X ONCE PO Last administered on 11/23/19at 11:03; Start 11/23/19 at 10:45; Stop 11/23/19 at 10:46; Status DC Potassium Chloride (Klor-Con) 20 meq [id number] PO Last administered on 11/24/19at 10:29; Start 11/24/19 at 08:00 Magnesium Sulfate 50 ml @ 25 mls/hr 1X ONCE IV Last administered on 11/23/19at 11:04; Start 11/23/19 at 10:45; Stop 11/23/19 at 12:44; Status DC Dextrose (Dextrose 50%-Water Syringe) 12.5 gm PRN Q15MIN PRN IV SEE COMMENTS; Start 11/23/19 at 13:30 Sodium Chloride 90 meq/Potassium Chloride 70 meq/ Potassium Phosphate 13.6 mmol/Magnesium Sulfate 18 meq/ Calcium Gluconate 10 meq/ Multivitamins 10 ml/Chromium/ Copper/Manganese/ Seleni/Zn 1 ml/ Total Parenteral Nutrition/Amino Acids/Dextrose/ Fat Emulsion Intravenous 1,512 ml @ 63 mls/hr TPN CONT IV Last administered on 11/23/19at 22:02; Start 11/23/19 at 22:00; Stop 11/24/19 at 21:59 Methylprednisolone Sodium Succinate (SOLU-Medrol 125MG VIAL) 1,000 mg DAILY08 IV ; Start 11/24/19 at 08:00; Stop 11/26/19 at 07:59; Status UNV Methylprednisolone Sodium Succinate 1000 mg/Sodium Chloride 100 ml @ 100 mls/hr Q24H IV Last administered on 11/24/19at 10:30; Start 11/24/19 at 08:00; Stop 11/26/19 at 07:59 Active Scripts Active Reported Zyrtec (Cetirizine Hcl) 10 Mg Capsule 10 Mg PO DAILY Methotrexate (Methotrexate Sodium) 2.5 Mg Tablet 8 Tab PO WEEKLY Protonix (Pantoprazole Sodium) 40 Mg Tablet.dr 40 Mg PO DAILYAC Folic Acid 0.8 Mg Capsule 1 Cap PO DAILY 30 Days Ferrous Sulfate 325 Mg Tablet 1 Tab PO DAILY Vitals/I & O Vital Sign - Last 24 Hours 11/23/19 11/23/19 11/23/19 11/23/19 15:00 16:24 17:29 19:00 Temp 98.1 97.8 98.1 97.8 Pulse 82 102 Resp 18 20 B/P (MAP) 140/71 (94) 120/68 (85) Pulse Ox 98 96 O2 Delivery Room Air Room Air Room Air Room Air 11/23/19 11/23/19 11/23/19 11/23/19 20:00 22:02 23:02 23:05 Temp 98.0 98.0 Pulse 82 Resp 20 20 20 B/P (MAP) 146/80 (102) Pulse Ox 95 O2 Delivery Room Air Room Air Nasal Cannula Room Air 6/6/20 6/6/20 6/6/20 6/6/20 03:07 04:33 05:33 07:20 Temp 97.9 97.8 97.9 97.8 Pulse 76 82 Resp 18 20 20 20 B/P (MAP) 126/78 (94) 144/88 (106) Pulse Ox 98 98 O2 Delivery Room Air Nasal Cannula Nasal Cannula Room Air 11/24/19 11/24/19 10:30 11:26 Temp 97.4 97.4 Pulse 80 Resp 16 18 B/P (MAP) 145/75 (98) Pulse Ox 94 O2 Delivery Room Air Room Air Intake and Output 11/23/19 11/23/19 11/24/19 15:00 23:00 07:00 Intake Total 720 ml Output Total 900 ml Balance -900 ml 720 ml Nutrition Consultation Dietary Evaluation: Recommendations by RD: Dietary education by RD, Increase Calorie Intake, PPN/TPN Comments: REC TPN per followin g dextrose, 65 g AA, 20 g lipids REC advance diet as tolerated, goal diet gluten free/ADA (A1c 13.6) w/protein supplements per pt choice Expected Outcomes/Goals: TPN to meet 65% - 7% % est needs while NPO diet advancement Malnutrition Findings: Food and Nutrition Intake (Mod: <75% est energy req 7days Weight Status: Appropriate Hemodynamically unstable?: No Is patient in severe pain?: No Is NPO status required?: No NICKY PACHECO MD Nov 24, 2019 12:32
[2019-11-24] MEDS: TPN PER PHARMACY MC PRN (12:58)
--- NOTE | 2019-11-24 12:58 | NUR ---
Pharmacy TPN Dosing Note S: NATHAN SOTO is a 59 year old F Currently receiving Central Continuous TPN started 11/22/19 B:Pertinent PMH: Pancreatitis, NPO LABS: Sodium: 137 Potassium: 3.5 Chloride: 102 Calcium: 8.2 Corrected Calcium: 9.00 Magnesium: 2.0 CO2: 28 SCr: 0.6 Glucose: 256 Albumin: 3.0 AST: 14 ALT: 20 TPN FORMULA: TPN TYPE: Central Continuous AMINO ACIDS: 65 gm DEXTROSE: 225 gm LIPIDS: 20 gm SODIUM CHLORIDE: 90 mEq SODIUM ACETATE: - mEq SODIUM PHOSPHATE: - mmol POTASSIUM CHLORIDE: 70 mEq POTASSIUM ACETATE: - mEq POTASSIUM PHOSPHATE: 13.6 mmol MAGNESIUM: 18 mEq CALCIUM: 10 mEq INSULIN: - units MULTIPLE VITAMIN: 10 ml TRACE ELEMENTS: 1 ml ml(s) TPN PLAN: Cont same TPN, labs WNL, repeat in am. R: Continue TPN Will monitor electrolytes, glucose, and tolerance to TPN. YUSRA ROSS [facility], 11/24/19 [id number]
[2019-11-24] MEDS: ENOXAPARIN 40 MG/0.4 ML SYRINGE. SQ SCH (15:00)
[2019-11-24 15:11] VITALS: BP 153/87
--- NOTE | 2019-11-24 15:11 | PDOC ---
PROGRESS NOTES Chief Complaint Chief Complaint impression Acute pancreatitis - likely 2/2 hyper-triglyceridemia. 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 I discussed with [facility] rheumatology concern that MTX could play a role as well. Hold dosing for leukopenia 6/2 ct Progression of findings of acute pancreatitis. Pancreatic enhancement pattern is slightly heterogeneous but no definable nonenhancing component to suggest liquefactive necrosis at this time. In addition, there is been substantial increase in left lateral peripancreatic fluid which extends laterally to the left in the region of the lateral conal and renal fascia,and dissects distally into the left pelvis. This could be infected fluid, but does not appear to be an encapsulated collection. Duodenal and jejunal intraluminal lipomas Hypertriglyceridemia - will need outpatient Endocrinology referral for cholesterol metabolism treatment, I have suggested prescription 2g TID fish oil (Vascepa or Lovaza) in the meantime once pancreatitis resolves Hyponatremia DM2 with Hyperglycemia - A1c 13.6. Should continue on insulin therapy until A1c < 8, then consider PO options. Would probably have to avoid GLP1 therapy given her pancreatitis. Would defer to an fifth grade teacher for this. 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 FEN - LR for maintenance, NPO, will wait for recommendations from our [employer] commerce consultant regarding diet PPX - lovenox FULL CODE DIspo - inpatient for pancreatitis recovery TPN until pain/nausea resolve with worsening pancreatitis. heme consult History of Present Illness History of Present Illness Ms Fernandez is a 59yo F [employer] w/ PMHx celiac disease, adult onset stills disease, Anemia, Asthma, CHERIE on CPAP, GERD who presents with severe upper abdominal pain, nausea, vomiting, fatigue. 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 She only had oatmeal for breakfast. She has never had anything similar to this in the past. She generally feels unwell. She is not had any fever, diarrhea, chest pain, shortness of breath, dysuria, hematuria, blood in her stools. She denies alcohol abuse. Pain does not move anywhere. Nothing seems to make it better or worse. She has not tried anything at home. He does not drink alcohol, and is status post cholecystectomy. No calcium disorders. She takes 20mg methotrexate weekly on Fridays and is on 3 mg of chronic prednisone for her stills disease. She was diagnosed with celiac disease June 2019 and has just recently started on a gluten-free diet. No recent sick contacts that she can recall. Labs significant for lipase 11605, glucose 477, NA 129, bilirubin 1.1, Calcium 8.3, K 3.7, WBC 6.3, Hb 15, Platelets 247 CT abdomen pelvis shows surgically absent gallbladder and surgically absent uterus and describes duodenal and jejunal intraluminal lipomas. Findings of acute pancreatitis. No loculated collections. No biliary dilatation. Admitted for further treatment. 11/13: Lipase down. A1c 13.6, Triglycerides 3252. Started on insulin gtt. 11/14: Abdominal pain and glucose improved. Having ice chips per GI. Afebrile. No CP or SOB. D/w [facility] rheumatology, to hold MTX therapy on 11/15 given her leukopenia and pancreatitis. 11/15: Overnight afebrile. Labs improved. Still with left-sided abdominal pain. WBC 1.8. She notes she had not previously had a formal diagnosis of diabetes. No CP or SOB 11/16: Pain improved, advancing diet per GI lipase 328. WBC 2, K2.6, MG 1.4 11/17: Afebrile overnight. Still with abdominal pain, no CP or SOB 11/18: Patient continues to have discomfort especially when she has a diet no fever or chills were reported nevertheless she says that she woke up drenched in sweat in the middle of night, no other complaints were reported overnight, plan of care discussed in detail 11/19: Patient will continue to have bowel rest in light of her CT from yesterday. No new complaints. 11/23: Recommendations from Oncology greatly appreciated, continues to have pain, no other new complaints, she is tolerating some clear liquids continues to be on TPN Vitals Vitals Vital Signs Date Time Temp Pulse Resp B/P (MAP) Pulse Ox O2 Delivery O2 Flow Rate FiO2 11/24/19 11:26 97.4 80 18 145/75 (98) 94 Room Air 97.4 Physical Exam Physical Exam GENERAL: Propped up in bed, alert, relaxed HEENT: Oral cavity pink, no lesions seen NECK: Supple. LUNGS: Clear, nonlabored HEART: S1, S2 regular. ABDOMEN: Soft, nontender. EXTREMITIES: No edema, cyanosis. SKIN: warm to touch. No signs of rash NEUROLOGIC: Alert, awake and appropriate. No focal neurologic deficit. RUE-PICC (11/21) clean General: Alert, Oriented X3, Cooperative Heart: Regular rate Lungs: Clear Abdomen: Soft (minimally tender with palpation) Extremities: No clubbing, No cyanosis Skin: No rashes Labs LABS Laboratory Tests Test 11/23/19 15:10 11/23/19 16:00 11/23/19 17:09 11/24/19 06:40 Coronavirus (COVID-19)(PCR) Not detected (NOT DETECT.) Sodium Level 138 mmol/L (136-145) 137 mmol/L (136-145) Potassium Level 3.7 mmol/L (3.5-5.1) 3.5 mmol/L (3.5-5.1) Chloride Level 100 mmol/L (98-107) 102 mmol/L (98-107) Carbon Dioxide Level 27 mmol/L (21-32) 28 mmol/L (21-32) Anion Gap 11 (6-14) 7 (6-14) Blood Urea Nitrogen 7 mg/dL (7-20) 7 mg/dL (7-20) Creatinine 0.7 mg/dL (0.6-1.0) 0.6 mg/dL (0.6-1.0) Estimated GFR (Cockcroft-Gault) 85.9 102.7 BUN/Creatinine Ratio 10 (6-20) Glucose Level 266 mg/dL (70-99) 259 mg/dL (70-99) Calcium Level 8.5 mg/dL (8.5-10.1) 8.2 mg/dL (8.5-10.1) Total Bilirubin 0.4 mg/dL (0.2-1.0) Aspartate Amino Transf (AST/SGOT) 17 U/L (15-37) Alanine Aminotransferase (ALT/SGPT) 23 U/L (14-59) Alkaline Phosphatase 104 U/L (46-116) Total Protein 7.7 g/dL (6.4-8.2) Albumin 3.0 g/dL (3.4-5.0) Albumin/Globulin Ratio 0.6 (1.0-1.7) Glucose (Fingerstick) 240 mg/dL (70-99) White Blood Count 2.0 x10^3/uL (4.0-11.0) Red Blood Count 3.80 x10^6/uL (3.50-5.40) Hemoglobin 10.5 g/dL (12.0-15.5) Hematocrit 31.8 % (36.0-47.0) Mean Corpuscular Volume 84 fL (79-100) Mean Corpuscular Hemoglobin 28 pg (25-35) Mean Corpuscular Hemoglobin Concent 33 g/dL (31-37) Red Cell Distribution Width 15.4 % (11.5-14.5) Platelet Count 273 x10^3/uL (140-400) Neutrophils (%) (Auto) 37 % (31-73) Lymphocytes (%) (Auto) 37 % (24-48) Monocytes (%) (Auto) 22 % (0-9) Eosinophils (%) (Auto) 3 % (0-3) Basophils (%) (Auto) 1 % (0-3) Neutrophils # (Auto) 0.7 x10^3/uL (1.8-7.7) Lymphocytes # (Auto) 0.7 x10^3/uL (1.0-4.8) Monocytes # (Auto) 0.4 x10^3/uL (0.0-1.1) Eosinophils # (Auto) 0.1 x10^3/uL (0.0-0.7) Basophils # (Auto) 0.0 x10^3/uL (0.0-0.2) Phosphorus Level 3.6 mg/dL (2.6-4.7) Magnesium Level 2.0 mg/dL (1.8-2.4) Test 11/24/19 07:29 11/24/19 11:05 Glucose (Fingerstick) 244 mg/dL (70-99) 256 mg/dL (70-99) Assessment and Plan Assessmemt and Plan Problems Medical Problems: (1) Dehydration Status: Acute (2) Hyperglycemia Status: Acute (3) Pancreatitis, acute Status: Acute Comment Review of Relevant I have reviewed the following items diann (where applicable) has been applied. Labs Laboratory Tests Test 11/22/19 16:51 11/22/19 20:26 11/22/19 23:54 11/23/19 05:59 Glucose (Fingerstick) 140 mg/dL (70-99) 131 mg/dL (70-99) 188 mg/dL (70-99) 251 mg/dL (70-99) Test 11/23/19 06:45 11/23/19 11:37 11/23/19 14:45 11/23/19 15:10 White Blood Count 1.8 x10^3/uL (4.0-11.0) 1.5 x10^3/uL (4.0-11.0) Red Blood Count 4.06 x10^6/uL (3.50-5.40) 4.31 x10^6/uL (3.50-5.40) Hemoglobin 11.2 g/dL (12.0-15.5) 12.3 g/dL (12.0-15.5) Hematocrit 33.9 % (36.0-47.0) 38.0 % (36.0-47.0) Mean Corpuscular Volume 84 fL (79-100) 88 fL (79-100) Mean Corpuscular Hemoglobin 28 pg (25-35) 29 pg (25-35) Mean Corpuscular Hemoglobin Concent 33 g/dL (31-37) 32 g/dL (31-37) Red Cell Distribution Width 15.4 % (11.5-14.5) 16.3 % (11.5-14.5) Platelet Count 287 x10^3/uL (140-400) 265 x10^3/uL (140-400) Sodium Level 135 mmol/L (136-145) Potassium Level 3.1 mmol/L (3.5-5.1) Chloride Level 101 mmol/L (98-107) Carbon Dioxide Level 27 mmol/L (21-32) Anion Gap 7 (6-14) Blood Urea Nitrogen 8 mg/dL (7-20) Creatinine 0.6 mg/dL (0.6-1.0) Estimated GFR (Cockcroft-Gault) 102.7 Glucose Level 268 mg/dL (70-99) Calcium Level 8.1 mg/dL (8.5-10.1) Phosphorus Level 3.7 mg/dL (2.6-4.7) Magnesium Level 1.7 mg/dL (1.8-2.4) Ferritin 972 ng/mL (8-252) C-Reactive Protein, Quantitative 44.5 mg/L (0-3.3) Glucose (Fingerstick) 113 mg/dL (70-99) Neutrophils (%) (Auto) 45 % (31-73) Lymphocytes (%) (Auto) 29 % (24-48) Monocytes (%) (Auto) 24 % (0-9) Eosinophils (%) (Auto) 1 % (0-3) Basophils (%) (Auto) 1 % (0-3) Neutrophils # (Auto) 0.7 x10^3/uL (1.8-7.7) Lymphocytes # (Auto) 0.4 x10^3/uL (1.0-4.8) Monocytes # (Auto) 0.4 x10^3/uL (0.0-1.1) Eosinophils # (Auto) 0.0 x10^3/uL (0.0-0.7) Basophils # (Auto) 0.0 x10^3/uL (0.0-0.2) Coronavirus (COVID-19)(PCR) Not detected (NOT DETECT.) Test 11/23/19 16:00 11/23/19 17:09 11/24/19 06:40 11/24/19 07:29 Sodium Level 138 mmol/L (136-145) 137 mmol/L (136-145) Potassium Level 3.7 mmol/L (3.5-5.1) 3.5 mmol/L (3.5-5.1) Chloride Level 100 mmol/L (98-107) 102 mmol/L (98-107) Carbon Dioxide Level 27 mmol/L (21-32) 28 mmol/L (21-32) Anion Gap 11 (6-14) 7 (6-14) Blood Urea Nitrogen 7 mg/dL (7-20) 7 mg/dL (7-20) Creatinine 0.7 mg/dL (0.6-1.0) 0.6 mg/dL (0.6-1.0) Estimated GFR (Cockcroft-Gault) 85.9 102.7 BUN/Creatinine Ratio 10 (6-20) Glucose Level 266 mg/dL (70-99) 259 mg/dL (70-99) Calcium Level 8.5 mg/dL (8.5-10.1) 8.2 mg/dL (8.5-10.1) Total Bilirubin 0.4 mg/dL (0.2-1.0) Aspartate Amino Transf (AST/SGOT) 17 U/L (15-37) Alanine Aminotransferase (ALT/SGPT) 23 U/L (14-59) Alkaline Phosphatase 104 U/L (46-116) Total Protein 7.7 g/dL (6.4-8.2) Albumin 3.0 g/dL (3.4-5.0) Albumin/Globulin Ratio 0.6 (1.0-1.7) Glucose (Fingerstick) 240 mg/dL (70-99) 244 mg/dL (70-99) White Blood Count 2.0 x10^3/uL (4.0-11.0) Red Blood Count 3.80 x10^6/uL (3.50-5.40) Hemoglobin 10.5 g/dL (12.0-15.5) Hematocrit 31.8 % (36.0-47.0) Mean Corpuscular Volume 84 fL (79-100) Mean Corpuscular Hemoglobin 28 pg (25-35) Mean Corpuscular Hemoglobin Concent 33 g/dL (31-37) Red Cell Distribution Width 15.4 % (11.5-14.5) Platelet Count 273 x10^3/uL (140-400) Neutrophils (%) (Auto) 37 % (31-73) Lymphocytes (%) (Auto) 37 % (24-48) Monocytes (%) (Auto) 22 % (0-9) Eosinophils (%) (Auto) 3 % (0-3) Basophils (%) (Auto) 1 % (0-3) Neutrophils # (Auto) 0.7 x10^3/uL (1.8-7.7) Lymphocytes # (Auto) 0.7 x10^3/uL (1.0-4.8) Monocytes # (Auto) 0.4 x10^3/uL (0.0-1.1) Eosinophils # (Auto) 0.1 x10^3/uL (0.0-0.7) Basophils # (Auto) 0.0 x10^3/uL (0.0-0.2) Phosphorus Level 3.6 mg/dL (2.6-4.7) Magnesium Level 2.0 mg/dL (1.8-2.4) Test 11/24/19 11:05 Glucose (Fingerstick) 256 mg/dL (70-99) Laboratory Tests Test 11/23/19 15:10 11/23/19 16:00 11/23/19 17:09 11/24/19 06:40 Coronavirus (COVID-19)(PCR) Not detected (NOT DETECT.) Sodium Level 138 mmol/L (136-145) 137 mmol/L (136-145) Potassium Level 3.7 mmol/L (3.5-5.1) 3.5 mmol/L (3.5-5.1) Chloride Level 100 mmol/L (98-107) 102 mmol/L (98-107) Carbon Dioxide Level 27 mmol/L (21-32) 28 mmol/L (21-32) Anion Gap 11 (6-14) 7 (6-14) Blood Urea Nitrogen 7 mg/dL (7-20) 7 mg/dL (7-20) Creatinine 0.7 mg/dL (0.6-1.0) 0.6 mg/dL (0.6-1.0) Estimated GFR (Cockcroft-Gault) 85.9 102.7 BUN/Creatinine Ratio 10 (6-20) Glucose Level 266 mg/dL (70-99) 259 mg/dL (70-99) Calcium Level 8.5 mg/dL (8.5-10.1) 8.2 mg/dL (8.5-10.1) Total Bilirubin 0.4 mg/dL (0.2-1.0) Aspartate Amino Transf (AST/SGOT) 17 U/L (15-37) Alanine Aminotransferase (ALT/SGPT) 23 U/L (14-59) Alkaline Phosphatase 104 U/L (46-116) Total Protein 7.7 g/dL (6.4-8.2) Albumin 3.0 g/dL (3.4-5.0) Albumin/Globulin Ratio 0.6 (1.0-1.7) Glucose (Fingerstick) 240 mg/dL (70-99) White Blood Count 2.0 x10^3/uL (4.0-11.0) Red Blood Count 3.80 x10^6/uL (3.50-5.40) Hemoglobin 10.5 g/dL (12.0-15.5) Hematocrit 31.8 % (36.0-47.0) Mean Corpuscular Volume 84 fL (79-100) Mean Corpuscular Hemoglobin 28 pg (25-35) Mean Corpuscular Hemoglobin Concent 33 g/dL (31-37) Red Cell Distribution Width 15.4 % (11.5-14.5) Platelet Count 273 x10^3/uL (140-400) Neutrophils (%) (Auto) 37 % (31-73) Lymphocytes (%) (Auto) 37 % (24-48) Monocytes (%) (Auto) 22 % (0-9) Eosinophils (%) (Auto) 3 % (0-3) Basophils (%) (Auto) 1 % (0-3) Neutrophils # (Auto) 0.7 x10^3/uL (1.8-7.7) Lymphocytes # (Auto) 0.7 x10^3/uL (1.0-4.8) Monocytes # (Auto) 0.4 x10^3/uL (0.0-1.1) Eosinophils # (Auto) 0.1 x10^3/uL (0.0-0.7) Basophils # (Auto) 0.0 x10^3/uL (0.0-0.2) Phosphorus Level 3.6 mg/dL (2.6-4.7) Magnesium Level 2.0 mg/dL (1.8-2.4) Test 11/24/19 07:29 11/24/19 11:05 Glucose (Fingerstick) 244 mg/dL (70-99) 256 mg/dL (70-99) Medications Current Medications Iohexol (Omnipaque 300 Mg/ml) 75 ml 1X ONCE IV Last administered on 11/13/19at 11:30; Start 11/13/19 at 11:30; Stop 11/13/19 at 11:31; Status DC Iohexol (Omnipaque 240 Mg/ml) 50 ml 1X ONCE PO Last administered on 11/13/19at 11:30; Start 11/13/19 at 11:30; Stop 11/13/19 at 11:31; Status DC Info (CONTRAST GIVEN -- Rx MONITORING) 1 each PRN DAILY PRN MC SEE COMMENTS; Start 11/13/19 at 11:30; Stop 11/15/19 at 11:29; Status DC Sodium Chloride 1,000 ml @ 0 mls/hr 1X ONCE IV Last administered on 11/13/19at 12:27; Start 11/13/19 at 12:15; Stop 11/13/19 at 12:16; Status DC Morphine Sulfate (Morphine Sulfate) 5 mg 1X ONCE IV Last administered on 11/13/19at 12:45; Start 11/13/19 at 12:30; Stop 11/13/19 at 12:33; Status DC Morphine Sulfate (Morphine Sulfate) 5 mg 1X ONCE IV ; Start 11/13/19 at 13:45; Stop 11/13/19 at 13:46; Status DC Morphine Sulfate (Morphine Sulfate) 4 mg PRN Q2HR PRN IV MODERATE TO SEVERE PAIN Last administered on 11/15/19at 16:18; Start 11/13/19 at 14:45; Stop 11/19/19 at 10:23; Status DC Sodium Chloride 1,000 ml @ 100 mls/hr Q10H IV Last administered on 11/19/19at 08:27; Start 11/13/19 at 14:44; Stop 11/19/19 at 10:23; Status DC Ondansetron HCl (Zofran) 4 mg PRN Q4HRS PRN IV NAUSEA/VOMITING Last administered on 11/20/19at 14:06; Start 11/13/19 at 14:45 Acetaminophen (Tylenol Supp) 650 mg PRN Q4HRS PRN MT TEMP OVER 100.4F OR MILD PAIN; Start 11/13/19 at 14:45 Enoxaparin Sodium (Lovenox 40mg Syringe) 40 mg Q24H SQ Last administered on 11/23/19at 14:13; Start 11/13/19 at 15:00 Insulin Human Lispro (HumaLOG) 0-9 UNITS Q4HRS SQ Last administered on 11/17/19at 18:15; Start 11/13/19 at 16:00; Stop 11/17/19 at 19:32; Status DC Dextrose (Dextrose 50%-Water Syringe) 12.5 gm PRN Q15MIN PRN IV SEE COMMENTS; Start 11/13/19 at 14:45; Stop 11/23/19 at 13:20; Status DC Albuterol Sulfate (Ventolin Neb Soln) 3 mg PRN QID PRN NEB SHORTNESS OF BREATH; Start 11/13/19 at 15:15 Sodium Chloride (Saline Mist Nasal) 1 mago PRN Q1HR PRN NS NASAL CONGESTION; Start 11/13/19 at 15:15 Methylprednisolone Sodium Succinate (SOLU-Medrol 40MG VIAL) 40 mg DAILY IV Last administered on 11/15/19at 08:21; Start 11/13/19 at 15:15; Stop 11/15/19 at 13:44; Status DC Insulin Human Regular 100 unit/ Sodium Chloride 101 ml @ 0 mls/hr CONT PRN IV SEE I/O RECORD Last administered on 11/14/19at 02:12; Start 11/13/19 at 18:00 Fentanyl Citrate (Fentanyl 2ml Vial) 50 mcg PRN Q2HR PRN IVP MOD TO SEVERE PAIN, 2ND CHOICE Last administered on 11/22/19at 16:21; Start 11/14/19 at 11:45 Famotidine (Pepcid Vial) 20 mg QHS IVP Last administered on 11/18/19at 22:14; Start 11/15/19 at 21:00; Stop 11/19/19 at 10:21; Status DC Prednisone (Prednisone) 3 mg DAILY PO Last administered on 11/24/19at 10:29; Start 11/16/19 at 09:00 Potassium Chloride/Water 100 ml @ 100 mls/hr Q1H IV Last administered on 11/17/19at 15:22; Start 11/17/19 at 11:00; Stop 11/17/19 at 14:59; Status DC Potassium Chloride (Klor-Con) 40 meq 1X ONCE PO Last administered on 11/17/19at 11:01; Start 11/17/19 at 10:15; Stop 11/17/19 at 10:22; Status DC Tramadol HCl (Ultram) 50 mg PRN Q6HRS PRN PO MODERATE PAIN 4-6 Last administered on 11/20/19at 06:08; Start 11/17/19 at 10:15 Oxycodone HCl (Roxicodone) 5 mg PRN Q6HRS PRN PO SEVERE PAIN 7-10 Last administered on 11/17/19at 11:08; Start 11/17/19 at 10:15; Stop 11/17/19 at 15:30; Status DC Magnesium Sulfate 100 ml @ 25 mls/hr 1X ONCE IV Last administered on 11/17/19at 11:06; Start 11/17/19 at 11:00; Stop 11/17/19 at 14:59; Status DC Magnesium Hydroxide (Milk Of Magnesia) 2,400 mg PRN DAILY PRN PO CONSTIPATION 2ND CHOICE; Start 11/17/19 at 15:30 Psyllium Hydrophilic Mucilloid (Metamucil Fiber Packet) 1 pkt DAILY PO Last administered on 11/24/19 10:29; Start 11/17/19 at 15:30 Polyethylene Glycol (miraLAX PACKET) 17 gm DAILY PO Last administered on 11/24/19 10:29; Start 11/17/19 at 15:30 Oxycodone HCl (Roxicodone) 5 mg PRN Q4HRS PRN PO SEVERE PAIN 7-10 Last administered on 11/24/19at 10:30; Start 11/17/19 at 15:30 Insulin Human Lispro (HumaLOG) 0-9 UNITS TIDWMEALHC SQ Last administered on 11/19/19at 17:14; Start 11/17/19 at 19:30; Stop 11/23/19 at 06:31; Status DC Famotidine (Pepcid) 20 mg QHS PO Last administered on 11/19/19at 20:57; Start 11/19/19 at 21:00; Stop 11/20/19 at 10:56; Status DC Iohexol (Omnipaque 300 Mg/ml) 75 ml 1X ONCE IV Last administered on 11/19/19at 11:45; Start 11/19/19 at 11:45; Stop 11/19/19 at 11:46; Status DC Info (CONTRAST GIVEN -- Rx MONITORING) 1 each PRN DAILY PRN MC SEE COMMENTS; Start 11/19/19 at 11:45; Stop 11/21/19 at 11:44; Status DC Ringer's Solution 1,000 ml @ 75 mls/hr [id number] IV Last administered on 11/22/19at 01:53; Start 11/20/19 at 09:30 Potassium Chloride/Water 100 ml @ 100 mls/hr Q1H IV Last administered on 11/20/19at 21:27; Start 11/20/19 at 10:00; Stop 11/20/19 at 21:59; Status DC Famotidine (Pepcid Vial) 20 mg QHS IVP Last administered on 11/23/19at 22:03; Start 11/20/19 at 21:00 Bisacodyl (Dulcolax Supp) 10 mg PRN DAILY PRN MT CONSTIPATION; Start 11/20/19 at 11:00 Leucovorin Calcium (Wellcovorin) 5 mg DAILY PO Last administered on 11/21/19at 09:53; Start 11/21/19 at 10:00; Stop 11/22/19 at 09:24; Status DC Info (Tpn Per Pharmacy) 1 each PRN DAILY PRN MC SEE COMMENTS Last administered on 11/24/19at 12:58; Start 11/21/19 at 12:00 Potassium Chloride/Water 100 ml @ 100 mls/hr Q1H IV Last administered on 11/22/19at 01:53; Start 11/21/19 at 20:00; Stop 11/21/19 at 23:59; Status DC Leucovorin Calcium (Wellcovorin) 15 mg Q8HRS PO Last administered on 11/24/19at 12:50; Start 11/22/19 at 10:00 Lidocaine HCl (Buffered Lidocaine 1%) 3 ml 1X ONCE INJ ; Start 11/22/19 at 12:00; Stop 11/22/19 at 12:01; Status DC Lidocaine HCl (Buffered Lidocaine 1%) 3 ml STK-MED ONCE .ROUTE ; Start 11/22/19 at 11:58; Stop 11/22/19 at 11:59; Status DC Sodium Chloride 90 meq/Potassium Chloride 50 meq/ Potassium Phosphate 13.6 mmol/Magnesium Sulfate 10 meq/ Calcium Gluconate 10 meq/ Multivitamins 10 ml/Chromium/ Copper/Manganese/ Seleni/Zn 1 ml/ Total Parenteral Nutrition/Amino Acids/Dextrose/ Fat Emulsion Intravenous 1,512 ml @ 63 mls/hr TPN CONT IV Last administered on 11/22/19at 22:12; Start 11/22/19 at 22:00; Stop 11/23/19 at 21:59; Status DC Magnesium Sulfate/ Dextrose 100 ml @ 100 mls/hr 1X ONCE IV Last administered on 11/22/19at 16:16; Start 11/22/19 at 16:00; Stop 11/22/19 at 16:59; Status DC Insulin Human Lispro (HumaLOG) 0-5 UNITS TIDWMEALS SQ ; Start 11/23/19 at 08:00; Status Cancel Dextrose (Dextrose 50%-Water Syringe) 12.5 gm PRN Q15MIN PRN IV SEE COMMENTS; Start 11/23/19 at 07:45; Status Cancel Insulin Human Lispro (HumaLOG) 0-7 UNITS TIDWMEALS SQ ; Start 11/23/19 at 08:00; Stop 11/23/19 at 08:00; Status DC Dextrose (Dextrose 50%-Water Syringe) 12.5 gm PRN Q15MIN PRN IV SEE COMMENTS; Start 11/23/19 at 08:00; Status Cancel Insulin Human Lispro (HumaLOG) 0-9 UNITS TIDWMEALS SQ Last administered on 11/24/19at 12:54; Start 11/23/19 at 08:00 Dextrose (Dextrose 50%-Water Syringe) 12.5 gm PRN Q15MIN PRN IV SEE COMMENTS; Start 11/23/19 at 08:00; Stop 11/23/19 at 13:17; Status DC Potassium Chloride (Klor-Con) 40 meq 1X ONCE PO Last administered on 11/23/19at 11:03; Start 11/23/19 at 10:45; Stop 11/23/19 at 10:46; Status DC Potassium Chloride (Klor-Con) 20 meq [id number] PO Last administered on 11/24/19at 10:29; Start 11/24/19 at 08:00 Magnesium Sulfate 50 ml @ 25 mls/hr 1X ONCE IV Last administered on 11/23/19at 11:04; Start 11/23/19 at 10:45; Stop 11/23/19 at 12:44; Status DC Dextrose (Dextrose 50%-Water Syringe) 12.5 gm PRN Q15MIN PRN IV SEE COMMENTS; Start 11/23/19 at 13:30 Sodium Chloride 90 meq/Potassium Chloride 70 meq/ Potassium Phosphate 13.6 mmol/Magnesium Sulfate 18 meq/ Calcium Gluconate 10 meq/ Multivitamins 10 ml/Chromium/ Copper/Manganese/ Seleni/Zn 1 ml/ Total Parenteral Nutrition/Amino Acids/Dextrose/ Fat Emulsion Intravenous 1,512 ml @ 63 mls/hr TPN CONT IV Last administered on 11/23/19at 22:02; Start 11/23/19 at 22:00; Stop 11/24/19 at 21:59 Methylprednisolone Sodium Succinate (SOLU-Medrol 125MG VIAL) 1,000 mg DAILY08 IV ; Start 11/24/19 at 08:00; Stop 11/26/19 at 07:59; Status UNV Methylprednisolone Sodium Succinate 1000 mg/Sodium Chloride 100 ml @ 100 mls/hr Q24H IV Last administered on 11/24/19at 10:30; Start 11/24/19 at 08:00; Stop 11/26/19 at 07:59 Sodium Chloride 90 meq/Potassium Chloride 70 meq/ Potassium Phosphate 13.6 mmol/Magnesium Sulfate 18 meq/ Calcium Gluconate 10 meq/ Multivitamins 10 ml/Chromium/ Copper/Manganese/ Seleni/Zn 1 ml/ Total Parenteral Nutrition/Amino Acids/Dextrose/ Fat Emulsion Intravenous 1,512 ml @ 63 mls/hr TPN CONT IV ; Start 11/24/19 at 22:00; Stop 11/25/19 at 21:59 Active Scripts Active Reported Zyrtec (Cetirizine Hcl) 10 Mg Capsule 10 Mg PO DAILY Methotrexate (Methotrexate Sodium) 2.5 Mg Tablet 8 Tab PO WEEKLY Protonix (Pantoprazole Sodium) 40 Mg Tablet.dr 40 Mg PO DAILYAC Folic Acid 0.8 Mg Capsule 1 Cap PO DAILY 30 Days Ferrous Sulfate 325 Mg Tablet 1 Tab PO DAILY Vitals/I & O Vital Sign - Last 24 Hours 11/23/19 11/23/19 11/23/19 11/23/19 16:24 17:29 19:00 20:00 Temp 97.8 97.8 Pulse 102 Resp 20 B/P (MAP) 120/68 (85) Pulse Ox 96 O2 Delivery Room Air Room Air Room Air Room Air 11/23/19 11/23/19 11/23/19 11/24/19 22:02 23:02 23:05 03:07 Temp 98.0 97.9 98.0 97.9 Pulse 82 76 Resp 20 20 20 18 B/P (MAP) 146/80 (102) 126/78 (94) Pulse Ox 95 98 O2 Delivery Room Air Nasal Cannula Room Air Room Air 11/24/19 11/24/19 11/24/19 11/24/19 04:33 05:33 07:20 10:30 Temp 97.8 97.8 Pulse 82 Resp 20 20 20 16 B/P (MAP) 144/88 (106) Pulse Ox 98 O2 Delivery Nasal Cannula Nasal Cannula Room Air Room Air 11/24/19 11:26 Temp 97.4 97.4 Pulse 80 Resp 18 B/P (MAP) 145/75 (98) Pulse Ox 94 O2 Delivery Room Air Intake and Output 0 11/23/19 11/23/19 11/24/19 15:00 23:00 07:00 Intake Total 720 ml Output Total 900 ml Balance -900 ml 720 ml Nutrition Consultation Dietary Evaluation: Recommendations by RD: Dietary education by RD, Increase Calorie Intake, PPN/TPN Comments: REC TPN per followin g dextrose, 65 g AA, 20 g lipids REC advance diet as tolerated, goal diet gluten free/ADA (A1c 13.6) w/protein supplements per pt choice Expected Outcomes/Goals: TPN to meet 65% - 7% % est needs while NPO diet advancement Malnutrition Findings: Food and Nutrition Intake (Mod: <75% est energy req 7days Weight Status: Appropriate Hemodynamically unstable?: No Is patient in severe pain?: No Is NPO status required?: No VIVIAN BEACH MD Nov 24, 2019 15:11
--- NOTE | 2019-11-24 17:11 | PDOC ---
Progress Note Current Problem List Problems: (1) Leukopenia due to antineoplastic chemotherapy (2) Pancreatitis, acute Subjective Subjective Comfortable Ra pain/N/V/F/C/S TPN ROS ROS No nausea No vomiting No pain No rash Vital Sign Vital Signs Vital Signs Date Time Temp Pulse Resp B/P (MAP) Pulse Ox O2 Delivery O2 Flow Rate FiO2 11/24/19 15:11 97.8 77 16 153/87 (109) 94 Room Air 97.8 Physical Exam PHYSICAL EXAM GENERAL: Propped up in bed, alert, relaxed HEENT: Oral cavity pink, no lesions seen NECK: Supple. LUNGS: Clear, nonlabored HEART: S1, S2 regular. ABDOMEN: Soft, nontender. EXTREMITIES: No edema, cyanosis. SKIN: warm to touch. No signs of rash NEUROLOGIC: Alert, awake and appropriate. No focal neurologic deficit. RUE-PICC (11/21) clean Labs Lab Laboratory Tests Test 11/23/19 17:09 11/24/19 06:40 11/24/19 07:29 11/24/19 11:05 Glucose (Fingerstick) 240 mg/dL (70-99) 244 mg/dL (70-99) 256 mg/dL (70-99) White Blood Count 2.0 x10^3/uL (4.0-11.0) Red Blood Count 3.80 x10^6/uL (3.50-5.40) Hemoglobin 10.5 g/dL (12.0-15.5) Hematocrit 31.8 % (36.0-47.0) Mean Corpuscular Volume 84 fL (79-100) Mean Corpuscular Hemoglobin 28 pg (25-35) Mean Corpuscular Hemoglobin Concent 33 g/dL (31-37) Red Cell Distribution Width 15.4 % (11.5-14.5) Platelet Count 273 x10^3/uL (140-400) Neutrophils (%) (Auto) 37 % (31-73) Lymphocytes (%) (Auto) 37 % (24-48) Monocytes (%) (Auto) 22 % (0-9) Eosinophils (%) (Auto) 3 % (0-3) Basophils (%) (Auto) 1 % (0-3) Neutrophils # (Auto) 0.7 x10^3/uL (1.8-7.7) Lymphocytes # (Auto) 0.7 x10^3/uL (1.0-4.8) Monocytes # (Auto) 0.4 x10^3/uL (0.0-1.1) Eosinophils # (Auto) 0.1 x10^3/uL (0.0-0.7) Basophils # (Auto) 0.0 x10^3/uL (0.0-0.2) Sodium Level 137 mmol/L (136-145) Potassium Level 3.5 mmol/L (3.5-5.1) Chloride Level 102 mmol/L (98-107) Carbon Dioxide Level 28 mmol/L (21-32) Anion Gap 7 (6-14) Blood Urea Nitrogen 7 mg/dL (7-20) Creatinine 0.6 mg/dL (0.6-1.0) Estimated GFR (Cockcroft-Gault) 102.7 Glucose Level 259 mg/dL (70-99) Calcium Level 8.2 mg/dL (8.5-10.1) Phosphorus Level 3.6 mg/dL (2.6-4.7) Magnesium Level 2.0 mg/dL (1.8-2.4) Test 11/24/19 16:17 Glucose (Fingerstick) 215 mg/dL (70-99) Objective Assessment Hem/onc note. A: 59 yo F with leukopenia, neutropenia/lymphopenia. Decreased WBC in the setting of methotrexate therapy, acute pancreatitis. Possible intercurrent viral infection might be contributing both to leukopenia and pancreatitis. Update: Ferritin came back<1000, IgG4 71. No evidence of active Still's. No evidence of macrophage activation syndrome. P: Suggest 1. Decrease steroids down to maintenance 3-5 mg starting tomorrow. 2. G-CSF (Zarxio, Neupogen) 300 mcg sc daily to expedite hematologic recovery. 3. Bone marrow biopsy will be considered if leukopenia doesn't start to improve over the next 3-4 days. 3. Follow-up as outpatient in 2-3 weeks. Thank you for the opportunity to see your patient, please call with any questions. Plan Plan of Care Suggest: 1. Decrease steroids down to maintenance 3-5 mg starting tomorrow. 2. G-CSF (Zarxio, Neupogen) 300 mcg sc daily to expedite hematologic recovery. 3. Bone marrow biopsy will be considered if leukopenia doesn't start to improve over the next 3-4 days. 3. Follow-up as outpatient in 2-3 weeks. Thank you for the opportunity to see your patient, please call with any questions. Justicifation of Admission Dx: Justifications for Admission: Justification of Admission Dx: Yes Nutrition Consultation Dietary Evaluation: Recommendations by RD: Dietary education by RD, Increase Calorie Intake, PPN/TPN Comments: REC TPN per followin g dextrose, 65 g AA, 20 g lipids REC advance diet as tolerated, goal diet gluten free/ADA (A1c 13.6) w/protein supplements per pt choice Expected Outcomes/Goals: TPN to meet 65% - 7% % est needs while NPO diet advancement Malnutrition Findings: Food and Nutrition Intake (Mod: <75% est energy req 7days Weight Status: Appropriate JORDIN LOUIE MD Nov 24, 2019 17:11
[2019-11-24 19:00] VITALS: BP 132/74
[2019-11-24] MEDS ORDERED: AMINO ACID IV SCH ×10 (22:00)
[2019-11-24] MEDS ORDERED: TOTAL PARENTERAL NUTRITION IV SCH ×10 (22:00)
[2019-11-24] MEDS ORDERED: DEXTROSE 70% IV SCH ×10 (22:00)
[2019-11-24] MEDS ORDERED: [UNRECOGNIZED DRUG - OTHER] IV SCH ×10 (22:00)
[2019-11-24] MEDS: FAMOTIDINE 20 MG/2 ML VIAL IVP SCH (22:12)
[2019-11-24 23:00] VITALS: BP 161/89
[2019-11-24] MEDS ORDERED: DEXTROSE 50% 25 GM / 50ML DISP.SYRIN. IV PRN (23:15)
[2019-11-24] MEDS ORDERED: INSULIN GLARGINE SYRINGE. SQ SCH (23:30)
[2019-11-25] MEDS: INSULIN LISPRO 300 UNITS/3 ML VIAL. SQ SCH ×6 (00:05→23:50)
[2019-11-25 03:00] VITALS: BP 137/62
[2019-11-25] MEDS: LEUCOVORIN CALCIUM 5 MG TABLET PO SCH ×3 (06:38→22:12)
[2019-11-25 07:00] VITALS: BP 124/73
[2019-11-25 07:15] LABS: BASO % 0 % (0-3); EOS % 0 % (0-3); HEMATOCRIT 35.8 % (36.0-47.0); HEMOGLOBIN 11.8 g/dL (12.0-15.5); LYMPH # 0.7 x10^3/uL (1.0-4.8); LYMPH % 12 % (24-48); MEAN CORPUSCULAR HEMOGLOBIN 28 pg (25-35); MEAN CORPUSCULAR HGB CONC 33 g/dL (31-37); MEAN CORPUSCULAR VOLUME 84 fL (79-100); MONO # 0.5 x10^3/uL (0.0-1.1); MONO % 9 % (0-9); NEUT # 4.5 x10^3/uL (1.8-7.7); NEUT % 79 % (31-73); PLATELET COUNT 367 x10^3/uL (140-400); RED BLOOD COUNT 4.28 x10^6/uL (3.50-5.40); RED CELL DISTRIBUTION WIDTH 15.2 % (11.5-14.5); WHITE BLOOD COUNT 5.7 x10^3/uL (4.0-11.0)
[2019-11-25 07:31] LABS: CALCIUM 9.3 mg/dL (8.5-10.1); CREATININE 0.8 mg/dL (0.6-1.0); GFR 73.7; MAGNESIUM 2.1 mg/dL (1.8-2.4); PHOSPHORUS 4.5 mg/dL (2.6-4.7); POTASSIUM 4.1 mmol/L (3.5-5.1)
[2019-11-25] MEDS: PSYLLIUM HUSK (SUGAR FREE) 1 PKT PACKET PO SCH (08:28)
[2019-11-25] MEDS: POLYETHYLENE GLYCOL 3350 17 GM PACKET. PO SCH (08:29)
[2019-11-25] MEDS: POTASSIUM CHLORIDE 20 MEQ TABLET.ER. PO SCH (08:31)
[2019-11-25] MEDS: INSULIN GLARGINE SYRINGE. SQ SCH ×2 (08:39→22:41)
[2019-11-25] MEDS: predniSONE 1 MG TABLET PO SCH (08:45)
[2019-11-25] MEDS: IV RINGERS,LACTATED 1000ML 1,000 ML IV SCH ×2 (09:30→22:50)
--- NOTE | 2019-11-25 09:43 | PDOC ---
Infectious Disease Note Subjective Subjective Comfortable, denies pain Some diarrhea Tolerating clear liquids Not very hungry but wants to try solids Denies N/V/F/C/S/SOA TPN ROS ROS as mentioned above Vital Sign Vital Signs Vital Signs Date Time Temp Pulse Resp B/P (MAP) Pulse Ox O2 Delivery O2 Flow Rate FiO2 11/25/19 07:00 98.0 76 17 124/73 (90) 94 Room Air 98.0 11/25/19 03:00 2.0 Physical Exam PHYSICAL EXAM GENERAL: Propped up in bed, alert, relaxed HEENT: Oral cavity pink, no thrush/lesions seen NECK: Supple. LUNGS: Clear, nonlabored HEART: S1, S2 regular. ABDOMEN: Nondistended, soft, nontender, no rebound, BS present EXTREMITIES: No edema, cyanosis. SKIN: warm to touch. No signs of rash NEUROLOGIC: Alert, oriented x 3, No focal neurologic deficit. RUE-PICC (11/21) clean Labs Lab Laboratory Tests Test 11/24/19 11:05 11/24/19 16:17 11/24/19 20:45 11/24/19 22:21 Glucose (Fingerstick) 256 mg/dL (70-99) 215 mg/dL (70-99) 370 mg/dL (70-99) 383 mg/dL (70-99) Test 11/25/19 05:34 11/25/19 07:00 Glucose (Fingerstick) 322 mg/dL (70-99) White Blood Count 5.7 x10^3/uL (4.0-11.0) Red Blood Count 4.28 x10^6/uL (3.50-5.40) Hemoglobin 11.8 g/dL (12.0-15.5) Hematocrit 35.8 % (36.0-47.0) Mean Corpuscular Volume 84 fL (79-100) Mean Corpuscular Hemoglobin 28 pg (25-35) Mean Corpuscular Hemoglobin Concent 33 g/dL (31-37) Red Cell Distribution Width 15.2 % (11.5-14.5) Platelet Count 367 x10^3/uL (140-400) Neutrophils (%) (Auto) 79 % (31-73) Lymphocytes (%) (Auto) 12 % (24-48) Monocytes (%) (Auto) 9 % (0-9) Eosinophils (%) (Auto) 0 % (0-3) Basophils (%) (Auto) 0 % (0-3) Neutrophils # (Auto) 4.5 x10^3/uL (1.8-7.7) Lymphocytes # (Auto) 0.7 x10^3/uL (1.0-4.8) Monocytes # (Auto) 0.5 x10^3/uL (0.0-1.1) Eosinophils # (Auto) 0.0 x10^3/uL (0.0-0.7) Basophils # (Auto) 0.0 x10^3/uL (0.0-0.2) Sodium Level 137 mmol/L (136-145) Potassium Level 4.1 mmol/L (3.5-5.1) Chloride Level 100 mmol/L (98-107) Carbon Dioxide Level 26 mmol/L (21-32) Anion Gap 11 (6-14) Blood Urea Nitrogen 11 mg/dL (7-20) Creatinine 0.8 mg/dL (0.6-1.0) Estimated GFR (Cockcroft-Gault) 73.7 Glucose Level 313 mg/dL (70-99) Calcium Level 9.3 mg/dL (8.5-10.1) Phosphorus Level 4.5 mg/dL (2.6-4.7) Magnesium Level 2.1 mg/dL (1.8-2.4) Objective Assessment 1. Acute pancreatitis, possibly from methotrexate or very high triglycerides 2. Neutropenia secondary to methotrexate toxicity which has been stopped. started on Leucovorin. WBC improving 3. Adult-onset Still's disease. 4. Hypertriglyceridemia Plan Plan of Care Continue supportive care Heme/onc eval following On high-dose steroids Now off neutropenic precautions Patient seen. Chart reviewed. Case discussed with CLIENT SERVICES MANAGER. Agree with above plan/. JUNIOR MCKEON APRN Nov 25, 2019 09:43 BRUCE GOOD MD Nov 25, 2019 20:45
[2019-11-25] MEDS: methylPREDNISolone SOD SUCC 1,000 MG in IV NORMAL SALINE 100ML 100 ML IV SCH (10:14)
[2019-11-25 11:00] VITALS: BP 127/71
[2019-11-25] MEDS: TPN PER PHARMACY MC PRN (11:32)
--- NOTE | 2019-11-25 11:32 | NUR ---
Pharmacy TPN Dosing Note S: NATHAN SOTO is a 59 year old F Currently receiving Central Continuous TPN started 11/22/19 B:Pertinent PMH: Pancreatitis, NPO advancing to FLD LABS: Sodium: 137 Potassium: 4.1 Chloride: 100 Calcium: 9.3 Corrected Calcium: 10.10 Magnesium: 2.1 CO2: 26 SCr: 0.8 Glucose: 245-322 Albumin: 3.0 AST: 14 ALT: 20 TPN FORMULA: TPN TYPE: Central Continuous AMINO ACIDS: 65 gm DEXTROSE: 225 gm LIPIDS: 20 gm SODIUM CHLORIDE: 90 mEq SODIUM ACETATE: - mEq SODIUM PHOSPHATE: - mmol POTASSIUM CHLORIDE: 70 mEq POTASSIUM ACETATE: - mEq POTASSIUM PHOSPHATE: 13.6 mmol MAGNESIUM: 18 mEq CALCIUM: 10 mEq INSULIN: - units MULTIPLE VITAMIN: 10 ml TRACE ELEMENTS: 1 ml ml(s) TPN PLAN: Cont same TPN, labs WNL, repeat in am. R: Continue TPN Will monitor electrolytes, glucose, and tolerance to TPN. YUSRA ROSS [facility], 11/25/19 1130
--- NOTE | 2019-11-25 11:38 | PDOC ---
PROGRESS NOTES Chief Complaint Chief Complaint impression Acute pancreatitis - likely 2/2 hyper-triglyceridemia. 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 Dr. Sykes talked to [facility] rheumatology concern that MTX could play a role as well. Hold dosing for leukopenia 6/2 ct Progression of findings of acute pancreatitis. Pancreatic enhancement pattern is slightly heterogeneous but no definable nonenhancing component to suggest liquefactive necrosis at this time. In addition, there is been substantial increase in left lateral peripancreatic fluid which extends laterally to the left in the region of the lateral conal and renal fascia,and dissects distally into the left pelvis. This could be infected fluid, but does not appear to be an encapsulated collection. Duodenal and jejunal intraluminal lipomas Hypertriglyceridemia - will need outpatient Endocrinology referral for cholesterol metabolism treatment, I have suggested prescription 2g TID fish oil (Vascepa or Lovaza) in the meantime once pancreatitis resolves Hyponatremia DM2 with Hyperglycemia - A1c 13.6. Should continue on insulin therapy until A1c < 8, then consider PO options. Would probably have to avoid GLP1 therapy given her pancreatitis. Would defer to an photo intern for this. 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 Hyperglycemia secondary to high-dose steroids FEN -patient on TPN and due to high-dose steroids requiring insulin for hyperglycemia PPX - lovenox FULL CODE DIspo - inpatient for pancreatitis recovery TPN until pain/nausea resolve with worsening pancreatitis. heme consult noted and appreciated Advance diet as tolerated History of Present Illness History of Present Illness Ms Fernandez is a 59yo F [employer] w/ PMHx celiac disease, adult onset stills disease, Anemia, Asthma, CHERIE on CPAP, GERD who presents with severe upper abdominal pain, nausea, vomiting, fatigue. 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 She only had oatmeal for breakfast. She has never had anything similar to this in the past. She generally feels unw ell. She is not had any fever, diarrhea, chest pain, shortness of breath, dysuria, hematuria, blood in her stools. She denies alcohol abuse. Pain does not move anywhere. Nothing seems to make it better or worse. She has not tried anything at home. He does not drink alcohol, and is status post cholecystectomy. No calcium disorders. She takes 20mg methotrexate weekly on Fridays and is on 3 mg of chronic prednisone for her stills disease. She was diagnosed with celiac disease June 2019 and has just recently started on a gluten-free diet. No recent sick contacts that she can recall. Labs significant for lipase 53904, glucose 477, NA 129, bilirubin 1.1, Calcium 8.3, K 3.7, WBC 6.3, Hb 15, Platelets 247 CT abdomen pelvis shows surgically absent gallbladder and surgically absent uterus and describes duodenal and jejunal intraluminal lipomas. Findings of acute pancreatitis. No loculated collections. No biliary dilatation. Admitted for further treatment. 11/13: Lipase down. A1c 13.6, Triglycerides 3252. Started on insulin gtt. 11/14: Abdominal pain and glucose improved. Having ice chips per GI. Afebrile. No CP or SOB. D/w [facility] rheumatology, to hold MTX therapy on 11/15 given her leukopenia and pancreatitis. 11/15: Overnight afebrile. Labs improved. Still with left-sided abdominal pain. WBC 1.8. She notes she had not previously had a formal diagnosis of diabetes. No CP or SOB 11/16: Pain improved, advancing diet per GI lipase 328. WBC 2, K2.6, MG 1.4 11/17: Afebrile overnight. Still with abdominal pain, no CP or SOB 11/18: Patient continues to have discomfort especially when she has a diet no fever or chills were reported nevertheless she says that she woke up drenched in sweat in the middle of night, no other complaints were reported overnight, plan of care discussed in detail 11/19: Patient will continue to have bowel rest in light of her CT from yesterday. No new complaints. 11/23: Recommendations from Oncology greatly appreciated, continues to have pain, no other new complaints, she is tolerating some clear liquids continues to be on TPN 11/24: Laboratory data reviewed with the patient and reassurance provided. White blood cell count noted now on normal levels. Her pain seems to have improved today as well and is requesting a little bit more solid food. We will certainly try this in order to hopefully discharge in the next 48 to 72 hours once she finishes high-dose steroids recommended by our linux consultant. We will try to also touch base with Dr. Hale her oncologist to update her in keep her also informed Vitals Vitals Vital Signs Date Time Temp Pulse Resp B/P (MAP) Pulse Ox O2 Delivery O2 Flow Rate FiO2 11/25/19 08:00 Room Air 11/25/19 07:00 98.0 76 17 124/73 (90) 94 98.0 11/25/19 03:00 2.0 Physical Exam Physical Exam GENERAL: Propped up in bed, alert, relaxed HEENT: Oral cavity pink, no thrush/lesions seen NECK: Supple. LUNGS: Clear, nonlabored HEART: S1, S2 regular. ABDOMEN: Nondistended, soft, nontender, no rebound, BS present EXTREMITIES: No edema, cyanosis. SKIN: warm to touch. No signs of rash NEUROLOGIC: Alert, oriented x 3, No focal neurologic deficit. RUE-PICC (11/21) clean General: Alert, Oriented X3, Cooperative Heart: Regular rate Lungs: Clear Abdomen: Soft (minimally tender with palpation) Extremities: No clubbing, No cyanosis Skin: No rashes Labs LABS Laboratory Tests Test 11/24/19 16:17 11/24/19 20:45 11/24/19 22:21 11/25/19 05:34 Glucose (Fingerstick) 215 mg/dL (70-99) 370 mg/dL (70-99) 383 mg/dL (70-99) 322 mg/dL (70-99) Test 11/25/19 07:00 11/25/19 11:04 White Blood Count 5.7 x10^3/uL (4.0-11.0) Red Blood Count 4.28 x10^6/uL (3.50-5.40) Hemoglobin 11.8 g/dL (12.0-15.5) Hematocrit 35.8 % (36.0-47.0) Mean Corpuscular Volume 84 fL (79-100) Mean Corpuscular Hemoglobin 28 pg (25-35) Mean Corpuscular Hemoglobin Concent 33 g/dL (31-37) Red Cell Distribution Width 15.2 % (11.5-14.5) Platelet Count 367 x10^3/uL (140-400) Neutrophils (%) (Auto) 79 % (31-73) Lymphocytes (%) (Auto) 12 % (24-48) Monocytes (%) (Auto) 9 % (0-9) Eosinophils (%) (Auto) 0 % (0-3) Basophils (%) (Auto) 0 % (0-3) Neutrophils # (Auto) 4.5 x10^3/uL (1.8-7.7) Lymphocytes # (Auto) 0.7 x10^3/uL (1.0-4.8) Monocytes # (Auto) 0.5 x10^3/uL (0.0-1.1) Eosinophils # (Auto) 0.0 x10^3/uL (0.0-0.7) Basophils # (Auto) 0.0 x10^3/uL (0.0-0.2) Sodium Level 137 mmol/L (136-145) Potassium Level 4.1 mmol/L (3.5-5.1) Chloride Level 100 mmol/L (98-107) Carbon Dioxide Level 26 mmol/L (21-32) Anion Gap 11 (6-14) Blood Urea Nitrogen 11 mg/dL (7-20) Creatinine 0.8 mg/dL (0.6-1.0) Estimated GFR (Cockcroft-Gault) 73.7 Glucose Level 313 mg/dL (70-99) Calcium Level 9.3 mg/dL (8.5-10.1) Phosphorus Level 4.5 mg/dL (2.6-4.7) Magnesium Level 2.1 mg/dL (1.8-2.4) Glucose (Fingerstick) 245 mg/dL (70-99) Review of Systems Review of Systems Pertinent as per HPI otherwise 14 point review of system is negative Assessment and Plan Assessmemt and Plan Problems Medical Problems: (1) Dehydration Status: Acute (2) Hyperglycemia Status: Acute (3) Pancreatitis, acute Status: Acute Comment Review of Relevant I have reviewed the following items diann (where applicable) has been applied. Labs Laboratory Tests Test 11/23/19 11:37 11/23/19 14:45 11/23/19 15:10 11/23/19 16:00 Glucose (Fingerstick) 113 mg/dL (70-99) White Blood Count 1.5 x10^3/uL (4.0-11.0) Red Blood Count 4.31 x10^6/uL (3.50-5.40) Hemoglobin 12.3 g/dL (12.0-15.5) Hematocrit 38.0 % (36.0-47.0) Mean Corpuscular Volume 88 fL (79-100) Mean Corpuscular Hemoglobin 29 pg (25-35) Mean Corpuscular Hemoglobin Concent 32 g/dL (31-37) Red Cell Distribution Width 16.3 % (11.5-14.5) Platelet Count 265 x10^3/uL (140-400) Neutrophils (%) (Auto) 45 % (31-73) Lymphocytes (%) (Auto) 29 % (24-48) Monocytes (%) (Auto) 24 % (0-9) Eosinophils (%) (Auto) 1 % (0-3) Basophils (%) (Auto) 1 % (0-3) Neutrophils # (Auto) 0.7 x10^3/uL (1.8-7.7) Lymphocytes # (Auto) 0.4 x10^3/uL (1.0-4.8) Monocytes # (Auto) 0.4 x10^3/uL (0.0-1.1) Eosinophils # (Auto) 0.0 x10^3/uL (0.0-0.7) Basophils # (Auto) 0.0 x10^3/uL (0.0-0.2) Coronavirus (COVID-19)(PCR) Not detected (NOT DETECT.) Sodium Level 138 mmol/L (136-145) Potassium Level 3.7 mmol/L (3.5-5.1) Chloride Level 100 mmol/L (98-107) Carbon Dioxide Level 27 mmol/L (21-32) Anion Gap 11 (6-14) Blood Urea Nitrogen 7 mg/dL (7-20) Creatinine 0.7 mg/dL (0.6-1.0) Estimated GFR (Cockcroft-Gault) 85.9 BUN/Creatinine Ratio 10 (6-20) Glucose Level 266 mg/dL (70-99) Calcium Level 8.5 mg/dL (8.5-10.1) Total Bilirubin 0.4 mg/dL (0.2-1.0) Aspartate Amino Transf (AST/SGOT) 17 U/L (15-37) Alanine Aminotransferase (ALT/SGPT) 23 U/L (14-59) Alkaline Phosphatase 104 U/L (46-116) Total Protein 7.7 g/dL (6.4-8.2) Albumin 3.0 g/dL (3.4-5.0) Albumin/Globulin Ratio 0.6 (1.0-1.7) Test 11/23/19 17:09 11/24/19 06:40 11/24/19 07:29 11/24/19 11:05 Glucose (Fingerstick) 240 mg/dL (70-99) 244 mg/dL (70-99) 256 mg/dL (70-99) White Blood Count 2.0 x10^3/uL (4.0-11.0) Red Blood Count 3.80 x10^6/uL (3.50-5.40) Hemoglobin 10.5 g/dL (12.0-15.5) Hematocrit 31.8 % (36.0-47.0) Mean Corpuscular Volume 84 fL (79-100) Mean Corpuscular Hemoglobin 28 pg (25-35) Mean Corpuscular Hemoglobin Concent 33 g/dL (31-37) Red Cell Distribution Width 15.4 % (11.5-14.5) Platelet Count 273 x10^3/uL (140-400) Neutrophils (%) (Auto) 37 % (31-73) Lymphocytes (%) (Auto) 37 % (24-48) Monocytes (%) (Auto) 22 % (0-9) Eosinophils (%) (Auto) 3 % (0-3) Basophils (%) (Auto) 1 % (0-3) Neutrophils # (Auto) 0.7 x10^3/uL (1.8-7.7) Lymphocytes # (Auto) 0.7 x10^3/uL (1.0-4.8) Monocytes # (Auto) 0.4 x10^3/uL (0.0-1.1) Eosinophils # (Auto) 0.1 x10^3/uL (0.0-0.7) Basophils # (Auto) 0.0 x10^3/uL (0.0-0.2) Sodium Level 137 mmol/L (136-145) Potassium Level 3.5 mmol/L (3.5-5.1) Chloride Level 102 mmol/L (98-107) Carbon Dioxide Level 28 mmol/L (21-32) Anion Gap 7 (6-14) Blood Urea Nitrogen 7 mg/dL (7-20) Creatinine 0.6 mg/dL (0.6-1.0) Estimated GFR (Cockcroft-Gault) 102.7 Glucose Level 259 mg/dL (70-99) Calcium Level 8.2 mg/dL (8.5-10.1) Phosphorus Level 3.6 mg/dL (2.6-4.7) Magnesium Level 2.0 mg/dL (1.8-2.4) Test 11/24/19 16:17 11/24/19 20:45 11/24/19 22:21 11/25/19 05:34 Glucose (Fingerstick) 215 mg/dL (70-99) 370 mg/dL (70-99) 383 mg/dL (70-99) 322 mg/dL (70-99) Test 11/25/19 07:00 11/25/19 11:04 White Blood Count 5.7 x10^3/uL (4.0-11.0) Red Blood Count 4.28 x10^6/uL (3.50-5.40) Hemoglobin 11.8 g/dL (12.0-15.5) Hematocrit 35.8 % (36.0-47.0) Mean Corpuscular Volume 84 fL (79-100) Mean Corpuscular Hemoglobin 28 pg (25-35) Mean Corpuscular Hemoglobin Concent 33 g/dL (31-37) Red Cell Distribution Width 15.2 % (11.5-14.5) Platelet Count 367 x10^3/uL (140-400) Neutrophils (%) (Auto) 79 % (31-73) Lymphocytes (%) (Auto) 12 % (24-48) Monocytes (%) (Auto) 9 % (0-9) Eosinophils (%) (Auto) 0 % (0-3) Basophils (%) (Auto) 0 % (0-3) Neutrophils # (Auto) 4.5 x10^3/uL (1.8-7.7) Lymphocytes # (Auto) 0.7 x10^3/uL (1.0-4.8) Monocytes # (Auto) 0.5 x10^3/uL (0.0-1.1) Eosinophils # (Auto) 0.0 x10^3/uL (0.0-0.7) Basophils # (Auto) 0.0 x10^3/uL (0.0-0.2) Sodium Level 137 mmol/L (136-145) Potassium Level 4.1 mmol/L (3.5-5.1) Chloride Level 100 mmol/L (98-107) Carbon Dioxide Level 26 mmol/L (21-32) Anion Gap 11 (6-14) Blood Urea Nitrogen 11 mg/dL (7-20) Creatinine 0.8 mg/dL (0.6-1.0) Estimated GFR (Cockcroft-Gault) 73.7 Glucose Level 313 mg/dL (70-99) Calcium Level 9.3 mg/dL (8.5-10.1) Phosphorus Level 4.5 mg/dL (2.6-4.7) Magnesium Level 2.1 mg/dL (1.8-2.4) Glucose (Fingerstick) 245 mg/dL (70-99) Laboratory Tests Test 11/24/19 16:17 11/24/19 20:45 11/24/19 22:21 11/25/19 05:34 Glucose (Fingerstick) 215 mg/dL (70-99) 370 mg/dL (70-99) 383 mg/dL (70-99) 322 mg/dL (70-99) Test 11/25/19 07:00 11/25/19 11:04 White Blood Count 5.7 x10^3/uL (4.0-11.0) Red Blood Count 4.28 x10^6/uL (3.50-5.40) Hemoglobin 11.8 g/dL (12.0-15.5) Hematocrit 35.8 % (36.0-47.0) Mean Corpuscular Volume 84 fL (79-100) Mean Corpuscular Hemoglobin 28 pg (25-35) Mean Corpuscular Hemoglobin Concent 33 g/dL (31-37) Red Cell Distribution Width 15.2 % (11.5-14.5) Platelet Count 367 x10^3/uL (140-400) Neutrophils (%) (Auto) 79 % (31-73) Lymphocytes (%) (Auto) 12 % (24-48) Monocytes (%) (Auto) 9 % (0-9) Eosinophils (%) (Auto) 0 % (0-3) Basophils (%) (Auto) 0 % (0-3) Neutrophils # (Auto) 4.5 x10^3/uL (1.8-7.7) Lymphocytes # (Auto) 0.7 x10^3/uL (1.0-4.8) Monocytes # (Auto) 0.5 x10^3/uL (0.0-1.1) Eosinophils # (Auto) 0.0 x10^3/uL (0.0-0.7) Basophils # (Auto) 0.0 x10^3/uL (0.0-0.2) Sodium Level 137 mmol/L (136-145) Potassium Level 4.1 mmol/L (3.5-5.1) Chloride Level 100 mmol/L (98-107) Carbon Dioxide Level 26 mmol/L (21-32) Anion Gap 11 (6-14) Blood Urea Nitrogen 11 mg/dL (7-20) Creatinine 0.8 mg/dL (0.6-1.0) Estimated GFR (Cockcroft-Gault) 73.7 Glucose Level 313 mg/dL (70-99) Calcium Level 9.3 mg/dL (8.5-10.1) Phosphorus Level 4.5 mg/dL (2.6-4.7) Magnesium Level 2.1 mg/dL (1.8-2.4) Glucose (Fingerstick) 245 mg/dL (70-99) Medications Current Medications Iohexol (Omnipaque 300 Mg/ml) 75 ml 1X ONCE IV Last administered on 11/13/19at 11:30; Start 11/13/19 at 11:30; Stop 11/13/19 at 11:31; Status DC Iohexol (Omnipaque 240 Mg/ml) 50 ml 1X ONCE PO Last administered on 11/13/19at 11:30; Start 11/13/19 at 11:30; Stop 11/13/19 at 11:31; Status DC Info (CONTRAST GIVEN -- Rx MONITORING) 1 each PRN DAILY PRN MC SEE COMMENTS; Start 11/13/19 at 11:30; Stop 11/15/19 at 11:29; Status DC Sodium Chloride 1,000 ml @ 0 mls/hr 1X ONCE IV Last administered on 11/13/19at 12:27; Start 11/13/19 at 12:15; Stop 11/13/19 at 12:16; Status DC Morphine Sulfate (Morphine Sulfate) 5 mg 1X ONCE IV Last administered on 11/13/19at 12:45; Start 11/13/19 at 12:30; Stop 11/13/19 at 12:33; Status DC Morphine Sulfate (Morphine Sulfate) 5 mg 1X ONCE IV ; Start 11/13/19 at 13:45; Stop 11/13/19 at 13:46; Status DC Morphine Sulfate (Morphine Sulfate) 4 mg PRN Q2HR PRN IV MODERATE TO SEVERE PAIN Last administered on 11/15/19at 16:18; Start 11/13/19 at 14:45; Stop 11/19/19 at 10:23; Status DC Sodium Chloride 1,000 ml @ 100 mls/hr Q10H IV Last administered on 11/19/19at 08:27; Start 11/13/19 at 14:44; Stop 11/19/19 at 10:23; Status DC Ondansetron HCl (Zofran) 4 mg PRN Q4HRS PRN IV NAUSEA/VOMITING Last administered on 11/20/19at 14:06; Start 11/13/19 at 14:45 Acetaminophen (Tylenol Supp) 650 mg PRN Q4HRS PRN W[place] TEMP OVER 100.4F OR MILD PAIN; Start 11/13/19 at 14:45 Enoxaparin Sodium (Lovenox 40mg Syringe) 40 mg Q24H SQ Last administered on 11/23/19at 14:13; Start 11/13/19 at 15:00 Insulin Human Lispro (HumaLOG) 0-9 UNITS Q4HRS SQ Last administered on 11/17/19at 18:15; Start 11/13/19 at 16:00; Stop 11/17/19 at 19:32; Status DC Dextrose (Dextrose 50%-Water Syringe) 12.5 gm PRN Q15MIN PRN IV SEE COMMENTS; Start 11/13/19 at 14:45; Stop 11/23/19 at 13:20; Status DC Albuterol Sulfate (Ventolin Neb Soln) 3 mg PRN QID PRN NEB SHORTNESS OF BREATH; Start 11/13/19 at 15:15 Sodium Chloride (Saline Mist Nasal) 1 mago PRN Q1HR PRN NS NASAL CONGESTION; Start 11/13/19 at 15:15 Methylprednisolone Sodium Succinate (SOLU-Medrol 40MG VIAL) 40 mg DAILY IV Last administered on 11/15/19at 08:21; Start 11/13/19 at 15:15; Stop 11/15/19 at 13:44; Status DC Insulin Human Regular 100 unit/ Sodium Chloride 101 ml @ 0 mls/hr CONT PRN IV SEE I/O RECORD Last administered on 11/14/19at 02:12; Start 11/13/19 at 18:00 Fentanyl Citrate (Fentanyl 2ml Vial) 50 mcg PRN Q2HR PRN IVP MOD TO SEVERE PAIN, 2ND CHOICE Last administered on 11/22/19at 16:21; Start 11/14/19 at 11:45 Famotidine (Pepcid Vial) 20 mg QHS IVP Last administered on 11/18/19at 22:14; Start 11/15/19 at 21:00; Stop 11/19/19 at 10:21; Status DC Prednisone (Prednisone) 3 mg DAILY PO Last administered on 11/24/19at 10:29; Start 11/16/19 at 09:00 Potassium Chloride/Water 100 ml @ 100 mls/hr Q1H IV Last administered on 11/17/19at 15:22; Start 11/17/19 at 11:00; Stop 11/17/19 at 14:59; Status DC Potassium Chloride (Klor-Con) 40 meq 1X ONCE PO Last administered on 11/17/19at 11:01; Start 11/17/19 at 10:15; Stop 11/17/19 at 10:22; Status DC Tramadol HCl (Ultram) 50 mg PRN Q6HRS PRN PO MODERATE PAIN 4-6 Last administered on 11/20/19at 06:08; Start 11/17/19 at 10:15 Oxycodone HCl (Roxicodone) 5 mg PRN Q6HRS PRN PO SEVERE PAIN 7-10 Last administered on 11/17/19at 11:08; Start 11/17/19 at 10:15; Stop 11/17/19 at 15:30; Status DC Magnesium Sulfate 100 ml @ 25 mls/hr 1X ONCE IV Last administered on 11/17/19at 11:06; Start 11/17/19 at 11:00; Stop 11/17/19 at 14:59; Status DC Magnesium Hydroxide (Milk Of Magnesia) 2,400 mg PRN DAILY PRN PO CONSTIPATION 2ND CHOICE; Start 11/17/19 at 15:30 Psyllium Hydrophilic Mucilloid (Metamucil Fiber Packet) 1 pkt DAILY PO Last administered on 11/24/19at 10:29; Start 11/17/19 at 15:30 Polyethylene Glycol (miraLAX PACKET) 17 gm DAILY PO Last administered on 11/24/19at 10:29; Start 11/17/19 at 15:30 Oxycodone HCl (Roxicodone) 5 mg PRN Q4HRS PRN PO SEVERE PAIN 7-10 Last administered on 11/24/19at 10:30; Start 11/17/19 at 15:30 Insulin Human Lispro (HumaLOG) 0-9 UNITS TIDWMEALHC SQ Last administered on 11/19/19at 17:14; Start 11/17/19 at 19:30; Stop 11/23/19 at 06:31; Status DC Famotidine (Pepcid) 20 mg QHS PO Last administered on 11/19/19at 20:57; Start 11/19/19 at 21:00; Stop 11/20/19 at 10:56; Status DC Iohexol (Omnipaque 300 Mg/ml) 75 ml 1X ONCE IV Last administered on 11/19/19at 11:45; Start 11/19/19 at 11:45; Stop 11/19/19 at 11:46; Status DC Info (CONTRAST GIVEN -- Rx MONITORING) 1 each PRN DAILY PRN MC SEE COMMENTS; Start 11/19/19 at 11:45; Stop 11/21/19 at 11:44; Status DC Ringer's Solution 1,000 ml @ 75 mls/hr [id number] IV Last administered on 11/22/19at 01:53; Start 11/20/19 at 09:30 Potassium Chloride/Water 100 ml @ 100 mls/hr Q1H IV Last administered on 11/20/19at 21:27; Start 11/20/19 at 10:00; Stop 11/20/19 at 21:59; Status DC Famotidine (Pepcid Vial) 20 mg QHS IVP Last administered on 11/24/19at 22:12; Start 11/20/19 at 21:00 Bisacodyl (Dulcolax Supp) 10 mg PRN DAILY PRN [place] CONSTIPATION; Start 11/20/19 at 11:00 Leucovorin Calcium (Wellcovorin) 5 mg DAILY PO Last administered on 11/21/19at 09:53; Start 11/21/19 at 10:00; Stop 11/22/19 at 09:24; Status DC Info (Tpn Per Pharmacy) 1 each PRN DAILY PRN MC SEE COMMENTS Last administered on 11/25/19at 11:32; Start 11/21/19 at 12:00 Potassium Chloride/Water 100 ml @ 100 mls/hr Q1H IV Last administered on 11/22/19at 01:53; Start 11/21/19 at 20:00; Stop 11/21/19 at 23:59; Status DC Leucovorin Calcium (Wellcovorin) 15 mg Q8HRS PO Last administered on 11/25/19at 06:38; Start 11/22/19 at 10:00 Lidocaine HCl (Buffered Lidocaine 1%) 3 ml 1X ONCE INJ ; Start 11/22/19 at 12:00; Stop 11/22/19 at 12:01; Status DC Lidocaine HCl (Buffered Lidocaine 1%) 3 ml STK-MED ONCE .ROUTE ; Start 11/22/19 at 11:58; Stop 11/22/19 at 11:59; Status DC Sodium Chloride 90 meq/Potassium Chloride 50 meq/ Potassium Phosphate 13.6 mmol/Magnesium Sulfate 10 meq/ Calcium Gluconate 10 meq/ Multivitamins 10 ml/Chromium/ Copper/Manganese/ Seleni/Zn 1 ml/ Total Parenteral Nutrition/Amino Acids/Dextrose/ Fat Emulsion Intravenous 1,512 ml @ 63 mls/hr TPN CONT IV Last administered on 11/22/19at 22:12; Start 11/22/19 at 22:00; Stop 11/23/19 at 21:59; Status DC Magnesium Sulfate/ Dextrose 100 ml @ 100 mls/hr 1X ONCE IV Last administered on 11/22/19at 16:16; Start 11/22/19 at 16:00; Stop 11/22/19 at 16:59; Status DC Insulin Human Lispro (HumaLOG) 0-5 UNITS TIDWMEALS SQ ; Start 11/23/19 at 08:00; Status Cancel Dextrose (Dextrose 50%-Water Syringe) 12.5 gm PRN Q15MIN PRN IV SEE COMMENTS; Start 11/23/19 at 07:45; Status Cancel Insulin Human Lispro (HumaLOG) 0-7 UNITS TIDWMEALS SQ ; Start 11/23/19 at 08:00; Stop 11/23/19 at 08:00; Status DC Dextrose (Dextrose 50%-Water Syringe) 12.5 gm PRN Q15MIN PRN IV SEE COMMENTS; Start 11/23/19 at 08:00; Status Cancel Insulin Human Lispro (HumaLOG) 0-9 UNITS TIDWMEALS SQ Last administered on 11/24/19at 17:21; Start 11/23/19 at 08:00; Stop 11/24/19 at 23:09; Status DC Dextrose (Dextrose 50%-Water Syringe) 12.5 gm PRN Q15MIN PRN IV SEE COMMENTS; Start 11/23/19 at 08:00; Stop 11/23/19 at 13:17; Status DC Potassium Chloride (Klor-Con) 40 meq 1X ONCE PO Last administered on 11/23/19at 11:03; Start 11/23/19 at 10:45; Stop 11/23/19 at 10:46; Status DC Potassium Chloride (Klor-Con) 20 meq [id number] PO Last administered on 11/25/19at 08:31; Start 11/24/19 at 08:00 Magnesium Sulfate 50 ml @ 25 mls/hr 1X ONCE IV Last administered on 11/23/19at 11:04; Start 11/23/19 at 10:45; Stop 11/23/19 at 12:44; Status DC Dextrose (Dextrose 50%-Water Syringe) 12.5 gm PRN Q15MIN PRN IV SEE COMMENTS; Start 11/23/19 at 13:30 Sodium Chloride 90 meq/Potassium Chloride 70 meq/ Potassium Phosphate 13.6 mmol/Magnesium Sulfate 18 meq/ Calcium Gluconate 10 meq/ Multivitamins 10 ml/Chromium/ Copper/Manganese/ Seleni/Zn 1 ml/ Total Parenteral Nutrition/Amino Acids/Dextrose/ Fat Emulsion Intravenous 1,512 ml @ 63 mls/hr TPN CONT IV Last administered on 11/23/19at 22:02; Start 11/23/19 at 22:00; Stop 11/24/19 at 21:59; Status DC Methylprednisolone Sodium Succinate (SOLU-Medrol 125MG VIAL) 1,000 mg DAILY08 IV ; Start 11/24/19 at 08:00; Stop 11/26/19 at 07:59; Status UNV Methylprednisolone Sodium Succinate 1000 mg/Sodium Chloride 100 ml @ 100 mls/hr Q24H IV Last administered on 11/25/19at 10:14; Start 11/24/19 at 08:00; Stop 11/26/19 at 07:59 Sodium Chloride 90 meq/Potassium Chloride 70 meq/ Potassium Phosphate 13.6 mmol/Magnesium Sulfate 18 meq/ Calcium Gluconate 10 meq/ Multivitamins 10 ml/Chromium/ Copper/Manganese/ Seleni/Zn 1 ml/ Total Parenteral Nutrition/Amino Acids/Dextrose/ Fat Emulsion Intravenous 1,512 ml @ 63 mls/hr TPN CONT IV Last administered on 11/24/19at 22:12; Start 11/24/19 at 22:00; Stop 11/25/19 at 21:59 Insulin Glargine (Lantus Syringe) 15 unit QHS SQ Last administered on 11/25/19at 00:01; Start 11/24/19 at 23:30; Stop 11/25/19 at 07:33; Status DC Insulin Human Lispro (HumaLOG) 0-9 UNITS Q6HRS SQ Last administered on 11/25/19at 06:57; Start 11/24/19 at 23:30 Dextrose (Dextrose 50%-Water Syringe) 12.5 gm PRN Q15MIN PRN IV SEE COMMENTS; Start 11/24/19 at 23:15; Status Cancel Insulin Glargine (Lantus Syringe) 10 unit Q12H SQ Last administered on 11/25/19at 08:39; Start 11/25/19 at 09:00 Sodium Chloride 90 meq/Potassium Chloride 70 meq/ Potassium Phosphate 13.6 mmol/Magnesium Sulfate 18 meq/ Calcium Gluconate 10 meq/ Multivitamins 10 ml/Chromium/ Copper/Manganese/ Seleni/Zn 1 ml/ Total Parenteral Nutrition/Amino Acids/Dextrose/ Fat Emulsion Intravenous 1,512 ml @ 63 mls/hr TPN CONT IV ; Start 11/25/19 at 22:00; Stop 11/26/19 at 21:59 Active Scripts Active Reported Zyrtec (Cetirizine Hcl) 10 Mg Capsule 10 Mg PO DAILY Methotrexate (Methotrexate Sodium) 2.5 Mg Tablet 8 Tab PO WEEKLY Protonix (Pantoprazole Sodium) 40 Mg Tablet.dr 40 Mg PO DAILYAC Folic Acid 0.8 Mg Capsule 1 Cap PO DAILY 30 Days Ferrous Sulfate 325 Mg Tablet 1 Tab PO DAILY Vitals/I & O Vital Sign - Last 24 Hours 11/24/19 11/24/19 11/24/19 11/24/19 15:11 19:00 20:00 23:00 Temp 97.8 97.8 97.9 97.8 97.8 97.9 Pulse 77 84 69 Resp 16 16 18 B/P (MAP) 153/87 (109) 132/74 (93) 161/89 (113) Pulse Ox 94 94 95 O2 Delivery Room Air Room Air Room Air Room Air 11/25/19 11/25/19 11/25/19 03:00 07:00 08:00 Temp 97.6 98.0 97.6 98.0 Pulse 74 76 Resp 18 17 B/P (MAP) 137/62 (87) 124/73 (90) Pulse Ox 94 94 O2 Delivery Nasal Cannula Room Air Room Air O2 Flow Rate 2.0 Intake and Output 11/24/19 11/24/19 11/25/19 15:00 23:00 07:00 Intake Total 1030 ml 520 ml 60 ml Balance 1030 ml 520 ml 60 ml Nutrition Consultation Dietary Evaluation: Recommendations by RD: Dietary education by RD, Increase Calorie Intake, PPN/TPN Comments: REC TPN per followin g dextrose, 65 g AA, 20 g lipids REC advance diet as tolerated, goal diet gluten free/ADA (A1c 13.6) w/protein supplements per pt choice Expected Outcomes/Goals: TPN to meet 65% - 7% % est needs while NPO diet advancement Malnutrition Findings: Food and Nutrition Intake (Mod: <75% est energy req 7days Weight Status: Appropriate Hemodynamically unstable?: No Is patient in severe pain?: No Is NPO status required?: No VIVIAN BEACH MD Nov 25, 2019 11:38
[2019-11-25] MEDS: ENOXAPARIN 40 MG/0.4 ML SYRINGE. SQ SCH (14:10)
[2019-11-25 15:00] VITALS: BP 141/70
[2019-11-25] MEDS ORDERED: INSULIN LISPRO 300 UNITS/3 ML VIAL. SQ ONE (18:45)
[2019-11-25 19:30] VITALS: BP 142/77
--- NOTE | 2019-11-25 19:55 | PDOC ---
PROGRESS NOTES Subjective Subjective Feeling better, pain improved Objective Objective Vital Signs Date Time Temp Pulse Resp B/P (MAP) Pulse Ox O2 Delivery O2 Flow Rate FiO2 11/25/19 15:00 97.8 85 17 141/70 (93) 94 Room Air 97.8 11/25/19 03:00 2.0 Intake and Output 11/25/19 06:59 Intake Total 1610 ml Balance 1610 ml Intake Oral 1610 ml # Voids 7 Physical Exam Abdomen: Soft, No tenderness Heart: Regular rate General: Alert Lungs: Clear to auscultation Psych/Mental Status: Mental status NL Assessment Assessment Problems Medical Problems: (1) Dehydration Status: Acute (2) Hyperglycemia Status: Acute (3) Pancreatitis, acute Status: Acute Plan Plan of Care Some clinical improvement; no surgical recs Comment Review of Relevant I have reviewed the following items diann (where applicable) has been applied. Labs Laboratory Tests Test 11/24/19 06:40 11/24/19 07:29 11/24/19 11:05 11/24/19 16:17 White Blood Count 2.0 x10^3/uL (4.0-11.0) Red Blood Count 3.80 x10^6/uL (3.50-5.40) Hemoglobin 10.5 g/dL (12.0-15.5) Hematocrit 31.8 % (36.0-47.0) Mean Corpuscular Volume 84 fL (79-100) Mean Corpuscular Hemoglobin 28 pg (25-35) Mean Corpuscular Hemoglobin Concent 33 g/dL (31-37) Red Cell Distribution Width 15.4 % (11.5-14.5) Platelet Count 273 x10^3/uL (140-400) Neutrophils (%) (Auto) 37 % (31-73) Lymphocytes (%) (Auto) 37 % (24-48) Monocytes (%) (Auto) 22 % (0-9) Eosinophils (%) (Auto) 3 % (0-3) Basophils (%) (Auto) 1 % (0-3) Neutrophils # (Auto) 0.7 x10^3/uL (1.8-7.7) Lymphocytes # (Auto) 0.7 x10^3/uL (1.0-4.8) Monocytes # (Auto) 0.4 x10^3/uL (0.0-1.1) Eosinophils # (Auto) 0.1 x10^3/uL (0.0-0.7) Basophils # (Auto) 0.0 x10^3/uL (0.0-0.2) Sodium Level 137 mmol/L (136-145) Potassium Level 3.5 mmol/L (3.5-5.1) Chloride Level 102 mmol/L (98-107) Carbon Dioxide Level 28 mmol/L (21-32) Anion Gap 7 (6-14) Blood Urea Nitrogen 7 mg/dL (7-20) Creatinine 0.6 mg/dL (0.6-1.0) Estimated GFR (Cockcroft-Gault) 102.7 Glucose Level 259 mg/dL (70-99) Calcium Level 8.2 mg/dL (8.5-10.1) Phosphorus Level 3.6 mg/dL (2.6-4.7) Magnesium Level 2.0 mg/dL (1.8-2.4) Glucose (Fingerstick) 244 mg/dL (70-99) 256 mg/dL (70-99) 215 mg/dL (70-99) Test 11/24/19 20:45 11/24/19 22:21 11/25/19 05:34 11/25/19 07:00 Glucose (Fingerstick) 370 mg/dL (70-99) 383 mg/dL (70-99) 322 mg/dL (70-99) White Blood Count 5.7 x10^3/uL (4.0-11.0) Red Blood Count 4.28 x10^6/uL (3.50-5.40) Hemoglobin 11.8 g/dL (12.0-15.5) Hematocrit 35.8 % (36.0-47.0) Mean Corpuscular Volume 84 fL (79-100) Mean Corpuscular Hemoglobin 28 pg (25-35) Mean Corpuscular Hemoglobin Concent 33 g/dL (31-37) Red Cell Distribution Width 15.2 % (11.5-14.5) Platelet Count 367 x10^3/uL (140-400) Neutrophils (%) (Auto) 79 % (31-73) Lymphocytes (%) (Auto) 12 % (24-48) Monocytes (%) (Auto) 9 % (0-9) Eosinophils (%) (Auto) 0 % (0-3) Basophils (%) (Auto) 0 % (0-3) Neutrophils # (Auto) 4.5 x10^3/uL (1.8-7.7) Lymphocytes # (Auto) 0.7 x10^3/uL (1.0-4.8) Monocytes # (Auto) 0.5 x10^3/uL (0.0-1.1) Eosinophils # (Auto) 0.0 x10^3/uL (0.0-0.7) Basophils # (Auto) 0.0 x10^3/uL (0.0-0.2) Sodium Level 137 mmol/L (136-145) Potassium Level 4.1 mmol/L (3.5-5.1) Chloride Level 100 mmol/L (98-107) Carbon Dioxide Level 26 mmol/L (21-32) Anion Gap 11 (6-14) Blood Urea Nitrogen 11 mg/dL (7-20) Creatinine 0.8 mg/dL (0.6-1.0) Estimated GFR (Cockcroft-Gault) 73.7 Glucose Level 313 mg/dL (70-99) Calcium Level 9.3 mg/dL (8.5-10.1) Phosphorus Level 4.5 mg/dL (2.6-4.7) Magnesium Level 2.1 mg/dL (1.8-2.4) Test 11/25/19 11:04 11/25/19 18:31 11/25/19 19:41 Glucose (Fingerstick) 245 mg/dL (70-99) 401 mg/dL (70-99) 339 mg/dL (70-99) Laboratory Tests Test 11/24/19 20:45 11/24/19 22:21 11/25/19 05:34 11/25/19 07:00 Glucose (Fingerstick) 370 mg/dL (70-99) 383 mg/dL (70-99) 322 mg/dL (70-99) White Blood Count 5.7 x10^3/uL (4.0-11.0) Red Blood Count 4.28 x10^6/uL (3.50-5.40) Hemoglobin 11.8 g/dL (12.0-15.5) Hematocrit 35.8 % (36.0-47.0) Mean Corpuscular Volume 84 fL (79-100) Mean Corpuscular Hemoglobin 28 pg (25-35) Mean Corpuscular Hemoglobin Concent 33 g/dL (31-37) Red Cell Distribution Width 15.2 % (11.5-14.5) Platelet Count 367 x10^3/uL (140-400) Neutrophils (%) (Auto) 79 % (31-73) Lymphocytes (%) (Auto) 12 % (24-48) Monocytes (%) (Auto) 9 % (0-9) Eosinophils (%) (Auto) 0 % (0-3) Basophils (%) (Auto) 0 % (0-3) Neutrophils # (Auto) 4.5 x10^3/uL (1.8-7.7) Lymphocytes # (Auto) 0.7 x10^3/uL (1.0-4.8) Monocytes # (Auto) 0.5 x10^3/uL (0.0-1.1) Eosinophils # (Auto) 0.0 x10^3/uL (0.0-0.7) Basophils # (Auto) 0.0 x10^3/uL (0.0-0.2) Sodium Level 137 mmol/L (136-145) Potassium Level 4.1 mmol/L (3.5-5.1) Chloride Level 100 mmol/L (98-107) Carbon Dioxide Level 26 mmol/L (21-32) Anion Gap 11 (6-14) Blood Urea Nitrogen 11 mg/dL (7-20) Creatinine 0.8 mg/dL (0.6-1.0) Estimated GFR (Cockcroft-Gault) 73.7 Glucose Level 313 mg/dL (70-99) Calcium Level 9.3 mg/dL (8.5-10.1) Phosphorus Level 4.5 mg/dL (2.6-4.7) Magnesium Level 2.1 mg/dL (1.8-2.4) Test 11/25/19 11:04 11/25/19 18:31 11/25/19 19:41 Glucose (Fingerstick) 245 mg/dL (70-99) 401 mg/dL (70-99) 339 mg/dL (70-99) Medications Current Medications Iohexol (Omnipaque 300 Mg/ml) 75 ml 1X ONCE IV Last administered on 11/13/19at 11:30; Start 11/13/19 at 11:30; Stop 11/13/19 at 11:31; Status DC Iohexol (Omnipaque 240 Mg/ml) 50 ml 1X ONCE PO Last administered on 11/13/19at 11:30; Start 11/13/19 at 11:30; Stop 11/13/19 at 11:31; Status DC Info (CONTRAST GIVEN -- Rx MONITORING) 1 each PRN DAILY PRN MC SEE COMMENTS; Start 11/13/19 at 11:30; Stop 11/15/19 at 11:29; Status DC Sodium Chloride 1,000 ml @ 0 mls/hr 1X ONCE IV Last administered on 11/13/19at 12:27; Start 11/13/19 at 12:15; Stop 11/13/19 at 12:16; Status DC Morphine Sulfate (Morphine Sulfate) 5 mg 1X ONCE IV Last administered on 11/13/19at 12:45; Start 11/13/19 at 12:30; Stop 11/13/19 at 12:33; Status DC Morphine Sulfate (Morphine Sulfate) 5 mg 1X ONCE IV ; Start 11/13/19 at 13:45; Stop 11/13/19 at 13:46; Status DC Morphine Sulfate (Morphine Sulfate) 4 mg PRN Q2HR PRN IV MODERATE TO SEVERE PAIN Last administered on 11/15/19at 16:18; Start 11/13/19 at 14:45; Stop 11/19/19 at 10:23; Status DC Sodium Chloride 1,000 ml @ 100 mls/hr Q10H IV Last administered on 11/19/19at 08:27; Start 11/13/19 at 14:44; Stop 11/19/19 at 10:23; Status DC Ondansetron HCl (Zofran) 4 mg PRN Q4HRS PRN IV NAUSEA/VOMITING Last administered on 11/20/19at 14:06; Start 11/13/19 at 14:45 Acetaminophen (Tylenol Supp) 650 mg PRN Q4HRS PRN [place] TEMP OVER 100.4F OR MILD PAIN; Start 11/13/19 at 14:45 Enoxaparin Sodium (Lovenox 40mg Syringe) 40 mg Q24H SQ Last administered on 11/23/19at 14:13; Start 11/13/19 at 15:00 Insulin Human Lispro (HumaLOG) 0-9 UNITS Q4HRS SQ Last administered on 11/17/19at 18:15; Start 11/13/19 at 16:00; Stop 11/17/19 at 19:32; Status DC Dextrose (Dextrose 50%-Water Syringe) 12.5 gm PRN Q15MIN PRN IV SEE COMMENTS; Start 11/13/19 at 14:45; Stop 11/23/19 at 13:20; Status DC Albuterol Sulfate (Ventolin Neb Soln) 3 mg PRN QID PRN NEB SHORTNESS OF BREATH; Start 11/13/19 at 15:15 Sodium Chloride (Saline Mist Nasal) 1 mago PRN Q1HR PRN NS NASAL CONGESTION; Start 11/13/19 at 15:15 Methylprednisolone Sodium Succinate (SOLU-Medrol 40MG VIAL) 40 mg DAILY IV Last administered on 11/15/19at 08:21; Start 11/13/19 at 15:15; Stop 11/15/19 at 13:44; Status DC Insulin Human Regular 100 unit/ Sodium Chloride 101 ml @ 0 mls/hr CONT PRN IV SEE I/O RECORD Last administered on 11/14/19at 02:12; Start 11/13/19 at 18:00 Fentanyl Citrate (Fentanyl 2ml Vial) 50 mcg PRN Q2HR PRN IVP MOD TO SEVERE PAIN, 2ND CHOICE Last administered on 11/22/19at 16:21; Start 11/14/19 at 11:45 Famotidine (Pepcid Vial) 20 mg QHS IVP Last administered on 11/18/19at 22:14; Start 11/15/19 at 21:00; Stop 11/19/19 at 10:21; Status DC Prednisone (Prednisone) 3 mg DAILY PO Last administered on 11/24/19at 10:29; Start 11/16/19 at 09:00 Potassium Chloride/Water 100 ml @ 100 mls/hr Q1H IV Last administered on 11/17/19at 15:22; Start 11/17/19 at 11:00; Stop 11/17/19 at 14:59; Status DC Potassium Chloride (Klor-Con) 40 meq 1X ONCE PO Last administered on 11/17/19at 11:01; Start 11/17/19 at 10:15; Stop 11/17/19 at 10:22; Status DC Tramadol HCl (Ultram) 50 mg PRN Q6HRS PRN PO MODERATE PAIN 4-6 Last administered on 11/20/19at 06:08; Start 11/17/19 at 10:15 Oxycodone HCl (Roxicodone) 5 mg PRN Q6HRS PRN PO SEVERE PAIN 7-10 Last administered on 11/17/19at 11:08; Start 11/17/19 at 10:15; Stop 11/17/19 at 15:30; Status DC Magnesium Sulfate 100 ml @ 25 mls/hr 1X ONCE IV Last administered on 11/17/19at 11:06; Start 11/17/19 at 11:00; Stop 11/17/19 at 14:59; Status DC Magnesium Hydroxide (Milk Of Magnesia) 2,400 mg PRN DAILY PRN PO CONSTIPATION 2ND CHOICE; Start 11/17/19 at 15:30 Psyllium Hydrophilic Mucilloid (Metamucil Fiber Packet) 1 pkt DAILY PO Last administered on 11/24/19at 10:29; Start 11/17/19 at 15:30 Polyethylene Glycol (miraLAX PACKET) 17 gm DAILY PO Last administered on 11/24/19at 10:29; Start 11/17/19 at 15:30 Oxycodone HCl (Roxicodone) 5 mg PRN Q4HRS PRN PO SEVERE PAIN 7-10 Last administered on 11/24/19at 10:30; Start 11/17/19 at 15:30 Insulin Human Lispro (HumaLOG) 0-9 UNITS TIDWMEALHC SQ Last administered on 11/19/19at 17:14; Start 11/17/19 at 19:30; Stop 11/23/19 at 06:31; Status DC Famotidine (Pepcid) 20 mg QHS PO Last administered on 11/19/19at 20:57; Start 11/19/19 at 21:00; Stop 11/20/19 at 10:56; Status DC Iohexol (Omnipaque 300 Mg/ml) 75 ml 1X ONCE IV Last administered on 11/19/19at 11:45; Start 11/19/19 at 11:45; Stop 11/19/19 at 11:46; Status DC Info (CONTRAST GIVEN -- Rx MONITORING) 1 each PRN DAILY PRN MC SEE COMMENTS; Start 11/19/19 at 11:45; Stop 11/21/19 at 11:44; Status DC Ringer's Solution 1,000 ml @ 75 mls/hr [id number] IV Last administered on 11/22/19at 01:53; Start 11/20/19 at 09:30 Potassium Chloride/Water 100 ml @ 100 mls/hr Q1H IV Last administered on 11/20/19at 21:27; Start 11/20/19 at 10:00; Stop 11/20/19 at 21:59; Status DC Famotidine (Pepcid Vial) 20 mg QHS IVP Last administered on 11/24/19at 22:12; Start 11/20/19 at 21:00 Bisacodyl (Dulcolax Supp) 10 mg PRN DAILY PRN [place] CONSTIPATION; Start 11/20/19 at 11:00 Leucovorin Calcium (Wellcovorin) 5 mg DAILY PO Last administered on 11/21/19at 09:53; Start 11/21/19 at 10:00; Stop 11/22/19 at 09:24; Status DC Info (Tpn Per Pharmacy) 1 each PRN DAILY PRN MC SEE COMMENTS Last administered on 11/25/19at 11:32; Start 11/21/19 at 12:00 Potassium Chloride/Water 100 ml @ 100 mls/hr Q1H IV Last administered on 11/22/19at 01:53; Start 11/21/19 at 20:00; Stop 11/21/19 at 23:59; Status DC Leucovorin Calcium (Wellcovorin) 15 mg Q8HRS PO Last administered on 11/25/19at 14:08; Start 11/22/19 at 10:00 Lidocaine HCl (Buffered Lidocaine 1%) 3 ml 1X ONCE INJ ; Start 11/22/19 at 12:00; Stop 11/22/19 at 12:01; Status DC Lidocaine HCl (Buffered Lidocaine 1%) 3 ml STK-MED ONCE .ROUTE ; Start 11/22/19 at 11:58; Stop 11/22/19 at 11:59; Status DC Sodium Chloride 90 meq/Potassium Chloride 50 meq/ Potassium Phosphate 13.6 mmol/Magnesium Sulfate 10 meq/ Calcium Gluconate 10 meq/ Multivitamins 10 ml/Chromium/ Copper/Manganese/ Seleni/Zn 1 ml/ Total Parenteral Nutrition/Amino Acids/Dextrose/ Fat Emulsion Intravenous 1,512 ml @ 63 mls/hr TPN CONT IV Last administered on 11/22/19at 22:12; Start 11/22/19 at 22:00; Stop 11/23/19 at 21:59; Status DC Magnesium Sulfate/ Dextrose 100 ml @ 100 mls/hr 1X ONCE IV Last administered on 11/22/19at 16:16; Start 11/22/19 at 16:00; Stop 11/22/19 at 16:59; Status DC Insulin Human Lispro (HumaLOG) 0-5 UNITS TIDWMEALS SQ ; Start 11/23/19 at 08:00; Status Cancel Dextrose (Dextrose 50%-Water Syringe) 12.5 gm PRN Q15MIN PRN IV SEE COMMENTS; Start 11/23/19 at 07:45; Status Cancel Insulin Human Lispro (HumaLOG) 0-7 UNITS TIDWMEALS SQ ; Start 11/23/19 at 08:00; Stop 11/23/19 at 08:00; Status DC Dextrose (Dextrose 50%-Water Syringe) 12.5 gm PRN Q15MIN PRN IV SEE COMMENTS; Start 11/23/19 at 08:00; Status Cancel Insulin Human Lispro (HumaLOG) 0-9 UNITS TIDWMEALS SQ Last administered on 11/24/19at 17:21; Start 11/23/19 at 08:00; Stop 11/24/19 at 23:09; Status DC Dextrose (Dextrose 50%-Water Syringe) 12.5 gm PRN Q15MIN PRN IV SEE COMMENTS; Start 11/23/19 at 08:00; Stop 11/23/19 at 13:17; Status DC Potassium Chloride (Klor-Con) 40 meq 1X ONCE PO Last administered on 11/23/19at 11:03; Start 11/23/19 at 10:45; Stop 11/23/19 at 10:46; Status DC Potassium Chloride (Klor-Con) 20 meq DAILYWBKFT PO Last administered on 11/25/19at 08:31; Start 11/24/19 at 08:00 Magnesium Sulfate 50 ml @ 25 mls/hr 1X ONCE IV Last administered on 11/23/19at 11:04; Start 11/23/19 at 10:45; Stop 11/23/19 at 12:44; Status DC Dextrose (Dextrose 50%-Water Syringe) 12.5 gm PRN Q15MIN PRN IV SEE COMMENTS; Start 11/23/19 at 13:30 Sodium Chloride 90 meq/Potassium Chloride 70 meq/ Potassium Phosphate 13.6 mmol/Magnesium Sulfate 18 meq/ Calcium Gluconate 10 meq/ Multivitamins 10 ml/Chromium/ Copper/Manganese/ Seleni/Zn 1 ml/ Total Parenteral Nutrition/Amino Acids/Dextrose/ Fat Emulsion Intravenous 1,512 ml @ 63 mls/hr TPN CONT IV Last administered on 11/23/19at 22:02; Start 11/23/19 at 22:00; Stop 11/24/19 at 21:59; Status DC Methylprednisolone Sodium Succinate (SOLU-Medrol 125MG VIAL) 1,000 mg DAILY08 IV ; Start 11/24/19 at 08:00; Stop 11/26/19 at 07:59; Status UNV Methylprednisolone Sodium Succinate 1000 mg/Sodium Chloride 100 ml @ 100 mls/hr Q24H IV Last administered on 11/25/19at 10:14; Start 11/24/19 at 08:00; Stop 11/26/19 at 07:59 Sodium Chloride 90 meq/Potassium Chloride 70 meq/ Potassium Phosphate 13.6 mmol/Magnesium Sulfate 18 meq/ Calcium Gluconate 10 meq/ Multivitamins 10 ml/Chromium/ Copper/Manganese/ Seleni/Zn 1 ml/ Total Parenteral Nutrition/Amino Acids/Dextrose/ Fat Emulsion Intravenous 1,512 ml @ 63 mls/hr TPN CONT IV Last administered on 11/24/19at 22:12; Start 11/24/19 at 22:00; Stop 11/25/19 at 21:59 Insulin Glargine (Lantus Syringe) 15 unit QHS SQ Last administered on 11/25/19at 00:01; Start 11/24/19 at 23:30; Stop 11/25/19 at 07:33; Status DC Insulin Human Lispro (HumaLOG) 0-9 UNITS Q6HRS SQ Last administered on 11/25/19at 18:53; Start 11/24/19 at 23:30 Dextrose (Dextrose 50%-Water Syringe) 12.5 gm PRN Q15MIN PRN IV SEE COMMENTS; Start 11/24/19 at 23:15; Status Cancel Insulin Glargine (Lantus Syringe) 10 unit Q12H SQ Last administered on 11/25/19at 08:39; Start 11/25/19 at 09:00 Sodium Chloride 90 meq/Potassium Chloride 70 meq/ Potassium Phosphate 13.6 mmol/Magnesium Sulfate 18 meq/ Calcium Gluconate 10 meq/ Multivitamins 10 ml/Chromium/ Copper/Manganese/ Seleni/Zn 1 ml/ Total Parenteral Nutrition/Amino Acids/Dextrose/ Fat Emulsion Intravenous 1,512 ml @ 63 mls/hr TPN CONT IV ; Start 11/25/19 at 22:00; Stop 11/26/19 at 21:59 Insulin Human Lispro (HumaLOG) 3 units 1X ONCE SQ Last administered on 11/25/19at 18:54; Start 11/25/19 at 18:45; Stop 11/25/19 at 18:46; Status DC Active Scripts Active Reported Zyrtec (Cetirizine Hcl) 10 Mg Capsule 10 Mg PO DAILY Methotrexate (Methotrexate Sodium) 2.5 Mg Tablet 8 Tab PO WEEKLY Protonix (Pantoprazole Sodium) 40 Mg Tablet.dr 40 Mg PO DAILYAC Folic Acid 0.8 Mg Capsule 1 Cap PO DAILY 30 Days Ferrous Sulfate 325 Mg Tablet 1 Tab PO DAILY Vitals/I & O Vital Sign - Last 24 Hours 11/24/19 11/24/19 11/25/19 11/25/19 20:00 23:00 03:00 07:00 Temp 97.9 97.6 98.0 97.9 97.6 98.0 Pulse 69 74 76 Resp 18 18 17 B/P (MAP) 161/89 (113) 137/62 (87) 124/73 (90) Pulse Ox 95 94 94 O2 Delivery Room Air Room Air Nasal Cannula Room Air O2 Flow Rate 2.0 11/25/19 11/25/19 11/25/19 08:00 11:00 15:00 Temp 97.9 97.8 97.9 97.8 Pulse 75 85 Resp 17 17 B/P (MAP) 127/71 (89) 141/70 (93) Pulse Ox 95 94 O2 Delivery Room Air Room Air Room Air Intake and Output 11/24/19 11/24/19 11/25/19 14:59 22:59 06:59 Intake Total 1030 ml 520 ml 60 ml Balance 1030 ml 520 ml 60 ml Nutrition Consultation Dietary Evaluation: Recommendations by RD: Dietary education by RD, Increase Calorie Intake, PPN/TPN Comments: REC TPN per followin g dextrose, 65 g AA, 20 g lipids REC advance diet as tolerated, goal diet gluten free/ADA (A1c 13.6) w/protein supplements per pt choice Expected Outcomes/Goals: TPN to meet 65% - 7% % est needs while NPO diet advancement Malnutrition Findings: Food and Nutrition Intake (Mod: <75% est energy req 7days Weight Status: Appropriate Hemodynamically unstable?: No Is patient in severe pain?: No Is NPO status required?: No NICKY PACHECO MD Nov 25, 2019 19:55
[2019-11-25] MEDS ORDERED: [UNRECOGNIZED DRUG - OTHER] IV SCH ×10 (22:00)
[2019-11-25] MEDS ORDERED: DEXTROSE 70% IV SCH ×10 (22:00)
[2019-11-25] MEDS ORDERED: TOTAL PARENTERAL NUTRITION IV SCH ×10 (22:00)
[2019-11-25] MEDS ORDERED: AMINO ACID IV SCH ×10 (22:00)
[2019-11-25] MEDS: FAMOTIDINE 20 MG/2 ML VIAL IVP SCH (22:11)
[2019-11-25 23:10] VITALS: BP 144/75
[2019-11-26 03:00] VITALS: BP 137/65
[2019-11-26 05:42] LABS: ALBUMIN/GLOBULIN RATIO 0.7 (1.0-1.7); CALCIUM 9.4 mg/dL (8.5-10.1); CREATININE 0.7 mg/dL (0.6-1.0); GFR 85.9; MAGNESIUM 2.3 mg/dL (1.8-2.4); POTASSIUM 4.2 mmol/L (3.5-5.1); TOTAL BILIRUBIN 0.2 mg/dL (0.2-1.0); TOTAL PROTEIN 7.2 g/dL (6.4-8.2)
[2019-11-26] MEDS: LEUCOVORIN CALCIUM 5 MG TABLET PO SCH ×3 (06:24→21:28)
[2019-11-26] MEDS: INSULIN LISPRO 300 UNITS/3 ML VIAL. SQ SCH ×3 (06:27→17:48)
[2019-11-26 07:00] VITALS: BP 151/76
[2019-11-26] MEDS: PSYLLIUM HUSK (SUGAR FREE) 1 PKT PACKET PO SCH (09:00)
[2019-11-26] MEDS: POLYETHYLENE GLYCOL 3350 17 GM PACKET. PO SCH (09:00)
--- NOTE | 2019-11-26 09:06 | NUR ---
SW following. Discussed with RN, pt now on GI soft diet - eating more solid food and abdominal pain decreasing. Still on TPN, but likely can decrease this. Physician note states possibly discharge in the next 48-72 hours. SW will continue to follow for any discharge planning needs.
--- NOTE | 2019-11-26 09:28 | PDOC ---
Infectious Disease Note Subjective: Subjective Comfortable, denies pain Ambulating in hallway without difficulty Does not require any pain medication Started soft diet this morning tolerating it well Denies fever, nausea, vomiting, shortness of breath, diarrhea, abdominal pain, rash Otherwise as above On PPN Vital Signs: Vital Signs Vital Signs Date Time Temp Pulse Resp B/P (MAP) Pulse Ox O2 Delivery O2 Flow Rate FiO2 11/26/19 07:00 98.0 70 18 151/76 (101) 96 Room Air 98.0 11/26/19 03:00 2.0 Physical Exam: PHYSICAL EXAM GENERAL: Propped up in bed, alert, relaxed HEENT: Oral cavity pink, no thrush/lesions seen NECK: Supple. LUNGS: Clear, nonlabored HEART: S1, S2 regular. ABDOMEN: Nondistended, soft, nontender, no rebound, BS present EXTREMITIES: No edema, cyanosis. SKIN: warm to touch. No signs of rash NEUROLOGIC: Alert, oriented x 3, No focal neurologic deficit. RUE-PICC (11/21) clean Medications: Inpatient Meds: Current Medications Medications (Trade) Dose Ordered Sig/Devin Start Time Stop Time Status Last Admin Dose Admin Acetaminophen (Tylenol Supp) 650 mg PRN Q4HRS PRN 11/13/19 14:45 Albuterol Sulfate (Ventolin Neb Soln) 3 mg PRN QID PRN 11/13/19 15:15 Bisacodyl (Dulcolax Supp) 10 mg PRN DAILY PRN 11/20/19 11:00 Dextrose (Dextrose 50%-Water Syringe) 12.5 gm PRN Q15MIN PRN 11/24/19 23:15 Cancel Enoxaparin Sodium (Lovenox 40mg Syringe) 40 mg Q24H 11/13/19 15:00 11/23/19 14:13 40 MG Famotidine (Pepcid Vial) 20 mg QHS 11/20/19 21:00 11/25/19 22:11 20 MG Famotidine (Pepcid) 20 mg QHS 11/19/19 21:00 11/20/19 10:56 DC 11/19/19 20:57 20 MG Fentanyl Citrate (Fentanyl 2ml Vial) 50 mcg PRN Q2HR PRN 11/14/19 11:45 11/22/19 16:21 50 MCG Info (CONTRAST GIVEN -- Rx MONITORING) 1 each PRN DAILY PRN 11/19/19 11:45 11/21/19 11:44 DC Info (Tpn Per Pharmacy) 1 each PRN DAILY PRN 11/21/19 12:00 11/25/19 11:32 1 EACH Insulin Glargine (Lantus Syringe) 10 unit Q12H 11/25/19 09:00 11/25/19 22:41 10 UNIT Insulin Human Lispro (HumaLOG) 3 units 1X ONCE 11/25/19 18:45 11/25/19 18:46 DC 11/25/19 18:54 3 UNITS Insulin Human Regular 100 unit/ Sodium Chloride 101 ml @ 0 mls/hr CONT PRN 11/13/19 18:00 11/14/19 02:12 7.4 MLS/HR Iohexol (Omnipaque 240 Mg/ml) 50 ml 1X ONCE 11/13/19 11:30 11/13/19 11:31 DC 11/13/19 11:30 50 ML Iohexol (Omnipaque 300 Mg/ml) 75 ml 1X ONCE 11/19/19 11:45 11/19/19 11:46 DC 11/19/19 11:45 75 ML Leucovorin Calcium (Wellcovorin) 15 mg Q8HRS 11/22/19 10:00 11/26/19 06:24 15 MG Lidocaine HCl (Buffered Lidocaine 1%) 3 ml STK-MED ONCE 11/22/19 11:58 11/22/19 11:59 DC Magnesium Hydroxide (Milk Of Magnesia) 2,400 mg PRN DAILY PRN 11/17/19 15:30 Magnesium Sulfate 50 ml @ 25 mls/hr 1X ONCE 11/23/19 10:45 11/23/19 12:44 DC 11/23/19 11:04 25 MLS/HR Magnesium Sulfate/ Dextrose 100 ml @ 100 mls/hr 1X ONCE 11/22/19 16:00 11/22/19 16:59 DC 11/22/19 16:16 100 MLS/HR Methylprednisolone Sodium Succinate (SOLU-Medrol 40MG VIAL) 40 mg DAILY 11/13/19 15:15 11/15/19 13:44 DC 11/15/19 08:21 40 MG Methylprednisolone Sodium Succinate (SOLU-Medrol 125MG VIAL) 1,000 mg DAILY08 11/24/19 08:00 11/26/19 07:59 UNV Methylprednisolone Sodium Succinate 1000 mg/Sodium Chloride 100 ml @ 100 mls/hr Q24H 11/24/19 08:00 11/26/19 07:59 DC 11/25/19 10:14 100 MLS/HR Morphine Sulfate (Morphine Sulfate) 4 mg PRN Q2HR PRN 11/13/19 14:45 11/19/19 10:23 DC 11/15/19 16:18 4 MG Ondansetron HCl (Zofran) 4 mg PRN Q4HRS PRN 11/13/19 14:45 11/20/19 14:06 4 MG Oxycodone HCl (Roxicodone) 5 mg PRN Q4HRS PRN 11/17/19 15:30 11/24/19 10:30 5 MG Polyethylene Glycol (miraLAX PACKET) 17 gm DAILY 11/17/19 15:30 11/24/19 10:29 17 GM Potassium Chloride/Water 100 ml @ 100 mls/hr Q1H 11/21/19 20:00 11/21/19 23:59 DC 11/22/19 01:53 100 MLS/HR Potassium Chloride (Klor-Con) 20 meq [id number] 11/24/19 08:00 11/25/19 08:31 20 MEQ Prednisone (Prednisone) 3 mg DAILY 11/16/19 09:00 11/24/19 10:29 3 MG Psyllium Hydrophilic Mucilloid (Metamucil Fiber Packet) 1 pkt DAILY 11/17/19 15:30 11/24/19 10:29 1 PKT Ringer's Solution 1,000 ml @ 75 mls/hr [id number] 11/20/19 09:30 11/22/19 01:53 75 MLS/HR Sodium Chloride (Saline Mist Nasal) 1 mago PRN Q1HR PRN 11/13/19 15:15 Sodium Chloride 90 meq/Potassium Chloride 50 meq/ Potassium Phosphate 13.6 mmol/Magnesium Sulfate 10 meq/ Calcium Gluconate 10 meq/ Multivitamins 10 ml/Chromium/ Copper/Manganese/ Seleni/Zn 1 ml/ Total Parenteral Nutrition/Amino Acids/Dextrose/ Fat Emulsion Intravenous 1,512 ml @ 63 mls/hr TPN CONT 11/22/19 22:00 11/23/19 21:59 DC 11/22/19 22:12 63 MLS/HR Sodium Chloride 90 meq/Potassium Chloride 70 meq/ Potassium Phosphate 13.6 mmol/Magnesium Sulfate 18 meq/ Calcium Gluconate 10 meq/ Multivitamins 10 ml/Chromium/ Copper/Manganese/ Seleni/Zn 1 ml/ Total Parenteral Nutrition/Amino Acids/Dextrose/ Fat Emulsion Intravenous 1,512 ml @ 63 mls/hr TPN CONT 11/25/19 22:00 11/26/19 21:59 11/25/19 22:12 63 MLS/HR Tramadol HCl (Ultram) 50 mg PRN Q6HRS PRN 11/17/19 10:15 11/20/19 06:08 50 MG Labs: Lab Laboratory Tests Test 11/25/19 11:04 11/25/19 18:31 11/25/19 19:41 11/25/19 23:40 Glucose (Fingerstick) 245 mg/dL (70-99) 401 mg/dL (70-99) 339 mg/dL (70-99) 321 mg/dL (70-99) Test 11/26/19 04:45 11/26/19 06:09 Sodium Level 138 mmol/L (136-145) Potassium Level 4.2 mmol/L (3.5-5.1) Chloride Level 101 mmol/L (98-107) Carbon Dioxide Level 25 mmol/L (21-32) Anion Gap 12 (6-14) Blood Urea Nitrogen 15 mg/dL (7-20) Creatinine 0.7 mg/dL (0.6-1.0) Estimated GFR (Cockcroft-Gault) 85.9 BUN/Creatinine Ratio 21 (-20) Glucose Level 341 mg/dL (70-99) Calcium Level 9.4 mg/dL (8.5-10.1) Phosphorus Level 5.0 mg/dL (2.6-4.7) Magnesium Level 2.3 mg/dL (1.8-2.4) Total Bilirubin 0.2 mg/dL (0.2-1.0) Aspartate Amino Transf (AST/SGOT) 12 U/L (15-37) Alanine Aminotransferase (ALT/SGPT) 19 U/L (14-59) Alkaline Phosphatase 95 U/L (46-116) Total Protein 7.2 g/dL (6.4-8.2) Albumin 3.0 g/dL (3.4-5.0) Albumin/Globulin Ratio 0.7 (1.0-1.7) Triglycerides Level 233 mg/dL (0-150) Glucose (Fingerstick) 372 mg/dL (70-99) Objective: Assessment: 1. Acute pancreatitis, possibly from methotrexate or very high triglycerides 2. Neutropenia secondary to methotrexate toxicity which has been stopped. started on Leucovorin and G CSF. WBC improving 3. Adult-onset Still's disease. 4. Hypertriglyceridemia 5 on steroids Plan: Plan of Care Continue supportive care Heme/onc eval following On steroids taper and G-CSF MIREYA BLAIR MD Nov 26, 2019 09:28
[2019-11-26] MEDS: predniSONE 1 MG TABLET PO SCH (09:53)
[2019-11-26] MEDS: POTASSIUM CHLORIDE 20 MEQ TABLET.ER. PO SCH (09:54)
[2019-11-26] MEDS: INSULIN GLARGINE SYRINGE. SQ SCH ×2 (10:01→21:32)
--- NOTE | 2019-11-26 10:40 | PDOC ---
Subjective: Subjective: Ate soft food for the first time this morning. Denies abd pain, says hasn't needed pain meds in a couple days. Stooling. Mentions glucose hard to control. Objective: Vital Signs: Vital Signs Date Time Temp Pulse Resp B/P (MAP) Pulse Ox O2 Delivery O2 Flow Rate FiO2 11/26/19 07:00 98.0 70 18 151/76 (101) 96 Room Air 98.0 11/26/19 03:00 2.0 Labs: Laboratory Tests Test 11/25/19 11:04 11/25/19 18:31 11/25/19 19:41 11/25/19 23:40 Glucose (Fingerstick) 245 mg/dL 401 mg/dL 339 mg/dL 321 mg/dL Test 11/26/19 04:45 11/26/19 06:09 Sodium Level 138 mmol/L Potassium Level 4.2 mmol/L Chloride Level 101 mmol/L Carbon Dioxide Level 25 mmol/L Anion Gap 12 Blood Urea Nitrogen 15 mg/dL Creatinine 0.7 mg/dL Estimated GFR (Cockcroft-Gault) 85.9 BUN/Creatinine Ratio 21 Glucose Level 341 mg/dL Calcium Level 9.4 mg/dL Phosphorus Level 5.0 mg/dL Magnesium Level 2.3 mg/dL Total Bilirubin 0.2 mg/dL Aspartate Amino Transf (AST/SGOT) 12 U/L Alanine Aminotransferase (ALT/SGPT) 19 U/L Alkaline Phosphatase 95 U/L Total Protein 7.2 g/dL Albumin 3.0 g/dL Albumin/Globulin Ratio 0.7 Triglycerides Level 233 mg/dL Glucose (Fingerstick) 372 mg/dL PE: GEN: NAD LUNGS: CTAB HEART: RRR ABD: S/ND/NT NEURO/PSYCH: A & O 3 A/P: Pancreatitis, hypertriglyceridemia Still's disease, DM -- Diet advanced, pain resolved. ?stop TPN, look toward DC - will d/w Dr. Hsieh. Justicifation of Admission Dx: Justifications for Admission: Justification of Admission Dx: Yes SHIRAZ CABRAL Nov 26, 2019 10:40
--- NOTE | 2019-11-26 10:42 | PDOC ---
SURGICAL PROGRESS NOTE Subjective no complaints no nausea, no pain tolerating soft diet Vital Signs Vital Signs Date Time Temp Pulse Resp B/P (MAP) Pulse Ox O2 Delivery O2 Flow Rate FiO2 11/26/19 07:00 98.0 70 18 151/76 (101) 96 Room Air 98.0 11/26/19 03:00 2.0 I&O Intake and Output 11/26/19 07:00 Intake Total 900 ml Balance 900 ml Intake Oral 900 ml # Voids 3 General: Alert, Oriented X3, Cooperative Abdomen: Soft, No tenderness Labs Laboratory Tests Test 11/24/19 11:05 11/24/19 16:17 11/24/19 20:45 11/24/19 22:21 Glucose (Fingerstick) 256 mg/dL (70-99) 215 mg/dL (70-99) 370 mg/dL (70-99) 383 mg/dL (70-99) Test 11/25/19 05:34 11/25/19 07:00 11/25/19 11:04 11/25/19 18:31 Glucose (Fingerstick) 322 mg/dL (70-99) 245 mg/dL (70-99) 401 mg/dL (70-99) White Blood Count 5.7 x10^3/uL (4.0-11.0) Red Blood Count 4.28 x10^6/uL (3.50-5.40) Hemoglobin 11.8 g/dL (12.0-15.5) Hematocrit 35.8 % (36.0-47.0) Mean Corpuscular Volume 84 fL (79-100) Mean Corpuscular Hemoglobin 28 pg (25-35) Mean Corpuscular Hemoglobin Concent 33 g/dL (31-37) Red Cell Distribution Width 15.2 % (11.5-14.5) Platelet Count 367 x10^3/uL (140-400) Neutrophils (%) (Auto) 79 % (31-73) Lymphocytes (%) (Auto) 12 % (24-48) Monocytes (%) (Auto) 9 % (0-9) Eosinophils (%) (Auto) 0 % (0-3) Basophils (%) (Auto) 0 % (0-3) Neutrophils # (Auto) 4.5 x10^3/uL (1.8-7.7) Lymphocytes # (Auto) 0.7 x10^3/uL (1.0-4.8) Monocytes # (Auto) 0.5 x10^3/uL (0.0-1.1) Eosinophils # (Auto) 0.0 x10^3/uL (0.0-0.7) Basophils # (Auto) 0.0 x10^3/uL (0.0-0.2) Sodium Level 137 mmol/L (136-145) Potassium Level 4.1 mmol/L (3.5-5.1) Chloride Level 100 mmol/L (98-107) Carbon Dioxide Level 26 mmol/L (21-32) Anion Gap 11 (6-14) Blood Urea Nitrogen 11 mg/dL (7-20) Creatinine 0.8 mg/dL (0.6-1.0) Estimated GFR (Cockcroft-Gault) 73.7 Glucose Level 313 mg/dL (70-99) Calcium Level 9.3 mg/dL (8.5-10.1) Phosphorus Level 4.5 mg/dL (2.6-4.7) Magnesium Level 2.1 mg/dL (1.8-2.4) Test 11/25/19 19:41 11/25/19 23:40 11/26/19 04:45 11/26/19 06:09 Glucose (Fingerstick) 339 mg/dL (70-99) 321 mg/dL (70-99) 372 mg/dL (70-99) Sodium Level 138 mmol/L (136-145) Potassium Level 4.2 mmol/L (3.5-5.1) Chloride Level 101 mmol/L (98-107) Carbon Dioxide Level 25 mmol/L (21-32) Anion Gap 12 (6-14) Blood Urea Nitrogen 15 mg/dL (7-20) Creatinine 0.7 mg/dL (0.6-1.0) Estimated GFR (Cockcroft-Gault) 85.9 BUN/Creatinine Ratio 21 (6-20) Glucose Level 341 mg/dL (70-99) Calcium Level 9.4 mg/dL (8.5-10.1) Phosphorus Level 5.0 mg/dL (2.6-4.7) Magnesium Level 2.3 mg/dL (1.8-2.4) Total Bilirubin 0.2 mg/dL (0.2-1.0) Aspartate Amino Transf (AST/SGOT) 12 U/L (15-37) Alanine Aminotransferase (ALT/SGPT) 19 U/L (14-59) Alkaline Phosphatase 95 U/L (46-116) Total Protein 7.2 g/dL (6.4-8.2) Albumin 3.0 g/dL (3.4-5.0) Albumin/Globulin Ratio 0.7 (1.0-1.7) Triglycerides Level 233 mg/dL (0-150) Laboratory Tests Test 11/25/19 11:04 11/25/19 18:31 11/25/19 19:41 11/25/19 23:40 Glucose (Fingerstick) 245 mg/dL (70-99) 401 mg/dL (70-99) 339 mg/dL (70-99) 321 mg/dL (70-99) Test 11/26/19 04:45 11/26/19 06:09 Sodium Level 138 mmol/L (136-145) Potassium Level 4.2 mmol/L (3.5-5.1) Chloride Level 101 mmol/L (98-107) Carbon Dioxide Level 25 mmol/L (21-32) Anion Gap 12 (6-14) Blood Urea Nitrogen 15 mg/dL (7-20) Creatinine 0.7 mg/dL (0.6-1.0) Estimated GFR (Cockcroft-Gault) 85.9 BUN/Creatinine Ratio 21 (6-20) Glucose Level 341 mg/dL (70-99) Calcium Level 9.4 mg/dL (8.5-10.1) Phosphorus Level 5.0 mg/dL (2.6-4.7) Magnesium Level 2.3 mg/dL (1.8-2.4) Total Bilirubin 0.2 mg/dL (0.2-1.0) Aspartate Amino Transf (AST/SGOT) 12 U/L (15-37) Alanine Aminotransferase (ALT/SGPT) 19 U/L (14-59) Alkaline Phosphatase 95 U/L (46-116) Total Protein 7.2 g/dL (6.4-8.2) Albumin 3.0 g/dL (3.4-5.0) Albumin/Globulin Ratio 0.7 (1.0-1.7) Triglycerides Level 233 mg/dL (0-150) Glucose (Fingerstick) 372 mg/dL (70-99) Problem List Problems Medical Problems: (1) Dehydration Status: Acute (2) Hyperglycemia Status: Acute (3) Pancreatitis, acute Status: Acute Assessment/Plan improved no surgical recs Justicifation of Admission Dx: Justifications for Admission: Justification of Admission Dx: Yes ALBA ANDERSON APRN Nov 26, 2019 10:42
[2019-11-26 10:59] VITALS: BP 147/72
[2019-11-26] MEDS: IV RINGERS,LACTATED 1000ML 1,000 ML IV SCH (12:10)
[2019-11-26 14:30] VITALS: BP 125/69
[2019-11-26] MEDS: ENOXAPARIN 40 MG/0.4 ML SYRINGE. SQ SCH (15:00)
--- NOTE | 2019-11-26 17:46 | PDOC ---
PROGRESS NOTES Chief Complaint Chief Complaint impression Acute pancreatitis - likely 2/2 hyper-triglyceridemia. 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 Dr. Sykes talked to [facility] rheumatology concern that MTX could play a role as well. Hold dosing for leukopenia 6/2 ct Progression of findings of acute pancreatitis. Pancreatic enhancement pattern is slightly heterogeneous but no definable nonenhancing component to suggest liquefactive necrosis at this time. In addition, there is been substantial increase in left lateral peripancreatic fluid which extends laterally to the left in the region of the lateral conal and renal fascia,and dissects distally into the left pelvis. This could be infected fluid, but does not appear to be an encapsulated collection. Duodenal and jejunal intraluminal lipomas Hypertriglyceridemia - will need outpatient Endocrinology referral for cholesterol metabolism treatment, I have suggested prescription 2g TID fish oil (Vascepa or Lovaza) in the meantime once pancreatitis resolves Hyponatremia DM2 with Hyperglycemia - A1c 13.6. Should continue on insulin therapy until A1c < 8, then consider PO options. Would probably have to avoid GLP1 therapy given her pancreatitis. Would defer to an power systems engineer for this. 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 Hyperglycemia secondary to high-dose steroids FEN -patient on TPN and due to high-dose steroids requiring insulin for hyperglycemia PPX - lovenox FULL CODE DIspo - inpatient for pancreatitis recovery TPN until pain/nausea resolve with worsening pancreatitis. heme consult noted and appreciated Advance diet as tolerated History of Present Illness History of Present Illness Ms Fernandez is a 59yo F [employer] w/ PMHx celiac disease, adult onset stills disease, Anemia, Asthma, CHERIE on CPAP, GERD who presents with severe upper abdominal pain, nausea, vomiting, fatigue. 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 She only had oatmeal for breakfast. She has never had anything similar to this in the past. She generally feels unw ell. She is not had any fever, diarrhea, chest pain, shortness of breath, dysuria, hematuria, blood in her stools. She denies alcohol abuse. Pain does not move anywhere. Nothing seems to make it better or worse. She has not tried anything at home. He does not drink alcohol, and is status post cholecystectomy. No calcium disorders. She takes 20mg methotrexate weekly on Fridays and is on 3 mg of chronic prednisone for her stills disease. She was diagnosed with celiac disease June 2019 and has just recently started on a gluten-free diet. No recent sick contacts that she can recall. Labs significant for lipase 17385, glucose 477, NA 129, bilirubin 1.1, Calcium 8.3, K 3.7, WBC 6.3, Hb 15, Platelets 247 CT abdomen pelvis shows surgically absent gallbladder and surgically absent uterus and describes duodenal and jejunal intraluminal lipomas. Findings of acute pancreatitis. No loculated collections. No biliary dilatation. Admitted for further treatment. 11/13: Lipase down. A1c 13.6, Triglycerides 3252. Started on insulin gtt. 11/14: Abdominal pain and glucose improved. Having ice chips per GI. Afebrile. No CP or SOB. D/w [facility] rheumatology, to hold MTX therapy on 11/15 given her leukopenia and pancreatitis. 11/15: Overnight afebrile. Labs improved. Still with left-sided abdominal pain. WBC 1.8. She notes she had not previously had a formal diagnosis of diabetes. No CP or SOB 11/16: Pain improved, advancing diet per GI lipase 328. WBC 2, K2.6, MG 1.4 11/17: Afebrile overnight. Still with abdominal pain, no CP or SOB 11/18: Patient continues to have discomfort especially when she has a diet no fever or chills were reported nevertheless she says that she woke up drenched in sweat in the middle of night, no other complaints were reported overnight, plan of care discussed in detail 11/19: Patient will continue to have bowel rest in light of her CT from yesterday. No new complaints. 11/23: Recommendations from Oncology greatly appreciated, continues to have pain, no other new complaints, she is tolerating some clear liquids continues to be on TPN 11/24: Laboratory data reviewed with the patient and reassurance provided. White blood cell count noted now on normal levels. Her pain seems to have improved today as well and is requesting a little bit more solid food. We will certainly try this in order to hopefully discharge in the next 48 to 72 hours once she finishes high-dose steroids recommended by our market intelligence consultant. We will try to also touch base with Dr. Hale her oncologist to update her in keep her also informed Vitals Vitals Vital Signs Date Time Temp Pulse Resp B/P (MAP) Pulse Ox O2 Delivery O2 Flow Rate FiO2 11/26/19 14:30 98.1 85 18 125/69 (87) 97 Room Air 98.1 11/26/19 08:30 2.0 Physical Exam Physical Exam GENERAL: Propped up in bed, alert, relaxed HEENT: Oral cavity pink, no thrush/lesions seen NECK: Supple. LUNGS: Clear, nonlabored HEART: S1, S2 regular. ABDOMEN: Nondistended, soft, nontender, no rebound, BS present EXTREMITIES: No edema, cyanosis. SKIN: warm to touch. No signs of rash NEUROLOGIC: Alert, oriented x 3, No focal neurologic deficit. RUE-PICC (11/21) clean General: Alert, Oriented X3, Cooperative Heart: Regular rate Lungs: Clear Abdomen: Soft, No tenderness Extremities: No clubbing, No cyanosis Skin: No rashes Labs LABS Laboratory Tests Test 11/25/19 18:31 11/25/19 19:41 11/25/19 23:40 11/26/19 04:45 Glucose (Fingerstick) 401 mg/dL (70-99) 339 mg/dL (70-99) 321 mg/dL (70-99) Sodium Level 138 mmol/L (136-145) Potassium Level 4.2 mmol/L (3.5-5.1) Chloride Level 101 mmol/L (98-107) Carbon Dioxide Level 25 mmol/L (21-32) Anion Gap 12 (6-14) Blood Urea Nitrogen 15 mg/dL (7-20) Creatinine 0.7 mg/dL (0.6-1.0) Estimated GFR (Cockcroft-Gault) 85.9 BUN/Creatinine Ratio 21 (6-20) Glucose Level 341 mg/dL (70-99) Calcium Level 9.4 mg/dL (8.5-10.1) Phosphorus Level 5.0 mg/dL (2.6-4.7) Magnesium Level 2.3 mg/dL (1.8-2.4) Total Bilirubin 0.2 mg/dL (0.2-1.0) Aspartate Amino Transf (AST/SGOT) 12 U/L (15-37) Alanine Aminotransferase (ALT/SGPT) 19 U/L (14-59) Alkaline Phosphatase 95 U/L (46-116) Total Protein 7.2 g/dL (6.4-8.2) Albumin 3.0 g/dL (3.4-5.0) Albumin/Globulin Ratio 0.7 (1.0-1.7) Triglycerides Level 233 mg/dL (0-150) Test 11/26/19 06:09 11/26/19 11:40 11/26/19 16:44 Glucose (Fingerstick) 372 mg/dL (70-99) 372 mg/dL (70-99) 236 mg/dL (70-99) Assessment and Plan Assessmemt and Plan Problems Medical Problems: (1) Dehydration Status: Acute (2) Hyperglycemia Status: Acute (3) Pancreatitis, acute Status: Acute Comment Review of Relevant I have reviewed the following items diann (where applicable) has been applied. Labs Laboratory Tests Test 11/24/19 20:45 11/24/19 22:21 11/25/19 05:34 11/25/19 07:00 Glucose (Fingerstick) 370 mg/dL (70-99) 383 mg/dL (70-99) 322 mg/dL (70-99) White Blood Count 5.7 x10^3/uL (4.0-11.0) Red Blood Count 4.28 x10^6/uL (3.50-5.40) Hemoglobin 11.8 g/dL (12.0-15.5) Hematocrit 35.8 % (36.0-47.0) Mean Corpuscular Volume 84 fL (79-100) Mean Corpuscular Hemoglobin 28 pg (25-35) Mean Corpuscular Hemoglobin Concent 33 g/dL (31-37) Red Cell Distribution Width 15.2 % (11.5-14.5) Platelet Count 367 x10^3/uL (140-400) Neutrophils (%) (Auto) 79 % (31-73) Lymphocytes (%) (Auto) 12 % (24-48) Monocytes (%) (Auto) 9 % (0-9) Eosinophils (%) (Auto) 0 % (0-3) Basophils (%) (Auto) 0 % (0-3) Neutrophils # (Auto) 4.5 x10^3/uL (1.8-7.7) Lymphocytes # (Auto) 0.7 x10^3/uL (1.0-4.8) Monocytes # (Auto) 0.5 x10^3/uL (0.0-1.1) Eosinophils # (Auto) 0.0 x10^3/uL (0.0-0.7) Basophils # (Auto) 0.0 x10^3/uL (0.0-0.2) Sodium Level 137 mmol/L (136-145) Potassium Level 4.1 mmol/L (3.5-5.1) Chloride Level 100 mmol/L (98-107) Carbon Dioxide Level 26 mmol/L (21-32) Anion Gap 11 (6-14) Blood Urea Nitrogen 11 mg/dL (7-20) Creatinine 0.8 mg/dL (0.6-1.0) Estimated GFR (Cockcroft-Gault) 73.7 Glucose Level 313 mg/dL (70-99) Calcium Level 9.3 mg/dL (8.5-10.1) Phosphorus Level 4.5 mg/dL (2.6-4.7) Magnesium Level 2.1 mg/dL (1.8-2.4) Test 11/25/19 11:04 11/25/19 18:31 11/25/19 19:41 11/25/19 23:40 Glucose (Fingerstick) 245 mg/dL (70-99) 401 mg/dL (70-99) 339 mg/dL (70-99) 321 mg/dL (70-99) Test 11/26/19 04:45 11/26/19 06:09 11/26/19 11:40 11/26/19 16:44 Sodium Level 138 mmol/L (136-145) Potassium Level 4.2 mmol/L (3.5-5.1) Chloride Level 101 mmol/L (98-107) Carbon Dioxide Level 25 mmol/L (21-32) Anion Gap 12 (6-14) Blood Urea Nitrogen 15 mg/dL (7-20) Creatinine 0.7 mg/dL (0.6-1.0) Estimated GFR (Cockcroft-Gault) 85.9 BUN/Creatinine Ratio 21 (6-20) Glucose Level 341 mg/dL (70-99) Calcium Level 9.4 mg/dL (8.5-10.1) Phosphorus Level 5.0 mg/dL (2.6-4.7) Magnesium Level 2.3 mg/dL (1.8-2.4) Total Bilirubin 0.2 mg/dL (0.2-1.0) Aspartate Amino Transf (AST/SGOT) 12 U/L (15-37) Alanine Aminotransferase (ALT/SGPT) 19 U/L (14-59) Alkaline Phosphatase 95 U/L (46-116) Total Protein 7.2 g/dL (6.4-8.2) Albumin 3.0 g/dL (3.4-5.0) Albumin/Globulin Ratio 0.7 (1.0-1.7) Triglycerides Level 233 mg/dL (0-150) Glucose (Fingerstick) 372 mg/dL (70-99) 372 mg/dL (70-99) 236 mg/dL (70-99) Laboratory Tests Test 11/25/19 18:31 11/25/19 19:41 11/25/19 23:40 11/26/19 04:45 Glucose (Fingerstick) 401 mg/dL (70-99) 339 mg/dL (70-99) 321 mg/dL (70-99) Sodium Level 138 mmol/L (136-145) Potassium Level 4.2 mmol/L (3.5-5.1) Chloride Level 101 mmol/L (98-107) Carbon Dioxide Level 25 mmol/L (21-32) Anion Gap 12 (6-14) Blood Urea Nitrogen 15 mg/dL (7-20) Creatinine 0.7 mg/dL (0.6-1.0) Estimated GFR (Cockcroft-Gault) 85.9 BUN/Creatinine Ratio 21 (-20) Glucose Level 341 mg/dL (70-99) Calcium Level 9.4 mg/dL (8.5-10.1) Phosphorus Level 5.0 mg/dL (2.6-4.7) Magnesium Level 2.3 mg/dL (1.8-2.4) Total Bilirubin 0.2 mg/dL (0.2-1.0) Aspartate Amino Transf (AST/SGOT) 12 U/L (15-37) Alanine Aminotransferase (ALT/SGPT) 19 U/L (14-59) Alkaline Phosphatase 95 U/L (46-116) Total Protein 7.2 g/dL (6.4-8.2) Albumin 3.0 g/dL (3.4-5.0) Albumin/Globulin Ratio 0.7 (1.0-1.7) Triglycerides Level 233 mg/dL (0-150) Test 11/26/19 06:09 11/26/19 11:40 11/26/19 16:44 Glucose (Fingerstick) 372 mg/dL (70-99) 372 mg/dL (70-99) 236 mg/dL (70-99) Medications Current Medications Iohexol (Omnipaque 300 Mg/ml) 75 ml 1X ONCE IV Last administered on 11/13/19at 11:30; Start 11/13/19 at 11:30; Stop 11/13/19 at 11:31; Status DC Iohexol (Omnipaque 240 Mg/ml) 50 ml 1X ONCE PO Last administered on 11/13/19at 11:30; Start 11/13/19 at 11:30; Stop 11/13/19 at 11:31; Status DC Info (CONTRAST GIVEN -- Rx MONITORING) 1 each PRN DAILY PRN MC SEE COMMENTS; Start 11/13/19 at 11:30; Stop 11/15/19 at 11:29; Status DC Sodium Chloride 1,000 ml @ 0 mls/hr 1X ONCE IV Last administered on 11/13/19at 12:27; Start 11/13/19 at 12:15; Stop 11/13/19 at 12:16; Status DC Morphine Sulfate (Morphine Sulfate) 5 mg 1X ONCE IV Last administered on at 12:45; Start 11/13/19 at 12:30; Stop 11/13/19 at 12:33; Status DC Morphine Sulfate (Morphine Sulfate) 5 mg 1X ONCE IV ; Start 11/13/19 at 13:45; Stop 11/13/19 at 13:46; Status DC Morphine Sulfate (Morphine Sulfate) 4 mg PRN Q2HR PRN IV MODERATE TO SEVERE PAIN Last administered on 11/15/19at 16:18; Start 11/13/19 at 14:45; Stop 11/19/19 at 10:23; Status DC Sodium Chloride 1,000 ml @ 100 mls/hr Q10H IV Last administered on 11/19/19at 08:27; Start 11/13/19 at 14:44; Stop 11/19/19 at 10:23; Status DC Ondansetron HCl (Zofran) 4 mg PRN Q4HRS PRN IV NAUSEA/VOMITING Last administered on 11/20/19at 14:06; Start 11/13/19 at 14:45 Acetaminophen (Tylenol Supp) 650 mg PRN Q4HRS PRN OK TEMP OVER 100.4F OR MILD PAIN; Start 11/13/19 at 14:45 Enoxaparin Sodium (Lovenox 40mg Syringe) 40 mg Q24H SQ Last administered on 11/23/19at 14:13; Start 11/13/19 at 15:00 Insulin Human Lispro (HumaLOG) 0-9 UNITS Q4HRS SQ Last administered on 11/17/19at 18:15; Start 11/13/19 at 16:00; Stop 11/17/19 at 19:32; Status DC Dextrose (Dextrose 50%-Water Syringe) 12.5 gm PRN Q15MIN PRN IV SEE COMMENTS; Start 11/13/19 at 14:45; Stop 11/23/19 at 13:20; Status DC Albuterol Sulfate (Ventolin Neb Soln) 3 mg PRN QID PRN NEB SHORTNESS OF BREATH; Start 11/13/19 at 15:15 Sodium Chloride (Saline Mist Nasal) 1 mago PRN Q1HR PRN NS NASAL CONGESTION; Start 11/13/19 at 15:15 Methylprednisolone Sodium Succinate (SOLU-Medrol 40MG VIAL) 40 mg DAILY IV Last administered on 11/15/19at 08:21; Start 11/13/19 at 15:15; Stop 11/15/19 at 13:44; Status DC Insulin Human Regular 100 unit/ Sodium Chloride 101 ml @ 0 mls/hr CONT PRN IV SEE I/O RECORD Last administered on 11/14/19at 02:12; Start 11/13/19 at 18:00; Stop 11/26/19 at 12:54; Status DC Fentanyl Citrate (Fentanyl 2ml Vial) 50 mcg PRN Q2HR PRN IVP MOD TO SEVERE PAIN, 2ND CHOICE Last administered on 11/22/19 16:21; Start 11/14/19 at 11:45 Famotidine (Pepcid Vial) 20 mg QHS IVP Last administered on 11/18/19at 22:14; Start 11/15/19 at 21:00; Stop 11/19/19 at 10:21; Status DC Prednisone (Prednisone) 3 mg DAILY PO Last administered on 11/26/19at 09:53; Start 11/16/19 at 09:00 Potassium Chloride/Water 100 ml @ 100 mls/hr Q1H IV Last administered on 11/17/19at 15:22; Start 11/17/19 at 11:00; Stop 11/17/19 at 14:59; Status DC Potassium Chloride (Klor-Con) 40 meq 1X ONCE PO Last administered on 11/17/19 11:01; Start 11/17/19 at 10:15; Stop 11/17/19 at 10:22; Status DC Tramadol HCl (Ultram) 50 mg PRN Q6HRS PRN PO MODERATE PAIN 4-6 Last administered on 11/20/19 06:08; Start 11/17/19 at 10:15 Oxycodone HCl (Roxicodone) 5 mg PRN Q6HRS PRN PO SEVERE PAIN 7-10 Last administered on 11/17/19 11:08; Start 11/17/19 at 10:15; Stop 11/17/19 at 15: 30; Status DC Magnesium Sulfate 100 ml @ 25 mls/hr 1X ONCE IV Last administered on 11/17/19 11:06; Start 11/17/19 at 11:00; Stop 11/17/19 at 14:59; Status DC Magnesium Hydroxide (Milk Of Magnesia) 2,400 mg PRN DAILY PRN PO CONSTIPATION 2ND CHOICE; Start 11/17/19 at 15:30 Psyllium Hydrophilic Mucilloid (Metamucil Fiber Packet) 1 pkt DAILY PO Last administered on 11/24/19 10:29; Start 11/17/19 at 15:30 Polyethylene Glycol (miraLAX PACKET) 17 gm DAILY PO Last administered on 11/24/19 10:29; Start 11/17/19 at 15:30 Oxycodone HCl (Roxicodone) 5 mg PRN Q4HRS PRN PO SEVERE PAIN 7-10 Last administered on 11/24/19at 10:30; Start 11/17/19 at 15:30 Insulin Human Lispro (HumaLOG) 0-9 UNITS TIDWMEALHC SQ Last administered on 11/19/19at 17:14; Start 11/17/19 at 19:30; Stop 11/23/19 at 06:31; Status DC Famotidine (Pepcid) 20 mg QHS PO Last administered on 11/19/19at 20:57; Start 11/19/19 at 21:00; Stop 11/20/19 at 10:56; Status DC Iohexol (Omnipaque 300 Mg/ml) 75 ml 1X ONCE IV Last administered on 11/19/19 11:45; Start 11/19/19 at 11:45; Stop 11/19/19 at 11:46; Status DC Info (CONTRAST GIVEN -- Rx MONITORING) 1 each PRN DAILY PRN MC SEE COMMENTS; Start 11/19/19 at 11:45; Stop 11/21/19 at 11:44; Status DC Ringer's Solution 1,000 ml @ 75 mls/hr [id number] IV Last administered on 11/22/19at 01:53; Start 11/20/19 at 09:30 Potassium Chloride/Water 100 ml @ 100 mls/hr Q1H IV Last administered on 11/20/19at 21:27; Start 11/20/19 at 10:00; Stop 11/20/19 at 21:59; Status DC Famotidine (Pepcid Vial) 20 mg QHS IVP Last administered on 11/25/19at 22:11; Start 11/20/19 at 21:00; Stop 11/26/19 at 10:40; Status DC Bisacodyl (Dulcolax Supp) 10 mg PRN DAILY PRN OK CONSTIPATION; Start 11/20/19 at 11:00 Leucovorin Calcium (Wellcovorin) 5 mg DAILY PO Last administered on 11/21/19at 09:53; Start 11/21/19 at 10:00; Stop 11/22/19 at 09:24; Status DC Info (Tpn Per Pharmacy) 1 each PRN DAILY PRN MC SEE COMMENTS Last administered on 11/25/19at 11:32; Start 11/21/19 at 12:00; Stop 11/26/19 at 13:26; Status DC Potassium Chloride/Water 100 ml @ 100 mls/hr Q1H IV Last administered on 11/22/19at 01:53; Start 11/21/19 at 20:00; Stop 11/21/19 at 23:59; Status DC Leucovorin Calcium (Wellcovorin) 15 mg Q8HRS PO Last administered on 11/26/19at 14:26; Start 11/22/19 at 10:00 Lidocaine HCl (Buffered Lidocaine 1%) 3 ml 1X ONCE INJ ; Start 11/22/19 at 12:00; Stop 11/22/19 at 12:01; Status DC Lidocaine HCl (Buffered Lidocaine 1%) 3 ml STK-MED ONCE .ROUTE ; Start 11/22/19 at 11:58; Stop 11/22/19 at 11:59; Status DC Sodium Chloride 90 meq/Potassium Chloride 50 meq/ Potassium Phosphate 13.6 mmol/Magnesium Sulfate 10 meq/ Calcium Gluconate 10 meq/ Multivitamins 10 ml/Chromium/ Copper/Manganese/ Seleni/Zn 1 ml/ Total Parenteral Nutrition/Amino Acids/Dextrose/ Fat Emulsion Intravenous 1,512 ml @ 63 mls/hr TPN CONT IV Last administered on 11/22/19at 22:12; Start 11/22/19 at 22:00; Stop 11/23/19 at 21:59; Status DC Magnesium Sulfate/ Dextrose 100 ml @ 100 mls/hr 1X ONCE IV Last administered on 11/22/19at 16:16; Start 11/22/19 at 16:00; Stop 11/22/19 at 16:59; Status DC Insulin Human Lispro (HumaLOG) 0-5 UNITS TIDWMEALS SQ ; Start 11/23/19 at 08:00; Status Cancel Dextrose (Dextrose 50%-Water Syringe) 12.5 gm PRN Q15MIN PRN IV SEE COMMENTS; Start 11/23/19 at 07:45; Status Cancel Insulin Human Lispro (HumaLOG) 0-7 UNITS TIDWMEALS SQ ; Start 11/23/19 at 08:00; Stop 11/23/19 at 08:00; Status DC Dextrose (Dextrose 50%-Water Syringe) 12.5 gm PRN Q15MIN PRN IV SEE COMMENTS; Start 11/23/19 at 08:00; Status Cancel Insulin Human Lispro (HumaLOG) 0-9 UNITS TIDWMEALS SQ Last administered on 11/24/19at 17:21; Start 11/23/19 at 08:00; Stop 11/24/19 at 23:09; Status DC Dextrose (Dextrose 50%-Water Syringe) 12.5 gm PRN Q15MIN PRN IV SEE COMMENTS; Start 11/23/19 at 08:00; Stop 11/23/19 at 13:17; Status DC Potassium Chloride (Klor-Con) 40 meq 1X ONCE PO Last administered on 11/23/19at 11:03; Start 11/23/19 at 10:45; Stop 11/23/19 at 10:46; Status DC Potassium Chloride (Klor-Con) 20 meq DAILYWBKFT PO Last administered on 11/26/19at 09:54; Start 11/24/19 at 08:00 Magnesium Sulfate 50 ml @ 25 mls/hr 1X ONCE IV Last administered on 11/23/19at 11:04; Start 11/23/19 at 10:45; Stop 11/23/19 at 12:44; Status DC Dextrose (Dextrose 50%-Water Syringe) 12.5 gm PRN Q15MIN PRN IV SEE COMMENTS; Start 11/23/19 at 13:30 Sodium Chloride 90 meq/Potassium Chloride 70 meq/ Potassium Phosphate 13.6 mmol/Magnesium Sulfate 18 meq/ Calcium Gluconate 10 meq/ Multivitamins 10 ml/Chromium/ Copper/Manganese/ Seleni/Zn 1 ml/ Total Parenteral Nutrition/Amino Acids/Dextrose/ Fat Emulsion Intravenous 1,512 ml @ 63 mls/hr TPN CONT IV Last administered on 11/23/19at 22:02; Start 11/23/19 at 22:00; Stop 11/24/19 at 21:59; Status DC Methylprednisolone Sodium Succinate (SOLU-Medrol 125MG VIAL) 1,000 mg DAILY08 IV ; Start 11/24/19 at 08:00; Stop 11/26/19 at 07:59; Status UNV Methylprednisolone Sodium Succinate 1000 mg/Sodium Chloride 100 ml @ 100 mls/hr Q24H IV Last administered on 11/25/19at 10:14; Start 11/24/19 at 08:00; Stop at 07:59; Status DC Sodium Chloride 90 meq/Potassium Chloride 70 meq/ Potassium Phosphate 13.6 mmol/Magnesium Sulfate 18 meq/ Calcium Gluconate 10 meq/ Multivitamins 10 ml/Chromium/ Copper/Manganese/ Seleni/Zn 1 ml/ Total Parenteral Nutrition/Amino Acids/Dextrose/ Fat Emulsion Intravenous 1,512 ml @ 63 mls/hr TPN CONT IV Last administered on 11/24/19at 22:12; Start 11/24/19 at 22:00; Stop 11/25/19 at 21:59; Status DC Insulin Glargine (Lantus Syringe) 15 unit QHS SQ Last administered on 11/25/19at 00:01; Start 11/24/19 at 23:30; Stop 11/25/19 at 07:33; Status DC Insulin Human Lispro (HumaLOG) 0-9 UNITS Q6HRS SQ Last administered on 11/26/19at 12:31; Start 11/24/19 at 23:30 Dextrose (Dextrose 50%-Water Syringe) 12.5 gm PRN Q15MIN PRN IV SEE COMMENTS; Start 11/24/19 at 23:15; Status Cancel Insulin Glargine (Lantus Syringe) 10 unit Q12H SQ Last administered on 11/26/19at 10:01; Start 11/25/19 at 09:00 Sodium Chloride 90 meq/Potassium Chloride 70 meq/ Potassium Phosphate 13.6 mmol/Magnesium Sulfate 18 meq/ Calcium Gluconate 10 meq/ Multivitamins 10 ml/Chromium/ Copper/Manganese/ Seleni/Zn 1 ml/ Total Parenteral Nutrition/Amino Acids/Dextrose/ Fat Emulsion Intravenous 1,512 ml @ 63 mls/hr TPN CONT IV Last administered on 11/25/19at 22:12; Start 11/25/19 at 22:00; Stop 11/26/19 at 21:59 Insulin Human Lispro (HumaLOG) 3 units 1X ONCE SQ Last administered on 11/25/19at 18:54; Start 11/25/19 at 18:45; Stop 11/25/19 at 18:46; Status DC Famotidine (Pepcid) 20 mg QHS PO ; Start 11/26/19 at 21:00 Active Scripts Active Reported Zyrtec (Cetirizine Hcl) 10 Mg Capsule 10 Mg PO DAILY Methotrexate (Methotrexate Sodium) 2.5 Mg Tablet 8 Tab PO WEEKLY Protonix (Pantoprazole Sodium) 40 Mg Tablet.dr 40 Mg PO DAILYAC Folic Acid 0.8 Mg Capsule 1 Cap PO DAILY 30 Days Ferrous Sulfate 325 Mg Tablet 1 Tab PO DAILY Vitals/I & O Vital Sign - Last 24 Hours 11/25/19 11/25/19 11/25/19 11/26/19 19:30 22:30 23:10 03:00 Temp 97.5 97.6 97.8 97.5 97.6 97.8 Pulse 76 67 75 Resp 20 20 20 B/P (MAP) 142/77 (98) 144/75 (98) 137/65 (89) Pulse Ox 95 96 97 O2 Delivery Room Air Room Air Room Air Nasal Cannula O2 Flow Rate 2.0 11/26/19 11/26/19 11/26/19 11/26/19 07:00 08:30 10:59 14:30 Temp 98.0 97.8 98.1 98.0 97.8 98.1 Pulse 70 69 85 Resp 18 18 18 B/P (MAP) 151/76 (101) 147/72 (97) 125/69 (87) Pulse Ox 96 99 97 O2 Delivery Room Air Room Air Room Air Room Air O2 Flow Rate 2.0 Intake and Output 11/25/19 11/25/19 11/26/19 15:00 23:00 07:00 Intake Total 600 ml 300 ml Balance 600 ml 300 ml Nutrition Consultation Dietary Evaluation: Recommendations by RD: Dietary education by RD Comments: REC continue nutrition care order Expected Outcomes/Goals: to meet >75% est nutr needs via po intake Malnutrition Findings: Food and Nutrition Intake (Mod: <75% est energy req 7days Weight Status: Appropriate Hemodynamically unstable?: No Is patient in severe pain?: No Is NPO status required?: No ERIC LEGGETT MD Nov 26, 2019 17:46
[2019-11-26 19:00] VITALS: BP 121/62
[2019-11-26] MEDS ORDERED: FAMOTIDINE 20 MG TABLET. PO SCH (21:00)
[2019-11-26 23:00] VITALS: BP 144/76
--- NOTE | 2019-11-27 | NUR ---
blood sugar per accucheck not done. TPN stopped at 2230.
[2019-11-27] MEDS: IV RINGERS,LACTATED 1000ML 1,000 ML IV SCH (01:30)
[2019-11-27 03:00] VITALS: BP 124/69
[2019-11-27] MEDS: INSULIN LISPRO 300 UNITS/3 ML VIAL. SQ SCH ×2 (06:00)
[2019-11-27 07:00] VITALS: BP 107/64
[2019-11-27] MEDS: LEUCOVORIN CALCIUM 5 MG TABLET PO SCH (07:02)
--- NOTE | 2019-11-27 08:07 | PDOC3 ---
Discharge Summary Visit Information Date of Admission: November 13, 2019 Date of Discharge: Nov 27, 2019 Final Diagnosis Acute pancreatitis - likely 2/2 hyper-triglyceridemia. 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 Dr. Sykes talked to [facility] rheumatology concern that MTX could play a role as well. Hold dosing for leukopenia /2 ct Progression of findings of acute pancreatitis. Pancreatic enhancement pattern is slightly heterogeneous but no definable nonenhancing component to suggest liquefactive necrosis at this time. In addition, there is been substantial increase in left lateral peripancreatic fluid which extends laterally to the left in the region of the lateral conal and renal fascia,and dissects distally into the left pelvis. This could be infected fluid, but does not appear to be an encapsulated collection. Duodenal and jejunal intraluminal lipomas Hypertriglyceridemia - will need outpatient Endocrinology referral for cholesterol metabolism treatment, I have suggested prescription 2g TID fish oil (Vascepa or Lovaza) in the meantime once pancreatitis resolves Hyponatremia DM2 with Hyperglycemia - A1c 13.6. Should continue on insulin therapy until A1c < 8, then consider PO options. Would probably have to avoid GLP1 therapy given her pancreatitis. Would defer to an stick inserter for this. 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 Hyperglycemia secondary to high-dose steroids Problems Medical Problems: (1) Dehydration Status: Acute (2) Hyperglycemia Status: Acute (3) Pancreatitis, acute Status: Acute Brief Hospital Course Allergies Allergies Coded Allergies Type Severity Reaction Last Updated Verified coconut Allergy Intermediate HIVES 11/13/19 Yes Vital Signs Vital Signs Date Time Temp Pulse Resp B/P (MAP) Pulse Ox O2 Delivery O2 Flow Rate FiO2 11/27/19 07:00 97.6 78 18 107/64 (78) 95 Room Air 97.6 11/26/19 08:30 2.0 Lab Results Laboratory Tests Test 11/25/19 11:04 11/25/19 18:31 11/25/19 19:41 11/25/19 23:40 Glucose (Fingerstick) 245 mg/dL (70-99) 401 mg/dL (70-99) 339 mg/dL (70-99) 321 mg/dL (70-99) Test 11/26/19 04:45 11/26/19 06:09 11/26/19 11:40 11/26/19 16:44 Sodium Level 138 mmol/L (136-145) Potassium Level 4.2 mmol/L (3.5-5.1) Chloride Level 101 mmol/L (98-107) Carbon Dioxide Level 25 mmol/L (21-32) Anion Gap 12 (6-14) Blood Urea Nitrogen 15 mg/dL (7-20) Creatinine 0.7 mg/dL (0.6-1.0) Estimated GFR (Cockcroft-Gault) 85.9 BUN/Creatinine Ratio 21 (-20) Glucose Level 341 mg/dL (70-99) Calcium Level 9.4 mg/dL (8.5-10.1) Phosphorus Level 5.0 mg/dL (2.6-4.7) Magnesium Level 2.3 mg/dL (1.8-2.4) Total Bilirubin 0.2 mg/dL (0.2-1.0) Aspartate Amino Transf (AST/SGOT) 12 U/L (15-37) Alanine Aminotransferase (ALT/SGPT) 19 U/L (14-59) Alkaline Phosphatase 95 U/L (46-116) Total Protein 7.2 g/dL (6.4-8.2) Albumin 3.0 g/dL (3.4-5.0) Albumin/Globulin Ratio 0.7 (1.0-1.7) Triglycerides Level 233 mg/dL (0-150) Glucose (Fingerstick) 372 mg/dL (70-99) 372 mg/dL (70-99) 236 mg/dL (70-99) Test 11/26/19 20:44 11/27/19 06:13 Glucose (Fingerstick) 306 mg/dL (70-99) 122 mg/dL (70-99) Laboratory Tests Test 11/26/19 11:40 11/26/19 16:44 11/26/19 20:44 11/27/19 06:13 Glucose (Fingerstick) 372 mg/dL (70-99) 236 mg/dL (70-99) 306 mg/dL (70-99) 122 mg/dL (70-99) Brief Hospital Course Ms Kislia is a 59yo F [employer] w/ PMHx celiac disease, adult onset stills disease, Anemia, Asthma, CHERIE on CPAP, GERD who was dmitted with severe upper ab dominal pain, nausea, vomiting, fatigue. started suddenly on admit, Labs significant for lipase 32552, glucose 477, NA 129, bilirubin 1.1, Calcium 8.3, K 3.7, WBC 6.3, Hb 15, Platelets 247 CT abdomen pelvis shows surgically absent gallbladder and surgically absent uterus and describes duodenal and jejunal intraluminal lipomas. Findings of acute pancreatitis. No loculated collections. No biliary dilatation. NPO, fluids, TPN started and supportive care and she improved over days. lipase down to < 400 on 11/16, still wasnt eating, still pain, Ca-19-9 51, f/u [facility] Discharge Information Condition at Discharge: Improved Follow Up: Weeks Disposition/Orders: D/C to Home Scheduled Cetirizine Hcl (Zyrtec) 10 Mg Capsule, 10 MG PO DAILY for allergy, (Reported) Entered as Reported by: Naveen Zhou on 11/13/191426 Last Action: New Order on 11/13/191426 by Naveen Zhou Famotidine (Famotidine) 20 Mg Tablet, 20 MG PO QHS for GERD, #30 Prescribed by: ERIC LEGGETT on 11/27/1912 Ferrous Sulfate (Ferrous Sulfate) 325 Mg Tablet, 1 TAB PO DAILY for ANEMIA, #30 Ref 3 (Reported) Entered as Reported by: Naveen Zhou on 11/13/191426 Last Action: New Order on 11/13/191426 by Naveen Zhou Folic Acid (Folic Acid) 0.8 Mg Capsule, 1 CAP PO DAILY for supplement for 30 Days, #30 Ref 0 (Reported) Entered as Reported by: Naveen Zhou on 11/13/191426 Last Action: New Order on 11/13/191426 by Naveen Zhou Insulin Aspart (Insulin Aspart Flexpen) 100 Unit/1 Ml Insuln.pen, 4 UNIT SQ TIDAC for diabetes for 30 Days Prescribed by: ERIC LEGGETT on 11/27/19 0812 Insulin Glargine,Hum.rec.anlog (Lantus) 100 Unit/1 Ml Vial, 10 UNIT SQ QHS for diabetes for 30 Days Prescribed by: ERIC LEGGETT on 11/27/19811 Pantoprazole Sodium (Protonix ) 40 Mg Tablet.dr, 40 MG PO DAILYAC for GERD, (Reported) Entered as Reported by: Naveen Zhou on 11/13/191426 Last Action: New Order on 11/13/191426 by Naveen Zhou Prednisone (Prednisone) 1 Mg Tablet, 3 MG PO DAILY for methotrexate reaction for 30 Days, #90 Prescribed by: ERIC LEGGETT on 11/27/19811 Scheduled PRN Polyethylene Glycol 3350 (Polyethylene Glycol 3350) 17 Gm Powd.pack, 17 GM PO DAILY PRN for CONSTIPATION, #30 Prescribed by: ERIC LEGGETT on 11/27/19811 Tramadol Hcl (Tramadol Hcl) 50 Mg Tablet, 50 MG PO PRN Q6HRS PRN for PAIN, #15 Prescribed by: ERIC LEGGETT on 11/27/19811 Discontinued Medications Methotrexate Sodium (Methotrexate) 2.5 Mg Tablet, 8 TAB PO WEEKLY for pain, #32 Ref 2 (Reported) Entered as Reported by: Naveen Zhou on 11/13/191426 Last Taken: Unknown Dose on 11/09/19 Last Action: New Order on 11/13/191426 by Naveen Zhou Patient Instructions Patient Instructions < 30 minutes face to face Justicifation of Admission Dx: Justifications for Admission: Justification of Admission Dx: Yes ERIC LEGGETT MD Nov 27, 2019 08:06
[2019-11-27] MEDS ORDERED: PRED1TAB3 PO (08:12)
[2019-11-27] MEDS ORDERED: POLY17PO28 PO (08:12)
[2019-11-27] MEDS ORDERED: INSU100I53 SQ (08:12)
[2019-11-27] MEDS ORDERED: INSU100V8 SQ (08:12)
[2019-11-27] MEDS ORDERED: TRAM50TA PO (08:12)
[2019-11-27] MEDS ORDERED: FAMO20TA5 PO (08:12)
--- NOTE | 2019-11-27 08:22 | PDOC ---
Infectious Disease Note Subjective: Subjective Patient doing well Tolerating diet well Ambulating in hallway without difficulty Does not require any pain medicationll Denies fever, nausea, vomiting, shortness of breath, diarrhea, abdominal pain, rash Otherwise as above Off PPN Vital Signs: Vital Signs Vital Signs Date Time Temp Pulse Resp B/P (MAP) Pulse Ox O2 Delivery O2 Flow Rate FiO2 11/27/19 07:15 Room Air 11/27/19 07:00 97.6 78 18 107/64 (78) 95 97.6 11/26/19 08:30 2.0 Physical Exam: PHYSICAL EXAM GENERAL: Propped up in bed, alert, relaxed HEENT: Oral cavity pink, no thrush/lesions seen NECK: Supple. LUNGS: Clear, nonlabored HEART: S1, S2 regular. ABDOMEN: Nondistended, soft, nontender, no rebound, BS present EXTREMITIES: No edema, cyanosis. SKIN: warm to touch. No signs of rash NEUROLOGIC: Alert, oriented x 3, No focal neurologic deficit. RUE-PICC (11/21) clean Medications: Inpatient Meds: Current Medications Medications (Trade) Dose Ordered Sig/Devin Start Time Stop Time Status Last Admin Dose Admin Acetaminophen (Tylenol Supp) 650 mg PRN Q4HRS PRN 11/13/19 14:45 Albuterol Sulfate (Ventolin Neb Soln) 3 mg PRN QID PRN 11/13/19 15:15 Bisacodyl (Dulcolax Supp) 10 mg PRN DAILY PRN 11/20/19 11:00 Dextrose (Dextrose 50%-Water Syringe) 12.5 gm PRN Q15MIN PRN 11/24/19 23:15 Cancel Enoxaparin Sodium (Lovenox 40mg Syringe) 40 mg Q24H 11/13/19 15:00 11/23/19 14:13 40 MG Famotidine (Pepcid Vial) 20 mg QHS 11/20/19 21:00 11/26/19 10:40 DC 11/25/19 22:11 20 MG Famotidine (Pepcid) 20 mg QHS 11/26/19 21:00 11/26/19 21:27 20 MG Fentanyl Citrate (Fentanyl 2ml Vial) 50 mcg PRN Q2HR PRN 11/14/19 11:45 11/22/19 16:21 50 MCG Info (CONTRAST GIVEN -- Rx MONITORING) 1 each PRN DAILY PRN 11/19/19 11:45 11/21/19 11:44 DC Info (Tpn Per Pharmacy) 1 each PRN DAILY PRN 11/21/19 12:00 11/26/19 13:26 DC 11/25/19 11:32 1 EACH Insulin Glargine (Lantus Syringe) 10 unit QHS 11/27/19 21:00 Insulin Human Lispro (HumaLOG) 3 units 1X ONCE 11/25/19 18:45 11/25/19 18:46 DC 11/25/19 18:54 3 UNITS Insulin Human Regular 100 unit/ Sodium Chloride 101 ml @ 0 mls/hr CONT PRN 11/13/19 18:00 11/26/19 12:54 DC 11/14/19 02:12 7.4 MLS/HR Iohexol (Omnipaque 240 Mg/ml) 50 ml 1X ONCE 11/13/19 11:30 11/13/19 11:31 DC 11/13/19 11:30 50 ML Iohexol (Omnipaque 300 Mg/ml) 75 ml 1X ONCE 11/19/19 11:45 11/19/19 11:46 DC 11/19/19 11:45 75 ML Leucovorin Calcium (Wellcovorin) 15 mg Q8HRS 11/22/19 10:00 11/27/19 07:02 15 MG Lidocaine HCl (Buffered Lidocaine 1%) 3 ml STK-MED ONCE 11/22/19 11:58 11/22/19 11:59 DC Magnesium Hydroxide (Milk Of Magnesia) 2,400 mg PRN DAILY PRN 11/17/19 15:30 Magnesium Sulfate 50 ml @ 25 mls/hr 1X ONCE 11/23/19 10:45 11/23/19 12:44 DC 11/23/19 11:04 25 MLS/HR Magnesium Sulfate/ Dextrose 100 ml @ 100 mls/hr 1X ONCE 11/22/19 16:00 11/22/19 16:59 DC 11/22/19 16:16 100 MLS/HR Methylprednisolone Sodium Succinate (SOLU-Medrol 40MG VIAL) 40 mg DAILY 11/13/19 15:15 11/15/19 13:44 DC 11/15/19 08:21 40 MG Methylprednisolone Sodium Succinate (SOLU-Medrol 125MG VIAL) 1,000 mg DAILY08 11/24/19 08:00 11/26/19 07:59 UNV Methylprednisolone Sodium Succinate 1000 mg/Sodium Chloride 100 ml @ 100 mls/hr Q24H 11/24/19 08:00 11/26/19 07:59 DC 11/25/19 10:14 100 MLS/HR Morphine Sulfate (Morphine Sulfate) 4 mg PRN Q2HR PRN 11/13/19 14:45 11/19/19 10:23 DC 11/15/19 16:18 4 MG Ondansetron HCl (Zofran) 4 mg PRN Q4HRS PRN 11/13/19 14:45 11/20/19 14:06 4 MG Oxycodone HCl (Roxicodone) 5 mg PRN Q4HRS PRN 11/17/19 15:30 11/24/19 10:30 5 MG Polyethylene Glycol (miraLAX PACKET) 17 gm DAILY 11/17/19 15:30 11/24/19 10:29 17 GM Potassium Chloride/Water 100 ml @ 100 mls/hr Q1H 11/21/19 20:00 11/21/19 23:59 DC 11/22/19 01:53 100 MLS/HR Potassium Chloride (Klor-Con) 20 meq [id number] 11/24/19 08:00 11/26/19 09:54 20 MEQ Prednisone (Prednisone) 3 mg DAILY 11/16/19 09:00 11/26/19 09:53 3 MG Psyllium Hydrophilic Mucilloid (Metamucil Fiber Packet) 1 pkt DAILY 11/17/19 15:30 11/24/19 10:29 1 PKT Ringer's Solution 1,000 ml @ 75 mls/hr [id number] 11/20/19 09:30 11/22/19 01:53 75 MLS/HR Sodium Chloride (Saline Mist Nasal) 1 mago PRN Q1HR PRN 11/13/19 15:15 Sodium Chloride 90 meq/Potassium Chloride 50 meq/ Potassium Phosphate 13.6 mmol/Magnesium Sulfate 10 meq/ Calcium Gluconate 10 meq/ Multivitamins 10 ml/Chromium/ Copper/Manganese/ Seleni/Zn 1 ml/ Total Parenteral Nutrition/Amino Acids/Dextrose/ Fat Emulsion Intravenous 1,512 ml @ 63 mls/hr TPN CONT 11/22/19 22:00 6/5/20 21:59 DC 11/22/19 22:12 63 MLS/HR Sodium Chloride 90 meq/Potassium Chloride 70 meq/ Potassium Phosphate 13.6 mmol/Magnesium Sulfate 18 meq/ Calcium Gluconate 10 meq/ Multivitamins 10 ml/Chromium/ Copper/Manganese/ Seleni/Zn 1 ml/ Total Parenteral Nutrition/Amino Acids/Dextrose/ Fat Emulsion Intravenous 1,512 ml @ 63 mls/hr TPN CONT 11/25/19 22:00 11/26/19 21:59 DC 11/25/19 22:12 63 MLS/HR Tramadol HCl (Ultram) 50 mg PRN Q6HRS PRN 11/17/19 10:15 11/20/19 06:08 50 MG Labs: Lab Laboratory Tests Test 11/26/19 11:40 11/26/19 16:44 11/26/19 20:44 11/27/19 06:13 Glucose (Fingerstick) 372 mg/dL (70-99) 236 mg/dL (70-99) 306 mg/dL (70-99) 122 mg/dL (70-99) Objective: Assessment: 1. Acute pancreatitis, possibly from methotrexate or very high triglycerides, resolving 2. Neutropenia secondary to methotrexate toxicity which has been stopped. started on Leucovorin and G CSF. WBC improved 3. Adult-onset Still's disease. 4. Hypertriglyceridemia 5 on steroids Plan: Plan of Care Patient is clinically improving Continue supportive care MIREYA BLAIR MD Nov 27, 2019 08:22
[2019-11-27] MEDS: PSYLLIUM HUSK (SUGAR FREE) 1 PKT PACKET PO SCH (08:28)
[2019-11-27] MEDS: POTASSIUM CHLORIDE 20 MEQ TABLET.ER. PO SCH (08:28)
[2019-11-27] MEDS: predniSONE 1 MG TABLET PO SCH (08:28)
[2019-11-27] MEDS: POLYETHYLENE GLYCOL 3350 17 GM PACKET. PO SCH (08:28)
--- NOTE | 2019-11-27 09:46 | NUR ---
SW following. Discussed with RN, pt discharging home with self care today. RN advised no SW needs.
--- NOTE | 2019-11-27 10:05 | PDOC ---
Subjective: Subjective: Off TPN, tolerating regular diet. Has a "flash" of pain in LUQ occasionally after eating but does not need pain meds. Objective: Vital Signs: Vital Signs Date Time Temp Pulse Resp B/P (MAP) Pulse Ox O2 Delivery O2 Flow Rate FiO2 11/27/19 07:15 Room Air 11/27/19 07:00 97.6 78 18 107/64 (78) 95 97.6 11/26/19 08:30 2.0 Labs: Laboratory Tests Test 11/26/19 11:40 11/26/19 16:44 11/26/19 20:44 11/27/19 06:13 Glucose (Fingerstick) 372 mg/dL 236 mg/dL 306 mg/dL 122 mg/dL PE: GEN: NAD LUNGS: CTAB HEART: RRR ABD: NABS, S/ND/NT NEURO/PSYCH: A & O 3 A/P: Pancreatitis, hypertriglyceridemia Still's disease, DM, celiac -- Note DC orders - okay per GI. Justicifation of Admission Dx: Justifications for Admission: Justification of Admission Dx: Yes SHIRAZ CABRAL Nov 27, 2019 10:05
--- NOTE | 2019-11-27 10:29 | NUR ---
Pt.discharged to home with rx, verbalized understanding of discharge instructions.
[2019-11-27] MEDS ORDERED: INSULIN GLARGINE SYRINGE. SQ SCH (21:00)
== END 2019-11-27 10:25 | disposition home or self-care (01) | DRG 438 ==
LOC: ER 09:48 → 2 NORTH 13:33 → 4 NORTH 11-14 18:15 → 6 SOUTH 11-23 18:54 → 4 NORTH 11-26 14:11
PROVIDERS: ADMIT Internal Medicine; ATTEND Internal Medicine
PROC: 02HV33Z Insertion of Infusion Device into Superior Vena Cava, Percutaneous Approach (ICD-10-PCS; principal; 2019-11-22)
PROC: B5181ZA Fluoroscopy of Superior Vena Cava using Low Osmolar Contrast, Guidance (ICD-10-PCS; 2019-11-22)
PROC: B548ZZA Ultrasonography of Superior Vena Cava, Guidance (ICD-10-PCS; 2019-11-22)
DX: K85.90 Acute pancreatitis without necrosis or infection, unspecified (principal); E11.01 Type 2 diabetes mellitus with hyperosmolarity with coma; E87.1 Hypo-osmolality and hyponatremia; J98.11 Atelectasis; E78.1 Pure hyperglyceridemia; D17.9 Benign lipomatous neoplasm, unspecified; D63.8 Anemia in other chronic diseases classified elsewhere; D70.1 Agranulocytosis secondary to cancer chemotherapy; E11.65 Type 2 diabetes mellitus with hyperglycemia; E86.0 Dehydration; E87.6 Hypokalemia; G47.33 Obstructive sleep apnea (adult) (pediatric); J45.909 Unspecified asthma, uncomplicated; K21.9 Gastro-esophageal reflux disease without esophagitis; K90.0 Celiac disease; M08.20 Juvenile rheumatoid arthritis with systemic onset, unspecified site; T38.0X5A Adverse effect of glucocorticoids and synthetic analogues, initial encounter; T45.1X5A Adverse effect of antineoplastic and immunosuppressive drugs, initial encounter; Z79.4 Long term (current) use of insulin; Z79.52 Long term (current) use of systemic steroids; Z83.3 Family history of diabetes mellitus; Z87.891 Personal history of nicotine dependence; Z90.49 Acquired absence of other specified parts of digestive tract; Z90.710 Acquired absence of both cervix and uterus; Z20.828 Contact with and (suspected) exposure to other viral communicable diseases
CPT/HCPCS: 36415; 36573; 74177; 77001; 80048; 80053; 80061; 81001; 82150; 82728; 82784; 82787; 82962; 83036; 83690; 83735; 84100; 84443; 84478; 85007; 85025; 85027; 85610; 86140; 86301; 94760; 96361; 96374; C1751; C1892; J0610; J1650; J1815; J2270; J2405; J2920; J2930; J3010; J3475; J3480; J3490; J7030; J7120; J7512; Q9966; Q9967; 99285-25; G0378; U0003-CS